=== PATIENT | female | born 1935 | race African-American/Black ===

== ENCOUNTER 2016-06-26 06:32 | Inpatient (IN) | payer OTHER, MEDICARE ==
[~2016-06-26] VITALS: Ht 165.1 cm; Wt 76.9 kg
[2016-06-26] VITALS (17 sets, daily range): BP systolic 116–247; BP diastolic 60–131; PULSE 78–128; RESP 16–26; TEMP 98.4–99.2; O2SAT 81–100
[~2016-06-26 06:32] MED LIST: CARD180C5 PO; DIGO0.12 PO; FURO20TA PO; GLIP10TA6 PO; LISI2.5T3 PO; METO100T PO; POTA-163 PO; PRIM50TA5 PO; ULTR50TA5 PO; WARF-58 PO
[2016-06-26] MEDS ORDERED: DEXTROSE 50% IN WATER 50 ML VIAL(D50) IV PUSH ONE ×2 (07:00→14:45)
[2016-06-26] MEDS ORDERED: SODIUM CHLORID 0.9% 500 ML INJ 500 ML IV ONE ×2 (07:00→10:15)
--- NOTE | 2016-06-26 07:03 | PD ---
HPI Chief Complaint: Diabetic Time Seen by Provider: 06:46 Travel History International Travel<30 days: No Contact w/Intl Traveler<30days: No Traveled to known affect area: No History of Present Illness HPI 80-year-old female was brought to the emergency room by EMS with history of altered mental status and questionable seizure found in the [place] [facility]. Upon EMS arrival blood glucose level was checked and it was 23. They were unable to get a peripheral IV and put an IO in her left leg and started infusing D10 while transporting. Upon arrival in the ER patient's blood glucose was 53. Patient has tremors but she was answering when called her name. As per paramedics patient is probably a full code. The paperwork that came with her from the [place] did not have the "CODE STATUS" checked for anything. PFSH Past Medical History Narrative Medical List of her past medical history as reviewed from the nursing note. Hx Anticoagulant Therapy: Yes (WARFARIN) Anemia: Yes Arthritis: Yes Atrial Fibrillation: Yes Autoimmune Disease: No Blood Disorders: No Anxiety: No Depression: No Heart Rhythm Problems: Yes Cancer: No Cardiovascular Problems: Yes High Cholesterol: Yes Chest Pain: Yes Congestive Heart Failure: Yes Diabetes: Yes Diminished Hearing: No Endocrine: Yes Genitourinary: No Hypertension: Yes Immune Disorder: No Musculoskeletal: Yes Neurologic: No Psychiatric: No Reproductive: No Respiratory: No Immunizations Current: Yes Myocardial Infarction: Yes Thyroid Disease: No PNEUMOCCOCAL Vaccine (Year): 3 Menopausal: Yes : 5 Para: 3 Past Surgical History Abdominal Surgery: Yes ("SOME KIND OF INTENSINTAL REPAIR FOR A TWISTING") AICD: No Cardiac Surgery: No Ear Surgery: No Endocrine Surgery: No Eye Surgery: No Genitourinary Surgery: No Gynecologic Surgery: No Hysterectomy: Yes Pacemaker: No Thoracic Surgery: No Other Surgery: Yes Social History Alcohol Use: No Tobacco Use: No Substance Use: No Allergies-Medications (Allergen,Severity, Reaction): Coded Allergies: No Known Allergies (Verified , 06/26/16) Comments No known drug allergies. Reported Meds & Prescriptions Reported Meds & Active Scripts Active Cardizem CD 24 HR (Diltiazem CD 24 HR) 180 Mg Caper 180 Mg PO DAILY Reported Metoprolol Tartrate 100 Mg Tab 100 Mg PO DAILY Digoxin 0.125 Mg Tab 125 Mcg PO DAILY Warfarin 3 Mg Tab 3 Mg PO DAILY Primidone 50 Mg Tab 50 Mg PO TID Narrative Medication List of her home medications reviewed from the [facility] note. Review of Systems Except as stated in HPI: all other systems reviewed are Neg Physical Exam Narrative GENERAL: Awake but slow in response, elderly, obese, moderate distress SKIN: Warm and dry. HEAD: Atraumatic. Normocephalic. EYES: Pupils equal and round. No scleral icterus. No injection or drainage. ENT: No nasal bleeding or discharge. Dry mouth and mucous membranes NECK: Trachea midline. No JVD. CARDIOVASCULAR: Regular rate and rhythm. No murmur appreciated. RESPIRATORY: No accessory muscle use. Clear to auscultation. Breath sounds equal bilaterally. GASTROINTESTINAL: Abdomen soft, non-tender, nondistended. Hepatic and splenic margins not palpable. MUSCULOSKELETAL: No obvious deformities. No clubbing. No cyanosis. No edema. NEUROLOGICAL: Difficult to assess a full neurologic exam. Patient is slow to respond. Eyes open and answers when her name is called. Fine tremors PSYCHIATRIC: Appropriate mood and affect; insight and judgment normal. Data Data Last Documented VS Vital Signs Date Time Temp Pulse Resp B/P Pulse Ox O2 Delivery O2 Flow Rate FiO2 06/26/16 07:48 113 24 176/110 96 Nasal Cannula 2 06/26/16 06:49 21 06/26/16 06:45 98.4 Orders Complete Blood Count With Diff (06/26/16 06:46) Comprehensive Metabolic Panel (06/26/16 06:46) Prothrombin Time / Inr (Pt) (06/26/16 06:46) Act Partial Throm Time (Ptt) (06/26/16 06:46) Lactic Acid Sepsis Protocol (06/26/16 06:46) Magnesium (Mg) (06/26/16 06:46) Troponin I (06/26/16 06:46) Urinalysis - C+S If Indicated (06/26/16 06:46) Blood Culture (06/26/16 06:46) Chest, Single Ap (06/26/16 06:46) Blood Glucose (06/26/16 06:46) Ecg Monitoring (06/26/16 06:46) Iv Access Insert/Monitor (06/26/16 06:46) Oximetry (06/26/16 06:46) Oxygen Administration (06/26/16 06:46) Ct Brain W/O Iv Contrast(Rout) (06/26/16 06:46) Dextrose 50% In Rosa (Vial) Inj (D50w (Vi (06/26/16 07:00) Sodium Chlorid 0.9% 500 Ml Inj (Ns 500 M (06/26/16 07:00) Urinary Catheter Insert/Apply (06/26/16 06:46) Electrocardiogram (06/26/16 ) Digoxin (06/26/16 06:49) Vascular Poc Ultrasound (06/26/16 ) Sodium Chlorid 0.9% 500 Ml Inj (Ns 500 M (06/26/16 10:15) Piperacil-Tazo 4.5 Gm Premix (Zosyn 4.5 (06/26/16 10:05) Admit Order (Ed Use Only) (06/26/16 10:22) Labs Laboratory Tests Test 06/26/16 06/26/16 09:10 09:41 White Blood Count 10.5 TH/MM3 Red Blood Count 4.49 MIL/MM3 Hemoglobin 13.2 GM/DL Hematocrit 39.5 % Mean Corpuscular Volume 87.8 FL Mean Corpuscular Hemoglobin 29.3 PG Mean Corpuscular Hemoglobin 33.3 % Concent Red Cell Distribution Width 14.8 % Platelet Count 389 TH/MM3 Mean Platelet Volume 7.3 FL Neutrophils (%) (Auto) 90.4 % Lymphocytes (%) (Auto) 2.2 % Monocytes (%) (Auto) 7.0 % Eosinophils (%) (Auto) 0.2 % Basophils (%) (Auto) 0.2 % Neutrophils # (Auto) 9.5 TH/MM3 Lymphocytes # (Auto) 0.2 TH/MM3 Monocytes # (Auto) 0.7 TH/MM3 Eosinophils # (Auto) 0.0 TH/MM3 Basophils # (Auto) 0.0 TH/MM3 CBC Comment AUTO DIFF Differential Total Cells 100 Counted Neutrophils % (Manual) 86 % Band Neutrophils % 2 % Lymphocytes % 2 % Monocytes % 6 % Neutrophils # (Manual) 9.7 TH/MM3 Metamyelocytes 1 % Myelocytes 3 % Differential Comment FINAL DIFF MANUAL Platelet Estimate NORMAL Platelet Morphology Comment NORMAL Red Cell Morphology Comment NORMAL Prothrombin Time 23.1 SEC Prothromb Time International 2.0 RATIO Ratio Activated Partial 32.2 SEC Thromboplast Time Sodium Level 132 MEQ/L Potassium Level 5.9 MEQ/L Chloride Level 97 MEQ/L Carbon Dioxide Level 24.4 MEQ/L Anion Gap 11 MEQ/L Blood Urea Nitrogen 49 MG/DL Creatinine 5.65 MG/DL Estimat Glomerular Filtration 9 ML/MIN Rate Random Glucose 143 MG/DL Lactic Acid Level 2.0 mmol/L Calcium Level 8.4 MG/DL Magnesium Level 1.9 MG/DL Total Bilirubin 0.6 MG/DL Aspartate Amino Transf 28 U/L (AST/SGOT) Alanine Aminotransferase 24 U/L (ALT/SGPT) Alkaline Phosphatase 97 U/L Troponin I LESS THAN 0.02 NG/ML Total Protein 7.3 GM/DL Albumin 2.2 GM/DL Digoxin Level 1.7 NG/ML MDM Medical Decision Making Medical Screen Exam Complete: Yes Emergency Medical Condition: Yes Medical Record Reviewed: Yes Interpretation(s) Twelve-lead EKG was reviewed by me. Atrial fibrillation, RVR, normal axis. Heart rate of 127 bpm. Differential Diagnosis Hypoglycemia secondary to sepsis, hypoglycemia related to medications Narrative Course 6:59 AM blood test results are pending. After up with the left-sided EJ patient was given 1 amp of D50. I've ordered 500 cc of IV fluid bolus. Patient will be signed over to the oncoming ER physician. Procedures EKG Prior to Arrival: Romelia Flaherty MD Jun 26, 2016 07:02
--- NOTE | 2016-06-26 07:12 | RADRPT ---
EXAM DATE/TIME: 06/26/2016 06:59 [facility] COMPARISON: CHEST SINGLE AP, June 11, 2016, 9:51. INDICATIONS : Cough. MEDICAL HISTORY : None. SURGICAL HISTORY : None. ENCOUNTER: Initial ACUITY: 1 day PAIN SCORE: Non-responsive. LOCATION: Bilateral chest FINDINGS: A single view of the chest demonstrates much better aeration of the left lung base. A previously ther e was significant lucency over left hemidiaphragm , Could be a large hiatal hernia. Right lung remain s clear. The heart is slightly widened. Osseous structures are intact. CONCLUSION: Much better aeration left lower lobe today than the previous study. Still some indistinctness of the left hemidiaphragm difficult to rule out a small left lower lobe infiltrate. Jamarcus Kelly MD on June 26, 2016 at 7:09 Board Certified Radiologist. This report was verified electronically.
--- NOTE | 2016-06-26 09:17 | RADRPT ---
EXAM DATE/TIME: 06/26/2016 08:48 [facility] COMPARISON: CT BRAIN W/O CONTRAST, June 11, 2016, 13:53. INDICATIONS : Altered mental status with possible seizure. RADIATION DOSE: 42.94 CTDIvol (mGy) MEDICAL HISTORY : Cardiovascular disease. Hypertension. Diabetes mellitus type 2. SURGICAL HISTORY : None. ENCOUNTER: Initial ACUITY: 1 day PAIN SCALE: 0/10 LOCATION: cranial TECHNIQUE: Multiple contiguous axial images were obtained of the head. Using automated exposure control and adj ustment of the mA and/or kV according to patient size, radiation dose was kept as low as reasonably a chievable to obtain optimal diagnostic quality images. FINDINGS: CEREBRUM: The ventricles are normal for age. No evidence of midline shift, mass lesion, hemorrhage or acute in farction. No extra-axial fluid collections are seen. POSTERIOR FOSSA: The cerebellum and brainstem are intact. The 4th ventricle is midline. The cerebellopontine angle i s unremarkable. EXTRACRANIAL: The visualized portion of the orbits is intact. SKULL: The calvaria is intact. No evidence of skull fracture. CONCLUSION: 1. No acute abnormality identified. Stable compared to prior exam dated 06/11/16. Abram Rivera MD on June 26, 2016 at 9:14 Board Certified Radiologist. This report was verified electronically.
[2016-06-26 09:34] LABS: AUTOMATED NEUTROPHIL # 9.5 TH/MM3 (1.8-7.7); BASOPHIL % 0.2 % (0.0-2.0); EOSINOPHIL % 0.2 % (0.0-4.0); HEMATOCRIT 39.5 % (35.0-46.0); LYMPH % 2.2 % (9.0-44.0); LYMPHOCYTE # 0.2 TH/MM3 (1.0-4.8); MEAN CELL VOLUME 87.8 FL (80.0-100.0); MEAN CORPUSCULAR HEMOGLOBIN 29.3 PG (27.0-34.0); MEAN CORPUSCULAR HGB CONC 33.3 % (32.0-36.0); NEUT % 90.4 % (16.0-70.0); PLATELET COUNT 389 TH/MM3 (150-450); RED BLOOD COUNT 4.49 MIL/MM3 (4.00-5.30); RED CELL DISTRIBUTION WIDTH 14.8 % (11.6-17.2); WHITE BLOOD COUNT 10.5 TH/MM3 (4.0-11.0)
[2016-06-26 09:35] LABS: HEMO FLAGS AUTO DIFF
[2016-06-26 09:41] LABS: APTT (PATIENT) 32.2 SEC (24.3-30.1); PROTHROMBIN TIME - PATIENT 23.1 SEC (9.8-11.6)
--- NOTE | 2016-06-26 09:45 | EKG ---
Date Performed: 06/26/2016 Time Performed: 06:56:19 PTAGE: 80 years EKG: ATRIAL FIBRILLATION WITH RAPID VENTRICULAR RESPONSE LOW QRS VOLTAGE IN EXTREMITY LEADS ABNO RMAL RHYTHM ECG NO SIGNIFICANT CHANGE FROM PRIOR ELECTROCARDIOGRAM. PREVIOUS TRACING : 06/11/2016 09.43 DOCTOR: Jose Manuel Perales Interpretating Date/Time 06/26/2016 09:44:00
[2016-06-26 09:53] LABS: ANION GAP 11 MEQ/L (5-15); AST (GOT) 28 U/L (15-37); BICARBONATE 24.4 MEQ/L (21.0-32.0); BLOOD UREA NITROGEN 49 MG/DL (7-18); CHLORIDE 97 MEQ/L (98-107); GLOMERULAR FILTRATION RATE 9 ML/MIN (>89); MAGNESIUM 1.9 MG/DL (1.5-2.5); POTASSIUM 5.9 MEQ/L (3.5-5.1); SODIUM (NA) 132 MEQ/L (136-145)
[2016-06-26 09:59] LABS: ALKALINE PHOSPHATASE 97 U/L (45-117); ALT (GPT) 24 U/L (10-53); TOTAL BILIRUBIN ADULT 0.6 MG/DL (0.2-1.0)
[2016-06-26] MEDS ORDERED: PIPERACIL-TAZO 4.5 GM PREMIX 100 ML IV STA (10:05)
[2016-06-26 10:33] LABS: BANDS 2 % (0-6); METAMYELOCYTES 1 % (0-1); MYELOCYTES 3 % (0-0); NEUTROPHIL # MANUAL DIFF 9.7 TH/MM3 (1.8-7.7); POLYS (SEG NEUTROPHILS) 86 % (16-70); WBC DIFF SAMPLE 100
[2016-06-26 10:34] LABS: PLATELET ESTIMATE SMEAR NORMAL (NORMAL); PLATELET MORPHOLOGY NORMAL (NORMAL); SCAN/DIFF FINAL DIFF MANUAL
[2016-06-26] MEDS ORDERED: ONDANSETRON HCL 4 MG/2 ML VIAL IV PRN (11:15)
[2016-06-26] MEDS ORDERED: CHLORHEXIDINE GLUCONATE 2 % 1 PACK (2 CLOTHS) TOP PRN (11:15)
[2016-06-26] MEDS ORDERED: MISCELLANEOUS NURSING INFORMATION XX SCH (11:15)
[2016-06-26] MEDS: DEXT 5%-NACL 0.9% 1000 ML INJ 1,000 ML IV SCH ×3 (11:57→19:13)
--- NOTE | 2016-06-26 12:03 | RADRPT ---
EXAM DATE/TIME: 06/26/2016 10:59 [facility] COMPARISON: No previous studies available for comparison. INDICATIONS : Increased BUN/Creatinine. MEDICAL HISTORY : Myocardial infarction. Congestive heart failure. Atrial fibrillation. Anticoagulant therapy. Arth ritis. Diabetes. Anemia. SURGICAL HISTORY : Hysterectomy. Abdominal surgery, intestinal repair. ENCOUNTER: Initial ACUITY: 1 day PAIN SCORE: 0/10 LOCATION: Bilateral flank MEASUREMENTS: RIGHT KIDNEY: 12.4 x 5.2 x 4.2 cm LEFT KIDNEY: 9.8 x 5.0 x 6.0 cm FINDINGS: RIGHT KIDNEY: Renal cortex is normal in thickness and increased echotexture. No hydronephrosis, stone, or mass. LEFT KIDNEY: Renal cortex is normal in thickness and increased echotexture. No hydronephrosis, stone, or mass. BLADDER: Decompressed by Scanlon catheter. CONCLUSION: Kidneys are slightly echogenic which can be seen with medical renal disease. Yfn Santillan MD on June 26, 2016 at 11:59 Board Certified Radiologist. This report was verified electronically.
--- NOTE | 2016-06-26 12:07 | PD ---
Physical Exam Date Seen by Provider: Jun 26, 2016 Time Seen by Provider: 07:00 Narrative Patient signed out to me by Dr. Huynh at 7 AM, please see previous notes for further information. Apparently arrives from shelter, altered mental status, hypoglycemic, hypertensive, tachycardic. She was given D50 in the ER and IV fluids. Laboratory Tests Test 06/26/16 09:10 Neutrophils (%) (Auto) 90.4 % (16.0-70.0) Lymphocytes (%) (Auto) 2.2 % (9.0-44.0) Neutrophils # (Auto) 9.5 TH/MM3 (1.8-7.7) Lymphocytes # (Auto) 0.2 TH/MM3 (1.0-4.8) Neutrophils % (Manual) 86 % (16-70) Lymphocytes % 2 % (9-44) Neutrophils # (Manual) 9.7 TH/MM3 (1.8-7.7) Myelocytes 3 % (0-0) Prothrombin Time 23.1 SEC (9.8-11.6) Activated Partial 32.2 SEC Thromboplast Time (24.3-30.1) Sodium Level 132 MEQ/L (136-145) Potassium Level 5.9 MEQ/L (3.5-5.1) Chloride Level 97 MEQ/L (98-107) Blood Urea Nitrogen 49 MG/DL (7-18) Creatinine 5.65 MG/DL (0.50-1.00) Estimat Glomerular Filtration 9 ML/MIN (>89) Rate Random Glucose 143 MG/DL (74-106) Calcium Level 8.4 MG/DL (8.5-10.1) Troponin I LESS THAN 0.02 NG/ML (0.02-0.05) Albumin 2.2 GM/DL (3.4-5.0) Last [address] 06/26/1646 Signed Impressions: Service Date/Time: June 08:48 - CONCLUSION: 1. No acute abnormality identified. Stable compared to prior exam dated 06/11/16. Abram Rivera MD Chest X-Ray 06/26/1646 Signed Impressions: Service Date/Time: June 06:59 - CONCLUSION: Much better aeration left lower lobe today than the previous study. Still some indistinctness of the left hemidiaphragm difficult to rule out a small left lower lobe infiltrate. Jamarcus Kelly MD Lab work indicates significant acute renal failure, IV fluids was given in the ER for possible underlying dehydration. She had a fairly elevated lactate level although she had a normal white blood cell count at this point, sepsis antibiotics were also initiated as precaution. CT of the brain did not reveal any signs of acute intracranial processes. Case was discussed extensively with Dr. Schneider for admission and it is agreed that the patient should go to ICU secondary to the elevated blood pressures and heart rate. Aggregate critical care time was 30 minutes. Time to perform other separately billable procedures was not included in the critical care time. My time did not include minutes spent treating any other patients simultaneously or on activities that did not directly contribute to the patient's treatment. The services I provided to this patient were to treat and/or prevent clinically significant deterioration that could result in: Worsening renal function, sepsis , cardiopulmonary compromise, I provided critical care services requiring my management, as noted below: Chart data review, documentation time, medication orders and management, vital sign assessments/reviewing monitor data, ordering and reviewing lab tests, ordering and interpreting/reviewing x-rays and diagnostic studies, care of the patient and discussion of the patient with the admitting physicians. Data Data Last Documented VS Vital Signs Date Time Temp Pulse Resp B/P Pulse Ox O2 Delivery O2 Flow Rate FiO2 06/26/16 07:48 113 24 176/110 96 Nasal Cannula 2 06/26/16 06:45 98.4 Orders Complete Blood Count With Diff (06/26/16 06:46) Comprehensive Metabolic Panel (06/26/16 06:46) Prothrombin Time / Inr (Pt) (06/26/16 06:46) Act Partial Throm Time (Ptt) (06/26/16 06:46) Lactic Acid Sepsis Protocol (06/26/16 06:46) Magnesium (Mg) (06/26/16 06:46) Troponin I (06/26/16 06:46) Urinalysis - C+S If Indicated (06/26/16 06:46) Blood Culture (06/26/16 06:46) Chest, Single Ap (06/26/16 06:46) Blood Glucose (06/26/16 06:46) Ecg Monitoring (06/26/16 06:46) Iv Access Insert/Monitor (06/26/16 06:46) Oximetry (06/26/16 06:46) Oxygen Administration (06/26/16 06:46) Ct Brain W/O Iv Contrast(Rout) (06/26/16 06:46) Dextrose 50% In Rosa (Vial) Inj (D50w (Vi (06/26/16 07:00) Sodium Chlorid 0.9% 500 Ml Inj (Ns 500 M (06/26/16 07:00) Urinary Catheter Insert/Apply (06/26/16 06:46) Electrocardiogram (06/26/16 ) Digoxin (06/26/16 06:49) Consult Vascular Access Team (06/26/16 ) Vascular Poc Ultrasound (06/26/16 ) Sodium Chlorid 0.9% 500 Ml Inj (Ns 500 M (06/26/16 10:15) Lactic Acid Sepsis Protocol (06/26/16 10:05) Blood Culture (06/26/16 10:05) Piperacil-Tazo 4.5 Gm Premix (Zosyn 4.5 (06/26/16 10:05) Admit Order (Ed Use Only) (06/26/16 10:22) Labs Laboratory Tests Test 06/26/16 06/26/16 09:10 09:41 White Blood Count 10.5 TH/MM3 Red Blood Count 4.49 MIL/MM3 Hemoglobin 13.2 GM/DL Hematocrit 39.5 % Mean Corpuscular Volume 87.8 FL Mean Corpuscular Hemoglobin 29.3 PG Mean Corpuscular Hemoglobin 33.3 % Concent Red Cell Distribution Width 14.8 % Platelet Count 389 TH/MM3 Mean Platelet Volume 7.3 FL Neutrophils (%) (Auto) 90.4 % Lymphocytes (%) (Auto) 2.2 % Monocytes (%) (Auto) 7.0 % Eosinophils (%) (Auto) 0.2 % Basophils (%) (Auto) 0.2 % Neutrophils # (Auto) 9.5 TH/MM3 Lymphocytes # (Auto) 0.2 TH/MM3 Monocytes # (Auto) 0.7 TH/MM3 Eosinophils # (Auto) 0.0 TH/MM3 Basophils # (Auto) 0.0 TH/MM3 CBC Comment AUTO DIFF Differential Total Cells 100 Counted Neutrophils % (Manual) 86 % Band Neutrophils % 2 % Lymphocytes % 2 % Monocytes % 6 % Neutrophils # (Manual) 9.7 TH/MM3 Metamyelocytes 1 % Myelocytes 3 % Differential Comment FINAL DIFF MANUAL Platelet Estimate NORMAL Platelet Morphology Comment NORMAL Red Cell Morphology Comment NORMAL Prothrombin Time 23.1 SEC Prothromb Time International 2.0 RATIO Ratio Activated Partial 32.2 SEC Thromboplast Time Sodium Level 132 MEQ/L Potassium Level 5.9 MEQ/L Chloride Level 97 MEQ/L Carbon Dioxide Level 24.4 MEQ/L Anion Gap 11 MEQ/L Blood Urea Nitrogen 49 MG/DL Creatinine 5.65 MG/DL Estimat Glomerular Filtration 9 ML/MIN Rate Random Glucose 143 MG/DL Lactic Acid Level 2.0 mmol/L Calcium Level 8.4 MG/DL Magnesium Level 1.9 MG/DL Total Bilirubin 0.6 MG/DL Aspartate Amino Transf 28 U/L (AST/SGOT) Alanine Aminotransferase 24 U/L (ALT/SGPT) Alkaline Phosphatase 97 U/L Troponin I LESS THAN 0.02 NG/ML Total Protein 7.3 GM/DL Albumin 2.2 GM/DL Digoxin Level 1.7 NG/ML [facility] Medical Record Reviewed: Yes Supervised Visit with SUSHIL: Yes Sepsis Criteria SIRS Criteria (2 or more): Heart rate over 90, RR > 20 or PaCO2 < 32 Severe Sepsis (+one): Lactate >2, Acute Oliguria/Renal Failure Criteria Outcome: Meets severe sepsis criteria Diagnosis Primary Impression: Severe sepsis Admitting Information Admitting Physician Requests: it Roslyn Luna MD Jun 26, 2016 12:07
[2016-06-26] MEDS: DILTIAZEM-CD 180 MG CAP ER PO SCH (12:32)
[2016-06-26] MEDS: METOPROLOL TARTRATE 100 MG TAB PO SCH (12:33)
[2016-06-26 12:46] LABS: BICARBONATE 27.2 MEQ/L (21.0-32.0); POTASSIUM 6.2 MEQ/L (3.5-5.1)
[2016-06-26] MEDS ORDERED: VANCOMYCIN INJ 1,250 MG in SODIUM CHLOR 0.9% 250 ML INJ 250 ML IV ONE (14:45)
[2016-06-26] MEDS ORDERED: GLUCAGON 1 MG/ML VIAL IM ONE (14:45)
[2016-06-26] MEDS ORDERED: Vancomycin Consult Pharmacy 1 EA OTHER SCH (14:45)
[2016-06-26] MEDS ORDERED: INSULIN HUMAN REGULAR 1,000 UNITS/10 ML VIAL IVP ONE (15:00)
[2016-06-26] MEDS ORDERED: DEXTROSE 50% IN WATER 50 ML SYRINGE IV ONE (15:00)
[2016-06-26] MEDS ORDERED: SODIUM CHLOR 0.9% 1000 ML INJ 1,000 ML IV ONE (15:00)
--- NOTE | 2016-06-26 15:13 | HHI.HP ---
[facility] Service Critical Care Medicine Primary Care Physician June Sahu MD Admission Diagnosis ARF/sepsis/altered mental status Diagnosis: Chief Complaint: hypoglycemia Travel History International Travel<30 Days: No Contact w/Intl Traveler <30 Da: No Traveled to Known Affected Are: No History of Present Illness This is an 80-year-old female who was recently admitted to [facility] with new onset atrial fibrillation with rapid ventricular response. She reports sensitivity emergency department with altered mental status and severe life-threatening hypoglycemia with a serum glucose of 23. An I/O needle was placed and the patient was given D50. Her glucose slowly improved and she began to have improved mental status. When I evaluated the patient, she was somnolent but arousable. she denies chest pain, shortness of breath, nausea, vomiting, diarrhea. She states he hadn't urinated today, so she is unsure if she has dysuria. critical care medicine has been consulted to evaluate and manage her acute kidney injury and severe hypoglycemia. Review of Systems ROS Limitations: Clinical Condition, Altered Mental Status Past Family Social History Allergies: Coded Allergies: No Known Allergies (Verified , 06/26/16) Past Medical History The patient cannot provide information. Per chart review: Anemia Arthritis Atrial fibrillation Congestive heart failure Hyperlipidemia Diabetes Hypertension [place] Past Surgical History Patient cannot provide information. Per chart review: Hysterectomy Prior intra-abdominal surgery, possible intestinal repair Reported Medications Lisinopril 2.5 Mg Tab 2.5 Mg PO DAILY Potassium Chloride ER (Potassium Chloride) 20 Meq Tab 20 Meq PO DAILY Glipizide 10 Mg Tab 10 Mg PO DAILY Take 30 minutes before a meal Furosemide 20 Mg Tab 20 Mg PO DAILY Metoprolol Tartrate 100 Mg Tab 100 Mg PO DAILY Digoxin 0.125 Mg Tab 125 Mcg PO DAILY Warfarin 3 Mg Tab 3 Mg PO DAILY Primidone 50 Mg Tab 50 Mg PO TID Active Ordered Medications See MAR Family History Reviewed in the chart and found to be noncontributory to her acute illness. Social History Alcohol Use: No Tobacco Use: No Substance Use: No Physical Exam Vital Signs Vital Signs Date Time Temp Pulse Resp B/P Pulse Ox O2 Delivery O2 Flow Rate FiO2 06/26/16 13:58 119 19 201/94 100 Nasal Cannula 2 06/26/16 13:02 128 19 164/131 98 Nasal Cannula 2 06/26/16 11:57 128 16 178/84 99 Nasal Cannula 2 06/26/16 10:32 106 16 187/109 97 Room Air 06/26/16 07:48 113 24 176/110 96 Nasal Cannula 2 06/26/16 06:57 121 16 91 Nasal Cannula 2 06/26/16 06:49 81 Room Air 06/26/16 06:49 16 81 Room Air 06/26/16 06:45 98.4 114 16 247/128 Physical Exam GENERAL: Elderly female, lying in bed, somnolent but arousable. HEENT: Normocephalic. Atraumatic. Mucous membranes are dry NECK: Trachea is midline. JVD unable to assess secondary to body habitus and an external jugular catheter. CHEST: Equal chest rise. Clear to auscultation. CARDIOVASCULAR: Normal rate, irregularly irregular rhythm. No appreciable murmurs. ABDOMEN: Soft, nontender, nondistended. No guarding. MUSCULOSKELETAL: 2+ peripheral edema. Distal pulses 2+. NEUROLOGICAL: RASS -2. FOLLOWS commands all 4 extremities. No focal motor sensory deficits. Laboratory Laboratory Tests Test 06/26/16 06/26/16 06/26/16 09:10 09:41 12:02 White Blood Count 10.5 Red Blood Count 4.49 Hemoglobin 13.2 Hematocrit 39.5 Mean Corpuscular Volume 87.8 Mean Corpuscular Hemoglobin 29.3 Mean Corpuscular Hemoglobin 33.3 Concent Red Cell Distribution Width 14.8 Platelet Count 389 Mean Platelet Volume 7.3 Neutrophils (%) (Auto) 90.4 Lymphocytes (%) (Auto) 2.2 Monocytes (%) (Auto) 7.0 Eosinophils (%) (Auto) 0.2 Basophils (%) (Auto) 0.2 Neutrophils # (Auto) 9.5 Lymphocytes # (Auto) 0.2 Monocytes # (Auto) 0.7 Eosinophils # (Auto) 0.0 Basophils # (Auto) 0.0 CBC Comment AUTO DIFF Differential Total Cells 100 Counted Neutrophils % (Manual) 86 Band Neutrophils % 2 Lymphocytes % 2 Monocytes % 6 Neutrophils # (Manual) 9.7 Metamyelocytes 1 Myelocytes 3 Differential Comment FINAL DIFF MANUAL Platelet Estimate NORMAL Platelet Morphology Comment NORMAL Red Cell Morphology Comment NORMAL Prothrombin Time 23.1 Prothromb Time International 2.0 Ratio Activated Partial 32.2 Thromboplast Time Sodium Level 132 133 Potassium Level 5.9 6.2 Chloride Level 97 99 Carbon Dioxide Level 24.4 27.2 Anion Gap 11 7 Blood Urea Nitrogen 49 48 Creatinine 5.65 5.84 Estimat Glomerular Filtration 9 8 Rate Random Glucose 143 80 Lactic Acid Level 2.0 Calcium Level 8.4 8.7 Magnesium Level 1.9 Total Bilirubin 0.6 Aspartate Amino Transf 28 (AST/SGOT) Alanine Aminotransferase 24 (ALT/SGPT) Alkaline Phosphatase 97 Troponin I LESS THAN 0.02 Total Protein 7.3 Albumin 2.2 Digoxin Level 1.7 Date/Time Procedure Status Source Growth 06/26/16 09:41 Aerobic Blood Culture Received Blood Peripheral Pending 06/26/16 09:41 Anaerobic Blood Culture Received Blood Peripheral Pending Result Diagram: 06/26/16 0910 06/26/16 1202 Assessment and Plan Assessment and Plan Assessment: This is an 80-year-old female with recent diagnosis of atrial fibrillation with rapid ventricular response and diabetes who was recently admitted for A. fib RVR, discharged home with lisinopril and warfarin, now presents with severe acute kidney injury, altered mental status, severe hypoglycemia. She was given a number of D50 boluses. She was started on D5NS at 150 cc an hour. Her potassium is 6.1 on recheck. She was given an amp of D50, 10 units of regular insulin. Certainly her renal failure in the setting of a cardiomyopathy, as well as her life-threatening hypoglycemia maker critically ill this time. We will admit her to the ICU. Plan by systems: Neurologic: Toxic/metabolic encephalopathy Every hour neuro checks Hold long-acting sedating meds Respiratory: atelectasis Possible healthcare associated pneumonia Incentive spirometer to bedside Patient does not have cough or increased oxygen requirement. Is unlikely the patient has healthcare ASSOCIATED pneumonia. We will cover with empiric antibiotics and await culture data Wean oxygen for goal SPO2 greater than 92% Cardiovascular: Atrial fibrillation Systolic congestive heart failure, EF 30-35% Continue home diltiazem and metoprolol We'll hold on digoxin. Her systemic level was nontoxic, but significantly increased from last check Repeat echo today since we do not have one documented since 2013 holding Coumadin given renal failure. She is still therapeutic. Renal: Severe acute kidney injury Place Scanlon with urometer. Send urine electrolytes. calculate FENa. Send urine eosinophils. -- Strict I/Os Renal ultrasound 06/26: Negative for acute hydronephrosis Gentle hydration with D5NS @ 150cc/hr. FEN/GI: Acute intravascular hypovolemia Acute protein calorie malnutritionmoderate Life-threatening hyperkalemia Insulin and D50, Kayexalate as described above Recheck potassium If it does not come down, may need nephrology consult. --Nursing bedside swallow evaluation. If she passes we'll place patient on clear liquid diet. If she fails we will order a formal speech and swallow evaluation. Maintenance fluids as above Daily BMP Heme/ID: Possible sepsis Therapeutic anticoagulation We'll order vancomycin with pharmacy dosing Continue Zosyn, we will adjust renal dose to 2.25 g IV every 8 hours. I spoke with the pharmacist and we have decided to schedule her second dose at 10 PM tonight. Daily CBC Daily coags We'll continue to hold warfarin in the setting of renal dysfunction. Endocrine: Severe life-threatening hypoglycemia --q1h glucose checks. --D5NS @ 150cc/hr --D50 as needed --may need to increase to D10W. --check LFTs to r/o hepatic dysfunction Prophylaxis: GI Prophylaxis Does not meet evidence-based indication for GI prophylaxis at this time DVT Prophylaxis -- SCDs She is still therapeutic anticoagulation at this time. We will check serial coags, and if her INR falls below 1.7, we will institute anticoagulation Lines: Peripheral IVs. Left tibial I/O needle. This can be removed She may require central access. Dispo: Admit to the ICU. She remains critically ill This patient remains critically ill with one or more organ systems which are or may become a threat to life. I have spent in excess of 62 minutes discontinuously in the care and management of this patient. This time is exclusive of procedures, and includes, but is not limited to, evaluation of the patient, review of the medical record, discussions with family, consultants, nursing staff, or respiratory therapy, and documentation in the medical record. Code Status Full Code Anthony Torres MD Jun 26, 2016 15:13
[2016-06-26] MEDS: LABETALOL HCL 100 MG/20 ML VIAL IV PUSH PRN ×3 (15:30→19:31)
[2016-06-26] MEDS ORDERED: SODIUM POLYSTYRENE SULFONATE SUSP 15 GM/60 ML CUP PO ONE (16:00)
[2016-06-26] MEDS ORDERED: VANCOMYCIN INJ 1,500 MG in SODIUM CHLORID 0.9% 500 ML INJ 500 ML IV ONE (16:00)
[2016-06-26 17:01] LABS: BLOOD, URINE SMALL (NEG); GLUCOSE,URINE NEG (NEG); KETONE, URINE NEG (NEG); MUCUS URINE FEW /lpf (OCC); NITRITE,URINE NEG (NEG); PH, URINE 7.5 (5.0-8.5); SQUAMOUS EPITHELIAL CELL URINE 1 /hpf (0-5); URINE COLOR LIGHT-YELLOW (YELLW/STRAW)
[2016-06-26 17:02] LABS: COMMENT (UR) CATH-CULT NOT IND; CULTURE IF INDICATED CATH CULTURE NOT IND
--- NOTE | 2016-06-26 18:13 | PD.CONS ---
HPI Service Nephrology Consult Requested By Melissa Reason for Consult MARTHA Primary Care Physician June Sahu MD History of Present Illness The patient is an 80 yo AA female who was brought in today for AMS from her nursing facility, [facility]. It was found that she was profoundly hypoglycemia and was given D50 thru her I/O access. She was recently admitted here at the end of May with A fib and was started on Coumadin and low dose Lisinopril 2.5mg QD at that time. Home medication list was reviewed that showed no NSAIDs or outwardly nephrotoxic medications. She has been on Cipro for what is assumed to be a urinary tract infection. The patient herself is very lethargic and no meaningful information can be obtained from her. Admitting SCr at 5.65 that worsened to 5.84 Admitting K+ was 5.9 that worsened to 6.2---this was treated with dextrose, insulin, and Kayexalate. Repeat level pending. (Lucy Dickerson) Review of Systems ROS Limitations: Altered Mental Status (Lucy Dickerson) Past Family Social History Allergies: Coded Allergies: No Known Allergies (Verified , 06/26/16) Past Medical History Obtained thru previous records: A fib CHF with EF of 30-35% DM HTN Anemia Past Surgical History Hysterectomy ?intestinal surgery Reported Medications Reported Meds & Active Scripts Active Cardizem CD 24 HR (Diltiazem CD 24 HR) 180 Mg Caper 180 Mg PO DAILY Reported Metoprolol Tartrate 100 Mg Tab 100 Mg PO DAILY Digoxin 0.125 Mg Tab 125 Mcg PO DAILY Warfarin 3 Mg Tab 3 Mg PO DAILY Primidone 50 Mg Tab 50 Mg PO TID Lasix 20mg QD KCl 20 meq QD Cipro 500mg BID Lisinopril 2.5mg QD Active Ordered Medications Current Medications Medications (Trade) Dose Ordered Sig/Abigail Route Start Time Stop Time Status Last Admin (D5W-NS 1000 ml Inj) 1,000 ml @ 150 mls/hr Q6H40M IV 06/26/16 11:00 06/26/16 11:57 (Cardizem Cd) 180 mg DAILY PO 06/26/16 11:00 06/26/16 12:32 (Lopressor) 100 mg DAILY PO 06/26/16 11:00 06/26/16 12:33 (NS Flush) 2 ml UNSCH PRN IV FLUSH 06/26/16 11:15 (NS Flush) 2 ml BID IV FLUSH 06/26/16 21:00 (Zofran Inj) 4 mg Q6H PRN IV 06/26/16 11:15 Miscellaneous Information 1 Q361D XX 06/26/16 11:15 (Chlorhexidine 2% Cloth) 3 pack Taper DAILY@04 TOP 06/27/16 04:00 06/23/17 03:59 (Chlorhexidine 2% Cloth) 3 pack UNSCH PRN TOP 06/26/16 11:15 (Peridex 0.12% Liq) 15 ml BID@08,20 MT 06/26/16 20:00 Polyethylene Glycol 17 gm 17 gm BID PO 06/26/16 21:00 Pharmacy Profile Note 0 ml @ 0 mls/hr UNSCH OTHER 06/26/16 14:45 (Zosyn 2.25 Gm Premix) 50 ml @ 100 mls/hr Q8H IV 06/26/16 22:00 Labetalol HCl 10 mg 10 mg Q1H PRN IV PUSH 06/26/16 14:45 06/26/16 17:15 (Vancomycin Inj/ NS 500 ml Inj) 515 ml @ 250 mls/hr ONCE ONCE IV 06/26/16 16:00 06/26/16 18:03 Family History Noncontributory Social History As per chart: non-smoker, no EtOH Currently residing at [facility] ([place]cy [place]) Physical Exam Vital Signs Vital Signs Date Time Temp Pulse Resp B/P Pulse Ox O2 Delivery O2 Flow Rate FiO2 06/26/16 17:13 91 17 201/103 90 Room Air 06/26/16 16:32 78 16 176/71 96 Room Air 06/26/16 16:03 93 17 181/100 100 Nasal Cannula 2 06/26/16 15:02 93 17 172/89 100 Nasal Cannula 2 06/26/16 13:58 119 19 201/94 100 Nasal Cannula 2 06/26/16 13:02 128 19 164/131 98 Nasal Cannula 2 06/26/16 11:57 128 16 178/84 99 Nasal Cannula 2 06/26/16 10:32 106 16 187/109 97 Room Air 06/26/16 07:48 113 24 176/110 96 Nasal Cannula 2 06/26/16 06:57 121 16 91 Nasal Cannula 2 06/26/16 06:49 81 Room Air 06/26/16 06:49 16 81 Room Air 06/26/16 06:45 98.4 114 16 247/128 Physical Exam GENERAL: Obtunded. Appears to be in distress. SKIN: Warm and dry. HEAD: Atraumatic. Normocephalic. EYES: Pupils equal and round. No scleral icterus. No injection or drainage. ENT: No nasal bleeding or discharge. Mucous membranes pink and moist. NECK: Trachea midline. No JVD. CARDIOVASCULAR: Irregularly irregular rhythm RESPIRATORY: No accessory muscle use. Rhonchi present bilat lung bases GASTROINTESTINAL: Abdomen soft, non-tender, nondistended. Hepatic and splenic margins not palpable. MUSCULOSKELETAL: Extremities without clubbing, cyanosis, or edema. No obvious deformities. NEUROLOGICAL: Lethargic. PSYCHIATRIC: Lethargic. Laboratory Laboratory Tests Test 06/26/16 06/26/16 06/26/16 06/26/16 09:10 09:41 12:02 15:20 White Blood Count 10.5 Red Blood Count 4.49 Hemoglobin 13.2 Hematocrit 39.5 Mean Corpuscular Volume 87.8 Mean Corpuscular Hemoglobin 29.3 Mean Corpuscular Hemoglobin 33.3 Concent Red Cell Distribution Width 14.8 Platelet Count 389 Mean Platelet Volume 7.3 Neutrophils (%) (Auto) 90.4 Lymphocytes (%) (Auto) 2.2 Monocytes (%) (Auto) 7.0 Eosinophils (%) (Auto) 0.2 Basophils (%) (Auto) 0.2 Neutrophils # (Auto) 9.5 Lymphocytes # (Auto) 0.2 Monocytes # (Auto) 0.7 Eosinophils # (Auto) 0.0 Basophils # (Auto) 0.0 CBC Comment AUTO DIFF Differential Total Cells 100 Counted Neutrophils % (Manual) 86 Band Neutrophils % 2 Lymphocytes % 2 Monocytes % 6 Neutrophils # (Manual) 9.7 Metamyelocytes 1 Myelocytes 3 Differential Comment FINAL DIFF MANUAL Platelet Estimate NORMAL Platelet Morphology Comment NORMAL Red Cell Morphology Comment NORMAL Prothrombin Time 23.1 Prothromb Time International 2.0 Ratio Activated Partial 32.2 Thromboplast Time Sodium Level 132 133 Potassium Level 5.9 6.2 Chloride Level 97 99 Carbon Dioxide Level 24.4 27.2 Anion Gap 11 7 Blood Urea Nitrogen 49 48 Creatinine 5.65 5.84 Estimat Glomerular Filtration 9 8 Rate Random Glucose 143 80 Lactic Acid Level 2.0 Calcium Level 8.4 8.7 Magnesium Level 1.9 Total Bilirubin 0.6 Aspartate Amino Transf 28 (AST/SGOT) Alanine Aminotransferase 24 (ALT/SGPT) Alkaline Phosphatase 97 Troponin I LESS THAN 0.02 Total Protein 7.3 Albumin 2.2 Digoxin Level 1.7 Urine Color LIGHT-YELLOW Urine Turbidity CLEAR Urine pH 7.5 Urine Specific [place] 1.007 Urine Protein 100 Urine Glucose (UA) NEG Urine Ketones NEG Urine Occult Blood SMALL Urine Nitrite NEG Urine Bilirubin NEG Urine Urobilinogen LESS THAN 2.0 Urine Leukocyte Esterase NEG Urine RBC 71 Urine WBC 3 Urine Squamous Epithelial 1 Cells Urine Mucus FEW Microscopic Urinalysis Comment CATH-CULT NOT IND Date/Time Procedure Status Source Growth 06/26/16 09:41 Aerobic Blood Culture Received Blood Peripheral Pending 06/26/16 09:41 Anaerobic Blood Culture Received Blood Peripheral Pending (Lucy Dickerson) Result Diagram: 06/26/16 0910 06/26/16 1202 Imaging Last Impressions Head CT 06/26/16 0646 Signed Impressions: Service Date/Time: June 08:48 - CONCLUSION: 1. No acute abnormality identified. Stable compared to prior exam dated 06/11/16. Abram Rivera MD Chest X-Ray 06/26/16 0646 Signed Impressions: Service Date/Time: June 06:59 - CONCLUSION: Much better aeration left lower lobe today than the previous study. Still some indistinctness of the left hemidiaphragm difficult to rule out a small left lower lobe infiltrate. Jamarcus Kelly MD Renal Ultrasound 06/26/16 0000 Signed Impressions: Service Date/Time: June 10:59 - CONCLUSION: Kidneys are slightly echogenic which can be seen with medical renal disease. Yfn Santillan MD (Lucy Dickerson) Assessment and Plan Problem List: (1) Acute renal failure Plan: Patient has had a profound deterioration in her renal function after her recent admission. Etiology of the acute renal failure uncertain at the present time. Differential diagnosis presently would include a possible development of acute kidney injury secondary to sepsis. Patient apparently was on Cipro as an outpatient to interstitial nephritis is also a consideration. Would also screen the patient for possible rhabdomyolysis. Patient does not appear to be profoundly dehydrated presently but it may be a component of intravascular volume depletion also. Laboratory studies as ordered. Patient's condition discussed with critical care. 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 Medications should be adjusted for the patient's estimated GFR if clinically indicated. Avoid agents with significant potential for nephrotoxicity possible including NSAIDs for analgesia, iodine contrast agents. Gadolinium is contraindicated if the GFR is below 30. (2) Hyperkalemia Plan: Secondary to acute renal insufficiency coupled with patient receiving potassium chloride as an outpatient. Treatment has been initiated by critical care. Repeat potassium level pending. We may have to consider initiation of dialysis if no improvement occurs. (3) Hypertension Plan: Defer management to critical care presently. (4) Diabetes mellitus Plan: Defer management to critical care. (Mary Garrison MD) Lucy Dickerson Jun 26, 2016 18:13 Mary Garrison MD Jun 26, 2016 18:32
[2016-06-26 19:13] LABS: BICARBONATE 23.3 MEQ/L (21.0-32.0); POTASSIUM 6.2 MEQ/L (3.5-5.1)
[2016-06-26] MEDS: CHLORHEXIDINE 0.12% (ORAL KIT) 15 ML CUP MT SCH (19:32)
[2016-06-26] MEDS ORDERED: RESP: ALBUTEROL 1.25 MG/3 ML NEB (SCH) NEB STA (19:57)
[2016-06-26] MEDS: POLYETHYLENE GLYCOL 17 GM PKG PO SCH (21:00)
[2016-06-26] MEDS: SODIUM POLYSTYRENE SULFONATE SUSP 15 GM/60 ML CUP PO SCH (21:00)
[2016-06-26] MEDS: PIPERACIL-TAZO 2.25 GM PREMIX 50 ML IV SCH (23:32)
[2016-06-26] MEDS: SODIUM CHLORIDE 0.9% FLUSH 5 ML FLUSH IV FLUSH SCH (23:32)
[2016-06-27] VITALS (14 sets, daily range): BP systolic 113–152; BP diastolic 60–90; PULSE 91–135; RESP 18–30; TEMP 97.2–99; O2SAT 90–100
[2016-06-27] MEDS: SODIUM POLYSTYRENE SULFONATE SUSP 15 GM/60 ML CUP PO SCH ×6 (00:21→15:09)
[2016-06-27] MEDS ORDERED: CHLORHEXIDINE GLUCONATE 2 % 1 PACK (2 CLOTHS)(extra cloths) TOP PRN (01:45)
[2016-06-27 01:46] LABS: BICARBONATE 21.9 MEQ/L (21.0-32.0); POTASSIUM 5.9 MEQ/L (3.5-5.1)
[2016-06-27] MEDS: CHLORHEXIDINE GLUCONATE 2 % 1 PACK (2 CLOTHS)(taper/protocol) TOP SCH (02:50)
[2016-06-27] MEDS ORDERED: CHLORHEXIDINE GLUCONATE 2 % 1 PACK (2 CLOTHS) TOP SCH (04:00)
[2016-06-27] MEDS: PIPERACIL-TAZO 2.25 GM PREMIX 50 ML IV SCH ×3 (05:33→21:09)
[2016-06-27] MEDS: DEXT 5%-NACL 0.9% 1000 ML INJ 1,000 ML IV SCH ×2 (05:35→09:31)
[2016-06-27] MEDS: POLYETHYLENE GLYCOL 17 GM PKG PO SCH ×2 (07:45→20:10)
[2016-06-27] MEDS: METOPROLOL TARTRATE 100 MG TAB PO SCH (09:30)
[2016-06-27] MEDS: SODIUM CHLORIDE 0.9% FLUSH 5 ML FLUSH IV FLUSH SCH ×2 (09:31→21:07)
[2016-06-27] MEDS: DILTIAZEM-CD 180 MG CAP ER PO SCH (09:31)
[2016-06-27] MEDS: CHLORHEXIDINE 0.12% (ORAL KIT) 15 ML CUP MT SCH ×2 (09:31→20:00)
[2016-06-27 09:48] LABS: HEMATOCRIT 33.8 % (35.0-46.0); MEAN CELL VOLUME 87.2 FL (80.0-100.0); MEAN CORPUSCULAR HEMOGLOBIN 27.9 PG (27.0-34.0); MEAN CORPUSCULAR HGB CONC 31.9 % (32.0-36.0); PLATELET COUNT 299 TH/MM3 (150-450); RED BLOOD COUNT 3.88 MIL/MM3 (4.00-5.30); RED CELL DISTRIBUTION WIDTH 14.6 % (11.6-17.2); REVIEW FLAG FINAL; WHITE BLOOD COUNT 11.7 TH/MM3 (4.0-11.0)
[2016-06-27 10:17] LABS: BICARBONATE 21.3 MEQ/L (21.0-32.0)
[2016-06-27 10:32] LABS: CALCIUM-PROTEIN CORRECTED 7.7 MG/DL (8.5-10.1)
--- NOTE | 2016-06-27 15:15 | PD.CONS ---
Consult Service Palliative Care Consult Requested By Dr. Torres. . Primary Care Physician June Sahu MD. . Reason for Consultation a. To assist with evaluation and management of symptoms including: Debility. b. To assist medical decision maker(s) with: better understanding of current medical conditions; weighing benefits/burdens of medical treatment options; making medical treatment decisions. . (Chioma Herrera) HPI History of Present Illness Mrs. Gabriel is an 80 y/o female with a medical history significant of a. fib, CHF , Diabetes type 2, HTN, CA and anemia who presented to the ED via EMS on with history of AMS and questionable seizure. Patient Has been recently hospitalized on 06/11/16 secondary to a. fib with RVR and subsequently discharge to [facility] for strengthening. As per ED records, patient's blood glucose upon EMS arrival was 23, she was given D10 while en route and upon ED arrival, blood glucose was 53. Patient remained hypertensive and tachycardic. ED lab work significant for acute renal failure. She was given IV fluids for possible underlying dehydration and was admitted to ICU for further evaluation and management. * WBC 10.5. Hgb 13.2. Plt 389. BUN/creat 48/5.84 and K 6.2. * CT of the brain negative for an acute process. * CXR unable to rule out small left lower lobe infiltrate. * Renal US revealing kidneys slightly echogenic * UA negative for ketones, nitrates or leukocyte. Small occult blood. * Blood culture pending. No growth in 1 day thus far. Patient was initiated on sepsis antibiotics. Nephrology -Dr. Garrison consulted. Etiology of worsening renal function is uncertain at the present time. Considering initiation of renal replacement therapy. Palliative care has been consulted to assist with goals of care in the setting of patient's worsening clinical status. Met with patient and daughter Tia at bedside. Medical update provided. Patient alert and oriented to self, place and situation, feeling weak. Does not recall events leading to this hospitalization. Patient tells me that before her recent hospitalization from 06/11 to 06/14/16, she was residing with her nephew Xavier. She reports being mostly independent with ADL's with the intermittent assistance for bathing and dressing. Ambulating with a walker most of the time. Patient reports having a good quality of life prior to this, her quality of life indicators are spending time with her 3 children and multiple grandchildren. She has 3 children: Tia, Esvin and Mallory. Patient is a , approximately 3 years ago secondary to CVA. Prior to that , she was residing with her independently. 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 Patient does not recall any prior issues with her kidneys. Reviewed patient's progressive debility and prior hospitalization. Discussed renal replacement therapy to include benefits, risks and limitations. Reviewed that in the vent that HD is needed, it is unknown at this time if this would be temporary or permanent. Reviewed requirements for HD on an outpatient basis. Patient tells me that she is familiar with HD as she has some friend with ESRD. Patient tells me that she would consider HD in the event her kidney condition continues to worsen. Discussed benefits, risks and limitations of CPR in the setting of chronic disease and poor functional status at baseline. Patient wishing to be a FULL code. No AD completed. Patient wishing to designate her daughter Tia Persaud as her HCS. Assisted patient to complete HCS designation paperwork. Provided living will information to patient and daughter and encouraged them to discuss and complete. . Function/Cognitive Trajectory Prior to hospitalization in 06/11 to 06/14/16, patient reports being mostly independent with ADL's with the intermittent assistance for bathing and dressing. Ambulating with a walker most of the time. Patient was discharged on 06/14/16 to [facility] for strengthening/rehab. . (Chioma Herrera) Review of Systems Constitutional: COMPLAINS OF: Change in appetite, Generalized weakness, DENIES : Fever, Dizziness, Pain Endocrine: DENIES: Heat/cold intolerance Eyes: DENIES: Eye inflammation, Vision loss Ears, nose, mouth, throat: DENIES: Hearing loss, Vertigo Respiratory: DENIES: Cough, Wheezing Cardiovascular: COMPLAINS OF: Dyspnea on Exertion, Lower Extremity Edema, DENIES: Chest pain Gastrointestinal: COMPLAINS OF: Diarrhea, DENIES: Abdominal pain, Constipation , Nausea, Vomiting Genitourinary: DENIES: Urinary frequency Musculoskeletal: DENIES: Muscle aches, Back pain Integumentary: DENIES: Abnormal pigmentation Hematologic/Lymphatics: DENIES: Bruising Immunologic/Allergic: DENIES: Urticaria Neurologic: COMPLAINS OF: Tremor Psychiatric: COMPLAINS OF: Confusion, DENIES: Anxiety, Depression, Agitation ( Chioma Herrera) Past Family Social History Coded Allergies: No Known Allergies (Verified , 06/26/16) Past Medical History A fib CHF with EF of 30-35% PVD DM type 2 HTN Anemia . Past Surgical History Hysterectomy . Reported Medications Metoprolol Tartrate 100 Mg Tab 100 Mg PO DAILY Digoxin 0.125 Mg Tab 125 Mcg PO DAILY Warfarin 3 Mg Tab 3 Mg PO DAILY Primidone 50 Mg Tab 50 Mg PO TID Lasix 20mg QD KCl 20 meq QD Cipro 500mg BID Lisinopril 2.5mg QD . Current Medications Medications (Trade) Dose Ordered Sig/Abigail Route Start Time Stop Time Status Last Admin (D5W-NS 1000 ml Inj) 1,000 ml @ 150 mls/hr Q6H40M IV 06/26/16 11:00 06/27/16 09:31 (Cardizem Cd) 180 mg DAILY PO 06/26/16 11:00 06/27/16 09:31 (Lopressor) 100 mg DAILY PO 06/26/16 11:00 06/27/16 09:30 (NS Flush) 2 ml UNSCH PRN IV FLUSH 06/26/16 11:15 (NS Flush) 2 ml BID IV FLUSH 06/26/16 21:00 06/27/16 09:31 (Zofran Inj) 4 mg Q6H PRN IV 06/26/16 11:15 Miscellaneous Information 1 Q361D XX 06/26/16 11:15 (Chlorhexidine 2% Cloth) 3 pack Taper DAILY@04 TOP 06/27/16 04:00 06/23/17 03:59 06/27/16 05:34 (Chlorhexidine 2% Cloth) 3 pack UNSCH PRN TOP 06/26/16 11:15 (Peridex 0.12% Liq) 15 ml BID@08,20 MT 06/26/16 20:00 06/27/16 09:31 Polyethylene Glycol 17 gm 17 gm BID PO 06/26/16 21:00 Pharmacy Profile Note 0 ml @ 0 mls/hr UNSCH OTHER 06/26/16 14:45 (Zosyn 2.25 Gm Premix) 50 ml @ 100 mls/hr Q8H IV 06/26/16 22:00 1/6/17 05:33 (Trandate Inj) 10 mg Q1H PRN IV PUSH 06/26/16 14:45 06/26/16 19:31 (Kayexalate Liq) 15 gm Q3HR PO 06/26/16 21:00 06/27/16 20:59 06/27/16 11:23 Miscellaneous Information Patient in critical care unit? Ass... Q361D XX 06/27/16 01:45 06/27/16 01:45 (Chlorhexidine 2% Cloth) 3 pack DAILY@04 TOP 06/27/16 04:00 07/01/16 04:01 (Chlorhexidine 2% Cloth) 3 pack UNSCH PRN TOP 06/27/16 01:45 07/02/16 01:34 Family History 3 children. All alive and well. . Substance Use Tobacco: none Alcohol: none Prescription med abuse: none Illicits: none. . Psychosocial History . for 62 years, 2 y/o secondary to CVA complications. 3 children and several grandchildren. 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 Residing with [facility] prior to hospitalization in 06/11/16. . Spiritual/Cultural Factors Taoist. Active member of her jewish. . (Chioma Herrera) Living Will: Never completed Health Care Surrogate: Copy in medical record Durable Power of Rating Specialist: Never completed Date completed: 06/27/15. . Health Care Surrogate(s): Dejon Persaud. . Documented care wishes: No living will completed. . Today's verbally stated goals: Patient wishing to be a FULL CODE. Continue aggressive care, to include renal replacement therapy if required. . Family/friends goals: FULL CODE. Continue aggressive care to include PRODUCT TRANSFER PUMPER if required. Ethical and Legal Issues No living will completed. . (Chioma Herrera) Physical Exam Vital Signs Date Time Temp Pulse Resp B/P Pulse Ox O2 Delivery O2 Flow Rate FiO2 06/27/16 12:00 115 06/27/16 12:00 97.2 115 26 139/86 100 152/90 06/27/16 10:15 96 Nasal Cannula 3.00 06/27/16 10:00 118 06/27/16 08:00 97.8 122 18 125/65 100 06/27/16 08:00 117 06/27/16 06:00 91 06/27/16 04:00 112 06/27/16 04:00 98.1 112 25 121/90 100 06/27/16 02:00 101 06/27/16 00:00 98.9 96 25 127/60 99 06/27/16 00:00 96 06/26/16 22:30 102 06/26/16 22:30 99.2 102 26 132/80 95 06/26/16 22:29 99.2 95 19 132/80 94 06/26/16 20:03 86 18 116/78 98 Nasal Cannula 2 06/26/16 20:03 98 Nasal Cannula 2.00 06/26/16 19:37 81 18 128/69 98 Nasal Cannula 2 06/26/16 19:07 85 18 175/60 96 Nasal Cannula 2 06/26/16 18:17 86 17 174/110 95 Nasal Cannula 3 06/26/16 17:13 91 17 201/103 90 Room Air 06/26/16 16:32 78 16 176/71 96 Room Air 06/26/16 16:03 100 Nasal Cannula 2.00 06/26/16 16:03 93 17 181/100 100 Nasal Cannula 2 06/26/16 15:02 93 17 172/89 100 Nasal Cannula 2 06/26/16 06/27/16 19:00 07:00 Intake Total 2357 ml Output Total 375 ml 375 ml Balance -375 ml 1982 ml Intake Oral 240 ml IV Total 2117 ml Output Urine Total 375 ml 375 ml Exam CONSTITUTIONAL/GENERAL: This is an adequately nourished patient, in no apparent distress. TUBES/LINES/DRAINS: Scanlon cath, PIV's, SCD's. SKIN: No jaundice, rashes, or lesions. Ecchymoses on upper extremities. No wounds seen anteriorly. Skin temperature appropriate. Not diaphoretic. HEAD: Atraumatic. Normocephalic. EYES: Pupils equal and round and reactive. Extraocular motions intact. No scleral icterus. No injection or drainage. Fundi not examined. ENT: Hearing grossly normal. Nose without bleeding or purulent drainage. Throat without visible erythema, exudates, masses, or lesions. NECK: Trachea midline. Supple, nontender. No palpable thyroid enlargement or nodularity. CARDIOVASCULAR: Tachycardiac, Irregular rate and rhythm without murmurs, gallops , or rubs. Peripheral pulses symmetric. RESPIRATORY/CHEST: Symmetric, unlabored respirations. Clear to auscultation. Breath sounds equal bilaterally. No wheezes, rales, or rhonchi. GASTROINTESTINAL: Abdomen soft, round, mildly distended. non-tender. No guarding. Bowel sounds present. GENITOURINARY: Without palpable bladder distension. Scanlon catheter in place. MUSCULOSKELETAL: Extremities without clubbing, cyanosis. No mottling or clubbing. +2 edema to BUE, +1 edema to BLE. NEUROLOGICAL: Awake and alert. Follows commands. Moves all extremities. Fine tremors to BUE, mandible. Sleepy. PSYCHIATRIC: No obvious anxiety/depression. . (Chioma Herrera) Diagnostic Tests Laboratory Laboratory Tests Test 06/26/16 06/26/16 06/26/16 06/26/16 09:10 09:41 12:02 15:20 White Blood Count 10.5 TH/MM3 (4.0-11.0) Red Blood Count 4.49 MIL/MM3 (4.00-5.30) Hemoglobin 13.2 GM/DL (11.6-15.3) Hematocrit 39.5 % (35.0-46.0) Mean Corpuscular Volume 87.8 FL (80.0-100.0) Mean Corpuscular Hemoglobin 29.3 PG (27.0-34.0) Mean Corpuscular Hemoglobin 33.3 % Concent (32.0-36.0) Red Cell Distribution Width 14.8 % (11.6-17.2) Platelet Count 389 TH/MM3 (150-450) Mean Platelet Volume 7.3 FL (7.0-11.0) Neutrophils (%) (Auto) 90.4 % (16.0-70.0) Lymphocytes (%) (Auto) 2.2 % (9.0-44.0) Monocytes (%) (Auto) 7.0 % (0.0-8.0) Eosinophils (%) (Auto) 0.2 % (0.0-4.0) Basophils (%) (Auto) 0.2 % (0.0-2.0) Neutrophils # (Auto) 9.5 TH/MM3 (1.8-7.7) Lymphocytes # (Auto) 0.2 TH/MM3 (1.0-4.8) Monocytes # (Auto) 0.7 TH/MM3 (0-0.9) Eosinophils # (Auto) 0.0 TH/MM3 (0-0.4) Basophils # (Auto) 0.0 TH/MM3 (0-0.2) CBC Comment AUTO DIFF Differential Total Cells 100 Counted Neutrophils % (Manual) 86 % (16-70) Band Neutrophils % 2 % (0-6) Lymphocytes % 2 % (9-44) Monocytes % 6 % (0-8) Neutrophils # (Manual) 9.7 TH/MM3 (1.8-7.7) Metamyelocytes 1 % (0-1) Myelocytes 3 % (0-0) Differential Comment FINAL DIFF MANUAL Platelet Estimate NORMAL (NORMAL) Platelet Morphology Comment NORMAL (NORMAL) Red Cell Morphology Comment NORMAL (NORMAL) Prothrombin Time 23.1 SEC (9.8-11.6) Prothromb Time International 2.0 RATIO Ratio Activated Partial 32.2 SEC Thromboplast Time (24.3-30.1) Sodium Level 132 MEQ/L 133 MEQ/L (136-145) (136-145) Potassium Level 5.9 MEQ/L 6.2 MEQ/L (3.5-5.1) (3.5-5.1) Chloride Level 97 MEQ/L 99 MEQ/L (98-107) (98-107) Carbon Dioxide Level 24.4 MEQ/L 27.2 MEQ/L (21.0-32.0) (21.0-32.0) Anion Gap 11 MEQ/L (5-15) 7 MEQ/L (5-15) Blood Urea Nitrogen 49 MG/DL (7-18) 48 MG/DL (7-18) Creatinine 5.65 MG/DL 5.84 MG/DL (0.50-1.00) (0.50-1.00) Estimat Glomerular Filtration 9 ML/MIN (>89) 8 ML/MIN (>89) Rate Random Glucose 143 MG/DL 80 MG/DL (74-106) (74-106) Lactic Acid Level 2.0 mmol/L (0.4-2.0) Calcium Level 8.4 MG/DL 8.7 MG/DL (8.5-10.1) (8.5-10.1) Magnesium Level 1.9 MG/DL (1.5-2.5) Total Bilirubin 0.6 MG/DL (0.2-1.0) Aspartate Amino Transf 28 U/L (15-37) (AST/SGOT) Alanine Aminotransferase 24 U/L (10-53) (ALT/SGPT) Alkaline Phosphatase 97 U/L (45-117) Troponin I LESS THAN 0.02 NG/ML (0.02-0.05) Total Protein 7.3 GM/DL (6.4-8.2) Albumin 2.2 GM/DL (3.4-5.0) Digoxin Level 1.7 NG/ML (0.8-2.0) Urine Color LIGHT-YELLOW (YELLW/STRAW) Urine Turbidity CLEAR (CLEAR) Urine pH 7.5 (5.0-8.5) Urine Specific [place] 1.007 (1.002-1.035) Urine Protein 100 mg/dL (NEG-TRACE) Urine Glucose (UA) NEG mg/dL (NEG) Urine Ketones NEG mg/dL (NEG) Urine Occult Blood SMALL (NEG) Urine Nitrite NEG (NEG) Urine Bilirubin NEG (NEG) Urine Urobilinogen LESS THAN 2.0 MG/DL (LESS THAN 2.0) Urine Leukocyte Esterase NEG (NEG) Urine RBC 71 /hpf (0-3) Urine WBC 3 /hpf (0-5) Urine Squamous Epithelial 1 /hpf (0-5) Cells Urine Mucus FEW /lpf (OCC) Microscopic Urinalysis Comment CATH-CULT NOT IND Urine Eosinophils NONE SEEN /HPF (NONE SEEN) Urine Random Creatinine 20.9 MG/DL Urine Random Sodium 77 MEQ/L Test 06/26/16 06/26/16 06/27/16 06/27/16 18:39 22:25 01:03 09:03 Sodium Level 133 MEQ/L 135 MEQ/L 139 MEQ/L (136-145) (136-145) (136-145) Potassium Level 6.2 MEQ/L 5.9 MEQ/L 5.0 MEQ/L (3.5-5.1) (3.5-5.1) (3.5-5.1) Chloride Level 100 MEQ/L 104 MEQ/L 107 MEQ/L (98-107) (98-107) (98-107) Carbon Dioxide Level 23.3 MEQ/L 21.9 MEQ/L 21.3 MEQ/L (21.0-32.0) (21.0-32.0) (21.0-32.0) Anion Gap 10 MEQ/L (5-15) 9 MEQ/L (5-15) 11 MEQ/L (5-15) Blood Urea Nitrogen 46 MG/DL (7-18) 49 MG/DL (7-18) 49 MG/DL (7-18) Creatinine 5.81 MG/DL 6.09 MG/DL 6.31 MG/DL (0.50-1.00) (0.50-1.00) (0.50-1.00) Estimat Glomerular Filtration 8 ML/MIN (>89) 8 ML/MIN (>89) 8 ML/MIN (>89) Rate Random Glucose 157 MG/DL 137 MG/DL 94 MG/DL (74-106) (74-106) (74-106) Calcium Level 7.7 MG/DL 7.7 MG/DL 7.2 MG/DL (8.5-10.1) (8.5-10.1) (8.5-10.1) Total Creatine Kinase 66 U/L (26-192) Nasal Screen MRSA (PCR) NEGATIVE (NEGATIVE) White Blood Count 11.7 TH/MM3 (4.0-11.0) Red Blood Count 3.88 MIL/MM3 (4.00-5.30) Hemoglobin 10.8 GM/DL (11.6-15.3) Hematocrit 33.8 % (35.0-46.0) Mean Corpuscular Volume 87.2 FL (80.0-100.0) Mean Corpuscular Hemoglobin 27.9 PG (27.0-34.0) Mean Corpuscular Hemoglobin 31.9 % Concent (32.0-36.0) Red Cell Distribution Width 14.6 % (11.6-17.2) Platelet Count 299 TH/MM3 (150-450) Mean Platelet Volume 7.4 FL (7.0-11.0) Protein Corrected Calcium 7.7 MG/DL (8.5-10.1) Total Protein 6.2 GM/DL (6.4-8.2) Complement C3 107 MG/DL (90-180) Complement C4 24 MG/DL (10-40) (Chioma Herrera) Result Diagram: 06/27/16 0903 06/27/16 0903 Microbiology Microbiology Date/Time Procedure Status Source Growth 06/26/16 09:10 Aerobic Blood Culture - Preliminary Resulted Blood Peripheral NO GROWTH IN 1 DAY 06/26/16 09:10 Anaerobic Blood Culture - Final Resulted Blood Peripheral QNS - SEE AEROBE REPORT 06/26/16 09:41 Aerobic Blood Culture - Preliminary Resulted Blood Peripheral NO GROWTH IN 1 DAY 06/26/16 09:41 Anaerobic Blood Culture - Preliminary Resulted Blood Peripheral NO GROWTH IN 1 DAY Imaging Last Impressions Head CT 06/26/1646 Signed Impressions: Service Date/Time: June 08:48 - CONCLUSION: 1. No acute abnormality identified. Stable compared to prior exam dated 06/11/16. Abram Rivera MD Chest X-Ray 06/26/1646 Signed Impressions: Service Date/Time: June 06:59 - CONCLUSION: Much better aeration left lower lobe today than the previous study. Still some indistinctness of the left hemidiaphragm difficult to rule out a small left lower lobe infiltrate. Jamarcus Kelly MD Renal Ultrasound 06/26/16 0000 Signed Impressions: Service Date/Time: June 10:59 - CONCLUSION: Kidneys are slightly echogenic which can be seen with medical renal disease. Yfn Santillan MD Procedures N/A. . (Chioma Herrera) Patient/Family Conference Present at Family Conference: Daughter Tia Persaud. . Family Conference Time (mins): 45 Family Conference Location: Bedside Issues Discussed: * Palliative care role, purpose, approach * Additional medical, psychosocial, and spiritual history * Patients general health, functional status, and cognitive changes in the months leading up to the current hospitalization * Patient/family understanding of the current medical problems * Patient/family understanding of prognosis * Patients goals of care as best understood from advance directives and/or conversations and/or values * Current medical treatment options and benefits/burdens of those options * Likely scenarios comparing ongoing aggressive care with a transition to comfort measures only * Questions answered to the best of my ability * Palliative care contact information provided (Chioma Herrera) Assessment and Plan Disease Oriented Problem List: (1) Hyperkalemia (2) Hypertension (3) Acute renal failure Symptom Scale: (1) Debility Pertinent Non-Medical Issues Psychosocial: . Has 3 children. Residing with nephew Xavier prior to previous hospitalization on 06/14/16. Discharged to SNF for rehab/ strengthening. Spiritual: Taoist. Active member of her jew[employer]. Good spiritual support. Legal: No living will completed. HCS designation completed during this palliative care visit. Ethical issues impacting care: No living will completed. . Important Contacts Daughter/RICA Persaud and . . Prognosis Mrs. Gabriel is an 80 y/o female with a medical history significant of a. fib, CHF , Diabetes type 2, HTN, CA and anemia who presented to the ED via EMS on with history of AMS and questionable seizure. Patient with a recent hospitalization secondary to a. fib with RVR and subsequent SNF discharge. Her baseline functional status has progressively declined and requires a walker for ambulation, with a PPS of 50%. Patient now presents with MARTHA likely requiring renal replacement therapy. She is at high risk for developing significant symptom burden and is at high risk for further complications, continue decline and . . Code Status: Full Code Plan * FULL CODE. Risks and limitations of CPR were discussed with patient and daughter in the setting of multiple comorbidities and poor functional status at baseline. * Patient is alert and oriented. Completed designation of HCS form during this visit. Patient designating her daughter Tia Persaud as HCS. Declined to designate an alternate surrogate. * No living will completed. LW information and form reviewed with patient and daughter Tia. Encouraged patient to complete and to call [facility] care with any questions. * 06/27/16: Patient wishing to continue with aggressive care to include FULL CODE and renal replacement therapy if needed. Met with patient and daughter Tia at bedside. Reviewed patient's progressive debility and prior hospitalization. Discussed renal replacement therapy to include benefits, risks and limitations. Reviewed that in the event that HD is needed, it will be unknown at that time if this would be temporary or permanent. Reviewed requirements for HD on an outpatient basis. Patient tells me that she is familiar with HD as she has some friend with ESRD. Patient tells me that she would consider HD in the event her kidney condition continues to worsen. * Discussed with patient and daughter aggressive care vs. comfort-directed care should pt's symptom burden increases or she has additional functional decline. * Symptom: Debility, progressive for the past year. Multifactorial, likely secondary to multiple chronic comorbidities. Presented to ED from rehab facility. * Case discussed with Dr. Torres and bedside RN. * Palliative care contact information provided. * All questions were answered in great detail. * Palliative care to f/u with this patient and family for further clarification of goals. . (Chioma Herrera) Time Spent Time Periods: Family meeting from 13:05 to 13:50. Total time to include review and summarization of available medical recirds/prior hospitalizations and case discussion with Dr. Torres and bedside RN. Total Floor Time (mins): 80 Face to Face Time (mins): 65 >50% Counseling/Coord of Care: Yes (Chioma Herrera) Thank you for the opportunity to participate in the care of Ms. Gabriel. (Chioma Herrera) Attestation To help prompt me to consider important information that might be impacting today's encounter and assessment, information from prior notes written by myself or my colleagues may have been "brought forward" into today's note. My signature on this note, however, is an attestation that I personally performed the exam, history, and/or decision-making noted today, and, unless otherwise indicated, the interactions with patient, family, and staff as well as the review of records all occurred today. I also attest that the listed assessment and stated plan reflect my best clinical judgment today based on the combination of historical information, prior notes, and today's exam/ interactions. When time spent is documented, it refers only to time spent today by the signer, or if indicated, combined time spent today by collaborating physician/nurse practitioner. (Chioma Herrera) Collaborating MD Comments Chart reviewed. Case discussed with palliative care BEAM RACKER. Above FATOUMATA note reviewed and I concur. . (Cristian Aceves MD) Chioma Herrera Jun 27, 2016 15:15 Cristian Aceves MD Aug 09, 2016 14:45
--- NOTE | 2016-06-27 17:31 | HHI.NPPN ---
Subjective History of Present Illness The patient is an 80 yo AA female who was brought in today for AMS from her nursing facility, [facility]. It was found that she was profoundly hypoglycemia and was given D50 thru her I/O access. She was recently admitted here at the end of May with A fib and was started on Coumadin and low dose Lisinopril 2.5mg QD at that time. Home medication list was reviewed that showed no NSAIDs or outwardly nephrotoxic medications. She has been on Cipro for what is assumed to be a urinary tract infection. The patient herself is very lethargic and no meaningful information can be obtained from her. Admitting SCr at 5.65 that worsened to 5.84 Admitting K+ was 5.9 that worsened to 6.2---this was treated with dextrose, insulin, and Kayexalate. Interval History The patient is A&O today. Discussed condition of her kidneys and she cannot recall anything that may have precipitated renal failure. No complaints presently (Lucy Dickerson) Objective Data Data 06/26/16 06/27/16 19:00 07:00 Intake Total 2357 ml Output Total 375 ml 375 ml Balance -375 ml 1982 ml Intake Oral 240 ml IV Total 2117 ml Output Urine Total 375 ml 375 ml Vital Signs Date Time Temp Pulse Resp B/P Pulse Ox O2 Delivery O2 Flow Rate FiO2 06/27/16 16:00 115 06/27/16 16:00 99.0 114 26 140/90 100 133/72 06/27/16 14:00 93 06/27/16 12:00 115 06/27/16 12:00 97.2 115 26 139/86 100 152/90 06/27/16 10:15 96 Nasal Cannula 3.00 06/27/16 10:00 118 06/27/16 08:00 97.8 122 18 125/65 100 06/27/16 08:00 117 06/27/16 06:00 91 06/27/16 04:00 112 06/27/16 04:00 98.1 112 25 121/90 100 06/27/16 02:00 101 06/27/16 00:00 98.9 96 25 127/60 99 06/27/16 00:00 96 06/26/16 22:30 102 06/26/16 22:30 99.2 102 26 132/80 95 06/26/16 22:29 99.2 95 19 132/80 94 06/26/16 20:03 86 18 116/78 98 Nasal Cannula 2 06/26/16 20:03 98 Nasal Cannula 2.00 06/26/16 19:37 81 18 128/69 98 Nasal Cannula 2 06/26/16 19:07 85 18 175/60 96 Nasal Cannula 2 06/26/16 18:17 86 17 174/110 95 Nasal Cannula 3 (Lucy Dickerson) -: 06/27/16 0903 06/27/16 0903 Imaging Last Impressions Head CT 06/26/16 0646 Signed Impressions: Service Date/Time: June 08:48 - CONCLUSION: 1. No acute abnormality identified. Stable compared to prior exam dated 06/11/16. Abram Rivera MD Chest X-Ray 06/26/16 0646 Signed Impressions: Service Date/Time: June 06:59 - CONCLUSION: Much better aeration left lower lobe today than the previous study. Still some indistinctness of the left hemidiaphragm difficult to rule out a small left lower lobe infiltrate. Jamarcus Kelly MD Renal Ultrasound 06/26/16 0000 Signed Impressions: Service Date/Time: June 10:59 - CONCLUSION: Kidneys are slightly echogenic which can be seen with medical renal disease. Yfn Santillan MD Medication Review Current Medications Medications (Trade) Dose Ordered Sig/Abigail Route Start Time Stop Time Status Last Admin (D5W-NS 1000 ml Inj) 1,000 ml @ 150 mls/hr Q6H40M IV 06/26/16 11:00 06/27/16 09:31 (Cardizem Cd) 180 mg DAILY PO 06/26/16 11:00 06/27/16 09:31 (Lopressor) 100 mg DAILY PO 06/26/16 11:00 06/27/16 09:30 (NS Flush) 2 ml UNSCH PRN IV FLUSH 06/26/16 11:15 (NS Flush) 2 ml BID IV FLUSH 06/26/16 21:00 06/27/16 09:31 (Zofran Inj) 4 mg Q6H PRN IV 06/26/16 11:15 Miscellaneous Information 1 Q361D XX 06/26/16 11:15 (Chlorhexidine 2% Cloth) 3 pack Taper DAILY@04 TOP 06/27/16 04:00 06/23/17 03:59 06/27/16 05:34 (Chlorhexidine 2% Cloth) 3 pack UNSCH PRN TOP 06/26/16 11:15 (Peridex 0.12% Liq) 15 ml BID@08,20 MT 06/26/16 20:00 06/27/16 09:31 Polyethylene Glycol 17 gm 17 gm BID PO 06/26/16 21:00 Pharmacy Profile Note 0 ml @ 0 mls/hr UNSCH OTHER 06/26/16 14:45 (Zosyn 2.25 Gm Premix) 50 ml @ 100 mls/hr Q8H IV 06/26/16 22:00 06/27/16 15:09 (Trandate Inj) 10 mg Q1H PRN IV PUSH 06/26/16 14:45 06/26/16 19:31 Miscellaneous Information Patient in critical care unit? Ass... Q361D XX 06/27/16 01:45 06/27/16 01:45 (Chlorhexidine 2% Cloth) 3 pack DAILY@04 TOP 06/27/16 04:00 07/01/16 04:01 (Chlorhexidine 2% Cloth) 3 pack UNSCH PRN TOP 06/27/16 01:45 07/02/16 01:34 (Lucy Dickerson) Physical Exam General Appearance: Comfortable (Lucy Dickerson) Eyes Eye Exam: Pupils Equal, Pupils Reactive (Lucy Dickerson) Neck Neck Exam: Neck Supple, Trachea Midline (Lucy Dickerson) Pulmonary Resp Exam: Clear Bilaterally, Breath Sounds Equal (Lucy Dickerson) Cardiology CV Exam: Irregular, Arrhythmia (Lucy Dickerson) Gastrointestinal/Abdomen GI Exam: Soft, Non-Tender (Lucy Dickerson) Genitourinary Exam: Clear Urine (Lucy Dickerson) Integumentary Skin Exam: Clear, Warm, Dry (Lucy Dickerson) Extremeties Extremities Exam: Trace Edema Extremeties Remarks BLE and BUE. (Lucy Dickerson) Neurologic Neuro Exam: Alert, Awake, Oriented (Lucy Dickerson) Psychiatric Psych Exam: Appropriate Responses (Lucy Dickerson) Assessment/Plan Problem List: (1) Acute renal failure Plan: Patient has had a profound deterioration in her renal function after her recent admission. Etiology of the acute renal failure uncertain at the present time. Differential diagnosis presently would include a possible development of acute kidney injury secondary to sepsis. Patient apparently was on Cipro as an outpatient to interstitial nephritis is also a consideration. Screening tests are still pending. Renal functions have worsened despite gentle hydration. There is no emergent need for dialysis today, but if her azotemia should worsen , dialytic intervention may need to occur as early as tomorrow. The patient, her daughter, and her son-in-law were informed of the severity of her renal decline. The patient does wish to proceed if needed tomorrow. Daughter confirms. Continue to monitor I&Os. Acid/base status is acceptable. Pt becoming slightly edematous today. Medications should be adjusted for the patient's estimated GFR if clinically indicated. Avoid agents with significant potential for nephrotoxicity possible including NSAIDs for analgesia, iodine contrast agents. Gadolinium is contraindicated if the GFR is below 30. (2) Hyperkalemia Plan: Resolved with treatment. Monitor closely given her ARF (3) Hypertension Plan: Defer management to critical care presently. (4) Diabetes mellitus Plan: Defer management to critical care. (Lucy Dickerson) Plan The exam, history, and the medical decision-making described in the above note were completed with the assistance of the PA-C. I reviewed and agree with the findings presented. I attest that I had a [id number] encounter with the patient on the same day, and personally performed and documented my assessment and findings in the medical record. (Mary Garrison MD) Lucy Dickerson Jun 27, 2016 17:31 Mary Garrison MD Jun 28, 2016 17:06
--- NOTE | 2016-06-27 17:49 | EC ---
Study Study Date:06/27/2016 STUDY CONCLUSIONS SUMMARY - Left ventricle: The cavity size was normal. Systolic function was moderately reduced. The estimated ejection fraction was in the range of 40% to 45%. - Aortic valve: Trace regurgitation. - Mitral valve: Mild to moderate regurgitation. - Left atrium: The atrium was moderately to severely dilated. - Right ventricle: Systolic function was mildly reduced. - Right atrium: The atrium was moderately dilated. - Atrial septum: Minimal color flow across intra-atrial septum, possible small ASD vs PFO. - Tricuspid valve: Mild-moderate regurgitation. - Pulmonary arteries: PA peak pressure: 61mm Hg (S). If LV function is below 40, please consider prescribing an ACEI or ARB or document rationale for non-use. PROCEDURE DATA STUDY STATUS: Elective. Procedure: Transthoracic echocardiography. Image quality was good. Scanning was performed from the parasternal, apical, and subcostal acoustic windows. Study completion: The patient tolerated the procedure well. Transthoracic echocardiography. M-mode, complete 2D, complete spectral Doppler, and color Doppler. Height: Height: 66in. Weight: Weight: 197.6lb. Body mass index: BMI: 32kg/m^2. Body surface area: BSA: 1.99m^2. Patient status: Inpatient. CARDIAC ANATOMY LEFT VENTRICLE: The cavity size was normal. Systolic function was moderately reduced. The estimated ejection fraction was in the range of 40% to 45%. AORTIC VALVE: Probably trileaflet. Doppler: There was no stenosis. Trace regurgitation. Valve area: 2.25cm^2(VTI). Indexed valve area: 1.13cm^2/m^2 (VTI). Valve area: 2.17cm^2 (Vmax). Indexed valve area: 1.09cm^2/m^2 (Vmax). Mean gradient: 2mm Hg (S). MITRAL VALVE: The valve appears to be grossly normal. Doppler: There was no evidence for stenosis. Mild to moderate regurgitation. Peak gradient: 4mm Hg (D). LEFT ATRIUM: The atrium was moderately to severely dilated. ATRIAL SEPTUM: Minimal color flow across intra-atrial septum, possible small ASD vs PFO. RIGHT VENTRICLE: Systolic function was mildly reduced. PULMONIC VALVE: Not well visualized. Doppler: There was no evidence for stenosis. Trace regurgitation. TRICUSPID VALVE: The valve appears to be grossly normal. Doppler: There was no evidence for stenosis. Mild-moderate regurgitation. Peak gradient: 46mm Hg (D). RIGHT ATRIUM: The atrium was moderately dilated. PERICARDIUM: There was no pericardial effusion. Patient weight: 197.6lb _Ejection fraction:_ 65-75% _Fractional shortening:_ 32% up to 5Kg 5-11.5Kg 11.6-22.9Kg 23-45Kg 45-57Kg Aortic Root 7-13 <17 13-22 17-27 17-27 LA diam 6-13 <23 24-38 33-47 37-40 RVID 10-17 7-15 7-15 7-18 8-17 LVIDd 12-22 <32 24-38 33-47 37-40 LVPW 2-4 3-6 5-7 6-8 7-8 IVS 2-4 3-6 5-7 6-8 7-8 BASIC MEASUREMENTS ADULT NORMAL Left ventricle LV internal dimension, ED, chordal 46.8 mm 43-52 level, PLAX LV internal dimension, ES, chordal *40.2 mm 23-38 level, PLAX Fractional shortening, chordal level, *14 % >29 PLAX LV posterior wall thickness, ED 10.1 mm IVS/LVPW ratio, ED 1 <1.3 Ventricular septum Septal thickness, ED 10.1 mm Aortic valve Leaflet separation 19 mm 15-26 Aorta Root diameter, ED 33 mm Left atrium Anterior-posterior dimension 48 mm Anterior-posterior dimension index *2.41 cm/m^2 <2.2 BASIC MEASUREMENTS ADULT NORMAL Aortic valve Leaflet separation 19 mm 15-26 DOPPLER MEASUREMENTS ADULT NORMAL Main pulmonary artery Pressure, S *61 mm Hg =30 Aortic valve Peak velocity, S 79.3 cm/s Mean velocity, S 55.5 cm/s VTI, S 11.3 cm Mean gradient, S 2 mm Hg Valve area, VTI 2.25 cm^2 Valve area index, VTI 1.13 cm^2/m^2 Valve area, Vmax 2.17 cm^2 Valve area index, Vmax 1.09 cm^2/m^2 Mitral valve Peak E-wave velocity 95.5 cm/s Peak gradient, D 4 mm Hg Tricuspid valve Peak gradient, D 46 mm Hg Maximal inflow velocity 338 cm/s Regurgitant peak velocity 361 cm/s Peak RV-RA gradient, S 52 mm Hg Maximal regurgitant velocity 361 cm/s Systemic veins Estimated CVP 10 mm Hg Right ventricle RV pressure, S *62 mm Hg <30 Pulmonic valve Peak velocity, S 47.2 cm/s LEGEND: Mean values are shown as u=mean value. Asterisk (*) hallman values outside specified normal range. Prepared and signed by Jeferson Sultana [id number]
[2016-06-27 18:28] LABS: APTT (PATIENT) 40.1 SEC (24.3-30.1); INTERNATIONAL NORMALIZED RATIO 3.5 RATIO; PROTHROMBIN TIME - PATIENT 40.3 SEC (9.8-11.6)
--- NOTE | 2016-06-27 18:51 | PD.PROCEDR ---
Procedure Note Procedure Procedure: Arterial Line Placement Right radial arterial line Diagnosis: Acute kidney injury Indications: Need for serial blood gas monitoring Consent: Consent is deemed emergent or medically necessary Description of the Procedure: The right wrist was prepped and draped sterilely. 1% lidocaine was used for local anesthesia. The pulse was located and a needle was advanced into the artery. A 20 gauge, 12 cm catheter was advanced into the artery using a modified Seldinger technique. The catheter was sutured to the skin and a sterile dressing was applied. The catheter was connected to a pressure transducer and an arterial waveform was noted. There were no immediate complications noted. There was minimal EBL. I personally performed the procedure. Anthony Torres MD Jun 27, 2016 18:51
--- NOTE | 2016-06-27 19:13 | HHI.CCPN ---
Subjective Remarks/Hospital Course Hospital Course: This is an 80-year-old female who was recently admitted to [facility] with new onset atrial fibrillation with rapid ventricular response. She reports sensitivity emergency department with altered mental status and severe life-threatening hypoglycemia with a serum glucose of 23. An I/O needle was placed and the patient was given D50. Her glucose slowly improved and she began to have improved mental status. When I evaluated the patient, she was somnolent but arousable. she denies chest pain, shortness of breath, nausea, vomiting, diarrhea. She states he hadn't urinated today, so she is unsure if she has dysuria. critical care medicine has been consulted to evaluate and manage her acute kidney injury and severe hypoglycemia. Subjective: 06/27: minimal uop yesterday and overnight. much more awake and alert today. K downtrending from 6.2 to 5.0 this AM. palliative care on board for goals of care in the setting of possible need for dialysis. per the patient, she was fairly functional, even after this most recent admission, and she would want to pursue dialysis as an option. Objective Vital Signs Date Time Temp Pulse Resp B/P Pulse Ox O2 Delivery O2 Flow Rate FiO2 06/27/16 18:00 107 06/27/16 16:00 99.0 26 140/90 100 133/72 06/27/16 10:15 Nasal Cannula 3.00 06/26/16 06:49 21 Intake and Output 06/26/16 06/26/16 06/27/16 08:00 16:00 00:00 Intake Total 1494 ml Output Total 275 ml 275 ml Balance -275 ml 1219 ml Result Diagram: 06/27/16 0903 06/27/16 0903 Objective Remarks GENERAL: Elderly female, lying in bed, awake and alert today. HEENT: Normocephalic. Atraumatic. Mucous membranes are dry NECK: Trachea is midline. JVD unable to assess secondary to body habitus and an external jugular catheter. CHEST: Equal chest rise. Clear to auscultation. CARDIOVASCULAR: Normal rate, irregularly irregular rhythm. No appreciable murmurs. ABDOMEN: Soft, nontender, nondistended. No guarding. MUSCULOSKELETAL: 2+ peripheral edema. Distal pulses 2+. NEUROLOGICAL: RASS 0. follows commands all 4 extremities. No focal motor sensory deficits. A/P Assessment and Plan Assessment: This is an 80-year-old female with recent diagnosis of atrial fibrillation with rapid ventricular response and diabetes who was recently admitted for A. fib RVR, discharged home with lisinopril and warfarin, now presents with severe acute kidney injury, altered mental status, severe hypoglycemia. She was given a number of D50 boluses. She was started on D5NS at 150 cc an hour. Her potassium has come down with Kayexalate. She does not have an indication for emergent dialysis at this time, but may likely require renal replacement therapy in the near future. Her echo done today again demonstrates moderate LV dysfunction, mild RV dysfunction, and moderate pulmonary hypertension. certainly, she may begin to get volume overloaded as we must treat her hypoglycemia with higher dextrose volumes. we will attempt to swap to higher concentration of dextrose. We will continue to monitor her in the ICU. Plan by systems: Neurologic: Toxic/metabolic encephalopathy liberalize to q2h neuro checks Hold long-acting sedating meds Respiratory: atelectasis Possible healthcare associated pneumonia Incentive spirometer to bedside Patient does not have cough or increased oxygen requirement. Is unlikely the patient has healthcare associated pneumonia. We will cover with empiric antibiotics and await culture data Wean oxygen for goal SPO2 greater than 92% Cardiovascular: Atrial fibrillation Systolic congestive heart failure, EF 30-35% Continue home diltiazem and metoprolol We'll hold on digoxin. Her systemic level was nontoxic, but significantly increased from last check Repeat echo 06/27: LVEF 40-45%, mild RV dysfunction, pulm htn rvsp 60s, dilated IVC holding Coumadin given renal failure. She is still therapeutic. Renal: Severe acute kidney injury continue mcdonald catheter. FeNa 31%. --Urine eos- negative. -- Strict I/Os Renal ultrasound 06/26: Negative for acute hydronephrosis --Nephrology on board: Dr. Garrison FEN/GI: Acute protein calorie malnutritionmoderate Life-threatening hyperkalemia Kayexalate q3h. --diet per speech. Daily BMP --will minimize IVF in the setting of early hypervolemia. Heme/ID: Possible sepsis Therapeutic anticoagulation continue vancomycin with pharmacy dosing Continue Zosyn, 2.25 g IV every 8 hours. Daily CBC Daily coags We'll continue to hold warfarin in the setting of renal dysfunction. Endocrine: Severe life-threatening hypoglycemia --liberalize to q2h glucose checks --d/c D5NS. start D10W at 42mL/hr. --D50 as needed Prophylaxis: GI Prophylaxis Does not meet evidence-based indication for GI prophylaxis at this time DVT Prophylaxis -- SCDs She is still therapeutic anticoagulation at this time. We will check serial coags, and if her INR falls below 1.7, we will institute anticoagulation Lines: Peripheral IVs. --place right radial arterial line for frequent blood draws and blood gas analysis for acidosis. She may require central access. Dispo: Remain in the ICU. Anthony Torres MD Jun 27, 2016 19:13
[2016-06-27] MEDS ORDERED: DEXTROSE 10% INJ 1,000 ML IV SCH (20:00)
[2016-06-27] MEDS: SODIUM CHLORIDE 0.9% FLUSH 5 ML FLUSH IV FLUSH PRN (21:07)
[2016-06-27] MEDS: LABETALOL HCL 100 MG/20 ML VIAL IV PUSH PRN (21:14)
[2016-06-27] MEDS ORDERED: PHYTONADIONE 10 MG/ML VIAL SQ ONE (22:15)
[2016-06-28] VITALS (14 sets, daily range): BP systolic 96–145; BP diastolic 55–90; PULSE 84–120; RESP 18–26; TEMP 97.9–99.3; O2SAT 100
[2016-06-28] MEDS ORDERED: DEXTROSE 50% IN WATER 50 ML SYRINGE ONE (01:31)
[2016-06-28] MEDS ORDERED: DEXTROSE 50% IN WATER 50 ML VIAL(D50) IV SCH (01:45)
[2016-06-28] MEDS: CHLORHEXIDINE GLUCONATE 2 % 1 PACK (2 CLOTHS)(taper/protocol) TOP SCH (04:00)
[2016-06-28 04:24] LABS: HEMATOCRIT 30.6 % (35.0-46.0); MEAN CELL VOLUME 87.2 FL (80.0-100.0); MEAN CORPUSCULAR HEMOGLOBIN 28.4 PG (27.0-34.0); MEAN CORPUSCULAR HGB CONC 32.6 % (32.0-36.0); PLATELET COUNT 222 TH/MM3 (150-450); RED BLOOD COUNT 3.51 MIL/MM3 (4.00-5.30); RED CELL DISTRIBUTION WIDTH 14.9 % (11.6-17.2); REVIEW FLAG FINAL; WHITE BLOOD COUNT 10.7 TH/MM3 (4.0-11.0)
[2016-06-28 04:51] LABS: APTT (PATIENT) 43.7 SEC (24.3-30.1); INTERNATIONAL NORMALIZED RATIO 3.1 RATIO; PROTHROMBIN TIME - PATIENT 35.9 SEC (9.8-11.6)
[2016-06-28 05:07] LABS: BICARBONATE 21.9 MEQ/L (21.0-32.0); POTASSIUM 4.6 MEQ/L (3.5-5.1)
[2016-06-28 05:52] LABS: CALCIUM-PROTEIN CORRECTED 8.3 MG/DL (8.5-10.1)
[2016-06-28] MEDS: PIPERACIL-TAZO 2.25 GM PREMIX 50 ML IV SCH ×3 (06:44→21:01)
[2016-06-28 07:23] LABS: BETA-HYDROXYBUTYRATE 0.06 MMOL/L (0.00-0.39)
[2016-06-28 07:24] LABS: INDIRECT BILIRUBIN 0.3 MG/DL (0.0-0.8); TOTAL BILIRUBIN ADULT 0.5 MG/DL (0.2-1.0)
[2016-06-28] MEDS: CHLORHEXIDINE 0.12% (ORAL KIT) 15 ML CUP MT SCH ×2 (08:00→20:00)
[2016-06-28] MEDS: POLYETHYLENE GLYCOL 17 GM PKG PO SCH ×2 (08:51→21:00)
[2016-06-28] MEDS: DILTIAZEM-CD 180 MG CAP ER PO SCH (08:51)
[2016-06-28] MEDS: SODIUM CHLORIDE 0.9% FLUSH 5 ML FLUSH IV FLUSH SCH ×2 (08:51→21:06)
[2016-06-28] MEDS: METOPROLOL TARTRATE 100 MG TAB PO SCH (08:51)
--- NOTE | 2016-06-28 09:14 | HHI.CCPN ---
Subjective Remarks/Hospital Course Hospital Course: This is an 80-year-old female who was recently admitted to [facility] with new onset atrial fibrillation with rapid ventricular response. She reports sensitivity emergency department with altered mental status and severe life-threatening hypoglycemia with a serum glucose of 23. An I/O needle was placed and the patient was given D50. Her glucose slowly improved and she began to have improved mental status. When I evaluated the patient, she was somnolent but arousable. she denies chest pain, shortness of breath, nausea, vomiting, diarrhea. She states he hadn't urinated today, so she is unsure if she has dysuria. critical care medicine has been consulted to evaluate and manage her acute kidney injury and severe hypoglycemia. Subjective: 06/27: minimal uop yesterday and overnight. much more awake and alert today. K downtrending from 6.2 to 5.0 this AM. palliative care on board for goals of care in the setting of possible need for dialysis. per the patient, she was fairly functional, even after this most recent admission, and she would want to pursue dialysis as an option. 06/28: hypoglycemia persists. now on D10 @ 75cc/hr. starting to clinically become intravascularly volume overloaded. but uop starting to increase today also: 775/ 24h yesterday, but 300cc out in the last 4 hours this AM. otherwise no changes. Objective Vital Signs Date Time Temp Pulse Resp B/P Pulse Ox O2 Delivery O2 Flow Rate FiO2 06/28/16 08:06 100 Nasal Cannula 2.00 06/28/16 06:00 103 06/28/16 04:00 99.1 26 123/76 107/58 06/26/16 06:49 21 Intake and Output 06/27/16 06/27/16 06/28/16 08:00 16:00 00:00 Intake Total 863 ml 1718 ml 1067 ml Output Total 200 ml 250 ml 250 ml Balance 663 ml 1468 ml 817 ml Result Diagram: 06/28/16 0300 06/28/16 0300 Objective Remarks GENERAL: Elderly female, lying in bed, awake and alert today. HEENT: Normocephalic. Atraumatic. Mucous membranes moist NECK: Trachea is midline. JVD unable to assess secondary to body habitus and an external jugular catheter. CHEST: Equal chest rise. Clear to auscultation. CARDIOVASCULAR: Normal rate, irregularly irregular rhythm. No appreciable murmurs. ABDOMEN: Soft, nontender, nondistended. No guarding. MUSCULOSKELETAL: 2+ peripheral edema. Distal pulses 2+. NEUROLOGICAL: RASS 0. follows commands all 4 extremities. No focal motor sensory deficits. A/P Assessment and Plan Assessment: This is an 80-year-old female with recent diagnosis of atrial fibrillation with rapid ventricular response and diabetes who was recently admitted for A. fib RVR, discharged home with lisinopril and warfarin, now presents with severe acute kidney injury, altered mental status, severe hypoglycemia. She was given a number of D50 boluses. She was started on D5NS at 150 cc an hour. Her potassium has come down with Kayexalate. She does not have an indication for emergent dialysis at this time, but may likely require renal replacement therapy in the near future. I am concerned today that her fluid requirement with dextrose will fluid overload her. we will start her on steroids. In addition, her filtration is starting to improve clinically, and I think we should attempt forced diuresis to optimize volume status and attempt again to hold off on renal replacement. We will continue to monitor her in the ICU. Plan by systems: Neurologic: Toxic/metabolic encephalopathy liberalize to q2h neuro checks Hold long-acting sedating meds Respiratory: atelectasis Possible healthcare associated pneumonia Incentive spirometer to bedside Patient does not have cough or increased oxygen requirement. Is unlikely the patient has healthcare associated pneumonia. We will cover with empiric antibiotics and await culture data Wean oxygen for goal SPO2 greater than 92% Cardiovascular: Atrial fibrillation Systolic congestive heart failure, EF 30-35% Continue home diltiazem and metoprolol We'll hold on digoxin. Her systemic level was nontoxic, but significantly increased from last check Repeat echo 06/27: LVEF 40-45%, mild RV dysfunction, pulm htn rvsp 60s, dilated IVC holding Coumadin given renal failure. She is still therapeutic. Renal: Severe acute kidney injury Intravascular volume overload continue mcdonald catheter. FeNa 31%. --Urine eos- negative. -- Strict I/Os Renal ultrasound 06/26: Negative for acute hydronephrosis --Nephrology on board: Dr. Garrison --Lasix 200mg iv x 1 to optimize volume status. FEN/GI: Acute protein calorie malnutritionmoderate Life-threatening hyperkalemia Kayexalate q3h. --diet per speech: mechanical soft. Daily BMP --will minimize IVF in the setting of early hypervolemia. Heme/ID: Possible sepsis Supratherapeutic anticoagulation continue vancomycin with pharmacy dosing Continue Zosyn, 2.25 g IV every 8 hours. Daily CBC Daily coags We'll continue to hold warfarin in the setting of renal dysfunction. --vit K 10mg sq x 1 again today. Endocrine: Severe life-threatening hypoglycemia --q1h accuchecks --D10w @ 75cc/hr --D50 as needed Prophylaxis: GI Prophylaxis Does not meet evidence-based indication for GI prophylaxis at this time DVT Prophylaxis -- SCDs She is still therapeutic anticoagulation at this time. We will check serial coags, and if her INR falls below 1.7, we will institute anticoagulation Lines: Peripheral IVs. --1/6 right radial arterial line She may require central access. Dispo: Remain in the ICU. Anthony Torres MD Jun 28, 2016 09:14
[2016-06-28] MEDS: DEXAMETHASONE SOD PHOS 4 MG/ML VIAL IV PUSH SCH ×3 (09:42→17:22)
[2016-06-28] MEDS ORDERED: FUROSEMIDE 100 MG/10 ML VIAL IV PUSH ONE (10:00)
[2016-06-28] MEDS ORDERED: DEXTROSE 10% INJ 1,000 ML IV SCH (11:00)
[2016-06-28 12:38] LABS: UR UREA/CREAT RATIO 10.63 mg/mg (())
[2016-06-28] MEDS ORDERED: VANCOMYCIN 1,500 MG/NS 500 ML IV SCH ×2 (14:00)
--- NOTE | 2016-06-28 16:47 | HHI.NPPN ---
Subjective History of Present Illness The patient is an 80 yo AA female who was brought in today for AMS from her nursing facility, [facility]. It was found that she was profoundly hypoglycemia and was given D50 thru her I/O access. She was recently admitted here at the end of May with A fib and was started on Coumadin and low dose Lisinopril 2.5mg QD at that time. Home medication list was reviewed that showed no NSAIDs or outwardly nephrotoxic medications. She has been on Cipro for what is assumed to be a urinary tract infection. The patient herself is very lethargic and no meaningful information can be obtained from her. Admitting SCr at 5.65 that worsened to 5.84 Admitting K+ was 5.9 that worsened to 6.2---this was treated with dextrose, insulin, and Kayexalate. Interval History The patient is alert and in no distress. Says that she is feeling OK. (Lucy Dickerson) Objective Data Data 06/27/16 06/28/16 19:00 07:00 Intake Total 1718 ml 1877 ml Output Total 250 ml 525 ml Balance 1468 ml 1352 ml Intake Oral 360 ml 480 ml IV Total 1358 ml 1397 ml Output Urine Total 250 ml 525 ml # Bowel Movements 4 0 Vital Signs Date Time Temp Pulse Resp B/P Pulse Ox O2 Delivery O2 Flow Rate FiO2 06/28/16 14:00 94 06/28/16 12:00 99.3 94 24 145/90 100 139/71 06/28/16 12:00 94 06/28/16 10:00 104 06/28/16 08:06 100 Nasal Cannula 2.00 06/28/16 08:00 116 06/28/16 08:00 98.2 116 22 131/83 100 138/77 06/28/16 06:00 103 06/28/16 04:00 99.1 108 26 123/76 100 107/58 06/28/16 04:00 108 06/28/16 02:00 97 06/28/16 00:00 120 06/28/16 00:00 97.9 110 25 109/77 100 101/58 06/27/16 22:00 130 06/27/16 20:00 98.2 135 30 113/86 90 137/88 06/27/16 20:00 135 06/27/16 19:36 96 Nasal Cannula 3.00 06/27/16 18:00 107 (Lucy Dickerson) -: 06/28/16 0300 06/28/16 0300 Imaging Last Impressions Head CT 06/26/16 0646 Signed Impressions: Service Date/Time: June 08:48 - CONCLUSION: 1. No acute abnormality identified. Stable compared to prior exam dated 06/11/16. Abram Rivera MD Chest X-Ray 06/26/16 0646 Signed Impressions: Service Date/Time: June 06:59 - CONCLUSION: Much better aeration left lower lobe today than the previous study. Still some indistinctness of the left hemidiaphragm difficult to rule out a small left lower lobe infiltrate. Jamarcus Kelly MD Renal Ultrasound 06/26/16 0000 Signed Impressions: Service Date/Time: June 10:59 - CONCLUSION: Kidneys are slightly echogenic which can be seen with medical renal disease. Yfn Santillan MD Medication Review Current Medications Medications (Trade) Dose Ordered Sig/Abigail Route Start Time Stop Time Status Last Admin (Cardizem Cd) 180 mg DAILY PO 06/26/16 11:00 06/28/16 08:51 (Lopressor) 100 mg DAILY PO 06/26/16 11:00 06/28/16 08:51 (NS Flush) 2 ml UNSCH PRN IV FLUSH 06/26/16 11:15 06/27/16 21:07 (NS Flush) 2 ml BID IV FLUSH 06/26/16 21:00 06/28/16 08:51 (Zofran Inj) 4 mg Q6H PRN IV 06/26/16 11:15 Miscellaneous Information 1 Q361D XX 06/26/16 11:15 (Peridex 0.12% Liq) 15 ml BID@08,20 MT 06/26/16 20:00 06/27/16 09:31 Polyethylene Glycol 17 gm 17 gm BID PO 06/26/16 21:00 Pharmacy Profile Note 0 ml @ 0 mls/hr UNSCH OTHER 06/26/16 14:45 (Zosyn 2.25 Gm Premix) 50 ml @ 100 mls/hr Q8H IV 06/26/16 22:00 06/28/16 13:31 (Trandate Inj) 10 mg Q1H PRN IV PUSH 06/26/16 14:45 06/27/16 21:14 Miscellaneous Information Patient in critical care unit? Ass... Q361D XX 06/27/16 01:45 06/27/16 01:45 (Chlorhexidine 2% Cloth) 3 pack DAILY@04 TOP 06/27/16 04:00 07/01/16 04:01 06/28/16 04:00 Chlorhexidine Gluconate 3 pack 3 pack UNSCH PRN TOP 06/27/16 01:45 07/02/16 01:34 (Dextrose 10% In Water Inj) 1,000 ml @ 75 mls/hr [id number] IV 06/28/16 11:00 06/28/16 08:52 Dexamethasone Sodium Phosphate 4 mg 4 mg Q6HR IV PUSH 06/28/16 09:30 06/28/16 11:45 (Vancomycin Inj/ NS 500 ml Inj) 515 ml @ 257.5 mls/ hr ONCE IV 06/28/16 14:00 06/28/16 23:59 06/28/16 14:44 (Lucy Dickerson) Physical Exam General Appearance: Comfortable (Lucy Dickerson) Eyes Eye Exam: Pupils Equal, Pupils Reactive (Lucy Dickerson) Neck Neck Exam: Neck Supple, Trachea Midline (Lucy Dickerson) Pulmonary Resp Exam: Clear Bilaterally, Breath Sounds Equal (Lucy Dickerson) Cardiology CV Exam: Irregular, Arrhythmia (Lucy Dickerson) Gastrointestinal/Abdomen GI Exam: Soft, Non-Tender (Lucy Dickerson) Genitourinary Exam: Clear Urine (Lucy Dickerson) Integumentary Skin Exam: Clear, Warm, Dry (Lucy Dickerson) Extremeties Extremities Exam: Pitting Edema, Dependent Edema Extremeties Remarks BLE and BUE. (Lucy Dickerson) Neurologic Neuro Exam: Alert, Awake, Oriented (Lucy Dickerson) Psychiatric Psych Exam: Appropriate Responses (Lucy Dickerson) Assessment/Plan Problem List: (1) Acute renal failure Plan: Patient has had a profound deterioration in her renal function after her recent admission. Etiology of the acute renal failure uncertain at the present time. Differential diagnosis presently would include a possible development of acute kidney injury secondary to sepsis. Patient apparently was on Cipro as an outpatient to interstitial nephritis is also a consideration. Screening tests are still pending. Renal functions have worsened again. She has become edematous and CC has started her on diuretics. Monitor I&Os. UOP marginal thus far. There is no emergent need for dialysis today, but if her azotemia should worsen , dialytic intervention may need to occur as early as tomorrow. The patient, her daughter, and her son-in-law were informed of the severity of her renal decline. The patient does wish to proceed if needed tomorrow. Daughter confirms. Continue to monitor I&Os. Acid/base status is acceptable. Medications should be adjusted for the patient's estimated GFR if clinically indicated. Avoid agents with significant potential for nephrotoxicity possible including NSAIDs for analgesia, iodine contrast agents. Gadolinium is contraindicated if the GFR is below 30. (2) Hyperkalemia Plan: Resolved with treatment. Monitor closely given her ARF (3) Hypertension Plan: Defer management to critical care presently. (4) Diabetes mellitus Plan: Defer management to critical care. (Lucy Dickerson) Plan The exam, history, and the medical decision-making described in the above note were completed with the assistance of the PA-C. I reviewed and agree with the findings presented. I attest that I had a [id number] encounter with the patient on the same day, and personally performed and documented my assessment and findings in the medical record. (Mary Garrison MD) Lucy Dickerson Jun 28, 2016 16:47 Mary Garrison MD Jun 28, 2016 17:07
[2016-06-29] VITALS (14 sets, daily range): BP systolic 105–165; BP diastolic 58–94; PULSE 76–106; RESP 18–22; TEMP 97.5–98.9; O2SAT 95–100
[2016-06-29] MEDS: DEXAMETHASONE SOD PHOS 4 MG/ML VIAL IV PUSH SCH ×5 (00:13→23:27)
[2016-06-29] MEDS: CHLORHEXIDINE GLUCONATE 2 % 1 PACK (2 CLOTHS)(taper/protocol) TOP SCH (04:00)
[2016-06-29 05:05] LABS: HEMATOCRIT 32.1 % (35.0-46.0); MEAN CELL VOLUME 86.8 FL (80.0-100.0); MEAN CORPUSCULAR HEMOGLOBIN 28.5 PG (27.0-34.0); MEAN CORPUSCULAR HGB CONC 32.9 % (32.0-36.0); PLATELET COUNT 215 TH/MM3 (150-450); RED CELL DISTRIBUTION WIDTH 14.8 % (11.6-17.2); REVIEW FLAG FINAL; WHITE BLOOD COUNT 9.5 TH/MM3 (4.0-11.0)
[2016-06-29 05:34] LABS: APTT (PATIENT) 35.1 SEC (24.3-30.1); BICARBONATE 19.3 MEQ/L (21.0-32.0); INTERNATIONAL NORMALIZED RATIO 1.5 RATIO; PROTHROMBIN TIME - PATIENT 17.4 SEC (9.8-11.6)
[2016-06-29 06:07] LABS: CALCIUM-PROTEIN CORRECTED 7.8 MG/DL (8.5-10.1)
[2016-06-29] MEDS: PIPERACIL-TAZO 2.25 GM PREMIX 50 ML IV SCH ×3 (06:14→21:07)
[2016-06-29] MEDS ORDERED: FUROSEMIDE 100 MG/10 ML VIAL IV PUSH ONE (07:45)
[2016-06-29] MEDS: CHLORHEXIDINE 0.12% (ORAL KIT) 15 ML CUP MT SCH ×2 (08:00→20:00)
[2016-06-29] MEDS ORDERED: FUROSEMIDE 100 MG/10 ML VIAL ONE (08:31)
[2016-06-29] MEDS: POLYETHYLENE GLYCOL 17 GM PKG PO SCH ×2 (08:34→21:07)
[2016-06-29] MEDS: SODIUM CHLORIDE 0.9% FLUSH 5 ML FLUSH IV FLUSH SCH ×2 (08:34→21:00)
[2016-06-29] MEDS: DILTIAZEM-CD 180 MG CAP ER PO SCH (08:34)
[2016-06-29] MEDS: METOPROLOL TARTRATE 100 MG TAB PO SCH (08:34)
[2016-06-29] MEDS ORDERED: MIDAZOLAM HCL 2 MG/2 ML VIAL IV ONE (10:30)
--- NOTE | 2016-06-29 11:02 | HHI.NPPN ---
Subjective History of Present Illness The patient is an 80 yo AA female who was brought in today for AMS from her nursing facility, [facility]. It was found that she was profoundly hypoglycemia and was given D50 thru her I/O access. She was recently admitted here at the end of May with A fib and was started on Coumadin and low dose Lisinopril 2.5mg QD at that time. Home medication list was reviewed that showed no NSAIDs or outwardly nephrotoxic medications. She has been on Cipro for what is assumed to be a urinary tract infection. The patient herself is very lethargic and no meaningful information can be obtained from her. Admitting SCr at 5.65 that worsened to 5.84 Admitting K+ was 5.9 that worsened to 6.2---this was treated with dextrose, insulin, and Kayexalate. Interval History The patient is more lethargic today. UOP improved, however, not in conjunction with the amount of diuretics she is receiving (Lucy Dickerson) Review of Systems General Constitutional: Fatigue (Lucy Dickerson) Objective Data Data 06/28/16 06/29/16 19:00 07:00 Intake Total 809 ml 2268 ml Output Total 550 ml 625 ml Balance 259 ml 1643 ml Intake Oral 80 ml 0 ml Oral Supplement 250 ml IV Total 729 ml 2018 ml Output Urine Total 550 ml 625 ml Stool Total 0 ml # Bowel Movements 2 0 Vital Signs Date Time Temp Pulse Resp B/P Pulse Ox O2 Delivery O2 Flow Rate FiO2 06/29/16 10:00 86 06/29/16 08:01 100 Nasal Cannula 2.00 06/29/16 08:00 98.7 89 20 140/65 100 132/70 06/29/16 08:00 89 06/29/16 06:00 89 06/29/16 04:00 88 06/29/16 04:00 98.7 88 18 130/72 100 120/87 06/29/16 02:00 90 06/29/16 00:00 104 06/29/16 00:00 98.9 104 20 165/73 100 105/88 06/28/16 22:00 91 06/28/16 20:00 99 06/28/16 20:00 98.6 99 18 96/55 100 104/58 06/28/16 19:57 100 Nasal Cannula 2.00 06/28/16 18:00 100 06/28/16 16:00 99.2 84 21 136/64 100 06/28/16 16:00 84 06/28/16 14:00 94 06/28/16 12:00 99.3 94 24 145/90 100 139/71 06/28/16 12:00 94 (Lucy Dickerson) -: 06/29/16 0440 06/29/16 0440 Medication Review Current Medications Medications (Trade) Dose Ordered Sig/Abigail Route Start Time Stop Time Status Last Admin (Cardizem Cd) 180 mg DAILY PO 06/26/16 11:00 06/29/16 08:34 (Lopressor) 100 mg DAILY PO 06/26/16 11:00 06/29/16 08:34 (NS Flush) 2 ml UNSCH PRN IV FLUSH 06/26/16 11:15 06/27/16 21:07 (NS Flush) 2 ml BID IV FLUSH 06/26/16 21:00 06/29/16 08:34 (Zofran Inj) 4 mg Q6H PRN IV 06/26/16 11:15 Miscellaneous Information 1 Q361D XX 06/26/16 11:15 (Peridex 0.12% Liq) 15 ml BID@08,20 MT 06/26/16 20:00 06/27/16 09:31 Polyethylene Glycol 17 gm 17 gm BID PO 06/26/16 21:00 Pharmacy Profile Note 0 ml @ 0 mls/hr UNSCH OTHER 06/26/16 14:45 (Zosyn 2.25 Gm Premix) 50 ml @ 100 mls/hr Q8H IV 06/26/16 22:00 06/29/16 06:14 (Trandate Inj) 10 mg Q1H PRN IV PUSH 06/26/16 14:45 06/27/16 21:14 Miscellaneous Information Patient in critical care unit? Ass... Q361D XX 06/27/16 01:45 06/27/16 01:45 (Chlorhexidine 2% Cloth) 3 pack DAILY@04 TOP 06/27/16 04:00 07/01/16 04:01 06/29/16 04:00 (Chlorhexidine 2% Cloth) 3 pack UNSCH PRN TOP 06/27/16 01:45 07/02/16 01:34 (Decadron Inj) 4 mg Q6HR IV PUSH 06/28/16 09:30 06/29/16 06:14 (Lucy Dickerson) Physical Exam General Appearance: Comfortable (Lucy Dickerson) Eyes Eye Exam: Pupils Equal, Pupils Reactive (Lucy Dickerson) Neck Neck Exam: Neck Supple, Trachea Midline (Lucy Dickerson) Pulmonary Resp Exam: Clear Bilaterally, Breath Sounds Equal (Lucy Dickerson) Cardiology CV Exam: Irregular, Arrhythmia (Lucy Dickerson) Gastrointestinal/Abdomen GI Exam: Soft, Non-Tender (Lucy Dickerson) Genitourinary Exam: Clear Urine (Lucy Dickerson) Integumentary Skin Exam: Clear, Warm, Dry (Lucy Dickerson) Extremeties Extremities Exam: Pitting Edema, Dependent Edema Extremeties Remarks BLE and BUE. (Lucy Dickerson) Neurologic Neuro Exam: Alert, Awake, Oriented (Lucy Dickerson) Psychiatric Psych Exam: Appropriate Responses (Lucy Dickerson) Assessment/Plan Problem List: (1) Acute renal failure Plan: Patient has had a profound deterioration in her renal function after her recent admission. Etiology of the acute renal failure uncertain at the present time. Differential diagnosis presently would include a possible development of acute kidney injury secondary to sepsis. Patient apparently was on Cipro as an outpatient to interstitial nephritis is also a consideration. Screening tests are still pending. SCr worsening. She is now acidotic. UOP marginal given the amount of diuretics she is receiving. Discussed in detail with the patient about dialysis. She is willing to proceed. As mentioned to her, this may be a temporary intervention however, she may require dialysis for the rest of her life. She was advised of the potential complications and risks of dialysis including infection, hypotension, cardiac arrhythmia, and . The patient's daughter has been contacted over the phone who says she plans on coming to the hospital this afternoon. All are in agreement to proceed. Dialysis nurse has been contacted & orders have been placed. We will follow. Medications should be adjusted for the patient's estimated GFR if clinically indicated. Avoid agents with significant potential for nephrotoxicity possible including NSAIDs for analgesia, iodine contrast agents. Gadolinium is contraindicated if the GFR is below 30. (2) Hypertension Plan: Defer management to critical care presently. (3) Diabetes mellitus Plan: Defer management to critical care. (Lucy Dickerson) Plan The exam, history, and the medical decision-making described in the above note were completed with the assistance of the PA-C. I reviewed and agree with the findings presented. (Mary Garrison MD) Lucy Dickerson Jun 29, 2016 11:02 Mary Garrison MD Jun 29, 2016 18:10
[2016-06-29] MEDS ORDERED: SODIUM CHLOR 0.9% 1000 ML INJ 1,000 ML IV PRN ×3 (11:03)
[2016-06-29] MEDS ORDERED: cloNIDine HCL 0.1 MG TAB PO PRN (11:15)
[2016-06-29] MEDS ORDERED: ONDANSETRON HCL 4 MG/2 ML VIAL IV PRN (11:15)
[2016-06-29] MEDS ORDERED: ACETAMINOPHEN 325 MG TAB PO PRN (11:15)
[2016-06-29] MEDS ORDERED: diphenhydrAMINE HCL 25 MG CAP PO PRN (11:15)
[2016-06-29] MEDS ORDERED: GELATIN 12 MM/7 MM FOAM TOP PRN (11:15)
[2016-06-29] MEDS ORDERED: HEPARIN SODIUM - IV 10,000 UNITS/10 ML VIAL IVF PRN (11:15)
[2016-06-29] MEDS ORDERED: MANNITOL 12.5 GM/50 ML VIAL IV PRN (11:15)
[2016-06-29] MEDS ORDERED: ALBUMIN HUMAN 25% 25 GM/100 ML BAGP IV PRN (11:15)
[2016-06-29] MEDS ORDERED: SODIUM CHLORIDE 0.9% FLUSH 5 ML FLUSH IVF PRN (11:15)
[2016-06-29] MEDS ORDERED: NITROGLYCERIN 0.4 MG SL 25 TABS/BTL SL PRN (11:15)
--- NOTE | 2016-06-29 15:34 | RADRPT ---
EXAM DATE/TIME: 06/29/2016 14:51 [facility] COMPARISON: CHEST SINGLE AP, June 26, 2016, 6:59. INDICATIONS : Vas cath placement MEDICAL HISTORY : None. SURGICAL HISTORY : None. ENCOUNTER: Subsequent ACUITY: 3 days PAIN SCORE: 0/10 LOCATION: Bilateral chest FINDINGS: The heart is enlarged. Mild central pulmonary vascular congestion is noted. A right internal jugula r Vas cath has its tip in the right atrium. There is no pneumothorax. Degenerative changes are note d involving the shoulders bilaterally. Degenerative changes and scoliosis of the thoracolumbar spine are noted. CONCLUSION: 1. Mild central pulmonary vascular congestion. 2. Marked cardiomegaly. 3. Right internal jugular Vas cath has its tip in the right atrium. There is no pneumothorax. 4. Degenerative changes and scoliosis of the thoracolumbar spine. 5. Degenerative changes involving the shoulders bilaterally. Konstantin Dunbar MD on June 29, 2016 at 15:28 Board Certified Radiologist. This report was verified electronically.
[2016-06-29] MEDS: GENTAMICIN SULFATE (DIALYSIS USE ONLY) 20 MG/2 ML VIAL IV PRN (15:44)
[2016-06-29] MEDS: HEPARIN SODIUM - IV 10,000 UNITS/10 ML VIAL PRN (15:45)
[2016-06-29 18:00] LABS: HEMATOCRIT 35.2 % (35.0-46.0); MEAN CELL VOLUME 86.7 FL (80.0-100.0); MEAN CORPUSCULAR HEMOGLOBIN 28.5 PG (27.0-34.0); MEAN CORPUSCULAR HGB CONC 32.9 % (32.0-36.0); PLATELET COUNT 243 TH/MM3 (150-450); RED BLOOD COUNT 4.06 MIL/MM3 (4.00-5.30); RED CELL DISTRIBUTION WIDTH 14.1 % (11.6-17.2); REVIEW FLAG FINAL; WHITE BLOOD COUNT 13.9 TH/MM3 (4.0-11.0)
[2016-06-29] MEDS ORDERED: HEPARIN SODIUM - IV 10,000 UNITS/10 ML VIAL IV PRN ×2 (18:15)
[2016-06-29 18:17] LABS: APTT (PATIENT) 29.6 SEC (24.3-30.1); INTERNATIONAL NORMALIZED RATIO 1.3 RATIO
[2016-06-29] MEDS: HEPARIN 25,000 UNITS-D5W 250 ML - PREMIX IV SCH (19:10)
--- NOTE | 2016-06-29 22:31 | HHI.CCPN ---
Subjective Remarks/Hospital Course Hospital Course: This is an 80-year-old female who was recently admitted to [facility] with new onset atrial fibrillation with rapid ventricular response. She reports sensitivity emergency department with altered mental status and severe life-threatening hypoglycemia with a serum glucose of 23. An I/O needle was placed and the patient was given D50. Her glucose slowly improved and she began to have improved mental status. When I evaluated the patient, she was somnolent but arousable. she denies chest pain, shortness of breath, nausea, vomiting, diarrhea. She states he hadn't urinated today, so she is unsure if she has dysuria. critical care medicine has been consulted to evaluate and manage her acute kidney injury and severe hypoglycemia. Subjective: 06/27: minimal uop yesterday and overnight. much more awake and alert today. K downtrending from 6.2 to 5.0 this AM. palliative care on board for goals of care in the setting of possible need for dialysis. per the patient, she was fairly functional, even after this most recent admission, and she would want to pursue dialysis as an option. 06/28: hypoglycemia persists. now on D10 @ 75cc/hr. starting to clinically become intravascularly volume overloaded. but uop starting to increase today also: 775/ 24h yesterday, but 300cc out in the last 4 hours this AM. otherwise no changes. 06/29: hypoglycemia essentially resolved. off D10. on steroids. still volume overloaded. lasix 200mg iv unsuccessful at optimizing volume status. discussed with nephrology. plan for IHD today. will place vas cath. Objective Vital Signs Date Time Temp Pulse Resp B/P Pulse Ox O2 Delivery O2 Flow Rate FiO2 06/29/16 22:00 106 06/29/16 20:01 97 21 06/29/16 20:00 97.9 18 145/94 06/29/16 08:01 Nasal Cannula 2.00 Intake and Output 06/28/16 06/28/16 06/29/16 08:00 16:00 00:00 Intake Total 810 ml 809 ml 1214 ml Output Total 275 ml 550 ml 375 ml Balance 535 ml 259 ml 839 ml Result Diagram: 06/29/16 1730 06/29/16 0440 Objective Remarks GENERAL: Elderly female, lying in bed, awake and alert today. HEENT: Normocephalic. Atraumatic. Mucous membranes moist NECK: Trachea is midline. JVD unable to assess secondary to body habitus and an external jugular catheter. CHEST: Equal chest rise. Clear to auscultation. CARDIOVASCULAR: Normal rate, irregularly irregular rhythm. No appreciable murmurs. ABDOMEN: Soft, nontender, nondistended. No guarding. MUSCULOSKELETAL: 2+ peripheral edema. Distal pulses 2+. NEUROLOGICAL: RASS 0. follows commands all 4 extremities. No focal motor sensory deficits. A/P Assessment and Plan Assessment: This is an 80-year-old female with recent diagnosis of atrial fibrillation with rapid ventricular response and diabetes who was recently admitted for A. fib RVR, discharged home with lisinopril and warfarin, now presents with severe acute kidney injury, altered mental status, severe hypoglycemia. She was given a number of D50 boluses. She was started on D5NS at 150 cc an hour. Her potassium has come down with Kayexalate. Will plan for IHD today. will place VasCath. If she tolerated IHD, she could be stable for transfer to the floor. Her INR has come down with Vit K. we will start heparin infusion for anticoagulation for A Fib in the setting of acute renal dysfunction. Plan by systems: Neurologic: Toxic/metabolic encephalopathy liberalize to q2h neuro checks Hold long-acting sedating meds Respiratory: atelectasis Possible healthcare associated pneumonia Incentive spirometer to bedside Patient does not have cough or increased oxygen requirement. Is unlikely the patient has healthcare associated pneumonia. We will cover with empiric antibiotics and await culture data Wean oxygen for goal SPO2 greater than 92% Cardiovascular: Atrial fibrillation Systolic congestive heart failure, EF 30-35% Continue home diltiazem and metoprolol We'll hold on digoxin. Her systemic level was nontoxic, but significantly increased from last check Repeat echo 06/27: LVEF 40-45%, mild RV dysfunction, pulm htn rvsp 60s, dilated IVC holding Coumadin given renal failure. will start heparin drip. Renal: Severe acute kidney injury Intravascular volume overload continue mcdonald catheter. FeNa 31%. --Urine eos- negative. -- Strict I/Os Renal ultrasound 06/26: Negative for acute hydronephrosis --Nephrology on board: Dr. Garrison --place VasCath today. start IHD. FEN/GI: Acute protein calorie malnutritionmoderate Life-threatening hyperkalemia Kayexalate q3h. --diet per speech: mechanical soft. Daily BMP --will minimize IVF in the setting of early hypervolemia. Heme/ID: Possible sepsis Supratherapeutic anticoagulation continue vancomycin with pharmacy dosing Continue Zosyn, 2.25 g IV every 8 hours. --could consider d/c antibiotics since her cultures are negative x 48h. will re- assess. Daily CBC Daily coags We'll continue to hold warfarin in the setting of renal dysfunction. --start heparin drip, no bolus, for anticoagulation for A Fib in the setting of renal dysfunction. Endocrine: Severe life-threatening hypoglycemia- resolving. --liberalize to q4h accuchecks. --d/c D10. --D50 as needed --hydrocortisone 50mg iv q6h Prophylaxis: GI Prophylaxis Does not meet evidence-based indication for GI prophylaxis at this time DVT Prophylaxis -- SCDs heparin drip. Lines: Peripheral IVs. --1/6 right radial arterial line for frequent lab draws (very difficult iv access) will place vas cath today. Dispo: Remain in the ICU. If she tolerates IHD, we can consider transition to floor. Anthony Torres MD Jun 29, 2016 22:31
--- NOTE | 2016-06-29 22:34 | PD.PROCEDR ---
Procedure Note Procedure Central Line Procedure Note Right IJ 14 Maltese, 15 cm dialysis catheter Diagnosis: Acute kidney injury Indications: Kidney injury requiring renal placement therapy Consent: Written consent was obtained Anesthesia: Versed 2 mg IV, lidocaine 1% locally Description of the Procedure: The patient was placed in the supine, mild- Trendelenburg position. The area was prepped and draped sterilely. A 19g needle was inserted under negative pressure aspiration and dark venous blood was obtained. A guidewire was inserted easily without resistance. A small incision was made using a #11 blade. Using a modified Seldinger technique, the serial dilators and 14 Maltese, 15 cm catheter were advanced over the guidewire without resistance. All ports were aspirated and flushed, and had brisk blood return. The line was secured at the skin using 2-0 silk interrupted sutures. A Biopatch and Transparent sterile dressing were applied. There were no immediate complications noted. There was minimal EBL. The patient tolerated the procedure well. Ultrasound Guidance: Ultrasound guidance was used to identify the right internal jugular vein. The vascular anatomy of the right anterior neck was normal. The vessel was cannulated under direct, real-time ultrasound visualization. After placement of the guidewire, confirmation of the guidewire in the lumen of the vessel was made using ultrasound visualization, before dilation of the tract. A Chest x-ray has been ordered. I personally performed the procedure. Anthony Torres MD Jun 29, 2016 22:34
[2016-06-30] VITALS (14 sets, daily range): BP systolic 94–158; BP diastolic 60–85; PULSE 82–127; RESP 20–25; TEMP 97.6–98.7; O2SAT 89–99
[2016-06-30] MEDS ORDERED: DEXTROSE 50% IN WATER 50 ML VIAL(D50) IV PUSH PRN (00:15)
[2016-06-30] MEDS ORDERED: GLUCAGON 1 MG/ML VIAL OTHER PRN (00:15)
[2016-06-30 03:54] LABS: APTT (PATIENT) 66.4 SEC (24.3-30.1); INTERNATIONAL NORMALIZED RATIO 1.2 RATIO; PROTHROMBIN TIME - PATIENT 13.4 SEC (9.8-11.6)
[2016-06-30] MEDS: CHLORHEXIDINE GLUCONATE 2 % 1 PACK (2 CLOTHS)(taper/protocol) TOP SCH (04:00)
[2016-06-30 04:45] LABS: MEAN CELL VOLUME 85.5 FL (80.0-100.0); MEAN CORPUSCULAR HEMOGLOBIN 28.1 PG (27.0-34.0); MEAN CORPUSCULAR HGB CONC 32.9 % (32.0-36.0); PLATELET COUNT 242 TH/MM3 (150-450); RED BLOOD COUNT 3.98 MIL/MM3 (4.00-5.30); RED CELL DISTRIBUTION WIDTH 14.6 % (11.6-17.2); REVIEW FLAG FINAL; WHITE BLOOD COUNT 11.3 TH/MM3 (4.0-11.0)
[2016-06-30 04:58] LABS: APTT (PATIENT) 69.7 SEC (24.3-30.1)
[2016-06-30] MEDS: PIPERACIL-TAZO 2.25 GM PREMIX 50 ML IV SCH ×3 (05:20→21:17)
[2016-06-30 05:31] LABS: BICARBONATE 23.5 MEQ/L (21.0-32.0); POTASSIUM 4.6 MEQ/L (3.5-5.1)
[2016-06-30 06:01] LABS: CALCIUM-PROTEIN CORRECTED 7.9 MG/DL (8.5-10.1)
[2016-06-30] MEDS: INSULIN ASPART SUPPLEMENTAL SCALE SQ SCH ×4 (06:33→21:24)
[2016-06-30] MEDS: CHLORHEXIDINE 0.12% (ORAL KIT) 15 ML CUP MT SCH ×2 (08:00→20:00)
[2016-06-30] MEDS: HEPARIN SODIUM - IV 10,000 UNITS/10 ML VIAL PRN (08:45)
[2016-06-30] MEDS: GENTAMICIN SULFATE (DIALYSIS USE ONLY) 20 MG/2 ML VIAL IV PRN (08:45)
[2016-06-30 10:26] LABS: APTT (PATIENT) 75.2 SEC (24.3-30.1)
--- NOTE | 2016-06-30 10:30 | HHI.NPPN ---
Subjective History of Present Illness The patient is an 80 yo AA female who was brought in today for AMS from her nursing facility, [facility]. It was found that she was profoundly hypoglycemia and was given D50 thru her I/O access. She was recently admitted here at the end of May with A fib and was started on Coumadin and low dose Lisinopril 2.5mg QD at that time. Home medication list was reviewed that showed no NSAIDs or outwardly nephrotoxic medications. She has been on Cipro for what is assumed to be a urinary tract infection. The patient herself is very lethargic and no meaningful information can be obtained from her. Admitting SCr at 5.65 that worsened to 5.84 Admitting K+ was 5.9 that worsened to 6.2---this was treated with dextrose, insulin, and Kayexalate. Interval History Patient seen during her second dialysis treatment today. She seems more alert and indicated that she was feeling better. Review of Systems General Constitutional: Fatigue Objective Data Data 06/29/16 06/30/16 19:00 07:00 Intake Total 376 ml 663 ml Output Total 1550 ml 560 ml Balance -1174 ml 103 ml Intake Oral 220 ml 350 ml IV Total 156 ml 313 ml Output Urine Total 550 ml 560 ml Stool Total 0 ml Hemodialysis 1000 ml # Bowel Movements 0 Vital Signs Date Time Temp Pulse Resp B/P Pulse Ox O2 Delivery O2 Flow Rate FiO2 06/30/16 09:03 95 06/30/16 06:00 90 06/30/16 04:00 93 06/30/16 04:00 98.7 93 20 158/69 99 06/30/16 02:00 87 06/30/16 00:00 84 06/30/16 00:00 98.7 84 23 130/60 95 06/29/16 22:00 106 06/29/16 20:01 97 21 06/29/16 20:00 101 06/29/16 20:00 97.9 101 18 145/94 95 06/29/16 18:00 88 06/29/16 16:00 98.0 82 22 127/58 98 112/80 06/29/16 16:00 82 06/29/16 14:00 81 06/29/16 12:00 97.5 76 18 155/62 100 06/29/16 12:00 76 -: 06/30/16 0415 06/30/16 0415 Tubes & Lines: Vas-Cath Physical Exam General Appearance: Comfortable Eyes Eye Exam: Pupils Equal, Pupils Reactive Neck Neck Exam: Neck Supple, Trachea Midline Pulmonary Resp Exam: Clear Bilaterally, Breath Sounds Equal Cardiology CV Exam: Irregular, Arrhythmia Gastrointestinal/Abdomen GI Exam: Soft, Non-Tender Genitourinary Exam: Clear Urine Integumentary Skin Exam: Clear, Warm, Dry Extremeties Extremities Exam: Trace Edema Neurologic Neuro Exam: Alert, Awake, Oriented Psychiatric Psych Exam: Appropriate Responses Assessment/Plan Problem List: (1) Acute renal failure Plan: Patient has had a profound deterioration in her renal function after her recent admission. Etiology of the acute renal failure uncertain at the present time. Differential diagnosis presently would include a possible development of acute kidney injury secondary to sepsis. Patient apparently was on Cipro as an outpatient to interstitial nephritis is also a consideration. Screening tests are still pending. Patient's azotemia has improved with dialysis. We'll likely hold dialysis tomorrow and recheck labs with possible dialysis Thursday again. Serological studies pending. Depending upon the results or progress of patient' s acute renal insufficiency we may have to consider a kidney biopsy for definitive diagnosis as to the etiology of the patient's abrupt decline in renal function. This was discussed with the patient. Medications should be adjusted for the patient's estimated GFR if clinically indicated. Avoid agents with significant potential for nephrotoxicity possible including NSAIDs for analgesia, iodine contrast agents. Gadolinium is contraindicated if the GFR is below 30. (2) Hypertension Plan: Defer management to critical care presently. (3) Diabetes mellitus Plan: Defer management to critical care. Mary Garrison MD Jun 30, 2016 10:30
[2016-06-30] MEDS: METOPROLOL TARTRATE 100 MG TAB PO SCH (12:21)
[2016-06-30] MEDS: SODIUM CHLORIDE 0.9% FLUSH 5 ML FLUSH IV FLUSH SCH ×2 (12:21→21:18)
[2016-06-30] MEDS: DILTIAZEM-CD 180 MG CAP ER PO SCH (12:21)
[2016-06-30] MEDS: HYDROCORTISONE SOD SUCCINATE 100 MG VIAL IV PUSH SCH ×2 (12:21→21:18)
[2016-06-30] MEDS: POLYETHYLENE GLYCOL 17 GM PKG PO SCH ×2 (12:21→21:00)
--- NOTE | 2016-06-30 15:15 | HHI.HCPN ---
Reason for visit a. To assist with evaluation and management of symptoms including: Debility. b. To assist medical decision maker(s) with: better understanding of current medical conditions; weighing benefits/burdens of medical treatment options; making medical treatment decisions. . Subjective/Interval History Patient seen in ICU. No family at bedside. Patient tells me that she feels much better today. Reports tolerating HD yesterday and today without acute events. Denies pain, shortness of breath, n/v or abdominal discomfort. Verbalized wishing to go home. Reviewed the need to continue monitoring her kidney function with next HD tentative for Thursday. Patient reports that kidney biopsy may be needed in the future, patient is unsure if she will proceed this this. Patient afebrile. Hgb stable at 11.2. WBC 11.3. BUN/Creat 48/5.92 prior to today 's HD. Blood cultures 07/06/16 with no growth thus far. CXR of yesterday with mild pulmonary congestion and marked cardiomegaly. Patient verbalized wishing to be discharge home and not to return to any rehab facility. Patient also verbalized being unsure about long-term dialyses as outpatient if her renal function remains or continues to worsen. Discussed aggressive care vs. comfort-directed care in the setting of profound deterioration in kidney function/ESRD and absence of renal replacement therapy, including prognosis. Introduced hospice philosophy and benefits, she is familiar with hospice. Encouraged patient to discuss discharge options with her family. . Family/friend interactions Conversation with [facility]-daughter Tia over the phone. Medical update provided. Daughter reports that they are unable to discharge patient home as they do not have the assistance that she requires. Daughter wishing for rehab discharge but not to [facility]. Daughter wishing to speak with transplant case manager regarding other discharge options. Encouraged daughter to discuss discharge options with patient. . Advance Directives Living Will: Never completed Health Care Surrogate: Copy in medical record Durable Power of Pasteurizing Supervisor: Never completed Advance Directive Specifics Date completed: 06/27/15. . Health Care Surrogate(s): Wilman Persaud. . Documented care wishes: No living will completed. . Significant change in goals: FULL CODE. 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 . Objective Vital Signs Date Time Temp Pulse Resp B/P Pulse Ox O2 Delivery O2 Flow Rate FiO2 06/30/16 09:03 95 06/30/16 06:00 90 06/30/16 04:00 93 06/30/16 04:00 98.7 93 20 158/69 99 06/30/16 02:00 87 06/30/16 00:00 84 06/30/16 00:00 98.7 84 23 130/60 95 06/29/16 22:00 106 06/29/16 20:01 97 21 06/29/16 20:00 101 06/29/16 20:00 97.9 101 18 145/94 95 06/29/16 18:00 88 06/29/16 16:00 98.0 82 22 127/58 98 112/80 06/29/16 16:00 82 Intake & Output 06/30/16 06/30/16 07:00 19:00 Intake Total 663 ml Output Total 560 ml 1800 ml Balance 103 ml -1800 ml Intake Oral 350 ml IV Total 313 ml Output Urine Total 560 ml Stool Total 0 ml Hemodialysis 1800 ml # Bowel Movements 0 Physical Exam CONSTITUTIONAL/GENERAL: This is an adequately nourished patient, in no apparent distress. Alert, verbal and able to communicate needs. TUBES/LINES/DRAINS: Scanlon cath, PIV's, Rt IJ VasCath, SCD's. SKIN: No jaundice, rashes, or lesions. Ecchymoses on upper extremities. No wounds seen anteriorly. Skin temperature appropriate. Not diaphoretic. HEAD: Atraumatic. Normocephalic. EYES: Pupils equal and round and reactive. Extraocular motions intact. No scleral icterus. ENT: Hearing grossly normal. Nose without bleeding or purulent drainage. Throat without visible erythema, exudates, masses, or lesions. NECK: Trachea midline. Supple, nontender. N CARDIOVASCULAR: Tachycardiac, Irregular rate and rhythm without murmurs, gallops , or rubs. Peripheral pulses symmetric. RESPIRATORY/CHEST: Symmetric, unlabored respirations. Clear to auscultation. Breath sounds equal bilaterally. No wheezes, rales, or rhonchi. GASTROINTESTINAL: Abdomen soft, round, mildly distended. non-tender. No guarding. Bowel sounds present. GENITOURINARY: Without palpable bladder distension. Scanlon catheter in place. MUSCULOSKELETAL: Extremities without clubbing, cyanosis. No mottling or clubbing. +1 edema to BLE. NEUROLOGICAL: Awake and alert. Follows commands. Moves all extremities. Fine tremors to BUE. PSYCHIATRIC: No obvious anxiety/depression. . Diagnostic Tests Laboratory Laboratory Tests Test 06/27/16 06/28/16 06/28/16 06/29/16 18:00 03:00 06:30 04:40 Prothrombin Time 40.3 SEC 35.9 SEC 17.4 SEC (9.8-11.6) (9.8-11.6) (9.8-11.6) Prothromb Time International 3.5 RATIO 3.1 RATIO 1.5 RATIO Ratio Activated Partial 40.1 SEC 43.7 SEC 35.1 SEC Thromboplast Time (24.3-30.1) (24.3-30.1) (24.3-30.1) White Blood Count 10.7 TH/MM3 9.5 TH/MM3 (4.0-11.0) (4.0-11.0) Red Blood Count 3.51 MIL/MM3 3.70 MIL/MM3 (4.00-5.30) (4.00-5.30) Hemoglobin 10.0 GM/DL 10.6 GM/DL (11.6-15.3) (11.6-15.3) Hematocrit 30.6 % 32.1 % (35.0-46.0) (35.0-46.0) Mean Corpuscular Volume 87.2 FL 86.8 FL (80.0-100.0) (80.0-100.0) Mean Corpuscular Hemoglobin 28.4 PG 28.5 PG (27.0-34.0) (27.0-34.0) Mean Corpuscular Hemoglobin 32.6 % 32.9 % Concent (32.0-36.0) (32.0-36.0) Red Cell Distribution Width 14.9 % 14.8 % (11.6-17.2) (11.6-17.2) Platelet Count 222 TH/MM3 215 TH/MM3 (150-450) (150-450) Mean Platelet Volume 7.7 FL 7.6 FL (7.0-11.0) (7.0-11.0) Sodium Level 138 MEQ/L 136 MEQ/L (136-145) (136-145) Potassium Level 4.6 MEQ/L 5.0 MEQ/L (3.5-5.1) (3.5-5.1) Chloride Level 105 MEQ/L 102 MEQ/L (98-107) (98-107) Carbon Dioxide Level 21.9 MEQ/L 19.3 MEQ/L (21.0-32.0) (21.0-32.0) Anion Gap 11 MEQ/L (5-15) 15 MEQ/L (5-15) Blood Urea Nitrogen 52 MG/DL (7-18) 55 MG/DL (7-18) Creatinine 6.99 MG/DL 7.54 MG/DL (0.50-1.00) (0.50-1.00) Estimat Glomerular Filtration 7 ML/MIN (>89) 6 ML/MIN (>89) Rate Random Glucose 126 MG/DL 226 MG/DL (74-106) (74-106) Calcium Level 7.4 MG/DL 7.1 MG/DL (8.5-10.1) (8.5-10.1) Protein Corrected Calcium 8.3 MG/DL 7.8 MG/DL (8.5-10.1) (8.5-10.1) Total Protein 5.5 GM/DL 5.7 GM/DL 5.7 GM/DL (6.4-8.2) (6.4-8.2) (6.4-8.2) Random Vancomycin Level 15.6 COMMENT Total Bilirubin 0.5 MG/DL (0.2-1.0) Direct Bilirubin 0.2 MG/DL (0.0-0.2) Indirect Bilirubin 0.3 MG/DL (0.0-0.8) Aspartate Amino Transf 21 U/L (15-37) (AST/SGOT) Alanine Aminotransferase 15 U/L (10-53) (ALT/SGPT) Alkaline Phosphatase 58 U/L (45-117) Albumin 1.7 GM/DL (3.4-5.0) Random Cortisol 22.0 MCG/DL B-Hydroxybutyrate 0.06 MMOL/L (0.00-0.39) Test 06/29/16 06/30/16 06/30/16 06/30/16 17:30 00:50 03:25 04:15 White Blood Count 13.9 TH/MM3 11.3 TH/MM3 (4.0-11.0) (4.0-11.0) Red Blood Count 4.06 MIL/MM3 3.98 MIL/MM3 (4.00-5.30) (4.00-5.30) Hemoglobin 11.6 GM/DL 11.2 GM/DL (11.6-15.3) (11.6-15.3) Hematocrit 35.2 % 34.0 % (35.0-46.0) (35.0-46.0) Mean Corpuscular Volume 86.7 FL 85.5 FL (80.0-100.0) (80.0-100.0) Mean Corpuscular Hemoglobin 28.5 PG 28.1 PG (27.0-34.0) (27.0-34.0) Mean Corpuscular Hemoglobin 32.9 % 32.9 % Concent (32.0-36.0) (32.0-36.0) Red Cell Distribution Width 14.1 % 14.6 % (11.6-17.2) (11.6-17.2) Platelet Count 243 TH/MM3 242 TH/MM3 (150-450) (150-450) Mean Platelet Volume 7.7 FL 7.9 FL (7.0-11.0) (7.0-11.0) Prothrombin Time 14.0 SEC 13.4 SEC (9.8-11.6) (9.8-11.6) Prothromb Time International 1.3 RATIO 1.2 RATIO Ratio Activated Partial 29.6 SEC 107.0 SEC 66.4 SEC 69.7 SEC Thromboplast Time (24.3-30.1) (24.3-30.1) (24.3-30.1) (24.3-30.1) Sodium Level 136 MEQ/L (136-145) Potassium Level 4.6 MEQ/L (3.5-5.1) Chloride Level 100 MEQ/L (98-107) Carbon Dioxide Level 23.5 MEQ/L (21.0-32.0) Anion Gap 13 MEQ/L (5-15) Blood Urea Nitrogen 48 MG/DL (7-18) Creatinine 5.92 MG/DL (0.50-1.00) Estimat Glomerular Filtration 8 ML/MIN (>89) Rate Random Glucose 197 MG/DL (74-106) Calcium Level 7.2 MG/DL (8.5-10.1) Protein Corrected Calcium 7.9 MG/DL (8.5-10.1) Total Protein 5.8 GM/DL (6.4-8.2) Random Vancomycin Level 22.1 COMMENT Test 06/30/16 10:00 Activated Partial 75.2 SEC Thromboplast Time (24.3-30.1) Result Diagram: 06/30/16 0415 06/30/16 0415 Microbiology Microbiology Date/Time Procedure Status Source Growth 06/26/16 09:41 Aerobic Blood Culture - Preliminary Resulted Blood Peripheral NO GROWTH IN 4 DAYS 06/26/16 09:41 Anaerobic Blood Culture - Preliminary Resulted Blood Peripheral NO GROWTH IN 4 DAYS Imaging Last Impressions Chest X-Ray 06/29/16 0000 Signed Impressions: Service Date/Time: Wednesday, June 29, 2016 14:51 - CONCLUSION: 1. Mild central pulmonary vascular congestion. 2. Marked cardiomegaly. 3. Right internal jugular Vas cath has its tip in the right atrium. There is no pneumothorax. 4. Degenerative changes and scoliosis of the thoracolumbar spine. 5. Degenerative changes involving the shoulders bilaterally. Konstantin Dunbar MD Head CT 06/26/16 0646 Signed Impressions: Service Date/Time: June 08:48 - CONCLUSION: 1. No acute abnormality identified. Stable compared to prior exam dated 06/11/16. Abram Rivera MD Renal Ultrasound 06/26/16 0000 Signed Impressions: Service Date/Time: June 10:59 - CONCLUSION: Kidneys are slightly echogenic which can be seen with medical renal disease. Yfn Santillan MD Procedures * 06/29/16 - Rt IJ VasCath placement. . Assessment and Plan Disease Oriented Problem List: (1) Hyperkalemia (2) Hypertension (3) Acute renal failure Comment: Nephrology following. 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 Symptom Scale: (1) Debility Comment: Progressive Pertinent Non-Medical Issues Psychosocial: . Has 3 children. Residing with nephew Xavier prior to previous hospitalization on 06/14/16. Discharged to SNF for rehab/ strengthening. Spiritual: Lutheran. Active member of her sabianism. Good spiritual support. Legal: No living will completed. HCS designation completed during this palliative care visit. Ethical issues impacting care: No living will completed. . Important Contacts Daughter/HCS Tia Persaud and . . Prognosis Mrs. Gabriel is an 80 y/o female with a medical history significant of a. fib, CHF , Diabetes type 2, HTN, IN and anemia who presented to the ED via EMS on with history of AMS and questionable seizure. Patient with a recent hospitalization secondary to a. fib with RVR and subsequent SNF discharge. Her baseline functional status has progressively declined and requires a walker for ambulation, with a PPS of 50%. Patient now presents with MARTHA likely requiring renal replacement therapy. She is at high risk for developing significant symptom burden and is at high risk for further complications, continue decline and . . Code Status: Full Code Plan * FULL CODE. Risks and limitations of CPR were discussed with patient and daughter in the setting of multiple comorbidities and poor functional status at baseline. * Patient is alert and oriented. Completed designation of HCS form during this visit. Patient designating her daughter Tia Persaud as HCS. Declined to designate an alternate surrogate. * No living will completed. LW information and form reviewed on 06/27/16 with patient and daughter Tia. Encouraged patient to complete and to call pall care with any questions. * 06/30/16: Patient wishing to continue with aggressive care to include FULL CODE and renal replacement therapy if medically needed. Patient verbalized wishing to be discharge home and not to return to any rehab facility. Patient also verbalized being unsure about long-term dialyses as outpatient, in the event her renal function remains impaired or continues to worsen. Discussed aggressive care vs. comfort-directed care in the setting of profound deterioration in kidney function/ESRD and absence of renal replacement therapy, including prognosis. Introduced hospice philosophy and benefits, she is familiar with hospice. Encouraged patient to discuss discharge options with her family. * Symptom: Debility, progressive for the past year. Multifactorial, likely secondary to multiple chronic comorbidities. Presented to ED from rehab facility. * Palliative care to f/u with this patient and family for further clarification of goals. . Time Spent Time Periods: Total time to include records review, bedside conversation with patient and telephone conversation with wilman Weber. Total Floor Time (mins): 42 Face to Face Time (mins): 28 >50% Counseling/Coord of Care: Yes Attestation To help prompt me to consider important information that might be impacting today's encounter and assessment, information from prior notes written by myself or my colleagues may have been "brought forward" into today's note. My signature on this note, however, is an attestation that I personally performed the exam, history, and/or decision-making noted today, and, unless otherwise indicated, the interactions with patient, family, and staff as well as the review of records all occurred today. I also attest that the listed assessment and stated plan reflect my best clinical judgment today based on the combination of historical information, prior notes, and today's exam/ interactions. When time spent is documented, it refers only to time spent today by the signer, or if indicated, combined time spent today by collaborating physician/nurse practitioner. Chioma Herrera Jun 30, 2016 15:15
[2016-06-30 17:56] LABS: APTT (PATIENT) 74.1 SEC (24.3-30.1)
--- NOTE | 2016-06-30 18:45 | HHI.CCPN ---
Subjective Remarks/Hospital Course Hospital Course: This is an 80-year-old female who was recently admitted to [facility] with new onset atrial fibrillation with rapid ventricular response. She reports sensitivity emergency department with altered mental status and severe life-threatening hypoglycemia with a serum glucose of 23. An I/O needle was placed and the patient was given D50. Her glucose slowly improved and she began to have improved mental status. When I evaluated the patient, she was somnolent but arousable. she denies chest pain, shortness of breath, nausea, vomiting, diarrhea. She states he hadn't urinated today, so she is unsure if she has dysuria. critical care medicine has been consulted to evaluate and manage her acute kidney injury and severe hypoglycemia. Subjective: 06/27: minimal uop yesterday and overnight. much more awake and alert today. K downtrending from 6.2 to 5.0 this AM. palliative care on board for goals of care in the setting of possible need for dialysis. per the patient, she was fairly functional, even after this most recent admission, and she would want to pursue dialysis as an option. 06/28: hypoglycemia persists. now on D10 @ 75cc/hr. starting to clinically become intravascularly volume overloaded. but uop starting to increase today also: 775/ 24h yesterday, but 300cc out in the last 4 hours this AM. otherwise no changes. 06/29: hypoglycemia essentially resolved. off D10. on steroids. still volume overloaded. lasix 200mg iv unsuccessful at optimizing volume status. discussed with nephrology. plan for IHD today. will place vas cath. 06/30: Tmax 98.7. The patient continues on steroids, glucose within normal limits. Scheduled for IHD today. Objective Vital Signs Date Time Temp Pulse Resp B/P Pulse Ox O2 Delivery O2 Flow Rate FiO2 06/30/16 09:03 95 06/30/16 06:00 90 06/30/16 04:00 98.7 20 158/69 06/29/16 20:01 21 06/29/16 08:01 Nasal Cannula 2.00 Intake and Output 06/29/16 06/29/16 06/30/16 08:00 16:00 00:00 Intake Total 1054 ml 376 ml 533 ml Output Total 250 ml 550 ml 1260 ml Balance 804 ml -174 ml -727 ml Result Diagram: 1/9/17 0415 06/30/16 0415 Objective Remarks GENERAL: Elderly female, lying in bed, awake and alert today. HEENT: Normocephalic. Atraumatic. Mucous membranes moist NECK: Trachea is midline. JVD unable to assess secondary to body habitus and an external jugular catheter. CHEST: Equal chest rise. Clear to auscultation. CARDIOVASCULAR: Normal rate, irregularly irregular rhythm. No appreciable murmurs. ABDOMEN: Soft, nontender, nondistended. No guarding. MUSCULOSKELETAL: 2+ peripheral edema. Distal pulses 2+. NEUROLOGICAL: RASS 0. follows commands all 4 extremities. No focal motor sensory deficits. A/P Assessment and Plan Assessment: This is an 80-year-old female with recent diagnosis of atrial fibrillation with rapid ventricular response and diabetes who was recently admitted for A. fib RVR, discharged home with lisinopril and warfarin, now presents with severe acute kidney injury, altered mental status, severe hypoglycemia. Patient currently is alert and oriented, tolerated IHD today. Plan by systems: Neurologic: Toxic/metabolic encephalopathy neuro checks per ICU protocol Hold long-acting sedatives Respiratory: atelectasis Possible healthcare associated pneumonia Incentive spirometer to bedside Patient does not have cough or increased oxygen requirement. Is unlikely the patient has healthcare associated pneumonia. We will cover with empiric antibiotics . Wean oxygen for goal SPO2 greater than 92% Cardiovascular: Atrial fibrillation Systolic congestive heart failure, EF 30-35% Continue home diltiazem and metoprolol We'll hold on digoxin. Her systemic level was nontoxic, but significantly increased from last check Repeat echo 06/27: LVEF 40-45%, mild RV dysfunction, pulm htn rvsp 60s, dilated IVC holding Coumadin given renal failure. Patient continues on heparin drip. Renal: Severe acute kidney injury Intravascular volume overload continue mcdonald catheter. FeNa 31%. --Urine eos- negative. -- Strict I/Os Renal ultrasound 06/26: Negative for acute hydronephrosis --Nephrology on board: Dr. Garrison -- IHD today FEN/GI: Acute protein calorie malnutritionmoderate Life-threatening hyperkalemia Kayexalate discontinued --diet per speech: mechanical soft. Daily BMP -minimize IVF . Heme/ID: Possible sepsis Supratherapeutic anticoagulation continue vancomycin with pharmacy dosing Continue Zosyn, 2.25 g IV every 8 hours. --could consider d/c antibiotics since her cultures are negative x 48h. will re- assess. Daily CBC Daily coags We'll continue to hold warfarin in the setting of renal dysfunction. --start heparin drip, no bolus, for anticoagulation for A Fib in the setting of renal dysfunction. Endocrine: Severe life-threatening hypoglycemia- resolving. --liberalize to q4h accuchecks. --d/c D10. --D50 as needed --hydrocortisone 50mg iv q6h Prophylaxis: GI Prophylaxis Does not meet evidence-based indication for GI prophylaxis at this time DVT Prophylaxis -- SCDs heparin drip. Lines: Peripheral IVs. --06/27 right radial arterial line for frequent lab draws (very difficult iv access) will place vas cath today. Dispo: Level 2 Planned transfer to hospitalist Physician Ifrah Ortega MD Jun 30, 2016 18:45
[2016-06-30 23:56] LABS: MYELOPEROXIDASE LESS THAN 1.0 AI (<1.0); PROTEINASE-3 LESS THAN 1.0 AI (<1.0)
[2016-07-01] VITALS (14 sets, daily range): BP systolic 104–157; BP diastolic 59–84; PULSE 74–112; RESP 12–21; TEMP 97.8–98.4; O2SAT 93–99
[2016-07-01 00:34] LABS: AUTOMATED NEUTROPHIL # 13.2 TH/MM3 (1.8-7.7); BASOPHIL # 0.2 TH/MM3 (0-0.2); BASOPHIL % 1.1 % (0.0-2.0); HEMATOCRIT 35.3 % (35.0-46.0); HEMO FLAGS DIFF FINAL; LYMPH % 2.1 % (9.0-44.0); LYMPHOCYTE # 0.3 TH/MM3 (1.0-4.8); MEAN CELL VOLUME 85.9 FL (80.0-100.0); MEAN CORPUSCULAR HGB CONC 32.6 % (32.0-36.0); NEUT % 90.8 % (16.0-70.0); PLATELET COUNT 184 TH/MM3 (150-450); RED BLOOD COUNT 4.11 MIL/MM3 (4.00-5.30); RED CELL DISTRIBUTION WIDTH 14.3 % (11.6-17.2); WHITE BLOOD COUNT 14.6 TH/MM3 (4.0-11.0)
[2016-07-01] MEDS: CHLORHEXIDINE GLUCONATE 2 % 1 PACK (2 CLOTHS)(taper/protocol) TOP SCH (04:00)
[2016-07-01 05:29] LABS: HEMATOCRIT 34.7 % (35.0-46.0); MEAN CELL VOLUME 85.6 FL (80.0-100.0); MEAN CORPUSCULAR HEMOGLOBIN 27.8 PG (27.0-34.0); MEAN CORPUSCULAR HGB CONC 32.5 % (32.0-36.0); PLATELET COUNT 233 TH/MM3 (150-450); RED BLOOD COUNT 4.06 MIL/MM3 (4.00-5.30); RED CELL DISTRIBUTION WIDTH 14.8 % (11.6-17.2); REVIEW FLAG FINAL; WHITE BLOOD COUNT 14.2 TH/MM3 (4.0-11.0)
[2016-07-01 05:36] LABS: APTT (PATIENT) 78.8 SEC (24.3-30.1); INTERNATIONAL NORMALIZED RATIO 1.1 RATIO; PROTHROMBIN TIME - PATIENT 12.1 SEC (9.8-11.6)
[2016-07-01] MEDS: INSULIN ASPART SUPPLEMENTAL SCALE SQ SCH ×4 (05:46→19:34)
[2016-07-01] MEDS: PIPERACIL-TAZO 2.25 GM PREMIX 50 ML IV SCH ×3 (05:46→19:35)
[2016-07-01 06:01] LABS: BICARBONATE 28.1 MEQ/L (21.0-32.0); MAGNESIUM 1.7 MG/DL (1.5-2.5); POTASSIUM 4.2 MEQ/L (3.5-5.1)
[2016-07-01] MEDS: CHLORHEXIDINE 0.12% (ORAL KIT) 15 ML CUP MT SCH ×2 (08:00→19:24)
[2016-07-01] MEDS: SODIUM CHLORIDE 0.9% FLUSH 5 ML FLUSH IV FLUSH SCH ×2 (09:02→19:36)
[2016-07-01] MEDS: DILTIAZEM-CD 180 MG CAP ER PO SCH (09:02)
[2016-07-01] MEDS: POLYETHYLENE GLYCOL 17 GM PKG PO SCH ×2 (09:02→19:26)
[2016-07-01] MEDS: METOPROLOL TARTRATE 100 MG TAB PO SCH (09:02)
[2016-07-01] MEDS: HYDROCORTISONE SOD SUCCINATE 100 MG VIAL IV PUSH SCH ×2 (09:02→19:35)
--- NOTE | 2016-07-01 11:04 | HHI.NPPN ---
Subjective History of Present Illness The patient is an 80 yo AA female who was brought in today for AMS from her nursing facility, [facility]. It was found that she was profoundly hypoglycemia and was given D50 thru her I/O access. She was recently admitted here at the end of May with A fib and was started on Coumadin and low dose Lisinopril 2.5mg QD at that time. Home medication list was reviewed that showed no NSAIDs or outwardly nephrotoxic medications. She has been on Cipro for what is assumed to be a urinary tract infection. The patient herself is very lethargic and no meaningful information can be obtained from her. Admitting SCr at 5.65 that worsened to 5.84 Admitting K+ was 5.9 that worsened to 6.2---this was treated with dextrose, insulin, and Kayexalate. Interval History Pt states she is feeling better. More energy. s/p 2 HD sessions that she tolerated well. (Lucy Dickerson) Objective Data Data 06/30/16 07/01/16 19:00 07:00 Intake Total 757 ml 358 ml Output Total 2150 ml 525 ml Balance -1393 ml -167 ml Intake Oral 480 ml IV Total 277 ml 358 ml Output Urine Total 350 ml 525 ml Hemodialysis 1800 ml # Bowel Movements 1 Vital Signs Date Time Temp Pulse Resp B/P Pulse Ox O2 Delivery O2 Flow Rate FiO2 07/01/16 10:29 96 21 07/01/16 06:00 83 07/01/16 04:00 98.1 112 21 126/60 96 111/84 07/01/16 04:00 112 07/01/16 02:00 93 07/01/16 00:00 96 07/01/16 00:00 98.0 96 19 157/69 96 115/67 06/30/16 23:44 96 21 06/30/16 22:00 99 06/30/16 20:00 87 06/30/16 20:00 97.9 87 22 94/62 95 06/30/16 18:00 82 06/30/16 16:00 102 06/30/16 16:00 97.7 102 25 107/85 98 06/30/16 14:00 127 06/30/16 12:00 97.6 109 23 143/79 89 95/75 06/30/16 12:00 109 (Lucy Dickerson) -: 07/01/16 0500 07/01/16 0500 Tubes & Lines: Vas-Cath Medication Review Current Medications Medications (Trade) Dose Ordered Sig/Abigail Route Start Time Stop Time Status Last Admin (Cardizem Cd) 180 mg DAILY PO 06/26/16 11:00 07/01/16 09:02 (Lopressor) 100 mg DAILY PO 06/26/16 11:00 07/01/16 09:02 (NS Flush) 2 ml UNSCH PRN IV FLUSH 06/26/16 11:15 06/27/16 21:07 (NS Flush) 2 ml BID IV FLUSH 06/26/16 21:00 07/01/16 09:02 (Zofran Inj) 4 mg Q6H PRN IV 06/26/16 11:15 Miscellaneous Information 1 Q361D XX 06/26/16 11:15 (Peridex 0.12% Liq) 15 ml BID@08,20 MT 06/26/16 20:00 06/27/16 09:31 Polyethylene Glycol 17 gm 17 gm BID PO 06/26/16 21:00 07/01/16 09:02 (Zosyn 2.25 Gm Premix) 50 ml @ 100 mls/hr Q8H IV 06/26/16 22:00 07/01/16 05:46 (Trandate Inj) 10 mg Q1H PRN IV PUSH 06/26/16 14:45 06/27/16 21:14 Miscellaneous Information Patient in critical care unit? Ass... Q361D XX 06/27/16 01:45 06/27/16 01:45 Chlorhexidine Gluconate 3 pack 3 pack UNSCH PRN TOP 06/27/16 01:45 07/02/16 01:34 (NS 1000 ml Inj) 1,000 ml @ 0 mls/hr Q0M PRN IV 06/29/16 11:03 06/30/16 08:45 Heparin Sodium (Porcine) 8000 units 8,000 units UNSCH PRN IVF 06/29/16 11:15 Sodium Chloride 1,000 ml @ 200 mls/hr Q5H PRN IV 06/29/16 11:03 (NS 1000 ml Inj) 1,000 ml @ 0 mls/hr Q0M PRN IV 06/29/16 11:03 (Mannitol Inj) 12.5 gm UNSCH PRN IV 06/29/16 11:15 (Albumin 25% Inj) 25 gm UNSCH PRN IV 06/29/16 11:15 (NS Flush) 5 ml UNSCH PRN IVF 06/29/16 11:15 (Heparin Inj) UNSCH PRN .XX 06/29/16 11:15 06/30/16 08:45 (Gentamicin (Dialysis) Inj) 20 mg UNSCH PRN IV 06/29/16 11:15 06/30/16 08:45 (Zofran Inj) 4 mg UNSCH PRN IV 06/29/16 11:15 (Tylenol) 650 mg UNSCH PRN PO 06/29/16 11:15 (Benadryl) 25 mg UNSCH PRN PO 06/29/16 11:15 (Nitrostat Sl) 0.4 mg UNSCH PRN SL 06/29/16 11:15 (Catapres) 0.1 mg UNSCH PRN PO 06/29/16 11:15 Gelatin 1 foam 1 foam UNSCH PRN TOP 06/29/16 11:15 (Heparin-D5W Inj) 250 ml @ 0 mls/hr TITRATE IV 06/29/16 18:15 06/29/16 19:10 (Heparin Inj) 5,000 units UNSCH PRN IV 06/29/16 18:15 (Heparin Inj) 2,500 units UNSCH PRN IV 06/29/16 18:15 (SoluCORTEF INJ) 50 mg Q12HR IV PUSH 06/30/16 09:00 07/01/16 09:02 (D50w (Vial) Inj) 25 ml UNSCH PRN IV PUSH 06/30/16 00:15 (Glucagon Inj) 1 mg UNSCH PRN OTHER 06/30/16 00:15 (Lucy Dickerson) Physical Exam General Appearance: Comfortable (Lucy Dickerson) Eyes Eye Exam: Pupils Equal, Pupils Reactive (Lucy Dickerson) Neck Neck Exam: Neck Supple, Trachea Midline (Lucy Dickerson) Pulmonary Resp Exam: Clear Bilaterally, Breath Sounds Equal (Lucy Dickerson) Cardiology CV Exam: Irregular, Arrhythmia (Lucy Dickerson) Gastrointestinal/Abdomen GI Exam: Soft, Non-Tender (Lucy Dickerson) Genitourinary Exam: Clear Urine (Lucy Dickerson) Integumentary Skin Exam: Clear, Warm, Dry (Lucy Dickerson) Extremeties Extremities Exam: Trace Edema Extremeties Remarks BLE and BUE. (Lucy Dickerson) Neurologic Neuro Exam: Alert, Awake, Oriented (Lucy Dickerson) Psychiatric Psych Exam: Appropriate Responses (Lucy Dickerson) Assessment/Plan Problem List: (1) Acute renal failure Plan: Patient has had a profound deterioration in her renal function after her recent admission. Etiology of the acute renal failure uncertain at the present time. Differential diagnosis presently would include a possible development of acute kidney injury secondary to sepsis. Patient apparently was on Cipro as an outpatient to interstitial nephritis is also a consideration. Patient's azotemia has improved with dialysis. Will check labs 07/02/16. May need HD on Thursday. Depending upon the results or progress of patient's acute renal insufficiency we may have to consider a kidney biopsy for definitive diagnosis as to the etiology of the patient's abrupt decline in renal function. This was discussed with the patient. Medications should be adjusted for the patient's estimated GFR if clinically indicated. Avoid agents with significant potential for nephrotoxicity possible including NSAIDs for analgesia, iodine contrast agents. Gadolinium is contraindicated if the GFR is below 30. (2) Hypertension Plan: Defer management to critical care presently. (3) Diabetes mellitus Plan: Defer management to critical care. (Lucy Dickerson) Plan The exam, history, and the medical decision-making described in the above note were completed with the assistance of the PAStorm. I reviewed and agree with the findings presented. (Mary Garrison MD) Problem Qualifiers (1) Hypertension: Qualified Code: I10 - Essential hypertension Lucy Dickerson Jul 01, 2016 11:04 Mary Garrison MD Jul 03, 2016 17:37
[2016-07-01 12:54] LABS: APTT (PATIENT) 52.1 SEC (24.3-30.1)
[2016-07-01] MEDS ORDERED: SODIUM CHLOR 0.9% 1000 ML INJ 1,000 ML IV PRN ×2 (17:06)
[2016-07-01] MEDS ORDERED: NITROGLYCERIN 0.4 MG SL 25 TABS/BTL SL PRN (17:15)
[2016-07-01] MEDS ORDERED: diphenhydrAMINE HCL 25 MG CAP PO PRN (17:15)
[2016-07-01] MEDS ORDERED: GELATIN 12 MM/7 MM FOAM TOP PRN (17:15)
[2016-07-01] MEDS ORDERED: MANNITOL 12.5 GM/50 ML VIAL IV PRN (17:15)
[2016-07-01] MEDS ORDERED: HEPARIN SODIUM - IV 10,000 UNITS/10 ML VIAL IVF PRN (17:15)
[2016-07-01] MEDS ORDERED: ONDANSETRON HCL 4 MG/2 ML VIAL IV PRN (17:15)
[2016-07-01] MEDS ORDERED: cloNIDine HCL 0.1 MG TAB PO PRN (17:15)
[2016-07-01 19:17] LABS: APTT (PATIENT) 59.3 SEC (24.3-30.1)
[2016-07-01 19:53] LABS: TOTAL PROTEIN SPE 5.4 GM/DL (6.0-7.6)
--- NOTE | 2016-07-01 23:02 | HHI.PR ---
Subjective Remarks Ms. Gabriel is an 80 year-old female with a past medical history of atrial fibrillation, CHF, Type 2 diabetes mellitus, hypertension, NH, and anemia who presented to the ER via EMS on 06/26/16 for evaluation of altered mental status and questionable seizure activity. Patient was recently hospitalized on for atrial fibrillation with RVR and subsequently discharged to [facility] for rehabilitation. The patients blood glucose was 23 upon EMS arrival at SNF and 53 upon her arrival in ER plus she was hypertensive and tachycardic. Her glucose levels were treated and normalized and her mental status subsequently improved also. Blood work was significant for acute renal failure and CXR showed possible small left lower lobe pneumonia and antibiotics were started. 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 Nephrology was consulted for ARF Dr. Garrison. The patient opted to have hemodialysis and vas cath was placed. She had her first HD on 06/29/16 for 1000 ccs removed and 06/30/16 for 1800 ccs removed. Serum creatinine has improved to 5.07 (from 7.54 on 06/29) eGFR up to 10 (from 6 on 06/29) BUN improved to 47 (from 55 06/29). Vital signs appear stable over past 24 hours though some intermittent tachycardia as high as 112 bpm noted. As the patients condition has stabilized, [facility] has consulted the hospitalist team to take over medical management of Ms. Gabriel. Palliative Care was also consulted and patient desires FULL CODE status. Daughter Tia Persaud is her Health Care Surrogate if she becomes unable to make her own healthcare decisions. The patient is seen in her hospital room. She complains of severe sacral pain from lying on her back due to sacral decubitus. She requests to be turned and we assist RN with this with relief in symptoms. She denies any other pain. She denies any fever, chills, shortness of breath, chest pain, nausea, vomiting , diarrhea, leg cramping. She reports good appetite. She states that while she was at [facility], she was mostly in the wheelchair and had not ambulated yet. She denies any history of coronary artery disease, cardiac stents, COPD, oxygen dependence, liver problems, prior kidney problems, DVT, CVA , PE, thyroid dysfunction, or cancer. . (Michelle Joiner) Objective Vital Signs Date Time Temp Pulse Resp B/P Pulse Ox O2 Delivery O2 Flow Rate FiO2 1/10/17 20:00 98.4 93 12 135/64 93 104/81 07/01/16 20:00 79 07/01/16 18:00 86 07/01/16 16:00 98.1 85 12 115/59 95 115/68 07/01/16 16:00 85 07/01/16 14:00 98 07/01/16 12:00 91 07/01/16 12:00 98.2 91 21 121/69 96 07/01/16 10:29 96 21 07/01/16 10:00 74 07/01/16 08:00 97.8 90 20 139/71 96 114/72 07/01/16 08:00 80 07/01/16 06:00 83 07/01/16 04:00 98.1 112 21 126/60 96 111/84 07/01/16 04:00 112 07/01/16 02:00 93 07/01/16 00:00 96 07/01/16 00:00 98.0 96 19 157/69 96 115/67 06/30/16 23:44 96 21 I/O 06/30/16 06/30/16 06/30/16 07/01/16 07/01/16 07/01/16 07:00 15:00 23:00 07:00 15:00 23:00 Intake Total 130 ml 757 ml 175 ml 183 ml 805 ml Output Total 300 ml 2150 ml 225 ml 300 ml 325 ml Balance -170 ml -1393 ml -50 ml -117 ml 480 ml Intake Oral 480 ml 600 ml IV Total 130 ml 277 ml 175 ml 183 ml 205 ml Output Urine Total 300 ml 350 ml 225 ml 300 ml 325 ml Stool Total 0 ml Hemodialysis 1800 ml # Bowel Movements 0 1 1 (Michelle Joiner) Result Diagram: 07/01/16 0500 07/01/16 0500 Imaging Last Impressions Chest X-Ray 06/29/16 0000 Signed Impressions: Service Date/Time: Wednesday, June 29, 2016 14:51 - CONCLUSION: 1. Mild central pulmonary vascular congestion. 2. Marked cardiomegaly. 3. Right internal jugular Vas cath has its tip in the right atrium. There is no pneumothorax. 4. Degenerative changes and scoliosis of the thoracolumbar spine. 5. Degenerative changes involving the shoulders bilaterally. Konstantin Dunbar MD Head CT 06/26/16 0646 Signed Impressions: Service Date/Time: June 08:48 - CONCLUSION: 1. No acute abnormality identified. Stable compared to prior exam dated 06/11/16. Abram Rivera MD Renal Ultrasound 06/26/16 0000 Signed Impressions: Service Date/Time: June 10:59 - CONCLUSION: Kidneys are slightly echogenic which can be seen with medical renal disease. Yfn Santillan MD Procedures -- 06/27 right radial arterial line for frequent lab draws (very difficult iv access) -- 06/29 vas cath placed Other Results Laboratory Tests Test 06/26/16 06/26/16 06/27/16 06/27/16 15:20 22:25 09:03 18:00 Urine Random Urea 255 mg/dL Urine Random Urea/Creatinine 10.63 mg/mg Ratio Urine Creatinine 24 mg/dL Nasal Screen MRSA (PCR) NEGATIVE Complement C3 107 MG/DL Complement C4 24 MG/DL Anti-Nuclear Antibody Screen NEG Anti-Proteinase 3 (c-ANCA) LESS THAN 1.0 AI Anti-Myeloperoxidase Ab LESS THAN 1.0 (p-ANCA) AI Hepatitis B Surface Antigen NEGATIVE Hepatitis C Antibody NEGATIVE Test 06/28/16 06/30/16 07/01/16 07/01/16 06:30 04:15 00:05 05:00 Total Bilirubin 0.5 MG/DL Direct Bilirubin 0.2 MG/DL Indirect Bilirubin 0.3 MG/DL Aspartate Amino Transf 21 U/L (AST/SGOT) Alanine Aminotransferase 15 U/L (ALT/SGPT) Alkaline Phosphatase 58 U/L Albumin 1.7 GM/DL Random Cortisol 22.0 MCG/DL B-Hydroxybutyrate 0.06 MMOL/L Insulin Level 29.8 uIU/mL Protein Corrected Calcium 7.9 MG/DL Random Vancomycin Level 22.1 COMMENT Neutrophils (%) (Auto) 90.8 % Lymphocytes (%) (Auto) 2.1 % Monocytes (%) (Auto) 6.0 % Eosinophils (%) (Auto) 0.0 % Basophils (%) (Auto) 1.1 % Neutrophils # (Auto) 13.2 TH/MM3 Lymphocytes # (Auto) 0.3 TH/MM3 Monocytes # (Auto) 0.9 TH/MM3 Eosinophils # (Auto) 0.0 TH/MM3 Basophils # (Auto) 0.2 TH/MM3 CBC Comment DIFF FINAL Differential Comment White Blood Count 14.2 TH/MM3 Red Blood Count 4.06 MIL/MM3 Hemoglobin 11.3 GM/DL Hematocrit 34.7 % Mean Corpuscular Volume 85.6 FL Mean Corpuscular Hemoglobin 27.8 PG Mean Corpuscular Hemoglobin 32.5 % Concent Red Cell Distribution Width 14.8 % Platelet Count 233 TH/MM3 Mean Platelet Volume 7.7 FL Prothrombin Time 12.1 SEC Prothromb Time International 1.1 RATIO Ratio Sodium Level 138 MEQ/L Potassium Level 4.2 MEQ/L Chloride Level 99 MEQ/L Carbon Dioxide Level 28.1 MEQ/L Anion Gap 11 MEQ/L Blood Urea Nitrogen 47 MG/DL Creatinine 5.07 MG/DL Estimat Glomerular Filtration 10 ML/MIN Rate Random Glucose 93 MG/DL Calcium Level 7.5 MG/DL Phosphorus Level 5.4 MG/DL Magnesium Level 1.7 MG/DL Test 07/01/16 18:15 Activated Partial 59.3 SEC Thromboplast Time Total Protein 5.4 GM/DL . Objective Remarks GENERAL: This is an obese, elderly, well-developed patient, in no apparent distress. SKIN: No rashes, ecchymoses. Cool and dry. Coccyx with appx. quarter-sized decubitus ulcer extending into dermis with yellow central slough. HEAD: Atraumatic. Normocephalic. EYES: No scleral icterus. No injection or drainage. ENT: Nose without bleeding, purulent drainage. NECK: Trachea midline. No JVD or lymphadenopathy. CARDIOVASCULAR: Regular rate and rhythm without murmurs, gallops, or rubs. Bilateral lower extremity skin changes below knees c/w PVD - darkened, slightly leathery skin. RESPIRATORY: Left base crepitation. Breath sounds equal bilaterally. No wheezes , or rhonchi. GASTROINTESTINAL: Abdomen soft, non-tender, nondistended. No guarding. MUSCULOSKELETAL: Extremities without clubbing, cyanosis, or edema. No calf tenderness. NEUROLOGICAL: Awake and alert. Sensory grossly within normal limits. Mild generalized weakness. Normal speech. . Medications and IVs Heparin drip in D5W NS at KVO (Michelle Joiner) A/P Problem List: (1) Atelectasis ICD Code: J98.11 (2) Healthcare-associated pneumonia ICD Code: J18.9 (3) Atrial fibrillation ICD Code: I48.91 (4) Systolic congestive heart failure ICD Code: I50.20 (5) Acute renal failure ICD Code: N17.9 (6) Sepsis ICD Code: A41.9 (7) Supratherapeutic INR ICD Code: R79.1 (8) Hypoglycemia ICD Code: E16.2 Assessment and Plan Ms. Gabriel is an 80 year-old female with a past medical history of atrial fibrillation, CHF, Type 2 diabetes mellitus, hypertension, NH, and anemia who presented to the ER via EMS on 06/26/16 for evaluation of altered mental status and questionable seizure activity. Patient was recently hospitalized on for atrial fibrillation with RVR and subsequently discharged to [facility] for rehabilitation. The patients blood glucose was 23 upon EMS arrival at SNF and 53 upon her arrival in ER plus she was hypertensive and tachycardic. Her glucose levels were treated and normalized and her mental status subsequently improved also. Blood work was significant for acute renal failure and CXR showed possible small left lower lobe pneumonia and antibiotics were started. Toxic/metabolic encephalopathy - appears resolved neuro checks per ICU protocol Hold long-acting sedatives Atelectasis Possible healthcare associated pneumonia - continue IV Zosyn and Vancomycin (per pharmacy dosing) Incentive spirometer at bedside Wean supplemental oxygen for goal SPO2 greater than 92% Atrial fibrillation Systolic congestive heart failure, EF 30-35% Continue home diltiazem and metoprolol Digoxin held because while her systemic level was nontoxic, it was significantly increased from last hospitalization on admission (06/26) Repeat echo 06/27: LVEF 40-45%, mild RV dysfunction, pulm htn rvsp 60s, dilated IVC holding Coumadin given renal failure. Patient on heparin drip. Acute Renal Failure - etiology uncertain Intravascular volume overload continue mcdonald catheter. -- Strict I/Os Renal ultrasound 06/26: Negative for acute hydronephrosis -- Nephrology consulted - Dr. Garrison -- HD 06/29 and 06/30 renal indices improving -- Nephrology notes indicate renal biopsy may be needed to determine etiology Acute protein calorie malnutritionmoderate Life-threatening hyperkalemia --diet per speech: mechanical soft/thin liquids Daily BMP -minimize IVF . Possible sepsis Supra-therapeutic anticoagulation continue vancomycin with pharmacy dosing Continue Zosyn, 2.25 g IV every 8 hours. --could consider d/c antibiotics since her cultures are negative x 5 days. will re-assess. Daily CBC Daily coags Continue to hold warfarin in the setting of renal dysfunction. --continue heparin drip, no bolus, for anticoagulation for Atrial Fibrillation in the setting of renal dysfunction. Severe life-threatening hypoglycemia- resolving. --AC and HS accuchecks. --D50 as needed --hydrocortisone 50mg iv q12h Sacral decubitus - patient states she got this at [facility] - wound care nurse consult - specialty mattress DVT Prophylaxis -- SCDs heparin drip. Consider d/c arterial line if okay with nephrology Written by Michelle Joiner, acting as scribe for Dr. Adams on 07/01/16 at 22:10. Discharge Planning when condition further stabilizes (Michelle Joiner) Assessment and Plan The documentation accurately reflects the work performed [id number] by me on [id number] (Beulah Adams MD) Michelle Joiner Jul 01, 2016 23:02 Beulah Adams MD Jul 03, 2016 08:26
[2016-07-02] VITALS (14 sets, daily range): BP systolic 104–165; BP diastolic 57–77; PULSE 77–100; RESP 18–22; TEMP 97.5–98.5; O2SAT 85–97
[2016-07-02 05:08] LABS: HEMATOCRIT 31.9 % (35.0-46.0); MEAN CELL VOLUME 85.6 FL (80.0-100.0); MEAN CORPUSCULAR HEMOGLOBIN 27.4 PG (27.0-34.0); PLATELET COUNT 230 TH/MM3 (150-450); RED BLOOD COUNT 3.73 MIL/MM3 (4.00-5.30); RED CELL DISTRIBUTION WIDTH 14.6 % (11.6-17.2); REVIEW FLAG FINAL; WHITE BLOOD COUNT 12.7 TH/MM3 (4.0-11.0)
[2016-07-02 05:16] LABS: APTT (PATIENT) 75.1 SEC (24.3-30.1); INTERNATIONAL NORMALIZED RATIO 1.1 RATIO
[2016-07-02] MEDS: PIPERACIL-TAZO 2.25 GM PREMIX 50 ML IV SCH ×3 (05:34→20:47)
[2016-07-02 05:36] LABS: BICARBONATE 26.5 MEQ/L (21.0-32.0); POTASSIUM 4.5 MEQ/L (3.5-5.1)
[2016-07-02] MEDS: CHLORHEXIDINE 0.12% (ORAL KIT) 15 ML CUP MT SCH ×2 (08:00→19:16)
[2016-07-02 08:07] LABS: KAPPA LAMBDA RATIO 1.68 (1.57-3.93)
[2016-07-02] MEDS: POLYETHYLENE GLYCOL 17 GM PKG PO SCH ×2 (08:57→19:17)
[2016-07-02] MEDS: DILTIAZEM-CD 180 MG CAP ER PO SCH (08:57)
[2016-07-02] MEDS: SODIUM CHLORIDE 0.9% FLUSH 5 ML FLUSH IV FLUSH SCH ×2 (08:57→20:47)
[2016-07-02] MEDS: HYDROCORTISONE SOD SUCCINATE 100 MG VIAL IV PUSH SCH ×2 (08:57→20:47)
[2016-07-02] MEDS: METOPROLOL TARTRATE 100 MG TAB PO SCH (08:57)
[2016-07-02] MEDS: HEPARIN 25,000 UNITS-D5W 250 ML - PREMIX IV SCH (10:54)
[2016-07-02] MEDS: SODIUM CHLOR 0.9% 1000 ML INJ 1,000 ML IV PRN (12:55)
[2016-07-02] MEDS: HEPARIN SODIUM - IV 10,000 UNITS/10 ML VIAL PRN (12:56)
[2016-07-02] MEDS: GENTAMICIN SULFATE (DIALYSIS USE ONLY) 20 MG/2 ML VIAL IV PRN (12:56)
[2016-07-02] MEDS: SODIUM CHLORIDE 0.9% FLUSH 5 ML FLUSH IVF PRN (12:57)
[2016-07-02] MEDS: ALBUMIN HUMAN 25% 25 GM/100 ML BAGP IV PRN ×2 (13:05→13:06)
[2016-07-02 13:24] LABS: ALBUMIN SPE 2.24 GM/DL (3.50-5.00); ALPHA 1 GLOBULIN 0.35 GM/DL (0.11-0.29); ALPHA 2 GLOBULIN 0.89 GM/DL (0.22-1.00); BETA GLOBULINS (SPE) 0.72 GM/DL (0.53-1.03)
--- NOTE | 2016-07-02 15:18 | HHI.NPPN ---
Subjective History of Present Illness The patient is an 80 yo AA female who was brought in today for AMS from her nursing facility, [facility]. It was found that she was profoundly hypoglycemia and was given D50 thru her I/O access. She was recently admitted here at the end of May with A fib and was started on Coumadin and low dose Lisinopril 2.5mg QD at that time. Home medication list was reviewed that showed no NSAIDs or outwardly nephrotoxic medications. She has been on Cipro for what is assumed to be a urinary tract infection. The patient herself is very lethargic and no meaningful information can be obtained from her. Admitting SCr at 5.65 that worsened to 5.84 Admitting K+ was 5.9 that worsened to 6.2---this was treated with dextrose, insulin, and Kayexalate. Interval History No changes overnight. Pending HD today. (Lucy Dickerson) Objective Data Data 07/01/16 07/02/16 19:00 07:00 Intake Total 805 ml 50 ml Output Total 325 ml 700 ml Balance 480 ml -650 ml Intake Oral 600 ml IV Total 205 ml 50 ml Output Urine Total 325 ml 700 ml # Bowel Movements 1 Vital Signs Date Time Temp Pulse Resp B/P Pulse Ox O2 Delivery O2 Flow Rate FiO2 07/02/16 14:00 95 07/02/16 12:00 83 07/02/16 12:00 98.1 83 18 114/57 96 07/02/16 10:00 86 07/02/16 08:30 97 07/02/16 08:00 90 07/02/16 08:00 97.6 90 20 132/65 97 07/02/16 06:00 77 07/02/16 04:00 98.2 88 21 104/67 85 114/73 07/02/16 04:00 88 07/02/16 02:00 90 07/02/16 00:00 98.5 90 20 165/76 94 122/77 07/02/16 00:00 90 07/01/16 22:00 96 07/01/16 20:00 98.4 93 12 135/64 93 104/81 07/01/16 20:00 79 07/01/16 19:01 99 21 07/01/16 18:00 86 07/01/16 16:00 98.1 85 12 115/59 95 115/68 07/01/16 16:00 85 (Lucy Dickerson) -: 07/02/16 0405 07/02/16 0405 Tubes & Lines: Vas-Cath Medication Review Current Medications Medications (Trade) Dose Ordered Sig/Abigail Route Start Time Stop Time Status Last Admin (Cardizem Cd) 180 mg DAILY PO 06/26/16 11:00 07/02/16 08:57 (Lopressor) 100 mg DAILY PO 06/26/16 11:00 07/02/16 08:57 (NS Flush) 2 ml UNSCH PRN IV FLUSH 06/26/16 11:15 06/27/16 21:07 (NS Flush) 2 ml BID IV FLUSH 06/26/16 21:00 07/02/16 08:57 (Zofran Inj) 4 mg Q6H PRN IV 06/26/16 11:15 Miscellaneous Information 1 Q361D XX 06/26/16 11:15 (Peridex 0.12% Liq) 15 ml BID@08,20 MT 06/26/16 20:00 06/27/16 09:31 Polyethylene Glycol 17 gm 17 gm BID PO 06/26/16 21:00 07/01/16 09:02 (Zosyn 2.25 Gm Premix) 50 ml @ 100 mls/hr Q8H IV 06/26/16 22:00 07/02/16 05:34 (Trandate Inj) 10 mg Q1H PRN IV PUSH 06/26/16 14:45 06/27/16 21:14 Miscellaneous Information Patient in critical care unit? Ass... Q361D XX 06/27/16 01:45 06/27/16 01:45 (Heparin-D5W Inj) 250 ml @ 0 mls/hr TITRATE IV 06/29/16 18:15 07/02/16 10:54 (Heparin Inj) 5,000 units UNSCH PRN IV 06/29/16 18:15 (Heparin Inj) 2,500 units UNSCH PRN IV 06/29/16 18:15 (SoluCORTEF INJ) 50 mg Q12HR IV PUSH 06/30/16 09:00 07/02/16 08:57 (D50w (Vial) Inj) 25 ml UNSCH PRN IV PUSH 06/30/16 00:15 Glucagon 1 mg 1 mg UNSCH PRN OTHER 06/30/16 00:15 (NS 1000 ml Inj) 1,000 ml @ 0 mls/hr Q0M PRN IV 07/01/16 17:06 07/02/16 12:55 Heparin Sodium (Porcine) 8000 units 8,000 units UNSCH PRN IVF 07/01/16 17:15 Sodium Chloride 1,000 ml @ 200 mls/hr Q5H PRN IV 07/01/16 17:06 (NS 1000 ml Inj) 1,000 ml @ 0 mls/hr Q0M PRN IV 07/01/16 17:06 (Mannitol Inj) 12.5 gm UNSCH PRN IV 07/01/16 17:15 (Albumin 25% Inj) 25 gm UNSCH PRN IV 07/01/16 17:15 07/02/16 13:06 (NS Flush) 5 ml UNSCH PRN IVF 07/01/16 17:15 07/02/16 12:57 (Heparin Inj) UNSCH PRN .XX 07/01/16 17:15 07/02/16 12:56 (Gentamicin (Dialysis) Inj) 20 mg UNSCH PRN IV 07/01/16 17:15 07/02/16 12:56 (Zofran Inj) 4 mg UNSCH PRN IV 07/01/16 17:15 (Tylenol) 650 mg UNSCH PRN PO 07/01/16 17:15 (Benadryl) 25 mg UNSCH PRN PO 07/01/16 17:15 (Nitrostat Sl) 0.4 mg UNSCH PRN SL 07/01/16 17:15 (Catapres) 0.1 mg UNSCH PRN PO 07/01/16 17:15 (Gelfoam 12 Mm/7 Mm Top) 1 foam UNSCH PRN TOP 07/01/16 17:15 (Lucy Dickerson) Physical Exam General Appearance: Comfortable (Lucy Dickerson) Eyes Eye Exam: Pupils Equal, Pupils Reactive (Lucy Dickerson) Neck Neck Exam: Neck Supple, Trachea Midline (Lucy Dickerson) Pulmonary Resp Exam: Clear Bilaterally, Breath Sounds Equal (Lucy Dickerson) Cardiology CV Exam: Irregular, Arrhythmia (Lucy Dickerson) Gastrointestinal/Abdomen GI Exam: Soft, Non-Tender (Lucy Dickerson) Genitourinary Exam: Clear Urine (Lucy Dickerson) Integumentary Skin Exam: Clear, Warm, Dry (Lucy Dickerson) Extremeties Extremities Exam: Trace Edema Extremeties Remarks BLE and BUE. (Lucy Dickerson) Neurologic Neuro Exam: Alert, Awake, Oriented (Lucy Dickerson) Psychiatric Psych Exam: Appropriate Responses (Lucy Dickerson) Assessment/Plan Problem List: (1) Acute renal failure Plan: Patient has had a profound deterioration in her renal function after her recent admission. Etiology of the acute renal failure uncertain at the present time. Differential diagnosis presently would include a possible development of acute kidney injury secondary to sepsis. Patient apparently was on Cipro as an outpatient to interstitial nephritis is also a consideration. Patient's azotemia has improved with dialysis. Pending HD today. Will continue to monitor her UOP and renal functions for any signs of recovery. Depending upon the results or progress of patient's acute renal insufficiency we may have to consider a kidney biopsy for definitive diagnosis as to the etiology of the patient's abrupt decline in renal function. This was discussed with the patient. Medications should be adjusted for the patient's estimated GFR if clinically indicated. Avoid agents with significant potential for nephrotoxicity possible including NSAIDs for analgesia, iodine contrast agents. Gadolinium is contraindicated if the GFR is below 30. (2) Hypertension Plan: Defer management to critical care presently. (3) Diabetes mellitus Plan: Defer management to critical care. (Lucy Dickerson) Plan Etiology of the patient's acute renal insufficiency uncertain but differential diagnosis includes possible development of an ATN or interstitial nephritis secondary to Cipro. Urine output appears to be somewhat improved. We'll try to defer dialysis until Thursday to determine whether not significant improvement in renal function is occurring. If not the Vas-Cath will have to be replaced as blood flow was marginal with treatment today. We'll also consider kidney biopsy next week to try and determine definitively the etiology of the renal failure if there is no improvement. Serological studies were reviewed and the ANCA and JEANNINE were negative. Await screening for myeloma. All the above discussed with patient. The exam, history, and the medical decision-making described in the above note were completed with the assistance of the PA-Telma. I reviewed and agree with the findings presented. I attest that I had a [id number] encounter with the patient on the same day, and personally performed and documented my assessment and findings in the medical record. (Mary Garrison MD) Lucy Dickerson Jul 02, 2016 15:18 Mary Garrison MD Jul 02, 2016 17:47
--- NOTE | 2016-07-02 17:17 | HHI.PR ---
Subjective Remarks Patient with good oxygen saturation denies cp/sob denies fevers/chills no diarrhea Objective Vitals Vital Signs Date Time Temp Pulse Resp B/P Pulse Ox O2 Delivery O2 Flow Rate FiO2 07/02/16 14:00 95 07/02/16 12:00 83 07/02/16 12:00 98.1 83 18 114/57 96 07/02/16 10:00 86 07/02/16 08:30 97 07/02/16 08:00 90 07/02/16 08:00 97.6 90 20 132/65 97 07/02/16 06:00 77 07/02/16 04:00 98.2 88 21 104/67 85 114/73 07/02/16 04:00 88 07/02/16 02:00 90 07/02/16 00:00 98.5 90 20 165/76 94 122/77 07/02/16 00:00 90 07/01/16 22:00 96 07/01/16 20:00 98.4 93 12 135/64 93 104/81 07/01/16 20:00 79 07/01/16 19:01 99 21 07/01/16 18:00 86 I/O 07/01/16 07/01/16 07/01/16 07/02/16 07/02/16 07/02/16 07:00 15:00 23:00 07:00 15:00 23:00 Intake Total 183 ml 805 ml 50 ml 842 ml Output Total 300 ml 325 ml 700 ml 3250 ml Balance -117 ml 480 ml -650 ml -2408 ml Intake Oral 600 ml 360 ml IV Total 183 ml 205 ml 50 ml 482 ml Output Urine Total 300 ml 325 ml 700 ml 750 ml Hemodialysis 2500 ml # Bowel Movements 1 1 Result Diagram: 07/02/16 0405 07/02/16 0405 Imaging Last Impressions Chest X-Ray 06/29/16 0000 Signed Impressions: Service Date/Time: Wednesday, June 29, 2016 14:51 - CONCLUSION: 1. Mild central pulmonary vascular congestion. 2. Marked cardiomegaly. 3. Right internal jugular Vas cath has its tip in the right atrium. There is no pneumothorax. 4. Degenerative changes and scoliosis of the thoracolumbar spine. 5. Degenerative changes involving the shoulders bilaterally. Konstantin Dunbar MD Head CT 06/26/16 0646 Signed Impressions: Service Date/Time: June 08:48 - CONCLUSION: 1. No acute abnormality identified. Stable compared to prior exam dated 06/11/16. Abram Rivera MD Renal Ultrasound 06/26/16 0000 Signed Impressions: Service Date/Time: June 10:59 - CONCLUSION: Kidneys are slightly echogenic which can be seen with medical renal disease. Yfn Santillan MD Objective Remarks GENERAL: This is an obese, elderly, well-developed patient, in no apparent distress. SKIN: No rashes, ecchymoses. Cool and dry. Coccyx with appx. quarter-sized decubitus ulcer extending into dermis with yellow central slough. HEAD: Atraumatic. Normocephalic. EYES: No scleral icterus. No injection or drainage. ENT: Nose without bleeding, purulent drainage. NECK: Trachea midline. No JVD or lymphadenopathy. CARDIOVASCULAR: Regular rate and rhythm without murmurs, gallops, or rubs. Bilateral lower extremity skin changes below knees c/w PVD - darkened, slightly leathery skin. RESPIRATORY: Left base crepitation. Breath sounds equal bilaterally. No wheezes , or rhonchi. GASTROINTESTINAL: Abdomen soft, non-tender, nondistended. No guarding. MUSCULOSKELETAL: Extremities without clubbing, cyanosis, or edema. No calf tenderness. NEUROLOGICAL: Awake and alert. Sensory grossly within normal limits. Mild generalized weakness. Normal speech. Medications and IVs Current Medications Medications (Trade) Dose Ordered Sig/Abigail Route Start Time Stop Time Status Last Admin (Cardizem Cd) 180 mg DAILY PO 06/26/16 11:00 07/02/16 08:57 (Lopressor) 100 mg DAILY PO 06/26/16 11:00 07/02/16 08:57 (NS Flush) 2 ml UNSCH PRN IV FLUSH 06/26/16 11:15 06/27/16 21:07 (NS Flush) 2 ml BID IV FLUSH 06/26/16 21:00 07/02/16 20:47 (Zofran Inj) 4 mg Q6H PRN IV 06/26/16 11:15 Miscellaneous Information 1 Q361D XX 06/26/16 11:15 (Peridex 0.12% Liq) 15 ml BID@08,20 MT 06/26/16 20:00 06/27/16 09:31 Polyethylene Glycol 17 gm 17 gm BID PO 06/26/16 21:00 07/01/16 09:02 (Zosyn 2.25 Gm Premix) 50 ml @ 100 mls/hr Q8H IV 06/26/16 22:00 07/02/16 20:47 (Trandate Inj) 10 mg Q1H PRN IV PUSH 06/26/16 14:45 06/27/16 21:14 Miscellaneous Information Patient in critical care unit? Ass... Q361D XX 06/27/16 01:45 06/27/16 01:45 (Heparin-D5W Inj) 250 ml @ 0 mls/hr TITRATE IV 06/29/16 18:15 07/02/16 10:54 (Heparin Inj) 5,000 units UNSCH PRN IV 06/29/16 18:15 (Heparin Inj) 2,500 units UNSCH PRN IV 06/29/16 18:15 (SoluCORTEF INJ) 50 mg Q12HR IV PUSH 06/30/16 09:00 07/02/16 20:47 (D50w (Vial) Inj) 25 ml UNSCH PRN IV PUSH 06/30/16 00:15 Glucagon 1 mg 1 mg UNSCH PRN OTHER 06/30/16 00:15 (NS 1000 ml Inj) 1,000 ml @ 0 mls/hr Q0M PRN IV 07/01/16 17:06 07/02/16 12:55 Heparin Sodium (Porcine) 8000 units 8,000 units UNSCH PRN IVF 07/01/16 17:15 Sodium Chloride 1,000 ml @ 200 mls/hr Q5H PRN IV 07/01/16 17:06 (NS 1000 ml Inj) 1,000 ml @ 0 mls/hr Q0M PRN IV 07/01/16 17:06 (Mannitol Inj) 12.5 gm UNSCH PRN IV 07/01/16 17:15 (Albumin 25% Inj) 25 gm UNSCH PRN IV 07/01/16 17:15 07/02/16 13:06 (NS Flush) 5 ml UNSCH PRN IVF 07/01/16 17:15 07/02/16 12:57 (Heparin Inj) UNSCH PRN .XX 07/01/16 17:15 07/02/16 12:56 (Gentamicin (Dialysis) Inj) 20 mg UNSCH PRN IV 07/01/16 17:15 07/02/16 12:56 (Zofran Inj) 4 mg UNSCH PRN IV 07/01/16 17:15 (Tylenol) 650 mg UNSCH PRN PO 07/01/16 17:15 (Benadryl) 25 mg UNSCH PRN PO 07/01/16 17:15 (Nitrostat Sl) 0.4 mg UNSCH PRN SL 07/01/16 17:15 (Catapres) 0.1 mg UNSCH PRN PO 07/01/16 17:15 (Gelfoam 12 Mm/7 Mm Top) 1 foam UNSCH PRN TOP 07/01/16 17:15 (Santyl Oint) 1 applic DAILY TOP 07/03/16 09:00 A/P Assessment and Plan Ms. Gabriel is an 80 year-old female with a past medical history of atrial fibrillation, CHF, Type 2 diabetes mellitus, hypertension, [place], and anemia who presented to the ER via EMS on 06/26/16 for evaluation of altered mental status and questionable seizure activity. Patient was recently hospitalized on for atrial fibrillation with RVR and subsequently discharged to [facility] for rehabilitation. The patients blood glucose was 23 upon EMS arrival at SNF and 53 upon her arrival in ER plus she was hypertensive and tachycardic. Her glucose levels were treated and normalized and her mental status subsequently improved also. Blood work was significant for acute renal failure and CXR showed possible small left lower lobe pneumonia and antibiotics were started. Toxic/metabolic encephalopathy - appears resolved neuro checks per ICU protocol Hold long-acting sedatives Atelectasis Possible healthcare associated pneumonia - continue IV Zosyn and Vancomycin (per pharmacy dosing) Incentive spirometer at bedside Wean supplemental oxygen for goal SPO2 greater than 92% Atrial fibrillation Systolic congestive heart failure, EF 30-35% Continue home diltiazem and metoprolol Digoxin held because while her systemic level was nontoxic, it was significantly increased from last hospitalization on admission (06/26) Repeat echo 06/27: LVEF 40-45%, mild RV dysfunction, pulm htn rvsp 60s, dilated IVC holding Coumadin given renal failure. Patient on heparin drip. Acute Renal Failure - etiology uncertain Intravascular volume overload continue mcdonald catheter. -- Strict I/Os Renal ultrasound 06/26: Negative for acute hydronephrosis -- Nephrology consulted - Dr. Garrison -- HD 06/29 and 06/30 renal indices improving -- Nephrology notes indicate renal biopsy may be needed to determine etiology Acute protein calorie malnutritionmoderate Life-threatening hyperkalemia --diet per speech: mechanical soft/thin liquids Daily BMP -minimize IVF . Possible sepsis Supra-therapeutic anticoagulation continue vancomycin with pharmacy dosing Continue Zosyn, 2.25 g IV every 8 hours. --could consider d/c antibiotics since her cultures are negative x 5 days. will re-assess. Daily CBC Daily coags Continue to hold warfarin in the setting of renal dysfunction. --continue heparin drip, no bolus, for anticoagulation for Atrial Fibrillation in the setting of renal dysfunction. Severe life-threatening hypoglycemia- resolving. --AC and HS accuchecks. --D50 as needed --hydrocortisone 50mg iv q12h Sacral decubitus - patient states she got this at [facility] - wound care nurse consult ----> clean with ns, santyl daily. - specialty mattress DVT Prophylaxis -- SCDs heparin drip Discontinue arterial line.. Discharge Planning ok to transfer to medical floor. Kirk White MD Jul 02, 2016 17:17
[2016-07-03] VITALS (15 sets, daily range): BP systolic 138–191; BP diastolic 62–109; PULSE 80–124; RESP 19–22; TEMP 97.7–98.5; O2SAT 93–100
[2016-07-03] MEDS: LABETALOL HCL 100 MG/20 ML VIAL IV PUSH PRN (03:23)
[2016-07-03] MEDS: PIPERACIL-TAZO 2.25 GM PREMIX 50 ML IV SCH ×3 (05:24→21:05)
[2016-07-03 05:50] LABS: HEMATOCRIT 33.1 % (35.0-46.0); MEAN CELL VOLUME 86.5 FL (80.0-100.0); MEAN CORPUSCULAR HEMOGLOBIN 27.4 PG (27.0-34.0); MEAN CORPUSCULAR HGB CONC 31.7 % (32.0-36.0); PLATELET COUNT 205 TH/MM3 (150-450); RED BLOOD COUNT 3.83 MIL/MM3 (4.00-5.30); RED CELL DISTRIBUTION WIDTH 14.4 % (11.6-17.2); REVIEW FLAG FINAL; WHITE BLOOD COUNT 12.2 TH/MM3 (4.0-11.0)
[2016-07-03 06:06] LABS: APTT (PATIENT) 69.9 SEC (24.3-30.1); INTERNATIONAL NORMALIZED RATIO 1.1 RATIO
[2016-07-03 06:16] LABS: BICARBONATE 29.8 MEQ/L (21.0-32.0); MAGNESIUM 1.7 MG/DL (1.5-2.5); POTASSIUM 4.3 MEQ/L (3.5-5.1)
[2016-07-03] MEDS: CHLORHEXIDINE 0.12% (ORAL KIT) 15 ML CUP MT SCH ×2 (08:00→20:00)
[2016-07-03] MEDS: HYDROCORTISONE SOD SUCCINATE 100 MG VIAL IV PUSH SCH (09:00)
[2016-07-03] MEDS: POLYETHYLENE GLYCOL 17 GM PKG PO SCH ×2 (09:00→21:05)
[2016-07-03] MEDS: COLLAGENASE OINT 30 GM TUBE TOP SCH (09:00)
[2016-07-03] MEDS: METOPROLOL TARTRATE 100 MG TAB PO SCH (09:00)
[2016-07-03] MEDS: SODIUM CHLORIDE 0.9% FLUSH 5 ML FLUSH IV FLUSH SCH ×2 (09:00→21:00)
--- NOTE | 2016-07-03 09:34 | PD.CONS ---
HPI Service Cardiology Consult Requested By Reason for Consult Afib Primary Care Physician June Sahu MD History of Present Illness 80 year-old female with a past medical history of atrial fibrillation, CHF, Type 2 diabetes mellitus, hypertension, [place], and anemia who presented to the ER via EMS on 06/26/16 for evaluation of altered mental status and seizure. She has been admitted with toxic/metabolic encephalopathy, hypoglycemia and PNA. Cardiology has been consulted for Afib management. Echo performed in 06/27/16 showed LVEF 40-45%, mild RV dysfunction, pulm htn, dilated IVC. Todays telemetry shows afib in the low 100's at rest. She has no complaints. Review of Systems Consitutional: DENIES: Fatigue, Fever, Chills, Weight gain, Weight loss Eyes: DENIES: Amaurosis Fugax, Change in vision HEENT: DENIES: Lightheadedness, Change in hearing Respiratory: DENIES: See HPI, Cough, Snoring, Shortness of breath, Wheezing, Sputum production Cardiovascular: DENIES: See HPI, Chest pain, Palpitations, Syncope, Tachycardia Gastrointestinal: DENIES: Nausea, Vomiting, Change in bowel habits, Reflux, Bloody stools, Melena Genitourinary: DENIES: Urinary incontinence, Difficulty voiding Integumentary: DENIES: Rash Neurologic: DENIES: Tingling or numbness, Memory problems, Poor Balance, Stroke symptoms Musculoskeletal: DENIES: Joint pain, Muscle pain, Limited range of motion, Back pain Psychiatric: DENIES: Anxiety, Depression, Sleep disturbances Hematologic: DENIES: Bruising tendencies, Bleeding tendencies Endocrine: DENIES: Weight gain, Weight loss, Thyroid disease Past Family Social History Allergies: Coded Allergies: No Known Allergies (Verified , 06/26/16) Reported Medications Reported Meds & Active Scripts Active Cardizem CD 24 HR (Diltiazem CD 24 HR) 180 Mg Caper 180 Mg PO DAILY Reported Metoprolol Tartrate 100 Mg Tab 100 Mg PO DAILY Digoxin 0.125 Mg Tab 125 Mcg PO DAILY Warfarin 3 Mg Tab 3 Mg PO DAILY Primidone 50 Mg Tab 50 Mg PO TID Active Ordered Medications Current Medications Medications (Trade) Dose Ordered Sig/Abigail Route Start Time Stop Time Status Last Admin (Cardizem Cd) 180 mg DAILY PO 06/26/16 11:00 07/02/16 08:57 (Lopressor) 100 mg DAILY PO 06/26/16 11:00 07/02/16 08:57 (NS Flush) 2 ml UNSCH PRN IV FLUSH 06/26/16 11:15 06/27/16 21:07 (NS Flush) 2 ml BID IV FLUSH 06/26/16 21:00 07/02/16 20:47 (Zofran Inj) 4 mg Q6H PRN IV 06/26/16 11:15 Miscellaneous Information 1 Q361D XX 06/26/16 11:15 (Peridex 0.12% Liq) 15 ml BID@08,20 MT 06/26/16 20:00 06/27/16 09:31 Polyethylene Glycol 17 gm 17 gm BID PO 06/26/16 21:00 07/01/16 09:02 (Zosyn 2.25 Gm Premix) 50 ml @ 100 mls/hr Q8H IV 06/26/16 22:00 07/03/16 05:24 (Trandate Inj) 10 mg Q1H PRN IV PUSH 06/26/16 14:45 07/03/16 03:23 Miscellaneous Information Patient in critical care unit? Ass... Q361D XX 06/27/16 01:45 06/27/16 01:45 (Heparin-D5W Inj) 250 ml @ 0 mls/hr TITRATE IV 06/29/16 18:15 07/02/16 10:54 (Heparin Inj) 5,000 units UNSCH PRN IV 06/29/16 18:15 (Heparin Inj) 2,500 units UNSCH PRN IV 06/29/16 18:15 (SoluCORTEF INJ) 50 mg Q12HR IV PUSH 06/30/16 09:00 07/02/16 20:47 (D50w (Vial) Inj) 25 ml UNSCH PRN IV PUSH 06/30/16 00:15 Glucagon 1 mg 1 mg UNSCH PRN OTHER 06/30/16 00:15 (NS 1000 ml Inj) 1,000 ml @ 0 mls/hr Q0M PRN IV 07/01/16 17:06 07/02/16 12:55 Heparin Sodium (Porcine) 8000 units 8,000 units UNSCH PRN IVF 07/01/16 17:15 Sodium Chloride 1,000 ml @ 200 mls/hr Q5H PRN IV 07/01/16 17:06 (NS 1000 ml Inj) 1,000 ml @ 0 mls/hr Q0M PRN IV 07/01/16 17:06 (Mannitol Inj) 12.5 gm UNSCH PRN IV 07/01/16 17:15 (Albumin 25% Inj) 25 gm UNSCH PRN IV 07/01/16 17:15 07/02/16 13:06 (NS Flush) 5 ml UNSCH PRN IVF 07/01/16 17:15 07/02/16 12:57 (Heparin Inj) UNSCH PRN .XX 07/01/16 17:15 07/02/16 12:56 (Gentamicin (Dialysis) Inj) 20 mg UNSCH PRN IV 07/01/16 17:15 07/02/16 12:56 (Zofran Inj) 4 mg UNSCH PRN IV 07/01/16 17:15 (Tylenol) 650 mg UNSCH PRN PO 07/01/16 17:15 (Benadryl) 25 mg UNSCH PRN PO 07/01/16 17:15 (Nitrostat Sl) 0.4 mg UNSCH PRN SL 07/01/16 17:15 (Catapres) 0.1 mg UNSCH PRN PO 07/01/16 17:15 (Gelfoam 12 Mm/7 Mm Top) 1 foam UNSCH PRN TOP 07/01/16 17:15 (Santyl Oint) 1 applic DAILY TOP 07/03/16 09:00 Physical Exam Vital Signs Vital Signs Date Time Temp Pulse Resp B/P Pulse Ox O2 Delivery O2 Flow Rate FiO2 07/03/16 08:00 97.8 80 19 165/74 97 07/03/16 08:00 100 07/03/16 06:00 124 07/03/16 04:00 93 07/03/16 04:00 98.2 93 19 184/95 97 Arterial Line 07/03/16 02:00 95 07/03/16 00:00 106 07/03/16 00:00 97.7 106 22 159/109 93 168/104 07/02/16 22:00 98 07/02/16 20:00 97.5 100 22 140/71 96 132/76 07/02/16 20:00 100 07/02/16 19:05 95 21 1/11/17 18:00 94 07/02/16 16:00 98 07/02/16 16:00 97.9 98 18 138/74 91 07/02/16 14:00 95 07/02/16 12:00 83 07/02/16 12:00 98.1 83 18 114/57 96 07/02/16 10:00 86 Physical Exam GENERAL: Well-nourished, well-developed patient. SKIN: Warm and dry. HEAD: Normocephalic. EYES: No scleral icterus. No injection or drainage. NECK: Supple, trachea midline. No JVD or lymphadenopathy. CARDIOVASCULAR: IRR IRR no murmurs, gallops, or rubs. RESPIRATORY: No accessory muscle use. Poor inspiratory effort no wheezing GASTROINTESTINAL: Abdomen soft, non-tender, nondistended. EXTREMITIES: No cyanosis, or edema. Laboratory Laboratory Tests Test 07/03/16 05:00 White Blood Count 12.2 Red Blood Count 3.83 Hemoglobin 10.5 Hematocrit 33.1 Mean Corpuscular Volume 86.5 Mean Corpuscular Hemoglobin 27.4 Mean Corpuscular Hemoglobin 31.7 Concent Red Cell Distribution Width 14.4 Platelet Count 205 Mean Platelet Volume 7.9 Prothrombin Time 12.0 Prothromb Time International 1.1 Ratio Activated Partial 69.9 Thromboplast Time Sodium Level 139 Potassium Level 4.3 Chloride Level 98 Carbon Dioxide Level 29.8 Anion Gap 11 Blood Urea Nitrogen 45 Creatinine 4.20 Estimat Glomerular Filtration 12 Rate Random Glucose 159 Calcium Level 7.7 Phosphorus Level 5.2 Magnesium Level 1.7 Result Diagram: 07/03/16 0500 07/03/16 0500 Imaging Last Impressions Chest X-Ray 06/29/16 0000 Signed Impressions: Service Date/Time: Wednesday, June 29, 2016 14:51 - CONCLUSION: 1. Mild central pulmonary vascular congestion. 2. Marked cardiomegaly. 3. Right internal jugular Vas cath has its tip in the right atrium. There is no pneumothorax. 4. Degenerative changes and scoliosis of the thoracolumbar spine. 5. Degenerative changes involving the shoulders bilaterally. Konstantin Dunbar MD Head CT 06/26/16 0646 Signed Impressions: Service Date/Time: June 08:48 - CONCLUSION: 1. No acute abnormality identified. Stable compared to prior exam dated 06/11/16. Abram Rivera MD Renal Ultrasound 06/26/16 0000 Signed Impressions: Service Date/Time: June 10:59 - CONCLUSION: Kidneys are slightly echogenic which can be seen with medical renal disease. Yfn Santillan MD Assessment and Plan Problem List: (1) Atrial fibrillation Assessment and Plan: Atrial fibrillation with RVR. Patient on heparin drip. On PO Diltiazem 180mg and metoprolol 100. CHADS2> 2. 1. Restart Coumadin, INR goal 2-3 2. Change diltiazem to 240mg PO daily 3. Cont Telemetry monitoring Case discussed with Dr. Ray (2) Systolic congestive heart failure (3) Hypertension Problem Qualifiers (1) Atrial fibrillation: Qualified Code: I48.2 - Chronic atrial fibrillation (2) Systolic congestive heart failure: Qualified Code: I50.22 - Chronic systolic congestive heart failure (3) Hypertension: Qualified Code: I10 - Essential hypertension Kaipl Garcia MD Jul 03, 2016 09:34
[2016-07-03] MEDS: HEPARIN 25,000 UNITS-D5W 250 ML - PREMIX IV SCH (10:19)
--- NOTE | 2016-07-03 17:37 | HHI.NPPN ---
Subjective History of Present Illness The patient is an 80 yo AA female who was brought in today for AMS from her nursing facility, [facility]. It was found that she was profoundly hypoglycemia and was given D50 thru her I/O access. She was recently admitted here at the end of May with A fib and was started on Coumadin and low dose Lisinopril 2.5mg QD at that time. Home medication list was reviewed that showed no NSAIDs or outwardly nephrotoxic medications. She has been on Cipro for what is assumed to be a urinary tract infection. The patient herself is very lethargic and no meaningful information can be obtained from her. Admitting SCr at 5.65 that worsened to 5.84 Admitting K+ was 5.9 that worsened to 6.2---this was treated with dextrose, insulin, and Kayexalate. Interval History Patient presently with no verbal complaints. Objective Data Data 07/02/16 07/03/16 19:00 07:00 Intake Total 842 ml 153 ml Output Total 3250 ml 1700 ml Balance -2408 ml -1547 ml Intake Oral 360 ml IV Total 482 ml 153 ml Output Urine Total 750 ml 1700 ml Hemodialysis 2500 ml # Bowel Movements 1 Vital Signs Date Time Temp Pulse Resp B/P Pulse Ox O2 Delivery O2 Flow Rate FiO2 07/03/16 14:00 100 07/03/16 12:00 98.0 80 19 156/70 97 07/03/16 12:00 100 07/03/16 10:00 100 07/03/16 08:35 100 21 07/03/16 08:00 97.8 80 19 165/74 97 07/03/16 08:00 100 07/03/16 06:00 124 07/03/16 04:00 93 07/03/16 04:00 98.2 93 19 184/95 97 Arterial Line 07/03/16 02:00 95 07/03/16 00:00 106 07/03/16 00:00 97.7 106 22 159/109 93 168/104 07/02/16 22:00 98 07/02/16 20:00 97.5 100 22 140/71 96 132/76 07/02/16 20:00 100 07/02/16 19:05 95 21 07/02/16 18:00 94 -: 07/03/16 0500 07/03/16 0500 Tubes & Lines: Vas-Cath Physical Exam General Appearance: Comfortable Eyes Eye Exam: Pupils Equal, Pupils Reactive Neck Neck Exam: Neck Supple, Trachea Midline Pulmonary Resp Exam: Clear Bilaterally, Breath Sounds Equal Cardiology CV Exam: Irregular, Arrhythmia Gastrointestinal/Abdomen GI Exam: Soft, Non-Tender Genitourinary Exam: Clear Urine Integumentary Skin Exam: Clear, Warm, Dry Extremeties Extremities Exam: Trace Edema Neurologic Neuro Exam: Alert, Awake, Oriented Psychiatric Psych Exam: Appropriate Responses Assessment/Plan Discussed Condition With: Patient Problem List: (1) Acute renal failure Plan: Patient's urine output appears to be improving. This may represent early recovery of renal function but this remains be determined. I will review renal indices tomorrow prior to proceeding with dialysis. If there is any significant evidence of renal recovery will defer dialysis and continue to monitor. Size etiology of the patient's acute renal insufficiency uncertain. May be interstitial nephritis secondary to Cipro or an ATN from unspecified insult. I believe it would be prudent to the Cipro as an allergen in this patient's medical record. Discussed with primary care physician. Medications should be adjusted for the patient's estimated GFR if clinically indicated. Avoid agents with significant potential for nephrotoxicity possible including NSAIDs for analgesia, iodine contrast agents. Gadolinium is contraindicated if the GFR is below 30. (2) Hypertension Plan: Defer management to critical care presently. (3) Diabetes mellitus Plan: Defer management to critical care. Problem Qualifiers (1) Hypertension: Qualified Code: I10 - Essential hypertension Mary Garrison MD Jul 03, 2016 17:37
--- NOTE | 2016-07-03 18:38 | HHI.PR ---
Subjective Remarks Patient's bp elevated patient feels cold denies cp/sob/cough denies diarrhea Slightly tachycardic Objective Vitals Vital Signs Date Time Temp Pulse Resp B/P Pulse Ox O2 Delivery O2 Flow Rate FiO2 07/03/16 18:00 100 07/03/16 16:00 100 07/03/16 16:00 98.0 80 19 148/62 97 07/03/16 15:30 191/92 07/03/16 14:00 100 07/03/16 12:00 98.0 80 19 156/70 97 07/03/16 12:00 100 07/03/16 10:00 100 07/03/16 08:35 100 21 07/03/16 08:00 97.8 80 19 165/74 97 07/03/16 08:00 100 07/03/16 06:00 124 07/03/16 04:00 93 07/03/16 04:00 98.2 93 19 184/95 97 Arterial Line 07/03/16 02:00 95 07/03/16 00:00 106 07/03/16 00:00 97.7 106 22 159/109 93 168/104 07/02/16 22:00 98 07/02/16 20:00 97.5 100 22 140/71 96 132/76 07/02/16 20:00 100 07/02/16 19:05 95 21 I/O 07/02/16 07/02/16 07/02/16 07/03/16 07/03/16 07/03/16 07:00 15:00 23:00 07:00 15:00 23:00 Intake Total 50 ml 961 ml 34 ml 468 ml Output Total 700 ml 4000 ml 950 ml 350 ml Balance -650 ml -3039 ml -916 ml 118 ml Intake Oral 360 ml 380 ml IV Total 50 ml 601 ml 34 ml 88 ml Output Urine Total 700 ml 1500 ml 950 ml 350 ml Hemodialysis 2500 ml # Bowel Movements 1 Result Diagram: 07/03/16 0500 07/03/16 0500 Imaging Last Impressions Chest X-Ray 06/29/16 0000 Signed Impressions: Service Date/Time: Wednesday, June 29, 2016 14:51 - CONCLUSION: 1. Mild central pulmonary vascular congestion. 2. Marked cardiomegaly. 3. Right internal jugular Vas cath has its tip in the right atrium. There is no pneumothorax. 4. Degenerative changes and scoliosis of the thoracolumbar spine. 5. Degenerative changes involving the shoulders bilaterally. Konstantin Dunbar MD Head CT 06/26/16 0646 Signed Impressions: Service Date/Time: June 08:48 - CONCLUSION: 1. No acute abnormality identified. Stable compared to prior exam dated 06/11/16. Abram Rivera MD Renal Ultrasound 06/26/16 0000 Signed Impressions: Service Date/Time: June 10:59 - CONCLUSION: Kidneys are slightly echogenic which can be seen with medical renal disease. Yfn Santillan MD Objective Remarks GENERAL: This is an obese, elderly, well-developed patient, in no apparent distress. SKIN: No rashes, ecchymoses. Cool and dry. Coccyx with appx. quarter-sized decubitus ulcer extending into dermis with yellow central slough. HEAD: Atraumatic. Normocephalic. EYES: No scleral icterus. No injection or drainage. ENT: Nose without bleeding, purulent drainage. NECK: Trachea midline. No JVD or lymphadenopathy. CARDIOVASCULAR: Regular rate and rhythm without murmurs, gallops, or rubs. Bilateral lower extremity skin changes below knees c/w PVD - darkened, slightly leathery skin. RESPIRATORY: Left base crepitation. Breath sounds equal bilaterally. No wheezes , or rhonchi. GASTROINTESTINAL: Abdomen soft, non-tender, nondistended. No guarding. MUSCULOSKELETAL: Extremities without clubbing, cyanosis, or edema. No calf tenderness. NEUROLOGICAL: Awake and alert. Sensory grossly within normal limits. Mild generalized weakness. Normal speech. Medications and IVs Current Medications Medications (Trade) Dose Ordered Sig/Abigail Route Start Time Stop Time Status Last Admin (Lopressor) 100 mg DAILY PO 06/26/16 11:00 07/03/16 09:00 (NS Flush) 2 ml UNSCH PRN IV FLUSH 06/26/16 11:15 06/27/16 21:07 (NS Flush) 2 ml BID IV FLUSH 06/26/16 21:00 07/03/16 09:00 (Zofran Inj) 4 mg Q6H PRN IV 06/26/16 11:15 Miscellaneous Information 1 Q361D XX 06/26/16 11:15 (Peridex 0.12% Liq) 15 ml BID@08,20 MT 06/26/16 20:00 07/03/16 08:00 Polyethylene Glycol 17 gm 17 gm BID PO 06/26/16 21:00 07/03/16 09:00 (Zosyn 2.25 Gm Premix) 50 ml @ 100 mls/hr Q8H IV 06/26/16 22:00 07/03/16 15:59 (Trandate Inj) 10 mg Q1H PRN IV PUSH 06/26/16 14:45 07/03/16 03:23 Miscellaneous Information Patient in critical care unit? Ass... Q361D XX 06/27/16 01:45 06/27/16 01:45 (Heparin-D5W Inj) 250 ml @ 0 mls/hr TITRATE IV 06/29/16 18:15 07/03/16 10:19 (Heparin Inj) 5,000 units UNSCH PRN IV 06/29/16 18:15 (Heparin Inj) 2,500 units UNSCH PRN IV 06/29/16 18:15 (SoluCORTEF INJ) 50 mg Q12HR IV PUSH 06/30/16 09:00 07/03/16 09:00 (D50w (Vial) Inj) 25 ml UNSCH PRN IV PUSH 06/30/16 00:15 Glucagon 1 mg 1 mg UNSCH PRN OTHER 06/30/16 00:15 (NS 1000 ml Inj) 1,000 ml @ 0 mls/hr Q0M PRN IV 07/01/16 17:06 07/02/16 12:55 Heparin Sodium (Porcine) 8000 units 8,000 units UNSCH PRN IVF 07/01/16 17:15 Sodium Chloride 1,000 ml @ 200 mls/hr Q5H PRN IV 07/01/16 17:06 (NS 1000 ml Inj) 1,000 ml @ 0 mls/hr Q0M PRN IV 07/01/16 17:06 (Mannitol Inj) 12.5 gm UNSCH PRN IV 07/01/16 17:15 (Albumin 25% Inj) 25 gm UNSCH PRN IV 07/01/16 17:15 07/02/16 13:06 (NS Flush) 5 ml UNSCH PRN IVF 07/01/16 17:15 07/02/16 12:57 (Heparin Inj) UNSCH PRN .XX 07/01/16 17:15 07/02/16 12:56 (Gentamicin (Dialysis) Inj) 20 mg UNSCH PRN IV 07/01/16 17:15 07/02/16 12:56 (Zofran Inj) 4 mg UNSCH PRN IV 07/01/16 17:15 (Tylenol) 650 mg UNSCH PRN PO 07/01/16 17:15 (Benadryl) 25 mg UNSCH PRN PO 07/01/16 17:15 (Nitrostat Sl) 0.4 mg UNSCH PRN SL 07/01/16 17:15 (Catapres) 0.1 mg UNSCH PRN PO 07/01/16 17:15 07/03/16 10:21 (Gelfoam 12 Mm/7 Mm Top) 1 foam UNSCH PRN TOP 07/01/16 17:15 (Santyl Oint) 1 applic DAILY TOP 07/03/16 09:00 (Cardizem Cd) 240 mg DAILY PO 07/04/16 09:00 (Apresoline) 50 mg Q8HR PO 07/03/16 22:00 A/P Assessment and Plan Ms. Gabriel is an 80 year-old female with a past medical history of atrial fibrillation, CHF, Type 2 diabetes mellitus, hypertension, NM, and anemia who presented to the ER via EMS on 06/26/16 for evaluation of altered mental status and questionable seizure activity. Patient was recently hospitalized on for atrial fibrillation with RVR and subsequently discharged to [facility] for rehabilitation. The patients blood glucose was 23 upon EMS arrival at SNF and 53 upon her arrival in ER plus she was hypertensive and tachycardic. Her glucose levels were treated and normalized and her mental status subsequently improved also. Blood work was significant for acute renal failure and CXR showed possible small left lower lobe pneumonia and antibiotics were started. Toxic/metabolic encephalopathy - appears resolved neuro checks per ICU protocol Hold long-acting sedatives HCAP - Disconrtinue Vancomycin, continue zosyn,. Incentive spirometer at bedside Wean supplemental oxygen for goal SPO2 greater than 92% Atrial fibrillation with rvrv Systolic congestive heart failure, EF 30-35% Continue home diltiazem and metoprolol Digoxin held because while her systemic level was nontoxic, it was significantly increased from last hospitalization on admission (06/26) Repeat echo 06/27: LVEF 40-45%, mild RV dysfunction, pulm htn rvsp 60s, dilated IVC holding Coumadin given renal failure. Patient on heparin drip. - Cardiology consulted - appreciate recommendations ---> Cardizem dose increased to 240 mg po daily - heparin bridge to coumadin once kidney function improves. MARTHA - etiology uncertain Intravascular volume overload, ? due to cipro continue mcdonald catheter. -- Strict I/Os Renal ultrasound 06/26: Negative for acute hydronephrosis -- Nephrology consulted - Dr. Garrison -- HD 06/29 and 06/30 renal indices improving -- Nephrology notes indicate renal biopsy may be needed to determine etiology - however patient with good urine output and function slightly improved. -- Patient with good urine output. Follow-up nephrology recommendations. Acute protein calorie malnutritionmoderate Life-threatening hyperkalemia --diet per speech: mechanical soft/thin liquids Daily BMP -minimize IVF . Possible sepsis Supra-therapeutic anticoagulation Continue Zosyn, 2.25 g IV every 8 hours. - DC Vancomycin Daily CBC Daily coags Continue to hold warfarin in the setting of renal dysfunction. --continue heparin drip, no bolus, for anticoagulation for Atrial Fibrillation in the setting of renal dysfunction. - Will likely transition to oral antibiotics. Severe life-threatening hypoglycemia- resolving. --AC and HS accuchecks. --D50 as needed --hydrocortisone 50mg iv q12h ----> taper momin to daily and then transition to prednisone to off Sacral decubitus - patient states she got this at [facility] - wound care ----> clean with ns, santyl daily. - specialty mattress Uncontrolled HTN Continue Cardizem, Toprol. I will start the patient on hydralazine orally and 60 mg by mouth every 8 hours. Continue labetalol and clonidine when necessary DVT Prophylaxis -- SCDs heparin drip Discharge Planning ok to transfer to medical floor. Kirk White MD Jul 03, 2016 18:38
[2016-07-03 19:55] LABS: INSULIN AUTO ANTIBODIES LESS THAN 0.4 U/mL (<0.4)
[2016-07-03] MEDS ORDERED: DOXAZOSIN MESYLATE 2 MG TAB PO SCH (21:00)
[2016-07-03] MEDS: hydrALAZINE HCL 50 MG TAB PO SCH (21:05)
[2016-07-04] VITALS (16 sets, daily range): BP systolic 128–169; BP diastolic 71–84; PULSE 88–117; RESP 19–21; TEMP 97.9–98.8; O2SAT 93–98
[2016-07-04] MEDS: LABETALOL HCL 100 MG/20 ML VIAL IV PUSH PRN ×3 (02:08→07:06)
[2016-07-04] MEDS: hydrALAZINE HCL 50 MG TAB PO SCH (05:20)
[2016-07-04] MEDS: PIPERACIL-TAZO 2.25 GM PREMIX 50 ML IV SCH ×3 (05:21→19:39)
[2016-07-04 06:11] LABS: AUTOMATED NEUTROPHIL # 10.2 TH/MM3 (1.8-7.7); BASOPHIL % 0.3 % (0.0-2.0); EOSINOPHIL # 0.1 TH/MM3 (0-0.4); EOSINOPHIL % 0.5 % (0.0-4.0); HEMATOCRIT 31.5 % (35.0-46.0); HEMO FLAGS DIFF FINAL; LYMPH % 4.9 % (9.0-44.0); LYMPHOCYTE # 0.6 TH/MM3 (1.0-4.8); MEAN CELL VOLUME 86.4 FL (80.0-100.0); MEAN CORPUSCULAR HEMOGLOBIN 27.7 PG (27.0-34.0); MONO % 8.1 % (0.0-8.0); NEUT % 86.2 % (16.0-70.0); PLATELET COUNT 240 TH/MM3 (150-450); RED BLOOD COUNT 3.65 MIL/MM3 (4.00-5.30); RED CELL DISTRIBUTION WIDTH 14.3 % (11.6-17.2); WHITE BLOOD COUNT 11.9 TH/MM3 (4.0-11.0)
[2016-07-04 06:17] LABS: APTT (PATIENT) 56.9 SEC (24.3-30.1); INTERNATIONAL NORMALIZED RATIO 1.1 RATIO
[2016-07-04 06:31] LABS: ALKALINE PHOSPHATASE 46 U/L (45-117); ALT (GPT) 23 U/L (10-53); TOTAL BILIRUBIN ADULT 0.7 MG/DL (0.2-1.0)
[2016-07-04 06:34] LABS: ANION GAP 10 MEQ/L (5-15); AST (GOT) 22 U/L (15-37); BLOOD UREA NITROGEN 53 MG/DL (7-18); CHLORIDE 101 MEQ/L (98-107); GLOMERULAR FILTRATION RATE 11 ML/MIN (>89); SODIUM (NA) 138 MEQ/L (136-145)
[2016-07-04 06:35] LABS: POTASSIUM 4.8 MEQ/L (3.5-5.1)
[2016-07-04] MEDS: CHLORHEXIDINE 0.12% (ORAL KIT) 15 ML CUP MT SCH ×2 (08:00→19:38)
[2016-07-04] MEDS: HYDROCORTISONE SOD SUCCINATE 100 MG VIAL IV PUSH SCH (08:40)
[2016-07-04] MEDS: POLYETHYLENE GLYCOL 17 GM PKG PO SCH ×2 (08:40→19:38)
[2016-07-04] MEDS: METOPROLOL TARTRATE 100 MG TAB PO SCH (08:40)
[2016-07-04] MEDS: SODIUM CHLORIDE 0.9% FLUSH 5 ML FLUSH IV FLUSH SCH ×2 (08:43→19:38)
[2016-07-04] MEDS: ISOSORBIDE DINITRATE 5 MG TAB PO SCH ×3 (08:43→17:00)
[2016-07-04] MEDS: HEPARIN 25,000 UNITS-D5W 250 ML - PREMIX IV SCH (08:45)
[2016-07-04] MEDS: COLLAGENASE OINT 30 GM TUBE TOP SCH (09:00)
[2016-07-04] MEDS ORDERED: DILTIAZEM-CD 240 MG CAP ER PO SCH (09:00)
[2016-07-04] MEDS: hydrALAZINE HCL 100 MG TAB PO SCH ×2 (13:20→19:38)
--- NOTE | 2016-07-04 14:31 | HHI.PR ---
Subjective Remarks Follow up: HCAP, Atrial fibrillation with rvr, MARTHA, hypoglycemia, Uncontrolled HTN. Patient's bp elevated denies cp/sob/cough denies diarrhea tachycardic Objective Vitals Vital Signs Date Time Temp Pulse Resp B/P Pulse Ox O2 Delivery O2 Flow Rate FiO2 07/04/16 10:00 117 07/04/16 08:14 94 Nasal Cannula 2.00 07/04/16 08:01 98.8 88 19 169/79 98 07/04/16 08:00 117 07/04/16 06:00 100 07/04/16 04:00 98.8 88 19 169/79 98 07/04/16 04:00 88 07/04/16 02:00 96 07/04/16 00:00 92 07/04/16 00:00 98.4 92 20 148/71 97 07/03/16 22:00 104 07/03/16 21:24 100 Nasal Cannula 2.00 07/03/16 20:00 98.5 100 20 138/67 95 07/03/16 20:00 117 07/03/16 18:00 100 07/03/16 16:00 100 07/03/16 16:00 98.0 80 19 148/62 97 07/03/16 15:30 191/92 I/O 07/03/16 07/03/16 07/03/16 07/04/16 07/04/16 07/04/16 07:00 15:00 23:00 07:00 15:00 23:00 Intake Total 34 ml 468 ml 446 ml 100 ml Output Total 950 ml 350 ml 700 ml 1150 ml Balance -916 ml 118 ml -254 ml -1050 ml Intake Oral 380 ml 240 ml IV Total 34 ml 88 ml 206 ml 100 ml Output Urine Total 950 ml 350 ml 700 ml 1150 ml # Bowel Movements 1 Result Diagram: 07/04/16 0508 07/04/16 0508 Objective Remarks GENERAL: This is an obese, elderly, well-developed patient, in no apparent distress. SKIN: No rashes, ecchymoses. Cool and dry. Coccyx with appx. quarter-sized decubitus ulcer extending into dermis with yellow central slough. HEAD: Atraumatic. Normocephalic. EYES: No scleral icterus. No injection or drainage. ENT: Nose without bleeding, purulent drainage. NECK: Trachea midline. No JVD or lymphadenopathy. CARDIOVASCULAR: Regular rate and rhythm without murmurs, gallops, or rubs. Bilateral lower extremity skin changes below knees c/w PVD - darkened, slightly leathery skin. RESPIRATORY: Left base crepitation. Breath sounds equal bilaterally. No wheezes , or rhonchi. GASTROINTESTINAL: Abdomen soft, non-tender, nondistended. No guarding. MUSCULOSKELETAL: Extremities without clubbing, cyanosis, or edema. No calf tenderness. NEUROLOGICAL: Awake and alert. Sensory grossly within normal limits. Mild generalized weakness. Normal speech. A/P Assessment and Plan Ms. Gabriel is an 80 year-old female with a past medical history of atrial fibrillation, CHF, Type 2 diabetes mellitus, hypertension, NE, and anemia who presented to the ER via EMS on 06/26/16 for evaluation of altered mental status and questionable seizure activity. Patient was recently hospitalized on for atrial fibrillation with RVR and subsequently discharged to [facility] for rehabilitation. The patients blood glucose was 23 upon EMS arrival at SNF and 53 upon her arrival in ER plus she was hypertensive and tachycardic. Her glucose levels were treated and normalized and her mental status subsequently improved also. Blood work was significant for acute renal failure and CXR showed possible small left lower lobe pneumonia and antibiotics were started. Toxic/metabolic encephalopathy - appears resolved neuro checks per ICU protocol Hold long-acting sedatives HCAP - Disconrtinue Vancomycin, continue zosyn,. Incentive spirometer at bedside Wean supplemental oxygen for goal SPO2 greater than 92% Atrial fibrillation with rvr Systolic congestive heart failure, EF 30-35% Continue home diltiazem and metoprolol Digoxin held because while her systemic level was nontoxic, it was significantly increased from last hospitalization on admission (06/26) Repeat echo 06/27: LVEF 40-45%, mild RV dysfunction, pulm htn rvsp 60s, dilated IVC holding Coumadin given renal failure. Patient on heparin drip. - Cardiology consulted - appreciate recommendations ---> Cardizem dose increased - heparin bridge to Coumadin once kidney function improves. MARTHA - etiology uncertain Intravascular volume overload, ? due to cipro continue mcdonald catheter. -- Strict I/Os Renal ultrasound 06/26: Negative for acute hydronephrosis -- Nephrology consulted - Dr. Garrison -- HD 06/29 and 06/30 renal indices improving -- Nephrology notes indicate renal biopsy may be needed to determine etiology - however patient with good urine output and function slightly improved. -- Patient with good urine output. Follow-up nephrology recommendations. Acute protein calorie malnutritionmoderate Life-threatening hyperkalemia --diet per speech: mechanical soft/thin liquids Daily BMP -minimize IVF . Possible sepsis Supra-therapeutic anticoagulation Continue Zosyn, 2.25 g IV every 8 hours. - DC Vancomycin Daily CBC Daily coags Continue to hold warfarin in the setting of renal dysfunction. --continue heparin drip, no bolus, for anticoagulation for Atrial Fibrillation in the setting of renal dysfunction. - Will likely transition to oral antibiotics. Severe life-threatening hypoglycemia- resolving. --AC and HS accuchecks. --D50 as needed --hydrocortisone 50mg iv q12h ----> taper momin to daily and then transition to prednisone to off Sacral decubitus - patient states she got this at [facility] - wound care ----> clean with ns, santyl daily. - specialty mattress Uncontrolled HTN continue Cardizem, Toprol. increase hydralazine to 100 mg by mouth every 8 hours. Continue labetalol and clonidine when necessary DVT Prophylaxis -- SCDs Discussed with patient and her and Written by Anne Lockhart, acting as scribe for Dr. Ray on 07/04/16 at 14:30. Attending Statement The documentation accurately reflects the work performed [id number] by me on at 14:30. Anne Lockhart Jul 04, 2016 14:31 Kirk White MD Jul 23, 2016 21:44
[2016-07-04] MEDS: SODIUM CHLOR 0.9% 1000 ML INJ 1,000 ML IV PRN (14:50)
[2016-07-04] MEDS: GENTAMICIN SULFATE (DIALYSIS USE ONLY) 20 MG/2 ML VIAL IV PRN (14:51)
[2016-07-04] MEDS: HEPARIN SODIUM - IV 10,000 UNITS/10 ML VIAL PRN (14:51)
[2016-07-04] MEDS: SODIUM CHLORIDE 0.9% FLUSH 5 ML FLUSH IVF PRN (14:51)
--- NOTE | 2016-07-04 16:05 | PD.CARD.PN ---
Subjective Subjective Remarks No complaints Afib better control Objective Medications Current Medications Medications (Trade) Dose Ordered Sig/Abigail Route Start Time Stop Time Status Last Admin (Lopressor) 100 mg DAILY PO 06/26/16 11:00 07/04/16 08:40 (NS Flush) 2 ml UNSCH PRN IV FLUSH 06/26/16 11:15 06/27/16 21:07 (NS Flush) 2 ml BID IV FLUSH 06/26/16 21:00 07/04/16 08:43 (Zofran Inj) 4 mg Q6H PRN IV 06/26/16 11:15 Miscellaneous Information 1 Q361D XX 06/26/16 11:15 (Peridex 0.12% Liq) 15 ml BID@08,20 MT 06/26/16 20:00 07/04/16 08:00 Polyethylene Glycol 17 gm 17 gm BID PO 06/26/16 21:00 07/04/16 08:40 (Zosyn 2.25 Gm Premix) 50 ml @ 100 mls/hr Q8H IV 06/26/16 22:00 07/04/16 13:20 (Trandate Inj) 10 mg Q1H PRN IV PUSH 06/26/16 14:45 07/04/16 07:06 Miscellaneous Information Patient in critical care unit? Ass... Q361D XX 06/27/16 01:45 06/27/16 01:45 (Heparin-D5W Inj) 250 ml @ 0 mls/hr TITRATE IV 06/29/16 18:15 07/04/16 08:45 (Heparin Inj) 5,000 units UNSCH PRN IV 06/29/16 18:15 (Heparin Inj) 2,500 units UNSCH PRN IV 06/29/16 18:15 (D50w (Vial) Inj) 25 ml UNSCH PRN IV PUSH 06/30/16 00:15 Glucagon 1 mg 1 mg UNSCH PRN OTHER 06/30/16 00:15 (NS 1000 ml Inj) 1,000 ml @ 0 mls/hr Q0M PRN IV 07/01/16 17:06 07/04/16 14:50 Heparin Sodium (Porcine) 8000 units 8,000 units UNSCH PRN IVF 07/01/16 17:15 Sodium Chloride 1,000 ml @ 200 mls/hr Q5H PRN IV 07/01/16 17:06 (NS 1000 ml Inj) 1,000 ml @ 0 mls/hr Q0M PRN IV 07/01/16 17:06 07/04/16 14:50 (Mannitol Inj) 12.5 gm UNSCH PRN IV 07/01/16 17:15 (Albumin 25% Inj) 25 gm UNSCH PRN IV 07/01/16 17:15 07/02/16 13:06 (NS Flush) 5 ml UNSCH PRN IVF 07/01/16 17:15 07/04/16 14:51 (Heparin Inj) UNSCH PRN .XX 07/01/16 17:15 07/04/16 14:51 (Gentamicin (Dialysis) Inj) 20 mg UNSCH PRN IV 07/01/16 17:15 07/04/16 14:51 (Zofran Inj) 4 mg UNSCH PRN IV 07/01/16 17:15 (Tylenol) 650 mg UNSCH PRN PO 07/01/16 17:15 (Benadryl) 25 mg UNSCH PRN PO 07/01/16 17:15 (Nitrostat Sl) 0.4 mg UNSCH PRN SL 07/01/16 17:15 (Catapres) 0.1 mg UNSCH PRN PO 07/01/16 17:15 07/03/16 10:21 (Gelfoam 12 Mm/7 Mm Top) 1 foam UNSCH PRN TOP 07/01/16 17:15 (Santyl Oint) 1 applic DAILY TOP 07/03/16 09:00 07/04/16 09:00 (Cardizem Cd) 240 mg DAILY PO 07/04/16 09:00 07/04/16 08:40 (SoluCORTEF INJ) 50 mg DAILY IV PUSH 07/04/16 09:00 07/04/16 08:40 (Isordil) 5 mg TIDAC PO 07/04/16 08:00 07/04/16 13:20 (Apresoline) 100 mg Q8HR PO 07/04/16 14:00 07/04/16 13:20 Vital Signs / I&O Vital Signs Date Time Temp Pulse Resp B/P Pulse Ox O2 Delivery O2 Flow Rate FiO2 07/04/16 14:00 117 07/04/16 12:00 98.2 92 19 158/79 98 07/04/16 12:00 117 07/04/16 10:00 117 07/04/16 08:14 94 Nasal Cannula 2.00 07/04/16 08:01 98.8 88 19 169/79 98 07/04/16 08:00 117 07/04/16 06:00 100 07/04/16 04:00 98.8 88 19 169/79 98 07/04/16 04:00 88 07/04/16 02:00 96 07/04/16 00:00 92 07/04/16 00:00 98.4 92 20 148/71 97 07/03/16 22:00 104 07/03/16 21:24 100 Nasal Cannula 2.00 07/03/16 20:00 98.5 100 20 138/67 95 07/03/16 20:00 117 07/03/16 18:00 100 I/O 07/03/16 07/03/16 07/03/16 07/04/16 07/04/16 07/04/16 07:00 15:00 23:00 07:00 15:00 23:00 Intake Total 34 ml 468 ml 446 ml 100 ml Output Total 950 ml 350 ml 700 ml 1150 ml 1850 ml Balance -916 ml 118 ml -254 ml -1050 ml -1850 ml Intake Oral 380 ml 240 ml IV Total 34 ml 88 ml 206 ml 100 ml Output Urine Total 950 ml 350 ml 700 ml 1150 ml 1850 ml # Bowel Movements 1 1 Physical Exam GENERAL: Well-nourished, well-developed patient. SKIN: Warm and dry. HEAD: Normocephalic. EYES: No scleral icterus. No injection or drainage. NECK: Supple, trachea midline. No JVD or lymphadenopathy. CARDIOVASCULAR: Irr Irr without murmurs, gallops, or rubs. RESPIRATORY: Breath sounds equal bilaterally. No accessory muscle use. GASTROINTESTINAL: Abdomen soft, non-tender, nondistended. EXTREMITIES: No cyanosis, or edema. Laboratory Laboratory Tests Test 07/04/16 05:08 White Blood Count 11.9 TH/MM3 Red Blood Count 3.65 MIL/MM3 Hemoglobin 10.1 GM/DL Hematocrit 31.5 % Mean Corpuscular Volume 86.4 FL Mean Corpuscular Hemoglobin 27.7 PG Mean Corpuscular Hemoglobin 32.0 % Concent Red Cell Distribution Width 14.3 % Platelet Count 240 TH/MM3 Mean Platelet Volume 7.9 FL Neutrophils (%) (Auto) 86.2 % Lymphocytes (%) (Auto) 4.9 % Monocytes (%) (Auto) 8.1 % Eosinophils (%) (Auto) 0.5 % Basophils (%) (Auto) 0.3 % Neutrophils # (Auto) 10.2 TH/MM3 Lymphocytes # (Auto) 0.6 TH/MM3 Monocytes # (Auto) 1.0 TH/MM3 Eosinophils # (Auto) 0.1 TH/MM3 Basophils # (Auto) 0.0 TH/MM3 CBC Comment DIFF FINAL Differential Comment Prothrombin Time 12.0 SEC Prothromb Time International 1.1 RATIO Ratio Activated Partial 56.9 SEC Thromboplast Time Sodium Level 138 MEQ/L Potassium Level 4.8 MEQ/L Chloride Level 101 MEQ/L Carbon Dioxide Level 27.0 MEQ/L Anion Gap 10 MEQ/L Blood Urea Nitrogen 53 MG/DL Creatinine 4.78 MG/DL Estimat Glomerular Filtration 11 ML/MIN Rate Random Glucose 118 MG/DL Calcium Level 8.0 MG/DL Total Bilirubin 0.7 MG/DL Aspartate Amino Transf 22 U/L (AST/SGOT) Alanine Aminotransferase 23 U/L (ALT/SGPT) Alkaline Phosphatase 46 U/L Total Protein 6.1 GM/DL Albumin 2.5 GM/DL Imaging Last Impressions Chest X-Ray 06/29/16 0000 Signed Impressions: Service Date/Time: Wednesday, June 29, 2016 14:51 - CONCLUSION: 1. Mild central pulmonary vascular congestion. 2. Marked cardiomegaly. 3. Right internal jugular Vas cath has its tip in the right atrium. There is no pneumothorax. 4. Degenerative changes and scoliosis of the thoracolumbar spine. 5. Degenerative changes involving the shoulders bilaterally. Konstantin Dunbar MD Head CT 06/26/16 0646 Signed Impressions: Service Date/Time: June 08:48 - CONCLUSION: 1. No acute abnormality identified. Stable compared to prior exam dated 06/11/16. Abram Rivera MD Renal Ultrasound 06/26/16 0000 Signed Impressions: Service Date/Time: June 10:59 - CONCLUSION: Kidneys are slightly echogenic which can be seen with medical renal disease. Yfn Santillan MD Assessment and Plan Problem List: (1) Atrial fibrillation Assessment and Plan: Increase Cardizem CD to 300mg Start OAC with Coumadin (2) Systolic congestive heart failure (3) Hypertension Problem Qualifiers (1) Atrial fibrillation: Qualified Code: I48.2 - Chronic atrial fibrillation (2) Systolic congestive heart failure: Qualified Code: I50.22 - Chronic systolic congestive heart failure (3) Hypertension: Qualified Code: I10 - Essential hypertension Kapil Garcia MD Jul 04, 2016 16:05
--- NOTE | 2016-07-04 16:29 | HHI.NPPN ---
Subjective History of Present Illness The patient is an 80 yo AA female who was brought in today for AMS from her nursing facility, [facility]. It was found that she was profoundly hypoglycemia and was given D50 thru her I/O access. She was recently admitted here at the end of May with A fib and was started on Coumadin and low dose Lisinopril 2.5mg QD at that time. Home medication list was reviewed that showed no NSAIDs or outwardly nephrotoxic medications. She has been on Cipro for what is assumed to be a urinary tract infection. The patient herself is very lethargic and no meaningful information can be obtained from her. Admitting SCr at 5.65 that worsened to 5.84 Admitting K+ was 5.9 that worsened to 6.2---this was treated with dextrose, insulin, and Kayexalate. Interval History Pt seen during HD today. Tolerating session well. VasCath working well (Lucy Dickerson) Objective Data Data 07/03/16 07/04/16 19:00 07:00 Intake Total 468 ml 546 ml Output Total 350 ml 1850 ml Balance 118 ml -1304 ml Intake Oral 380 ml 240 ml IV Total 88 ml 306 ml Output Urine Total 350 ml 1850 ml # Bowel Movements 1 Vital Signs Date Time Temp Pulse Resp B/P Pulse Ox O2 Delivery O2 Flow Rate FiO2 07/04/16 14:00 117 07/04/16 12:00 98.2 92 19 158/79 98 07/04/16 12:00 117 07/04/16 10:00 117 07/04/16 08:14 94 Nasal Cannula 2.00 07/04/16 08:01 98.8 88 19 169/79 98 07/04/16 08:00 117 07/04/16 06:00 100 07/04/16 04:00 98.8 88 19 169/79 98 07/04/16 04:00 88 07/04/16 02:00 96 07/04/16 00:00 92 07/04/16 00:00 98.4 92 20 148/71 97 07/03/16 22:00 104 07/03/16 21:24 100 Nasal Cannula 2.00 07/03/16 20:00 98.5 100 20 138/67 95 07/03/16 20:00 117 07/03/16 18:00 100 (Lucy Dickerson) -: 07/04/16 0508 07/04/16 0508 Tubes & Lines: Vas-Cath Medication Review Current Medications Medications (Trade) Dose Ordered Sig/Abigail Route Start Time Stop Time Status Last Admin (Lopressor) 100 mg DAILY PO 06/26/16 11:00 07/04/16 08:40 (NS Flush) 2 ml UNSCH PRN IV FLUSH 06/26/16 11:15 06/27/16 21:07 (NS Flush) 2 ml BID IV FLUSH 06/26/16 21:00 07/04/16 08:43 (Zofran Inj) 4 mg Q6H PRN IV 06/26/16 11:15 Miscellaneous Information 1 Q361D XX 06/26/16 11:15 (Peridex 0.12% Liq) 15 ml BID@08,20 MT 06/26/16 20:00 07/04/16 08:00 Polyethylene Glycol 17 gm 17 gm BID PO 06/26/16 21:00 07/04/16 08:40 (Zosyn 2.25 Gm Premix) 50 ml @ 100 mls/hr Q8H IV 06/26/16 22:00 07/04/16 13:20 (Trandate Inj) 10 mg Q1H PRN IV PUSH 06/26/16 14:45 07/04/16 07:06 Miscellaneous Information Patient in critical care unit? Ass... Q361D XX 06/27/16 01:45 06/27/16 01:45 (Heparin-D5W Inj) 250 ml @ 0 mls/hr TITRATE IV 06/29/16 18:15 07/04/16 08:45 (Heparin Inj) 5,000 units UNSCH PRN IV 06/29/16 18:15 (Heparin Inj) 2,500 units UNSCH PRN IV 06/29/16 18:15 (D50w (Vial) Inj) 25 ml UNSCH PRN IV PUSH 06/30/16 00:15 Glucagon 1 mg 1 mg UNSCH PRN OTHER 06/30/16 00:15 (NS 1000 ml Inj) 1,000 ml @ 0 mls/hr Q0M PRN IV 07/01/16 17:06 07/04/16 14:50 Heparin Sodium (Porcine) 8000 units 8,000 units UNSCH PRN IVF 07/01/16 17:15 Sodium Chloride 1,000 ml @ 200 mls/hr Q5H PRN IV 07/01/16 17:06 (NS 1000 ml Inj) 1,000 ml @ 0 mls/hr Q0M PRN IV 07/01/16 17:06 07/04/16 14:50 (Mannitol Inj) 12.5 gm UNSCH PRN IV 07/01/16 17:15 (Albumin 25% Inj) 25 gm UNSCH PRN IV 07/01/16 17:15 07/02/16 13:06 (NS Flush) 5 ml UNSCH PRN IVF 07/01/16 17:15 07/04/16 14:51 (Heparin Inj) UNSCH PRN .XX 07/01/16 17:15 07/04/16 14:51 (Gentamicin (Dialysis) Inj) 20 mg UNSCH PRN IV 07/01/16 17:15 07/04/16 14:51 (Zofran Inj) 4 mg UNSCH PRN IV 07/01/16 17:15 (Tylenol) 650 mg UNSCH PRN PO 07/01/16 17:15 (Benadryl) 25 mg UNSCH PRN PO 07/01/16 17:15 (Nitrostat Sl) 0.4 mg UNSCH PRN SL 07/01/16 17:15 (Catapres) 0.1 mg UNSCH PRN PO 07/01/16 17:15 07/03/16 10:21 (Gelfoam 12 Mm/7 Mm Top) 1 foam UNSCH PRN TOP 07/01/16 17:15 (Santyl Oint) 1 applic DAILY TOP 07/03/16 09:00 07/04/16 09:00 (SoluCORTEF INJ) 50 mg DAILY IV PUSH 07/04/16 09:00 07/04/16 08:40 (Isordil) 5 mg TIDAC PO 07/04/16 08:00 07/04/16 13:20 (Apresoline) 100 mg Q8HR PO 07/04/16 14:00 07/04/16 13:20 (Cardizem Cd) 300 mg DAILY PO 07/05/16 09:00 (Lucy Dickerson) Physical Exam General Appearance: Comfortable (Lucy Dickerson) Eyes Eye Exam: Pupils Equal, Pupils Reactive (Lucy Dickerson) Neck Neck Exam: Neck Supple, Trachea Midline (Lucy Dickerson) Pulmonary Resp Exam: Clear Bilaterally, Breath Sounds Equal (Lucy Dickerson) Cardiology CV Exam: Irregular, Arrhythmia (Lucy Dickerson) Gastrointestinal/Abdomen GI Exam: Soft, Non-Tender (Lucy Dickerson) Genitourinary Exam: Clear Urine (Lucy Dickerson) Integumentary Skin Exam: Clear, Warm, Dry (Lucy Dickerson) Extremeties Extremities Exam: Trace Edema Extremeties Remarks BLE and BUE. (Lucy Dickerson) Neurologic Neuro Exam: Alert, Awake, Oriented (Lucy Dickerson) Psychiatric Psych Exam: Appropriate Responses (Lucy Dickerson) Assessment/Plan Discussed Condition With: Patient Problem List: (1) Acute renal failure Plan: Pt seen on HD today. UOP improving. Will watch over weekend to determine if in renal recovery phase. Etiology of the patient's acute renal insufficiency uncertain. May be interstitial nephritis secondary to Cipro or an ATN from unspecified insult. I believe it would be prudent to the Cipro as an allergen in this patient's medical record. Discussed with primary care physician. Medications should be adjusted for the patient's estimated GFR if clinically indicated. Avoid agents with significant potential for nephrotoxicity possible including NSAIDs for analgesia, iodine contrast agents. Gadolinium is contraindicated if the GFR is below 30. (2) Hypertension Plan: Defer management to critical care presently. (3) Diabetes mellitus Plan: Defer management to critical care. (Lucy Dickerson) Plan The exam, history, and the medical decision-making described in the above note were completed with the assistance of the PAStorm. I reviewed and agree with the findings presented. I attest that I had a [id number] encounter with the patient on the same day, and personally performed and documented my assessment and findings in the medical record. (Mary Garrison MD) Problem Qualifiers (1) Hypertension: Qualified Code: I10 - Essential hypertension Lucy Dickerson Jul 04, 2016 16:29 Mary Garrison MD Jul 05, 2016 15:39
[2016-07-05] VITALS (11 sets, daily range): BP systolic 92–158; BP diastolic 55–105; PULSE 57–103; RESP 18–21; TEMP 97–98.9; O2SAT 94–100
[2016-07-05 03:50] LABS: KAPPA/LAMBDA FREE 1.62 (0.26-1.65)
[2016-07-05] MEDS: PIPERACIL-TAZO 2.25 GM PREMIX 50 ML IV SCH ×3 (05:28→21:17)
[2016-07-05] MEDS: HEPARIN 25,000 UNITS-D5W 250 ML - PREMIX IV SCH (05:31)
[2016-07-05] MEDS: hydrALAZINE HCL 100 MG TAB PO SCH ×3 (05:31→21:06)
[2016-07-05 07:52] LABS: EOSINOPHIL # 0.1 TH/MM3 (0-0.4); EOSINOPHIL % 0.8 % (0.0-4.0); HEMATOCRIT 28.9 % (35.0-46.0); HEMO FLAGS DIFF FINAL; LYMPH % 5.6 % (9.0-44.0); LYMPHOCYTE # 0.5 TH/MM3 (1.0-4.8); MEAN CELL VOLUME 85.7 FL (80.0-100.0); MEAN CORPUSCULAR HEMOGLOBIN 28.1 PG (27.0-34.0); MEAN CORPUSCULAR HGB CONC 32.8 % (32.0-36.0); MONO % 6.4 % (0.0-8.0); NEUT % 87.2 % (16.0-70.0); PLATELET COUNT 243 TH/MM3 (150-450); RED BLOOD COUNT 3.37 MIL/MM3 (4.00-5.30); RED CELL DISTRIBUTION WIDTH 14.2 % (11.6-17.2); WHITE BLOOD COUNT 9.2 TH/MM3 (4.0-11.0)
[2016-07-05 07:57] LABS: APTT (PATIENT) 59.4 SEC (24.3-30.1)
[2016-07-05] MEDS: CHLORHEXIDINE 0.12% (ORAL KIT) 15 ML CUP MT SCH ×2 (08:00→20:00)
[2016-07-05] MEDS: ISOSORBIDE DINITRATE 5 MG TAB PO SCH ×3 (08:00→16:18)
[2016-07-05 08:18] LABS: ALKALINE PHOSPHATASE 49 U/L (45-117); ALT (GPT) 27 U/L (10-53); ANION GAP 10 MEQ/L (5-15); AST (GOT) 21 U/L (15-37); BICARBONATE 30.6 MEQ/L (21.0-32.0); BLOOD UREA NITROGEN 28 MG/DL (7-18); CHLORIDE 99 MEQ/L (98-107); GLOMERULAR FILTRATION RATE 18 ML/MIN (>89); MAGNESIUM 1.6 MG/DL (1.5-2.5); POTASSIUM 3.7 MEQ/L (3.5-5.1); SODIUM (NA) 140 MEQ/L (136-145); TOTAL BILIRUBIN ADULT 0.7 MG/DL (0.2-1.0)
[2016-07-05] MEDS: HYDROCORTISONE SOD SUCCINATE 100 MG VIAL IV PUSH SCH (09:00)
[2016-07-05] MEDS: COLLAGENASE OINT 30 GM TUBE TOP SCH (09:00)
[2016-07-05] MEDS: POLYETHYLENE GLYCOL 17 GM PKG PO SCH ×2 (09:00→21:05)
[2016-07-05] MEDS: SODIUM CHLORIDE 0.9% FLUSH 5 ML FLUSH IV FLUSH SCH ×2 (09:00→21:06)
[2016-07-05] MEDS: METOPROLOL TARTRATE 100 MG TAB PO SCH (09:00)
[2016-07-05] MEDS: DILTIAZEM-CD 300 MG CAP ER PO SCH (09:00)
--- NOTE | 2016-07-05 14:50 | HHI.PR ---
Subjective Remarks Follow for shortness of breath No shortness of breath, no complaints. No chest pain, doing well. No cough, no fever or chills. Discussed with RN Objective Vitals Vital Signs Date Time Temp Pulse Resp B/P Pulse Ox O2 Delivery O2 Flow Rate FiO2 07/05/16 12:00 98.9 60 19 92/55 100 07/05/16 08:00 98.9 81 20 158/105 94 07/05/16 07:50 97 Nasal Cannula 3.00 07/05/16 06:00 94 07/05/16 04:00 98.0 91 20 158/105 100 07/05/16 04:00 101 07/05/16 02:00 103 07/05/16 00:00 57 07/05/16 00:00 98.0 94 21 102/95 95 07/04/16 22:00 91 07/04/16 20:16 95 Nasal Cannula 2.00 07/04/16 20:00 103 07/04/16 20:00 97.9 103 21 128/84 93 07/04/16 17:00 117 07/04/16 16:00 117 07/04/16 16:00 98.8 92 19 156/77 98 07/04/16 15:00 117 I/O 07/04/16 07/04/16 07/04/16 07/05/16 07/05/16 07/05/16 07:00 15:00 23:00 07:00 15:00 23:00 Intake Total 100 ml 432 ml 356 ml 540 ml Output Total 1150 ml 1850 ml 1500 ml 650 ml 650 ml Balance -1050 ml -1850 ml -1068 ml -294 ml -110 ml Intake Oral 250 ml 0 ml 400 ml IV Total 100 ml 182 ml 356 ml 140 ml Output Urine Total 1150 ml 1850 ml 1500 ml 650 ml 650 ml Hemodialysis 0 ml # Bowel Movements 1 1 0 0 0 Result Diagram: 07/05/1616 07/05/16 0616 Objective Remarks GENERAL: This is an obese, elderly, well-developed patient, in no apparent distress. EYES: No scleral icterus. No injection or drainage. ENT: Nose without bleeding, purulent drainage. NECK: Trachea midline. CARDIOVASCULAR: Irregular rhythm, no murmurs. Regular rate. RESPIRATORY: Left base crepitation. Breath sounds equal bilaterally. No wheezes , or rhonchi. GASTROINTESTINAL: Abdomen soft, non-tender, nondistended. No guarding. MUSCULOSKELETAL: Extremities without clubbing, cyanosis, trace edema. No calf tenderness. NEUROLOGICAL: Awake and alert. Sensory grossly within normal limits. Mild generalized weakness. Normal speech. A/P Assessment and Plan Ms. Gabriel is an 80 year-old female with a past medical history of atrial fibrillation, CHF, Type 2 diabetes mellitus, hypertension, CA, and anemia who presented to the ER via EMS on 06/26/16 for evaluation of altered mental status and questionable seizure activity. Patient was recently hospitalized on for atrial fibrillation with RVR and subsequently discharged to [facility] for rehabilitation. The patients blood glucose was 23 upon EMS arrival at SNF and 53 upon her arrival in ER plus she was hypertensive and tachycardic. Her glucose levels were treated and normalized and her mental status subsequently improved also. Blood work was significant for acute renal failure and CXR showed possible small left lower lobe pneumonia and antibiotics were started. Toxic/metabolic encephalopathy - appears resolved neuro checks per ICU protocol Hold long-acting sedatives HCAP -Continue Zosyn, vancomycin stopped. Incentive spirometer at bedside Wean supplemental oxygen for goal SPO2 greater than 92% Atrial fibrillation with rvr Systolic congestive heart failure, EF 30-35% Continue home diltiazem and metoprolol , digoxin held, patient is renal failure. Repeat echo 06/27: LVEF 40-45%, mild RV dysfunction, pulm htn rvsp 60s, dilated IVC , continue heparin drip, switch to Coumadin once okay with nephrology. - Cardiology consulted - appreciate recommendations ---> Cardizem dose increased - heparin bridge to Coumadin once kidney function improves. We'll discuss with nephrology. MARTHA - etiology uncertain Intravascular volume overload, ? due to cipro continue mcdonald catheter. -- Strict I/Os Renal ultrasound 06/26: Negative for acute hydronephrosis -- Nephrology consulted - Dr. Garrison -- HD 06/29 and 06/30 renal indices improving -- Nephrology notes indicate renal biopsy may be needed to determine etiology - however patient with good urine output and function slightly improved. Status post dialysis yesterday, recheck BMP Acute protein calorie malnutritionmoderate Life-threatening hyperkalemia --diet per speech: mechanical soft/thin liquids Daily BMP -minimize IVF . Possible sepsis Supra-therapeutic anticoagulation Continue Zosyn, 2.25 g IV every 8 hours. - DC Vancomycin Daily CBC Daily coags Continue to hold warfarin in the setting of renal dysfunction. --continue heparin drip, no bolus, for anticoagulation for Atrial Fibrillation in the setting of renal dysfunction. - Will likely transition to oral antibiotics. Severe life-threatening hypoglycemia- resolving. --AC and HS accuchecks. --D50 as needed --hydrocortisone 50mg iv q12h ----> taper to daily Sacral decubitus - patient states she got this at [facility] - wound care ----> clean with ns, santyl daily. - specialty mattress Uncontrolled HTN continue Cardizem, Toprol. increase hydralazine to 100 mg by mouth every 8 hours. Continue labetalol and clonidine when necessary DVT Prophylaxis -- SCDs Transfer to [facility] Christal Stone MD Jul 05, 2016 14:50 Christal Stone MD Jul 05, 2016 14:50
--- NOTE | 2016-07-05 15:40 | HHI.NPPN ---
Subjective History of Present Illness The patient is an 80 yo AA female who was brought in today for AMS from her nursing facility, [facility]. It was found that she was profoundly hypoglycemia and was given D50 thru her I/O access. She was recently admitted here at the end of May with A fib and was started on Coumadin and low dose Lisinopril 2.5mg QD at that time. Home medication list was reviewed that showed no NSAIDs or outwardly nephrotoxic medications. She has been on Cipro for what is assumed to be a urinary tract infection. The patient herself is very lethargic and no meaningful information can be obtained from her. Admitting SCr at 5.65 that worsened to 5.84 Admitting K+ was 5.9 that worsened to 6.2---this was treated with dextrose, insulin, and Kayexalate. Interval History Patient had no verbal complaints today. Objective Data Data 07/04/16 07/05/16 19:00 07:00 Intake Total 788 ml Output Total 1850 ml 2150 ml Balance -1850 ml -1362 ml Intake Oral 250 ml IV Total 538 ml Output Urine Total 1850 ml 2150 ml Hemodialysis 0 ml # Bowel Movements 1 0 Vital Signs Date Time Temp Pulse Resp B/P Pulse Ox O2 Delivery O2 Flow Rate FiO2 07/05/16 12:00 98.9 60 19 92/55 100 07/05/16 08:00 98.9 81 20 158/105 94 07/05/16 07:50 97 Nasal Cannula 3.00 07/05/16 06:00 94 07/05/16 04:00 98.0 91 20 158/105 100 07/05/16 04:00 101 07/05/16 02:00 103 07/05/16 00:00 57 07/05/16 00:00 98.0 94 21 102/95 95 07/04/16 22:00 91 07/04/16 20:16 95 Nasal Cannula 2.00 07/04/16 20:00 103 07/04/16 20:00 97.9 103 21 128/84 93 07/04/16 17:00 117 07/04/16 16:00 117 07/04/16 16:00 98.8 92 19 156/77 98 -: 07/05/16 0616 07/05/16 0616 Tubes & Lines: Vas-Cath Physical Exam General Appearance: Comfortable Eyes Eye Exam: Pupils Equal, Pupils Reactive Neck Neck Exam: Neck Supple, Trachea Midline Pulmonary Resp Exam: Clear Bilaterally, Breath Sounds Equal Cardiology CV Exam: Irregular, Arrhythmia Gastrointestinal/Abdomen GI Exam: Soft, Non-Tender Genitourinary Exam: Clear Urine Integumentary Skin Exam: Clear, Warm, Dry Extremeties Extremities Exam: Trace Edema Neurologic Neuro Exam: Alert, Awake, Oriented Psychiatric Psych Exam: Appropriate Responses Assessment/Plan Discussed Condition With: Patient Problem List: (1) Acute renal failure Plan: Urine output continues to improve. Hopefully yesterday's dialysis will be the last. Continue to monitor renal indices over the weekend. Will watch over weekend to determine if in renal recovery phase. Etiology of the patient's acute renal insufficiency uncertain. May be interstitial nephritis secondary to Cipro or an ATN from unspecified insult. I believe it would be prudent to the Cipro as an allergen in this patient's medical record. Discussed with primary care physician. Medications should be adjusted for the patient's estimated GFR if clinically indicated. Avoid agents with significant potential for nephrotoxicity possible including NSAIDs for analgesia, iodine contrast agents. Gadolinium is contraindicated if the GFR is below 30. (2) Hypertension Plan: Defer management to critical care presently. (3) Diabetes mellitus Plan: Defer management to critical care. Problem Qualifiers (1) Hypertension: Qualified Code: I10 - Essential hypertension Mary Garrison MD Jul 05, 2016 15:40
[2016-07-06] VITALS (8 sets, daily range): BP systolic 101–138; BP diastolic 51–72; PULSE 61–100; RESP 18–20; TEMP 97–98.4; O2SAT 94–99
[2016-07-06] MEDS: hydrALAZINE HCL 100 MG TAB PO SCH ×3 (05:42→21:35)
[2016-07-06] MEDS: PIPERACIL-TAZO 2.25 GM PREMIX 50 ML IV SCH ×3 (05:43→21:36)
[2016-07-06 06:27] LABS: BICARBONATE 31.3 MEQ/L (21.0-32.0); POTASSIUM 3.4 MEQ/L (3.5-5.1)
[2016-07-06 07:33] LABS: APTT (PATIENT) 105.9 SEC (24.3-30.1)
[2016-07-06] MEDS: CHLORHEXIDINE 0.12% (ORAL KIT) 15 ML CUP MT SCH ×2 (08:00→20:00)
[2016-07-06] MEDS: COLLAGENASE OINT 30 GM TUBE TOP SCH (09:00)
[2016-07-06] MEDS: ISOSORBIDE DINITRATE 5 MG TAB PO SCH ×3 (09:37→18:06)
[2016-07-06] MEDS: METOPROLOL TARTRATE 100 MG TAB PO SCH (09:38)
[2016-07-06] MEDS: POLYETHYLENE GLYCOL 17 GM PKG PO SCH ×2 (09:38→21:41)
[2016-07-06] MEDS: DILTIAZEM-CD 300 MG CAP ER PO SCH (09:38)
--- NOTE | 2016-07-06 09:44 | HHI.PR ---
Subjective Remarks Follow-up encephalopathy/HCAP/possible sepsis/hypoglycemia/renal failure requiring dialysis 07/06/16-patient seen and examined, alert and oriented 3 vital stable. Renal function slightly up. Afebrile. APTT elevated and no reported bleed Objective Vitals Vital Signs Date Time Temp Pulse Resp B/P Pulse Ox O2 Delivery O2 Flow Rate FiO2 07/06/16 08:56 98.2 100 20 138/72 97 07/06/16 05:00 97.0 89 19 125/58 94 07/06/16 00:00 98.0 68 19 101/60 95 07/05/16 22:40 64 07/05/16 20:00 97.7 67 18 99/58 94 07/05/16 17:59 97.0 70 20 116/67 100 07/05/16 16:00 98.3 57 21 101/55 100 07/05/16 12:00 98.9 60 19 92/55 100 I/O 07/05/16 07/05/16 07/05/16 07/06/16 07/06/16 07/06/16 07:00 15:00 23:00 07:00 15:00 23:00 Intake Total 356 ml 540 ml 400 ml 932 ml Output Total 650 ml 650 ml 300 ml 1000 ml Balance -294 ml -110 ml 100 ml -68 ml Intake Oral 0 ml 400 ml 400 ml 700 ml IV Total 356 ml 140 ml 232 ml Output Urine Total 650 ml 650 ml 300 ml 1000 ml # Bowel Movements 0 0 0 0 Result Diagram: 07/05/16 0616 07/06/16 0546 Imaging Last Impressions Chest X-Ray 06/29/16 0000 Signed Impressions: Service Date/Time: Wednesday, June 29, 2016 14:51 - CONCLUSION: 1. Mild central pulmonary vascular congestion. 2. Marked cardiomegaly. 3. Right internal jugular Vas cath has its tip in the right atrium. There is no pneumothorax. 4. Degenerative changes and scoliosis of the thoracolumbar spine. 5. Degenerative changes involving the shoulders bilaterally. Konstantin Dunbar MD Head CT 06/26/16 0646 Signed Impressions: Service Date/Time: June 08:48 - CONCLUSION: 1. No acute abnormality identified. Stable compared to prior exam dated 06/11/16. Abram Rivera MD Renal Ultrasound 06/26/16 0000 Signed Impressions: Service Date/Time: June 10:59 - CONCLUSION: Kidneys are slightly echogenic which can be seen with medical renal disease. Yfn Santillan MD Objective Remarks GENERAL: NAD SKIN: Warm and dry. HEAD: Normocephalic. EYES: No scleral icterus. No injection or drainage. NECK: Supple, trachea midline. No JVD or lymphadenopathy. CARDIOVASCULAR: Regular rate and rhythm without murmurs, gallops, or rubs. RESPIRATORY: Breath sounds equal bilaterally. No accessory muscle use. GASTROINTESTINAL: Abdomen soft, non-tender, nondistended. MUSCULOSKELETAL: No cyanosis, or edema. BACK: Nontender without obvious deformity. No CVA tenderness. A/P Assessment and Plan 80-year-old female with Toxic/metabolic encephalopathy - resolved. Continue to Hold long-acting sedatives HCAP: Currently on Zosyn and keep oxygen saturation above 92%. Continue to monitor culture Atrial fibrillation with rvr Systolic congestive heart failure, EF 30-35% Currently on diltiazem and metoprolol , digoxin held, patient is renal failure. On heparin drip likely and to bridge to Coumadin when kidney function improved. Appreciate input from cardiology Repeat echo 06/27: LVEF 40-45%, mild RV dysfunction, pulm htn rvsp 60s, dilated IVC , continue heparin drip, switch to Coumadin once okay with nephrology. MARTHA - etiology uncertain: Appreciate input from nephrology patient on hemodialysis however this more likely would be discontinue with improvement of renal function. Monitor BUN and creatinine. Avoid all nephrotoxic drugs. Patient will likely need renal biopsy to determine etiology of MARTHA Renal ultrasound 06/26: Negative for acute hydronephrosis Acute protein calorie malnutritionmoderate Life-threatening hyperkalemia : Resolved status post treatment Possible sepsis : Resolved Supra-therapeutic anticoagulation Continue Zosyn, 2.25 g IV every 8 hours. - DC Vancomycin Daily CBC Daily coags Continue to hold warfarin in the setting of renal dysfunction. --continue heparin drip, no bolus, for anticoagulation for Atrial Fibrillation in the setting of renal dysfunction. - Will likely transition to oral antibiotics. Severe life-threatening hypoglycemia- resolved --AC and HS accu checks. --hydrocortisone 50mg iv q12h ----> taper to daily Sacral decubitus - continue with wound care per protocol. Daily Santyl Uncontrolled HTN: Currently normotensive on Cardizem, Toprol, [id number] mg by mouth every 8 hours, labetalol and clonidine when necessary DVT Prophylaxis -- SCDs Yfn Dodd MD Jul 06, 2016 09:44
[2016-07-06 10:00] LABS: APTT (PATIENT) 57.2 SEC (24.3-30.1)
[2016-07-06] MEDS: HEPARIN SODIUM - IV 10,000 UNITS/10 ML VIAL PRN (10:00)
[2016-07-06] MEDS: HYDROCORTISONE SOD SUCCINATE 100 MG VIAL IV PUSH SCH (11:00)
[2016-07-06 16:38] LABS: APTT (PATIENT) 56.9 SEC (24.3-30.1)
[2016-07-06] MEDS: SODIUM CHLORIDE 0.9% FLUSH 5 ML FLUSH IV FLUSH SCH (21:35)
[2016-07-07] VITALS (10 sets, daily range): BP systolic 114–135; BP diastolic 55–73; PULSE 72–84; RESP 18–20; TEMP 97.2–98.4; O2SAT 90–96
[2016-07-07] MEDS: hydrALAZINE HCL 100 MG TAB PO SCH ×2 (05:41→14:57)
[2016-07-07] MEDS: PIPERACIL-TAZO 2.25 GM PREMIX 50 ML IV SCH ×3 (05:41→22:02)
[2016-07-07] MEDS: CHLORHEXIDINE 0.12% (ORAL KIT) 15 ML CUP MT SCH ×2 (08:00→20:00)
[2016-07-07 08:16] LABS: APTT (PATIENT) 45.9 SEC (24.3-30.1)
[2016-07-07 08:31] LABS: BICARBONATE 29.8 MEQ/L (21.0-32.0); POTASSIUM 3.4 MEQ/L (3.5-5.1)
[2016-07-07] MEDS: COLLAGENASE OINT 30 GM TUBE TOP SCH (08:45)
[2016-07-07] MEDS: DILTIAZEM-CD 300 MG CAP ER PO SCH (08:45)
[2016-07-07] MEDS: METOPROLOL TARTRATE 100 MG TAB PO SCH (08:45)
[2016-07-07] MEDS: ISOSORBIDE DINITRATE 5 MG TAB PO SCH ×3 (08:45→17:56)
[2016-07-07] MEDS: SODIUM CHLORIDE 0.9% FLUSH 5 ML FLUSH IV FLUSH SCH ×2 (08:46→21:00)
[2016-07-07] MEDS: POLYETHYLENE GLYCOL 17 GM PKG PO SCH ×2 (08:46→21:49)
[2016-07-07] MEDS: HEPARIN 25,000 UNITS-D5W 250 ML - PREMIX IV SCH (08:55)
[2016-07-07] MEDS: HYDROCORTISONE SOD SUCCINATE 100 MG VIAL IV PUSH SCH (09:39)
--- NOTE | 2016-07-07 09:52 | HHI.PR ---
Subjective Remarks Follow-up encephalopathy/HCAP/possible sepsis/hypoglycemia/renal failure requiring dialysis 07/06/16-patient seen and examined, alert and oriented 3 vital stable. Renal function slightly up. Afebrile. APTT elevated and no reported bleed 07/07/16-patient seen and examined; no acute event overnight. Afebrile. Renal indices trending up Objective Vitals Vital Signs Date Time Temp Pulse Resp B/P Pulse Ox O2 Delivery O2 Flow Rate FiO2 07/07/16 09:40 93 Nasal Cannula 2.00 07/07/16 09:05 97.2 74 20 120/71 90 07/07/16 05:45 97.7 84 18 122/69 94 07/07/16 00:00 98.4 78 19 125/69 93 07/06/16 23:13 61 07/06/16 21:30 97.7 84 18 128/65 94 07/06/16 17:31 97.8 72 20 130/61 95 07/06/16 13:04 98.4 87 20 110/51 96 I/O 07/06/16 07/06/16 07/06/16 07/07/16 07/07/16 07/07/16 07:00 15:00 23:00 07:00 15:00 23:00 Intake Total 932 ml 240 ml 500 ml 300 ml 250 ml Output Total 1000 ml 1050 ml 600 ml 500 ml Balance -68 ml -810 ml -100 ml -200 ml 250 ml Intake Oral 700 ml 240 ml 500 ml 300 ml IV Total 232 ml 250 ml Output Urine Total 1000 ml 1050 ml 600 ml 500 ml # Bowel Movements 0 0 0 Result Diagram: 07/05/16 0616 07/07/16 0707 Objective Remarks GENERAL: NAD SKIN: Warm and dry. HEAD: Normocephalic. EYES: No scleral icterus. No injection or drainage. NECK: Supple, trachea midline. No JVD or lymphadenopathy. CARDIOVASCULAR: Regular rate and rhythm without murmurs, gallops, or rubs. RESPIRATORY: Breath sounds equal bilaterally. No accessory muscle use. GASTROINTESTINAL: Abdomen soft, non-tender, nondistended. MUSCULOSKELETAL: No cyanosis, or edema. BACK: Nontender without obvious deformity. No CVA tenderness. A/P Problem List: (1) Acute renal failure ICD Code: N17.9 Status: Chronic (2) Protein calorie malnutrition ICD Code: E46 Status: Acute (3) Healthcare-associated pneumonia ICD Code: J18.9 Status: Acute (4) Atrial fibrillation ICD Code: I48.91 Status: Chronic Assessment and Plan 80-year-old female with Toxic/metabolic encephalopathy - resolved. HCAP: Currently on Zosyn and keep oxygen saturation above 92%. Continue to monitor culture Atrial fibrillation with rvr Systolic congestive heart failure, EF 30-35% Currently on diltiazem and metoprolol , digoxin held, patient is renal failure. On heparin drip likely and to bridge to Coumadin when kidney function improved. Appreciate input from cardiology Repeat echo 06/27: LVEF 40-45%, mild RV dysfunction, pulm htn rvsp 60s, dilated IVC , continue heparin drip, switch to Coumadin once okay with nephrology. MARTHA - etiology uncertain: Appreciate input from nephrology patient on hemodialysis however this may be discontinued if renal function improved. Renal indices trending up. Monitor BUN and creatinine. Avoid all nephrotoxic drugs. Patient will likely need renal biopsy to determine etiology of MARTHA Renal ultrasound 06/26: Negative for acute hydronephrosis Acute protein calorie malnutritionmoderate Life-threatening hyperkalemia : Resolved status post treatment Possible sepsis : Resolved Supra-therapeutic anticoagulation Continue Zosyn, 2.25 g IV every 8 hours. - DC Vancomycin Daily CBC Daily coags Continue to hold warfarin in the setting of renal dysfunction. --continue heparin drip, no bolus, for anticoagulation for Atrial Fibrillation in the setting of renal dysfunction. Severe life-threatening hypoglycemia- resolved --AC and HS accu checks. --hydrocortisone 50mg iv q12h ----> taper to daily Sacral decubitus - continue with wound care per protocol. Daily Santyl HTN: Currently normotensive on Cardizem, Toprol, [id number] mg by mouth every 8 hours, labetalol and clonidine when necessary DVT Prophylaxis -- SCDs Problem Qualifiers (1) Atrial fibrillation: Qualified Code: I48.2 - Chronic atrial fibrillation Yfn Dodd MD Jul 07, 2016 09:52
--- NOTE | 2016-07-07 10:29 | HHI.NPPN ---
Subjective History of Present Illness The patient is an 80 yo AA female who was brought in today for AMS from her nursing facility, [facility]. It was found that she was profoundly hypoglycemia and was given D50 thru her I/O access. She was recently admitted here at the end of May with A fib and was started on Coumadin and low dose Lisinopril 2.5mg QD at that time. Home medication list was reviewed that showed no NSAIDs or outwardly nephrotoxic medications. She has been on Cipro for what is assumed to be a urinary tract infection. The patient herself is very lethargic and no meaningful information can be obtained from her. Admitting SCr at 5.65 that worsened to 5.84 Admitting K+ was 5.9 that worsened to 6.2---this was treated with dextrose, insulin, and Kayexalate. Interval History Pt resting in bed. Rousable and states she is feeling well besides being cold. (Lucy Dickerson) Objective Data Data 07/06/16 07/07/16 18:59 06:59 Intake Total 240 ml 800 ml Output Total 1050 ml 1100 ml Balance -810 ml -300 ml Intake Oral 240 ml 800 ml Output Urine Total 1050 ml 1100 ml # Bowel Movements 0 Vital Signs Date Time Temp Pulse Resp B/P Pulse Ox O2 Delivery O2 Flow Rate FiO2 07/07/16 09:40 93 Nasal Cannula 2.00 07/07/16 09:05 97.2 74 20 120/71 90 07/07/16 05:45 97.7 84 18 122/69 94 07/07/16 00:00 98.4 78 19 125/69 93 07/06/16 23:13 61 07/06/16 21:30 97.7 84 18 128/65 94 07/06/16 17:31 97.8 72 20 130/61 95 07/06/16 13:04 98.4 87 20 110/51 96 (Lucy Dickerson) -: 07/05/16 0616 07/07/16 0707 Tubes & Lines: Vas-Cath Medication Review Current Medications Medications (Trade) Dose Ordered Sig/Abigail Route Start Time Stop Time Status Last Admin (Lopressor) 100 mg DAILY PO 06/26/16 11:00 07/07/16 08:45 (NS Flush) 2 ml UNSCH PRN IV FLUSH 06/26/16 11:15 06/27/16 21:07 (NS Flush) 2 ml BID IV FLUSH 06/26/16 21:00 07/07/16 08:46 (Zofran Inj) 4 mg Q6H PRN IV 06/26/16 11:15 Miscellaneous Information 1 Q361D XX 06/26/16 11:15 (Peridex 0.12% Liq) 15 ml BID@08,20 MT 06/26/16 20:00 07/04/16 08:00 Polyethylene Glycol 17 gm 17 gm BID PO 06/26/16 21:00 07/07/16 08:46 (Zosyn 2.25 Gm Premix) 50 ml @ 100 mls/hr Q8H IV 06/26/16 22:00 07/07/16 05:41 (Trandate Inj) 10 mg Q1H PRN IV PUSH 06/26/16 14:45 07/04/16 07:06 Miscellaneous Information Patient in critical care unit? Ass... Q361D XX 06/27/16 01:45 06/27/16 01:45 (Heparin-D5W Inj) 250 ml @ 0 mls/hr TITRATE IV 06/29/16 18:15 07/07/16 08:55 (Heparin Inj) 5,000 units UNSCH PRN IV 06/29/16 18:15 (Heparin Inj) 2,500 units UNSCH PRN IV 06/29/16 18:15 (D50w (Vial) Inj) 25 ml UNSCH PRN IV PUSH 06/30/16 00:15 Glucagon 1 mg 1 mg UNSCH PRN OTHER 06/30/16 00:15 (NS 1000 ml Inj) 1,000 ml @ 0 mls/hr Q0M PRN IV 07/01/16 17:06 07/04/16 14:50 Heparin Sodium (Porcine) 8000 units 8,000 units UNSCH PRN IVF 07/01/16 17:15 Sodium Chloride 1,000 ml @ 200 mls/hr Q5H PRN IV 07/01/16 17:06 (NS 1000 ml Inj) 1,000 ml @ 0 mls/hr Q0M PRN IV 07/01/16 17:06 07/04/16 14:50 (Mannitol Inj) 12.5 gm UNSCH PRN IV 07/01/16 17:15 (Albumin 25% Inj) 25 gm UNSCH PRN IV 07/01/16 17:15 07/02/16 13:06 (NS Flush) 5 ml UNSCH PRN IVF 07/01/16 17:15 07/04/16 14:51 (Heparin Inj) UNSCH PRN .XX 07/01/16 17:15 07/06/16 10:00 (Gentamicin (Dialysis) Inj) 20 mg UNSCH PRN IV 07/01/16 17:15 07/04/16 14:51 (Zofran Inj) 4 mg UNSCH PRN IV 07/01/16 17:15 (Tylenol) 650 mg UNSCH PRN PO 07/01/16 17:15 (Benadryl) 25 mg UNSCH PRN PO 07/01/16 17:15 (Nitrostat Sl) 0.4 mg UNSCH PRN SL 07/01/16 17:15 (Catapres) 0.1 mg UNSCH PRN PO 07/01/16 17:15 07/03/16 10:21 (Gelfoam 12 Mm/7 Mm Top) 1 foam UNSCH PRN TOP 07/01/16 17:15 (Santyl Oint) 1 applic DAILY TOP 07/03/16 09:00 07/07/16 08:45 (SoluCORTEF INJ) 50 mg DAILY IV PUSH 07/04/16 09:00 07/07/16 09:39 (Isordil) 5 mg TIDAC PO 07/04/16 08:00 07/07/16 08:45 (Apresoline) 100 mg Q8HR PO 07/04/16 14:00 07/07/16 05:41 (Cardizem Cd) 300 mg DAILY PO 07/05/16 09:00 07/07/16 08:45 (Lucy Dickerson) Physical Exam General Appearance: Comfortable (Lucy Dickerson) Eyes Eye Exam: Pupils Equal, Pupils Reactive (Lucy Dickerson) Neck Neck Exam: Neck Supple, Trachea Midline (Lucy Dickerson) Pulmonary Resp Exam: Clear Bilaterally, Breath Sounds Equal (Lucy Dickerson) Cardiology CV Exam: Irregular, Arrhythmia (Lucy Dickerson) Gastrointestinal/Abdomen GI Exam: Soft, Non-Tender (Lucy Dickerson) Genitourinary Exam: Clear Urine (Lucy Dickerson) Integumentary Skin Exam: Clear, Warm, Dry (Lucy Dickerson) Extremeties Extremities Exam: No Edema (Lucy Dickerson) Neurologic Neuro Exam: Alert, Awake, Oriented (Lucy iDckerson) Psychiatric Psych Exam: Appropriate Responses (Lucy Dickerson) Assessment/Plan Discussed Condition With: Patient Problem List: (1) Acute renal failure Plan: Urine output very good. SCr risen over the weekend. Will repeat labs in the AM. May need HD on Thursday depending on her azotemia. Etiology of the patient's acute renal insufficiency uncertain. May be interstitial nephritis secondary to Cipro or an ATN from unspecified insult. I believe it would be prudent to the Cipro as an allergen in this patient's medical record. Discussed with primary care physician. Medications should be adjusted for the patient's estimated GFR if clinically indicated. Avoid agents with significant potential for nephrotoxicity possible including NSAIDs for analgesia, iodine contrast agents. Gadolinium is contraindicated if the GFR is below 30. (2) Hypertension Plan: Defer management to critical care presently. (3) Diabetes mellitus Plan: Defer management to critical care. (Lucy Dickerson) Plan The exam, history, and the medical decision-making described in the above note were completed with the assistance of the PAStorm. I reviewed and agree with the findings presented. (Mary Garrison MD) Problem Qualifiers (1) Hypertension: Qualified Code: I10 - Essential hypertension Lucy Dickerson Jul 07, 2016 10:29 Mary Garrison MD Jul 08, 2016 15:44
[2016-07-08] VITALS (8 sets, daily range): BP systolic 115–142; BP diastolic 58–73; PULSE 69–101; RESP 16–21; TEMP 98.1–99; O2SAT 94–96
[2016-07-08] MEDS: PIPERACIL-TAZO 2.25 GM PREMIX 50 ML IV SCH ×3 (05:26→21:51)
[2016-07-08] MEDS: hydrALAZINE HCL 100 MG TAB PO SCH ×3 (05:26→21:51)
[2016-07-08] MEDS: CHLORHEXIDINE 0.12% (ORAL KIT) 15 ML CUP MT SCH ×2 (07:35→20:00)
[2016-07-08 08:00] LABS: AUTOMATED NEUTROPHIL # 7.5 TH/MM3 (1.8-7.7); BASOPHIL % 0.4 % (0.0-2.0); EOSINOPHIL # 0.1 TH/MM3 (0-0.4); HEMATOCRIT 28.9 % (35.0-46.0); LYMPH % 7.6 % (9.0-44.0); LYMPHOCYTE # 0.7 TH/MM3 (1.0-4.8); MEAN CORPUSCULAR HEMOGLOBIN 27.8 PG (27.0-34.0); MONO % 10.7 % (0.0-8.0); NEUT % 80.3 % (16.0-70.0); PLATELET COUNT 254 TH/MM3 (150-450); RED BLOOD COUNT 3.33 MIL/MM3 (4.00-5.30); RED CELL DISTRIBUTION WIDTH 14.8 % (11.6-17.2); WHITE BLOOD COUNT 9.4 TH/MM3 (4.0-11.0)
[2016-07-08 08:03] LABS: HEMO FLAGS AUTO DIFF
[2016-07-08 08:09] LABS: APTT (PATIENT) 47.2 SEC (24.3-30.1)
[2016-07-08] MEDS: POLYETHYLENE GLYCOL 17 GM PKG PO SCH ×2 (08:23→21:51)
[2016-07-08] MEDS: ISOSORBIDE DINITRATE 5 MG TAB PO SCH ×3 (08:24→17:10)
[2016-07-08] MEDS: SODIUM CHLORIDE 0.9% FLUSH 5 ML FLUSH IV FLUSH SCH ×2 (08:25→21:51)
[2016-07-08] MEDS: METOPROLOL TARTRATE 100 MG TAB PO SCH (08:25)
[2016-07-08] MEDS: HYDROCORTISONE SOD SUCCINATE 100 MG VIAL IV PUSH SCH (08:25)
[2016-07-08] MEDS: DILTIAZEM-CD 300 MG CAP ER PO SCH (08:25)
[2016-07-08] MEDS: COLLAGENASE OINT 30 GM TUBE TOP SCH (08:26)
[2016-07-08 08:27] LABS: BICARBONATE 29.9 MEQ/L (21.0-32.0); POTASSIUM 3.3 MEQ/L (3.5-5.1)
[2016-07-08] MEDS: HEPARIN 25,000 UNITS-D5W 250 ML - PREMIX IV SCH (08:28)
[2016-07-08 09:17] LABS: MYELOCYTES 3 % (0-0); NEUTROPHIL # MANUAL DIFF 8.2 TH/MM3 (1.8-7.7); POLYS (SEG NEUTROPHILS) 84 % (16-70); WBC DIFF SAMPLE 100
[2016-07-08 09:18] LABS: OVALOCYTES 1+ (NORMAL); PLATELET ESTIMATE SMEAR NORMAL (NORMAL); PLATELET MORPHOLOGY NORMAL (NORMAL); SCAN/DIFF FINAL DIFF MANUAL
--- NOTE | 2016-07-08 10:03 | HHI.PR ---
Subjective Remarks Follow-up encephalopathy/HCAP/possible sepsis/hypoglycemia/renal failure requiring dialysis 07/06/16-patient seen and examined, alert and oriented 3 vital stable. Renal function slightly up. Afebrile. APTT elevated and no reported bleed 07/07/16-patient seen and examined; no acute event overnight. Afebrile. Renal indices trending up 07/08/16-patient seen and examined; renal indices worsening. No acute event overnight and denies any shortness of breath or chest pain. Objective Vitals Vital Signs Date Time Temp Pulse Resp B/P Pulse Ox O2 Delivery O2 Flow Rate FiO2 07/08/16 09:32 98.9 101 16 142/73 94 07/08/16 09:23 96 21 07/08/16 05:58 99.0 86 18 115/62 96 07/08/16 00:00 98.1 78 21 135/69 95 07/07/16 22:00 82 07/07/16 20:00 98.4 84 18 114/55 94 07/07/16 18:28 96 21 07/07/16 17:39 97.5 78 20 123/59 96 07/07/16 11:59 98.4 76 20 135/73 96 I/O 07/07/16 07/07/16 07/07/16 07/08/16 07/08/16 07/08/16 07:00 15:00 23:00 07:00 15:00 23:00 Intake Total 300 ml 250 ml Output Total 500 ml 550 ml 950 ml 300 ml Balance -200 ml -300 ml -950 ml -300 ml Intake Oral 300 ml IV Total 250 ml Output Urine Total 500 ml 550 ml 950 ml 300 ml # Bowel Movements 0 0 0 0 Result Diagram: 07/08/1672507/08/16725 Objective Remarks GENERAL: NAD SKIN: Warm and dry. HEAD: Normocephalic. EYES: No scleral icterus. No injection or drainage. NECK: Supple, trachea midline. No JVD or lymphadenopathy. CARDIOVASCULAR: Regular rate and rhythm without murmurs, gallops, or rubs. RESPIRATORY: Breath sounds equal bilaterally. No accessory muscle use. GASTROINTESTINAL: Abdomen soft, non-tender, nondistended. MUSCULOSKELETAL: No cyanosis, or edema. BACK: Nontender without obvious deformity. No CVA tenderness. A/P Problem List: (1) Acute renal failure ICD Code: N17.9 Status: Chronic (2) Protein calorie malnutrition ICD Code: E46 Status: Acute (3) Healthcare-associated pneumonia ICD Code: J18.9 Status: Acute (4) Atrial fibrillation ICD Code: I48.91 Status: Chronic Assessment and Plan 80-year-old female with Toxic/metabolic encephalopathy - resolved. HCAP: Currently on Zosyn and keep oxygen saturation above 92%. Continue to monitor culture Atrial fibrillation with rvr Systolic congestive heart failure, EF 30-35% Currently on diltiazem and metoprolol , digoxin held, patient is renal failure. On heparin drip likely and to bridge to Coumadin when kidney function improved. Appreciate input from cardiology Repeat echo 06/27: LVEF 40-45%, mild RV dysfunction, pulm htn rvsp 60s, dilated IVC , continue heparin drip, switch to Coumadin once okay with nephrology. MARTHA - etiology uncertain: Appreciate input from nephrology.As Renal indices trending up patient may need dialysis possible today 07/08/16. Monitor BUN and creatinine. Avoid all nephrotoxic drugs. Patient will likely need renal biopsy to determine etiology of MARTHA Renal ultrasound 06/26: Negative for acute hydronephrosis Acute protein calorie malnutritionmoderate Life-threatening hyperkalemia : Resolved status post treatment Possible sepsis : Resolved Supra-therapeutic anticoagulation Continue Zosyn, 2.25 g IV every 8 hours. - DC Vancomycin Daily CBC Daily coags Continue to hold warfarin in the setting of renal dysfunction. --continue heparin drip Severe life-threatening hypoglycemia- resolved --AC and HS accu checks. --hydrocortisone 50mg iv daily ----> will switch to by mouth hydrocortisone 10 mg twice a day in a.m. 07/09/16 Sacral decubitus - continue with wound care per protocol. Daily Santyl HTN: Currently normotensive on Cardizem, Toprol, [id number] mg by mouth every 8 hours, labetalol and clonidine when necessary DVT Prophylaxis -- SCDs Problem Qualifiers (1) Atrial fibrillation: Qualified Code: I48.2 - Chronic atrial fibrillation Yfn Dodd MD Jul 08, 2016 10:03
--- NOTE | 2016-07-08 10:30 | HHI.NPPN ---
Subjective History of Present Illness The patient is an 80 yo AA female who was brought in today for AMS from her nursing facility, [facility]. It was found that she was profoundly hypoglycemia and was given D50 thru her I/O access. She was recently admitted here at the end of May with A fib and was started on Coumadin and low dose Lisinopril 2.5mg QD at that time. Home medication list was reviewed that showed no NSAIDs or outwardly nephrotoxic medications. She has been on Cipro for what is assumed to be a urinary tract infection. The patient herself is very lethargic and no meaningful information can be obtained from her. Admitting SCr at 5.65 that worsened to 5.84 Admitting K+ was 5.9 that worsened to 6.2---this was treated with dextrose, insulin, and Kayexalate. Interval History No new complaints at the present (Lucy Dickerson) Objective Data Data 07/07/16 07/08/16 19:00 07:00 Intake Total 250 ml Output Total 1050 ml 750 ml Balance -800 ml -750 ml IV Total 250 ml Output Urine Total 1050 ml 750 ml # Bowel Movements 0 0 Vital Signs Date Time Temp Pulse Resp B/P Pulse Ox O2 Delivery O2 Flow Rate FiO2 07/08/16 10:20 99 07/08/16 09:32 98.9 101 16 142/73 94 07/08/16 09:23 96 21 07/08/16 05:58 99.0 86 18 115/62 96 07/08/16 00:00 98.1 78 21 135/69 95 07/07/16 22:00 82 07/07/16 20:00 98.4 84 18 114/55 94 07/07/16 18:28 96 21 07/07/16 17:39 97.5 78 20 123/59 96 07/07/16 11:59 98.4 76 20 135/73 96 (Lucy Dickerson) -: 07/08/16 0707/08/16725 Tubes & Lines: Vas-Cath Medication Review Current Medications Medications (Trade) Dose Ordered Sig/Abigail Route Start Time Stop Time Status Last Admin (Lopressor) 100 mg DAILY PO 06/26/16 11:00 07/08/16 08:25 (NS Flush) 2 ml UNSCH PRN IV FLUSH 06/26/16 11:15 06/27/16 21:07 (NS Flush) 2 ml BID IV FLUSH 06/26/16 21:00 07/08/16 08:25 (Zofran Inj) 4 mg Q6H PRN IV 06/26/16 11:15 Miscellaneous Information 1 Q361D XX 06/26/16 11:15 (Peridex 0.12% Liq) 15 ml BID@08,20 MT 06/26/16 20:00 07/04/16 08:00 Polyethylene Glycol 17 gm 17 gm BID PO 06/26/16 21:00 07/08/16 08:23 (Zosyn 2.25 Gm Premix) 50 ml @ 100 mls/hr Q8H IV 06/26/16 22:00 07/08/16 05:26 (Trandate Inj) 10 mg Q1H PRN IV PUSH 06/26/16 14:45 07/04/16 07:06 Miscellaneous Information Patient in critical care unit? Ass... Q361D XX 06/27/16 01:45 06/27/16 01:45 (Heparin-D5W Inj) 250 ml @ 0 mls/hr TITRATE IV 06/29/16 18:15 07/08/16 08:28 (Heparin Inj) 5,000 units UNSCH PRN IV 06/29/16 18:15 (Heparin Inj) 2,500 units UNSCH PRN IV 06/29/16 18:15 (D50w (Vial) Inj) 25 ml UNSCH PRN IV PUSH 06/30/16 00:15 Glucagon 1 mg 1 mg UNSCH PRN OTHER 06/30/16 00:15 (NS 1000 ml Inj) 1,000 ml @ 0 mls/hr Q0M PRN IV 07/01/16 17:06 07/04/16 14:50 Heparin Sodium (Porcine) 8000 units 8,000 units UNSCH PRN IVF 07/01/16 17:15 Sodium Chloride 1,000 ml @ 200 mls/hr Q5H PRN IV 07/01/16 17:06 (NS 1000 ml Inj) 1,000 ml @ 0 mls/hr Q0M PRN IV 07/01/16 17:06 07/04/16 14:50 (Mannitol Inj) 12.5 gm UNSCH PRN IV 07/01/16 17:15 (Albumin 25% Inj) 25 gm UNSCH PRN IV 07/01/16 17:15 07/02/16 13:06 (NS Flush) 5 ml UNSCH PRN IVF 07/01/16 17:15 07/04/16 14:51 (Heparin Inj) UNSCH PRN .XX 07/01/16 17:15 07/06/16 10:00 (Gentamicin (Dialysis) Inj) 20 mg UNSCH PRN IV 07/01/16 17:15 07/04/16 14:51 (Zofran Inj) 4 mg UNSCH PRN IV 07/01/16 17:15 (Tylenol) 650 mg UNSCH PRN PO 07/01/16 17:15 (Benadryl) 25 mg UNSCH PRN PO 07/01/16 17:15 (Nitrostat Sl) 0.4 mg UNSCH PRN SL 07/01/16 17:15 (Catapres) 0.1 mg UNSCH PRN PO 07/01/16 17:15 07/03/16 10:21 (Gelfoam 12 Mm/7 Mm Top) 1 foam UNSCH PRN TOP 07/01/16 17:15 (Santyl Oint) 1 applic DAILY TOP 07/03/16 09:00 07/08/16 08:26 (SoluCORTEF INJ) 50 mg DAILY IV PUSH 07/04/16 09:00 07/08/16 16:00 07/08/16 08:25 (Isordil) 5 mg TIDAC PO 07/04/16 08:00 07/08/16 08:24 (Apresoline) 100 mg Q8HR PO 07/04/16 14:00 07/08/16 05:26 (Cardizem Cd) 300 mg DAILY PO 07/05/16 09:00 07/08/16 08:25 (Cortef) 10 mg Q12H PO 07/09/16 09:00 (Lucy Dickerson) Physical Exam General Appearance: Comfortable (Lucy Dickerson) Eyes Eye Exam: Pupils Equal, Pupils Reactive (Lucy Dickerson) Neck Neck Exam: Neck Supple, Trachea Midline (Lucy Dickerson) Pulmonary Resp Exam: Clear Bilaterally, Breath Sounds Equal (Lucy Dickerson) Cardiology CV Exam: Regular (Lucy Dickerson) Gastrointestinal/Abdomen GI Exam: Soft, Non-Tender (Lucy Dickerson) Genitourinary Exam: Clear Urine (Lucy Dickerson) Integumentary Skin Exam: Clear, Warm, Dry (Lucy Dickerson) Extremeties Extremities Exam: No Edema (Lucy Dickerson) Neurologic Neuro Exam: Alert, Awake, Oriented (Lucy Dickerson) Psychiatric Psych Exam: Appropriate Responses (Lucy Dickerson) Assessment/Plan Discussed Condition With: Patient Problem List: (1) Acute renal failure Plan: UOP remains good. SCr overall stable. Will continue to hold HD. Monitor closely Etiology of the patient's acute renal insufficiency uncertain. May be interstitial nephritis secondary to Cipro or an ATN from unspecified insult. I believe it would be prudent to the Cipro as an allergen in this patient's medical record. Discussed with primary care physician. Medications should be adjusted for the patient's estimated GFR if clinically indicated. Avoid agents with significant potential for nephrotoxicity possible including NSAIDs for analgesia, iodine contrast agents. Gadolinium is contraindicated if the GFR is below 30. (2) Hypertension Plan: BP stable. Continue on current regimen (3) Diabetes mellitus Plan: Defer management to primary (Lucy Dickerson) Plan Patient maintaining good urine output how the creatinine continues to deteriorate albeit slowly. If creatinine level continues to rise will likely need dialysis again tomorrow. I'm hoping the creatinine level will stabilize and improve to avoid this resumption of dialysis if possible. The exam, history, and the medical decision-making described in the above note were completed with the assistance of the PAStorm. I reviewed and agree with the findings presented. I attest that I had a [id number] encounter with the patient on the same day, and personally performed and documented my assessment and findings in the medical record. (Mary Garrison MD) Problem Qualifiers (1) Hypertension: Qualified Code: I10 - Essential hypertension Lucy Dickerson Jul 08, 2016 10:29 Mary Garrison MD Jul 08, 2016 15:47
--- NOTE | 2016-07-08 15:46 | HHI.HCPN ---
Reason for visit a. To assist with evaluation and management of symptoms including: Debility. b. To assist medical decision maker(s) with: better understanding of current medical conditions; weighing benefits/burdens of medical treatment options; making medical treatment decisions. . (Chioma Herrera) Subjective/Interval History Patient seen in her room. No family at bedside. No acute events overnight. Patient alert and oriented x4, verbal and able to communicate needs. Patient tells me that she feels much better today. Endorsing discomfort/burning sensation to her buttocks secondary to decubitus ulcer. Denies shortness of breath, n/v or abdominal discomfort. Patient afebrile, stable BP. Hgb stable at 9.3. WBC 9.4. BUN/Creat 41/3.84. Albumin 2.4. Blood cultures 07/06/16 with no growth. Telephone conversation with patient's daughter Tia. Medical update provided. Reviewed that pt's renal function continues to trend up and that patient will likely need renal biopsy to determine etiology. Reviewed that nephrology is following and that HD will be performed as medically needed. Discussed that patient will likely require rehab at discharge, it is unclear at this time if HD is temporary or permanent in the setting of MARTHA. Patient verbalized being unsure about long-term dialyses as outpatient if her renal dysfunction remains or continues to worsen. Daughter verbalized having no further questions. . Family/friend interactions See interval note. . (Chioma Herrera) Advance Directives Living Will: Never completed Health Care Surrogate: Copy in medical record Durable Power of Knife Glazer: Never completed (Chioma Herrera) Advance Directive Specifics Date completed: 06/27/15. . Health Care Surrogate(s): Daughter Tia Persaud. . Documented care wishes: No living will completed. . Significant change in goals: FULL CODE. Patient wishing to continue with aggressive care to include renal replacement therapy if medically indicated. . (Chioma Herrera) Objective Vital Signs Date Time Temp Pulse Resp B/P Pulse Ox O2 Delivery O2 Flow Rate FiO2 07/08/16 12:24 98.3 92 16 141/73 94 07/08/16 10:20 99 07/08/16 09:32 98.9 101 16 142/73 94 07/08/16 09:23 96 21 07/08/16 05:58 99.0 86 18 115/62 96 07/08/16 00:00 98.1 78 21 135/69 95 07/07/16 22:00 82 07/07/16 20:00 98.4 84 18 114/55 94 07/07/16 18:28 96 21 07/07/16 17:39 97.5 78 20 123/59 96 Intake & Output 07/08/16 07/08/16 06:59 18:59 Output Total 750 ml 650 ml Balance -750 ml -650 ml Output Urine Total 750 ml 650 ml # Bowel Movements 0 1 Physical Exam CONSTITUTIONAL/GENERAL: This is an adequately nourished patient, in no apparent distress. Alert, verbal and able to communicate needs. TUBES/LINES/DRAINS: Scanlon cath, PIV's, Rt IJ VasCath, SCD's. SKIN: No jaundice, rashes, or lesions. Ecchymoses on upper extremities. No wounds seen anteriorly. Skin temperature appropriate. Not diaphoretic. HEAD: Atraumatic. Normocephalic. EYES: Pupils equal and round and reactive. Extraocular motions intact. No scleral icterus. ENT: Hearing grossly normal. Nose without bleeding or purulent drainage. Throat without visible erythema, exudates, masses, or lesions. NECK: Trachea midline. Supple, nontender. CARDIOVASCULAR: Tachycardiac, Irregular rate and rhythm without murmurs, gallops , or rubs. Peripheral pulses symmetric. RESPIRATORY/CHEST: Symmetric, unlabored respirations. Clear to auscultation. Breath sounds equal bilaterally. No wheezes, rales, or rhonchi. GASTROINTESTINAL: Abdomen soft, round, mildly distended. non-tender. No guarding. Bowel sounds present. GENITOURINARY: Without palpable bladder distension. Scanlon catheter in place. MUSCULOSKELETAL: Extremities without clubbing, cyanosis. No mottling or clubbing. +1 edema to BLE. NEUROLOGICAL: Awake and alert. Follows commands. Moves all extremities. Fine tremors to BUE. PSYCHIATRIC: No obvious anxiety/depression. . (Chioma Herrera) Diagnostic Tests Laboratory Laboratory Tests Test 07/06/16 07/06/16 07/06/16 07/06/16 05:46 06:55 09:40 15:54 Sodium Level 140 MEQ/L (136-145) Potassium Level 3.4 MEQ/L (3.5-5.1) Chloride Level 98 MEQ/L (98-107) Carbon Dioxide Level 31.3 MEQ/L (21.0-32.0) Anion Gap 11 MEQ/L (5-15) Blood Urea Nitrogen 35 MG/DL (7-18) Creatinine 3.59 MG/DL (0.50-1.00) Estimat Glomerular Filtration 15 ML/MIN (>89) Rate Random Glucose 126 MG/DL (74-106) Calcium Level 7.8 MG/DL (8.5-10.1) Activated Partial 105.9 SEC 57.2 SEC 56.9 SEC Thromboplast Time (24.3-30.1) (24.3-30.1) (24.3-30.1) Test 07/07/16 07/08/16 07:07 07:26 Activated Partial 45.9 SEC 47.2 SEC Thromboplast Time (24.3-30.1) (24.3-30.1) Sodium Level 140 MEQ/L 141 MEQ/L (136-145) (136-145) Potassium Level 3.4 MEQ/L 3.3 MEQ/L (3.5-5.1) (3.5-5.1) Chloride Level 99 MEQ/L 100 MEQ/L (98-107) (98-107) Carbon Dioxide Level 29.8 MEQ/L 29.9 MEQ/L (21.0-32.0) (21.0-32.0) Anion Gap 11 MEQ/L (5-15) 11 MEQ/L (5-15) Blood Urea Nitrogen 40 MG/DL (7-18) 41 MG/DL (7-18) Creatinine 3.74 MG/DL 3.84 MG/DL (0.50-1.00) (0.50-1.00) Estimat Glomerular Filtration 14 ML/MIN (>89) 14 ML/MIN (>89) Rate Random Glucose 102 MG/DL 112 MG/DL (74-106) (74-106) Calcium Level 8.0 MG/DL 8.2 MG/DL (8.5-10.1) (8.5-10.1) White Blood Count 9.4 TH/MM3 (4.0-11.0) Red Blood Count 3.33 MIL/MM3 (4.00-5.30) Hemoglobin 9.3 GM/DL (11.6-15.3) Hematocrit 28.9 % (35.0-46.0) Mean Corpuscular Volume 87.0 FL (80.0-100.0) Mean Corpuscular Hemoglobin 27.8 PG (27.0-34.0) Mean Corpuscular Hemoglobin 32.0 % Concent (32.0-36.0) Red Cell Distribution Width 14.8 % (11.6-17.2) Platelet Count 254 TH/MM3 (150-450) Mean Platelet Volume 8.0 FL (7.0-11.0) Neutrophils (%) (Auto) 80.3 % (16.0-70.0) Lymphocytes (%) (Auto) 7.6 % (9.0-44.0) Monocytes (%) (Auto) 10.7 % (0.0-8.0) Eosinophils (%) (Auto) 1.0 % (0.0-4.0) Basophils (%) (Auto) 0.4 % (0.0-2.0) Neutrophils # (Auto) 7.5 TH/MM3 (1.8-7.7) Lymphocytes # (Auto) 0.7 TH/MM3 (1.0-4.8) Monocytes # (Auto) 1.0 TH/MM3 (0-0.9) Eosinophils # (Auto) 0.1 TH/MM3 (0-0.4) Basophils # (Auto) 0.0 TH/MM3 (0-0.2) CBC Comment AUTO DIFF Differential Total Cells 100 Counted Neutrophils % (Manual) 84 % (16-70) Lymphocytes % 9 % (9-44) Monocytes % 4 % (0-8) Neutrophils # (Manual) 8.2 TH/MM3 (1.8-7.7) Myelocytes 3 % (0-0) Differential Comment FINAL DIFF MANUAL Platelet Estimate NORMAL (NORMAL) Platelet Morphology Comment NORMAL (NORMAL) Ovalocytes 1+ (NORMAL) (Chioma Herrera) Result Diagram: 07/08/16 0726 07/08/16 0726 Imaging Last Impressions Chest X-Ray 06/29/16 0000 Signed Impressions: Service Date/Time: Wednesday, June 29, 2016 14:51 - CONCLUSION: 1. Mild central pulmonary vascular congestion. 2. Marked cardiomegaly. 3. Right internal jugular Vas cath has its tip in the right atrium. There is no pneumothorax. 4. Degenerative changes and scoliosis of the thoracolumbar spine. 5. Degenerative changes involving the shoulders bilaterally. Konstantin Dunbar MD Head CT 06/26/16 0646 Signed Impressions: Service Date/Time: June 08:48 - CONCLUSION: 1. No acute abnormality identified. Stable compared to prior exam dated 06/11/16. Abram Rivera MD Renal Ultrasound 06/26/16 0000 Signed Impressions: Service Date/Time: June 10:59 - CONCLUSION: Kidneys are slightly echogenic which can be seen with medical renal disease. Yfn Santillan MD Procedures * 06/29/16 - Rt IJ VasCath placement. . (Chioma Herrera) Assessment and Plan Disease Oriented Problem List: (1) Acute renal failure Comment: Nephrology following. On EATING DISORDER PSYCHOLOGIST. (2) Hyperkalemia Comment: Resolved. (3) Hypertension Symptom Scale: (1) Debility 0-10 Scale: Unable to quantify Comment: Progressive (2) Decreased appetite 0-10 Scale: Unable to quantify Comment: Eating 25% of her meals. Pertinent Non-Medical Issues Psychosocial: . Has 3 children. Residing with nephew Xavier prior to previous hospitalization on 06/14/16. Discharged to SNF for rehab/ strengthening. Spiritual: Mosque. Active member of her jainism. Good spiritual support. Legal: No living will completed. [facility] designation completed during this palliative care visit. Ethical issues impacting care: No living will completed. . Important Contacts Daughter/[facility] Tia Persaud and . . Prognosis Mrs. Gabriel is an 80 y/o female with a medical history significant of a. fib, CHF , Diabetes type 2, HTN, [place] and anemia who presented to the ED via EMS on with history of AMS and questionable seizure. Patient with a recent hospitalization secondary to a. fib with RVR and subsequent SNF discharge. Her baseline functional status has progressively declined and requires a walker for ambulation, with a PPS of 50%. Patient now presents with MARTHA likely requiring renal replacement therapy. She is at high risk for developing significant symptom burden and is at high risk for further complications, continue decline and . . Code Status: Full Code Plan * FULL CODE. Risks and limitations of CPR were discussed with patient and daughter in the setting of multiple comorbidities and poor functional status at baseline. * Patient is alert and oriented. Completed designation of HCS form during this visit. Patient designating her daughter Tia Persaud as HCS. Declined to designate an alternate surrogate. * No living will completed. LW information and form reviewed on 06/27/16 with patient and daughter Tia. Encouraged patient to complete and to call pall care with any questions. * 07/08/16: Patient wishing to continue with aggressive care to include FULL CODE and renal replacement therapy if medically indicated. Telephone conversation with patient's daughter Tia. Medical update provided. Reviewed that pt's renal function continues to trend up and that patient will likely need renal biopsy to determine etiology. Reviewed that nephrology is following and that HD will be done as medically indicated. Discussed that patient will likely require rehab at discharge, it is unclear at this time if HD is temporary or permanent in the setting of MARTHA. Patient verbalized being unsure about long-term dialyses as outpatient if her kidney injury remains or continues to worsen. Daughter verbalized having no further questions. * Symptom: Debility, progressive for the past year. Multifactorial, likely secondary to multiple chronic comorbidities. Presented to ED from rehab facility. Will likely required rehab at discharge. Patient may benefit from PT referral. Decreased appetite, eating 25% of her meals. Albumin 2.4. Encouraged increase oral intake for wound healing. Decubitus ulcer, wound care nurse following. * Palliative care to f/u with this patient and family for further clarification of goals. . (Chioma Herrera) Time Spent Total Floor Time (mins): 40 (Total time to include review of medical records, telephone conversation with patient's daughter and physical exam. ) Face to Face Time (mins): 28 >50% Counseling/Coord of Care: Yes (Chioma Herrera) Attestation To help prompt me to consider important information that might be impacting today's encounter and assessment, information from prior notes written by myself or my colleagues may have been "brought forward" into today's note. My signature on this note, however, is an attestation that I personally performed the exam, history, and/or decision-making noted today, and, unless otherwise indicated, the interactions with patient, family, and staff as well as the review of records all occurred today. I also attest that the listed assessment and stated plan reflect my best clinical judgment today based on the combination of historical information, prior notes, and today's exam/ interactions. When time spent is documented, it refers only to time spent today by the signer, or if indicated, combined time spent today by collaborating physician/nurse practitioner. (Chioma Herrera) Collaborating MD Comments Chart reviewed. Case discussed with palliative care DOCK ATTENDANT. Above DOCK ATTENDANT note reviewed and I concur. . (Cristian Aceves MD) Chioma Herrera Jul 08, 2016 15:45 Cristian Aceves MD Aug 10, 2016 07:41
[2016-07-08] MEDS ORDERED: POTASSIUM CHLORIDE 10 MEQ CONTROLLED RELEASE TAB PO ONE (16:15)
[2016-07-09] VITALS (7 sets, daily range): BP systolic 106–155; BP diastolic 53–84; PULSE 62–105; RESP 17–18; TEMP 97.4–99.3; O2SAT 96–98
[2016-07-09] MEDS: hydrALAZINE HCL 100 MG TAB PO SCH ×3 (05:58→21:41)
[2016-07-09] MEDS: PIPERACIL-TAZO 2.25 GM PREMIX 50 ML IV SCH ×3 (05:58→21:41)
[2016-07-09 07:33] LABS: APTT (PATIENT) 45.2 SEC (24.3-30.1)
[2016-07-09 07:54] LABS: BICARBONATE 30.2 MEQ/L (21.0-32.0); POTASSIUM 3.3 MEQ/L (3.5-5.1)
[2016-07-09] MEDS: CHLORHEXIDINE 0.12% (ORAL KIT) 15 ML CUP MT SCH ×2 (08:00→20:00)
[2016-07-09] MEDS: COLLAGENASE OINT 30 GM TUBE TOP SCH (09:00)
[2016-07-09] MEDS: SODIUM CHLORIDE 0.9% FLUSH 5 ML FLUSH IV FLUSH SCH ×2 (09:00→21:42)
[2016-07-09] MEDS: POLYETHYLENE GLYCOL 17 GM PKG PO SCH ×2 (09:00→21:00)
[2016-07-09] MEDS ORDERED: POTASSIUM CHLORIDE 10 MEQ CONTROLLED RELEASE TAB PO ONE (09:00)
[2016-07-09] MEDS: HYDROCORTISONE 10 MG TAB PO SCH ×2 (10:09→21:41)
[2016-07-09] MEDS: DILTIAZEM-CD 300 MG CAP ER PO SCH (10:09)
[2016-07-09] MEDS: ISOSORBIDE DINITRATE 5 MG TAB PO SCH ×3 (10:09→18:32)
[2016-07-09] MEDS: METOPROLOL TARTRATE 100 MG TAB PO SCH (10:09)
--- NOTE | 2016-07-09 10:40 | HHI.PR ---
Subjective Remarks Follow-up encephalopathy/HCAP/possible sepsis/hypoglycemia/renal failure requiring dialysis 07/06/16-patient seen and examined, alert and oriented 3 vital stable. Renal function slightly up. Afebrile. APTT elevated and no reported bleed 07/07/16-patient seen and examined; no acute event overnight. Afebrile. Renal indices trending up 07/08/16-patient seen and examined; renal indices worsening. No acute event overnight and denies any shortness of breath or chest pain. 07/09/16-patient seen and examined, improving renal indices. No acute event overnight. Denies any shortness of breath. Objective Vitals Vital Signs Date Time Temp Pulse Resp B/P Pulse Ox O2 Delivery O2 Flow Rate FiO2 07/09/16 08:00 98.5 97 18 128/54 97 07/09/16 04:25 98.0 71 17 128/64 96 07/09/16 00:21 97.4 86 18 116/55 96 07/08/16 20:57 98.6 69 17 124/58 96 07/08/16 20:00 78 07/08/16 12:24 98.3 92 16 141/73 94 I/O 07/08/16 07/08/16 07/08/16 07/09/16 07/09/16 07/09/16 07:00 15:00 23:00 07:00 15:00 23:00 Intake Total 228 ml 87 ml Output Total 300 ml 650 ml 500 ml Balance -300 ml -650 ml 228 ml -413 ml IV Total 228 ml 87 ml Output Urine Total 300 ml 650 ml 500 ml # Bowel Movements 0 1 2 Result Diagram: 07/08/16 0726 07/09/16 0657 Imaging Last Impressions Chest X-Ray 06/29/16 0000 Signed Impressions: Service Date/Time: Wednesday, June 29, 2016 14:51 - CONCLUSION: 1. Mild central pulmonary vascular congestion. 2. Marked cardiomegaly. 3. Right internal jugular Vas cath has its tip in the right atrium. There is no pneumothorax. 4. Degenerative changes and scoliosis of the thoracolumbar spine. 5. Degenerative changes involving the shoulders bilaterally. Konstantin Dunbar MD Head CT 06/26/16 0646 Signed Impressions: Service Date/Time: June 08:48 - CONCLUSION: 1. No acute abnormality identified. Stable compared to prior exam dated 06/11/16. Abram Rivera MD Renal Ultrasound 06/26/16 0000 Signed Impressions: Service Date/Time: June 10:59 - CONCLUSION: Kidneys are slightly echogenic which can be seen with medical renal disease. Yfn Santillan MD Objective Remarks GENERAL: NAD SKIN: Warm and dry. HEAD: Normocephalic. EYES: No scleral icterus. No injection or drainage. NECK: Supple, trachea midline. No JVD or lymphadenopathy. CARDIOVASCULAR: Regular rate and rhythm without murmurs, gallops, or rubs. RESPIRATORY: Breath sounds equal bilaterally. No accessory muscle use. GASTROINTESTINAL: Abdomen soft, non-tender, nondistended. MUSCULOSKELETAL: No cyanosis, or edema. BACK: Nontender without obvious deformity. No CVA tenderness. A/P Problem List: (1) Acute renal failure ICD Code: N17.9 Status: Chronic (2) Protein calorie malnutrition ICD Code: E46 Status: Acute (3) Healthcare-associated pneumonia ICD Code: J18.9 Status: Acute (4) Atrial fibrillation ICD Code: I48.91 Status: Chronic Assessment and Plan 80-year-old female with Toxic/metabolic encephalopathy - resolved. HCAP: Currently on Zosyn and keep oxygen saturation above 92%. Continue to monitor culture Atrial fibrillation with rvr Systolic congestive heart failure, EF 30-35% Currently on diltiazem and metoprolol , digoxin held, patient is renal failure. On heparin drip likely and to bridge to Coumadin when kidney function improved. Appreciate input from cardiology Repeat echo 06/27: LVEF 40-45%, mild RV dysfunction, pulm htn rvsp 60s, dilated IVC , continue heparin drip, switch to Coumadin once okay with nephrology. MARTHA - etiology uncertain: Appreciate input from nephrology.As Renal indices trending down ; continue to hold off on hemodialysis. Monitor BUN and creatinine. Avoid all nephrotoxic drugs. Patient will likely need renal biopsy to determine etiology of MARTHA Renal ultrasound 06/26: Negative for acute hydronephrosis Acute protein calorie malnutritionmoderate Life-threatening hyperkalemia : Resolved status post treatment Possible sepsis : Resolved Supra-therapeutic anticoagulation Continue Zosyn, 2.25 g IV every 8 hours. - DC Vancomycin Daily CBC Daily coags Continue to hold warfarin in the setting of renal dysfunction. --continue heparin drip Severe life-threatening hypoglycemia- resolved --AC and HS accu checks. --s/p hydrocortisone 50mg iv daily ----> Now on mouth hydrocortisone 10 mg twice a day Sacral decubitus - continue with wound care per protocol. Daily Santyl HTN: Currently normotensive on Cardizem, Toprol, [id number] mg by mouth every 8 hours, labetalol and clonidine when necessary DVT Prophylaxis -- SCDs PT to treat and eval Problem Qualifiers (1) Atrial fibrillation: Qualified Code: I48.2 - Chronic atrial fibrillation Yfn Dodd MD Jul 09, 2016 10:40
--- NOTE | 2016-07-09 17:37 | HHI.NPPN ---
Subjective History of Present Illness The patient is an 80 yo AA female who was brought in today for AMS from her nursing facility, [facility]. It was found that she was profoundly hypoglycemia and was given D50 thru her I/O access. She was recently admitted here at the end of May with A fib and was started on Coumadin and low dose Lisinopril 2.5mg QD at that time. Home medication list was reviewed that showed no NSAIDs or outwardly nephrotoxic medications. She has been on Cipro for what is assumed to be a urinary tract infection. The patient herself is very lethargic and no meaningful information can be obtained from her. Admitting SCr at 5.65 that worsened to 5.84 Admitting K+ was 5.9 that worsened to 6.2---this was treated with dextrose, insulin, and Kayexalate. Objective Data Data 07/08/16 07/09/16 19:00 07:00 Intake Total 228 ml 87 ml Output Total 650 ml 500 ml Balance -422 ml -413 ml IV Total 228 ml 87 ml Output Urine Total 650 ml 500 ml # Bowel Movements 3 Vital Signs Date Time Temp Pulse Resp B/P Pulse Ox O2 Delivery O2 Flow Rate FiO2 07/09/16 16:00 99.3 62 18 106/53 98 07/09/16 12:17 98.0 105 18 141/62 98 07/09/16 08:00 98.5 97 18 128/54 97 07/09/16 04:25 98.0 71 17 128/64 96 07/09/16 00:21 97.4 86 18 116/55 96 07/08/16 20:57 98.6 69 17 124/58 96 07/08/16 20:00 78 -: 07/08/16 0726 07/09/16 0657 Tubes & Lines: Vas-Cath Physical Exam General Appearance: Comfortable Eyes Eye Exam: Pupils Equal, Pupils Reactive Neck Neck Exam: Neck Supple, Trachea Midline Pulmonary Resp Exam: Clear Bilaterally, Breath Sounds Equal Cardiology CV Exam: Regular Gastrointestinal/Abdomen GI Exam: Soft, Non-Tender Genitourinary Exam: Clear Urine Integumentary Skin Exam: Clear, Warm, Dry Extremeties Extremities Exam: No Edema Neurologic Neuro Exam: Alert, Awake, Oriented Psychiatric Psych Exam: Appropriate Responses Assessment/Plan Discussed Condition With: Patient Problem List: (1) Acute renal failure Plan: Patient's acute renal insufficiency appears to be improving. Patient's creatinine level now lower today than yesterday without dialytic intervention. Repeat renal function panel tomorrow. If the creatinine level continues to improve will discontinue the Vas-Cath. Interstitial nephritis related to Cipro is suspected and should be avoided in the future. Medications should be adjusted for the patient's estimated GFR if clinically indicated. Avoid agents with significant potential for nephrotoxicity possible including NSAIDs for analgesia, iodine contrast agents. Gadolinium is contraindicated if the GFR is below 30. (2) Hypertension Plan: BP stable. Continue on current regimen (3) Diabetes mellitus Plan: Defer management to primary Problem Qualifiers (1) Hypertension: Qualified Code: I10 - Essential hypertension Mary Garrison MD Jul 09, 2016 17:37
[2016-07-10] VITALS: BP 146/67; PULSE 94; RESP 20; TEMP 98.5; O2SAT 97
[2016-07-10 04:00] VITALS: BP 114/70; PULSE 107; RESP 18; TEMP 98; O2SAT 98
[2016-07-10] MEDS: SODIUM CHLORIDE 0.9% FLUSH 5 ML FLUSH IV FLUSH PRN (05:45)
[2016-07-10] MEDS: PIPERACIL-TAZO 2.25 GM PREMIX 50 ML IV SCH ×3 (05:45→23:39)
[2016-07-10] MEDS: hydrALAZINE HCL 100 MG TAB PO SCH ×3 (05:48→23:38)
[2016-07-10 07:14] LABS: APTT (PATIENT) 49.1 SEC (24.3-30.1)
[2016-07-10 08:00] VITALS: BP 146/70; PULSE 86; RESP 20; TEMP 97.6; O2SAT 94
[2016-07-10] MEDS: CHLORHEXIDINE 0.12% (ORAL KIT) 15 ML CUP MT SCH ×2 (08:00→20:00)
[2016-07-10] MEDS: COLLAGENASE OINT 30 GM TUBE TOP SCH (09:00)
[2016-07-10] MEDS: SODIUM CHLORIDE 0.9% FLUSH 5 ML FLUSH IV FLUSH SCH ×2 (09:00→21:00)
[2016-07-10] MEDS: POLYETHYLENE GLYCOL 17 GM PKG PO SCH ×2 (09:00→21:00)
--- NOTE | 2016-07-10 10:04 | HHI.PR ---
Subjective Remarks Follow-up encephalopathy/HCAP/possible sepsis/hypoglycemia/renal failure requiring dialysis 07/06/16-patient seen and examined, alert and oriented 3 vital stable. Renal function slightly up. Afebrile. APTT elevated and no reported bleed 07/07/16-patient seen and examined; no acute event overnight. Afebrile. Renal indices trending up 07/08/16-patient seen and examined; renal indices worsening. No acute event overnight and denies any shortness of breath or chest pain. 07/09/16-patient seen and examined, improving renal indices. No acute event overnight. Denies any shortness of breath. 07/10/16-patient seen and examined; no acute event overnight. Stable. Afebrile. Objective Vitals Vital Signs Date Time Temp Pulse Resp B/P Pulse Ox O2 Delivery O2 Flow Rate FiO2 07/10/16 04:00 98.0 107 18 114/70 98 07/10/16 00:00 98.5 94 20 146/67 97 07/09/16 20:00 98.0 98 18 155/84 97 07/09/16 20:00 77 07/09/16 16:00 99.3 62 18 106/53 98 07/09/16 12:17 98.0 105 18 141/62 98 07/09/16 11:30 77 I/O 07/09/16 07/09/16 07/09/16 07/10/16 07/10/16 07/10/16 07:00 15:00 23:00 07:00 15:00 23:00 Intake Total 87 ml 480 ml 281 ml 90 ml Output Total 500 ml 700 ml 1600 ml Balance -413 ml -220 ml 281 ml -1510 ml Intake Oral 480 ml 100 ml IV Total 87 ml 181 ml 90 ml Output Urine Total 500 ml 700 ml 1600 ml # Bowel Movements 1 Result Diagram: 07/08/16 0726 07/09/16 0657 Objective Remarks GENERAL: NAD SKIN: Warm and dry. HEAD: Normocephalic. EYES: No scleral icterus. No injection or drainage. NECK: Supple, trachea midline. No JVD or lymphadenopathy. CARDIOVASCULAR: Regular rate and rhythm without murmurs, gallops, or rubs. RESPIRATORY: Breath sounds equal bilaterally. No accessory muscle use. GASTROINTESTINAL: Abdomen soft, non-tender, nondistended. MUSCULOSKELETAL: No cyanosis, or edema. BACK: Nontender without obvious deformity. No CVA tenderness. A/P Problem List: (1) Acute renal failure ICD Code: N17.9 Status: Chronic (2) Protein calorie malnutrition ICD Code: E46 Status: Acute (3) Healthcare-associated pneumonia ICD Code: J18.9 Status: Acute (4) Atrial fibrillation ICD Code: I48.91 Status: Chronic Assessment and Plan 80-year-old female with Toxic/metabolic encephalopathy - resolved. HCAP: Currently on Zosyn and keep oxygen saturation above 92%. Continue to monitor culture Atrial fibrillation with rvr Systolic congestive heart failure, EF 30-35% Currently on diltiazem and metoprolol , digoxin held, patient is renal failure. On heparin drip likely and to bridge to Coumadin when kidney function improved. Appreciate input from cardiology Repeat echo 06/27: LVEF 40-45%, mild RV dysfunction, pulm htn rvsp 60s, dilated IVC , continue heparin drip, switch to Coumadin once okay with nephrology. MARTHA - etiology uncertain: Appreciate input from nephrology.As Renal indices trending down ; continue to hold off on hemodialysis. Per nephrology if renal indices improved, Vas-Cath will be removed as patient would no longer be needed dialysis. Monitor BUN and creatinine. Avoid all nephrotoxic drugs. Patient will likely need renal biopsy to determine etiology of MARTHA Renal ultrasound 06/26: Negative for acute hydronephrosis Acute protein calorie malnutritionmoderate Life-threatening hyperkalemia : Resolved status post treatment Possible sepsis : Resolved Supra-therapeutic anticoagulation Continue Zosyn, 2.25 g IV every 8 hours. - DC Vancomycin Daily CBC Daily coags Continue to hold warfarin in the setting of renal dysfunction. --continue heparin drip Severe life-threatening hypoglycemia- resolved --AC and HS accu checks. --s/p hydrocortisone 50mg iv daily ----> Now on mouth hydrocortisone 10 mg twice a day Sacral decubitus - continue with wound care per protocol. Daily Santyl HTN: Currently normotensive on Cardizem, Toprol, [id number] mg by mouth every 8 hours, labetalol and clonidine when necessary DVT Prophylaxis -- SCDs PT to treat and eval Problem Qualifiers (1) Atrial fibrillation: Qualified Code: I48.2 - Chronic atrial fibrillation Yfn Dodd MD Jul 10, 2016 10:04
[2016-07-10] MEDS: ISOSORBIDE DINITRATE 5 MG TAB PO SCH ×3 (10:26→17:00)
[2016-07-10] MEDS: HYDROCORTISONE 10 MG TAB PO SCH ×2 (10:26→23:38)
[2016-07-10] MEDS: METOPROLOL TARTRATE 100 MG TAB PO SCH (10:27)
[2016-07-10] MEDS: DILTIAZEM-CD 300 MG CAP ER PO SCH (10:27)
[2016-07-10 12:00] VITALS: BP 139/83; PULSE 86; RESP 20; TEMP 95.8; O2SAT 98
[2016-07-10 12:57] LABS: POTASSIUM 3.7 MEQ/L (3.5-5.1)
[2016-07-10 16:00] VITALS: BP 123/59; PULSE 70; RESP 20; TEMP 98.6; O2SAT 96
--- NOTE | 2016-07-10 17:35 | HHI.NPPN ---
Subjective History of Present Illness The patient is an 80 yo AA female who was brought in today for AMS from her nursing facility, [facility]. It was found that she was profoundly hypoglycemia and was given D50 thru her I/O access. She was recently admitted here at the end of May with A fib and was started on Coumadin and low dose Lisinopril 2.5mg QD at that time. Home medication list was reviewed that showed no NSAIDs or outwardly nephrotoxic medications. She has been on Cipro for what is assumed to be a urinary tract infection. The patient herself is very lethargic and no meaningful information can be obtained from her. Admitting SCr at 5.65 that worsened to 5.84 Admitting K+ was 5.9 that worsened to 6.2---this was treated with dextrose, insulin, and Kayexalate. Interval History Pt feeling well. Family present in room. (Lucy Dickerson) Objective Data Data 07/09/16 07/10/16 19:00 07:00 Intake Total 480 ml 371 ml Output Total 700 ml 1600 ml Balance -220 ml -1229 ml Intake Oral 480 ml 100 ml IV Total 271 ml Output Urine Total 700 ml 1600 ml # Bowel Movements 1 Vital Signs Date Time Temp Pulse Resp B/P Pulse Ox O2 Delivery O2 Flow Rate FiO2 07/10/16 12:00 95.8 86 20 139/83 98 07/10/16 08:00 97.6 86 20 146/70 94 07/10/16 04:00 98.0 107 18 114/70 98 07/10/16 00:00 98.5 94 20 146/67 97 07/09/16 20:00 98.0 98 18 155/84 97 07/09/16 20:00 77 (Lucy Dickerson) -: 07/08/16 0726 07/10/16 1207 Tubes & Lines: Vas-Cath Medication Review Current Medications Medications (Trade) Dose Ordered Sig/Abigail Route Start Time Stop Time Status Last Admin (Lopressor) 100 mg DAILY PO 06/26/16 11:00 07/10/16 10:27 (NS Flush) 2 ml UNSCH PRN IV FLUSH 06/26/16 11:15 07/10/16 05:45 (NS Flush) 2 ml BID IV FLUSH 1/5/17 21:00 07/10/16 09:00 (Zofran Inj) 4 mg Q6H PRN IV 06/26/16 11:15 Miscellaneous Information 1 Q361D XX 06/26/16 11:15 (Peridex 0.12% Liq) 15 ml BID@08,20 MT 06/26/16 20:00 07/04/16 08:00 Polyethylene Glycol 17 gm 17 gm BID PO 06/26/16 21:00 07/08/16 21:51 (Zosyn 2.25 Gm Premix) 50 ml @ 100 mls/hr Q8H IV 06/26/16 22:00 07/10/16 14:50 (Trandate Inj) 10 mg Q1H PRN IV PUSH 06/26/16 14:45 07/04/16 07:06 Miscellaneous Information Patient in critical care unit? Ass... Q361D XX 06/27/16 01:45 06/27/16 01:45 (Heparin-D5W Inj) 250 ml @ 0 mls/hr TITRATE IV 06/29/16 18:15 07/08/16 08:28 (Heparin Inj) 5,000 units UNSCH PRN IV 06/29/16 18:15 (Heparin Inj) 2,500 units UNSCH PRN IV 06/29/16 18:15 (D50w (Vial) Inj) 25 ml UNSCH PRN IV PUSH 06/30/16 00:15 Glucagon 1 mg 1 mg UNSCH PRN OTHER 06/30/16 00:15 (NS 1000 ml Inj) 1,000 ml @ 0 mls/hr Q0M PRN IV 07/01/16 17:06 07/04/16 14:50 Heparin Sodium (Porcine) 8000 units 8,000 units UNSCH PRN IVF 07/01/16 17:15 Sodium Chloride 1,000 ml @ 200 mls/hr Q5H PRN IV 07/01/16 17:06 (NS 1000 ml Inj) 1,000 ml @ 0 mls/hr Q0M PRN IV 07/01/16 17:06 07/04/16 14:50 (Mannitol Inj) 12.5 gm UNSCH PRN IV 07/01/16 17:15 (Albumin 25% Inj) 25 gm UNSCH PRN IV 07/01/16 17:15 07/02/16 13:06 (NS Flush) 5 ml UNSCH PRN IVF 07/01/16 17:15 07/04/16 14:51 (Heparin Inj) UNSCH PRN .XX 07/01/16 17:15 07/06/16 10:00 (Gentamicin (Dialysis) Inj) 20 mg UNSCH PRN IV 07/01/16 17:15 07/04/16 14:51 (Zofran Inj) 4 mg UNSCH PRN IV 07/01/16 17:15 (Tylenol) 650 mg UNSCH PRN PO 07/01/16 17:15 (Benadryl) 25 mg UNSCH PRN PO 07/01/16 17:15 (Nitrostat Sl) 0.4 mg UNSCH PRN SL 07/01/16 17:15 (Catapres) 0.1 mg UNSCH PRN PO 07/01/16 17:15 07/03/16 10:21 (Gelfoam 12 Mm/7 Mm Top) 1 foam UNSCH PRN TOP 07/01/16 17:15 (Santyl Oint) 1 applic DAILY TOP 07/03/16 09:00 07/10/16 09:00 (Isordil) 5 mg TIDAC PO 07/04/16 08:00 07/10/16 14:49 (Apresoline) 100 mg Q8HR PO 07/04/16 14:00 07/10/16 14:49 (Cardizem Cd) 300 mg DAILY PO 07/05/16 09:00 07/10/16 10:27 (Cortef) 10 mg Q12H PO 07/09/16 09:00 07/10/16 10:26 (Lucy Dickerson) Physical Exam General Appearance: Comfortable (Lucy Dickerson) Eyes Eye Exam: Pupils Equal, Pupils Reactive (Lucy Dickerson) Neck Neck Exam: Neck Supple, Trachea Midline (Lucy Dickerson) Pulmonary Resp Exam: Clear Bilaterally, Breath Sounds Equal (Lucy Dickerson) Cardiology CV Exam: Regular (Lucy Dickerson) Gastrointestinal/Abdomen GI Exam: Soft, Non-Tender (Lucy Dickerson) Genitourinary Exam: Clear Urine (Lucy Dickerson) Integumentary Skin Exam: Clear, Warm, Dry (Lucy Dickerson) Extremeties Extremities Exam: No Edema (Lucy Dickerson) Neurologic Neuro Exam: Alert, Awake, Oriented (Lucy Dickerson) Psychiatric Psych Exam: Appropriate Responses (Lucy Dickerson) Assessment/Plan Discussed Condition With: Patient Problem List: (1) Acute renal failure Plan: ARF suspected to be from interstitial nephritis related to Cipro . This should be avoided in the future. Discussed with the patient and her daughter. SCr continues to improve. Will discontinue HD. Discussed with RN to remove VasCath and place pressure dressing. OK to be discharged from a renal standpoint. To have BMP drawn in 1 week after discharge and to f/u with us in office in 2 weeks. As discussed with the patient, remains to be seen where her renal functions will stabilize and she may have sustained permanent injury to her kidneys. Medications should be adjusted for the patient's estimated GFR if clinically indicated. Avoid agents with significant potential for nephrotoxicity possible including NSAIDs for analgesia, iodine contrast agents. Gadolinium is contraindicated if the GFR is below 30. (2) Hypertension Plan: BP stable. Continue on current regimen (3) Diabetes mellitus Plan: Defer management to primary (Lucy Dickerson) Plan The exam, history, and the medical decision-making described in the above note were completed with the assistance of the KAREL. I reviewed and agree with the findings presented. (Mary Garrison MD) Problem Qualifiers (1) Hypertension: Qualified Code: I10 - Essential hypertension Lucy Dickerson Jul 10, 2016 17:35 Mary Garrison MD Jul 11, 2016 11:11
[2016-07-10] MEDS ORDERED: DEXTROSE 50% IN WATER 50 ML VIAL(D50) IV PUSH PRN (18:45)
[2016-07-10] MEDS ORDERED: GLUCAGON 1 MG/ML VIAL OTHER PRN (18:45)
[2016-07-10] MEDS: INSULIN ASPART SUPPLEMENTAL SCALE SQ SCH (21:00)
[2016-07-10 22:30] VITALS: BP 118/58; PULSE 72; RESP 18; TEMP 98.1; O2SAT 93
[2016-07-11] VITALS (8 sets, daily range): BP systolic 112–141; BP diastolic 61–76; PULSE 69–97; RESP 18–20; TEMP 97.1–98.5; O2SAT 94–100
[2016-07-11] MEDS: HEPARIN 25,000 UNITS-D5W 250 ML - PREMIX IV SCH (02:37)
[2016-07-11 06:03] LABS: HEMATOCRIT 28.9 % (35.0-46.0); MEAN CELL VOLUME 87.1 FL (80.0-100.0); MEAN CORPUSCULAR HEMOGLOBIN 28.4 PG (27.0-34.0); MEAN CORPUSCULAR HGB CONC 32.6 % (32.0-36.0); PLATELET COUNT 142 TH/MM3 (150-450); RED BLOOD COUNT 3.32 MIL/MM3 (4.00-5.30); RED CELL DISTRIBUTION WIDTH 15.1 % (11.6-17.2); REVIEW FLAG FINAL; WHITE BLOOD COUNT 9.1 TH/MM3 (4.0-11.0)
[2016-07-11 06:11] LABS: APTT (PATIENT) 48.3 SEC (24.3-30.1)
[2016-07-11 06:25] LABS: BICARBONATE 29.8 MEQ/L (21.0-32.0); POTASSIUM 3.7 MEQ/L (3.5-5.1)
[2016-07-11] MEDS: INSULIN ASPART SUPPLEMENTAL SCALE SQ SCH ×4 (06:43→21:00)
[2016-07-11] MEDS: hydrALAZINE HCL 100 MG TAB PO SCH ×3 (06:44→21:01)
[2016-07-11] MEDS: PIPERACIL-TAZO 2.25 GM PREMIX 50 ML IV SCH ×3 (06:45→21:41)
[2016-07-11] MEDS: CHLORHEXIDINE 0.12% (ORAL KIT) 15 ML CUP MT SCH ×2 (08:00→20:00)
[2016-07-11] MEDS: METOPROLOL TARTRATE 100 MG TAB PO SCH (08:59)
[2016-07-11] MEDS: DILTIAZEM-CD 300 MG CAP ER PO SCH (08:59)
[2016-07-11] MEDS: HYDROCORTISONE 10 MG TAB PO SCH ×2 (08:59→21:01)
[2016-07-11] MEDS: ISOSORBIDE DINITRATE 5 MG TAB PO SCH ×3 (08:59→16:51)
[2016-07-11] MEDS: SODIUM CHLORIDE 0.9% FLUSH 5 ML FLUSH IV FLUSH SCH ×2 (08:59→21:00)
[2016-07-11] MEDS: COLLAGENASE OINT 30 GM TUBE TOP SCH (09:00)
[2016-07-11] MEDS: POLYETHYLENE GLYCOL 17 GM PKG PO SCH ×2 (09:00→21:00)
--- NOTE | 2016-07-11 12:42 | HHI.PR ---
Subjective Remarks Follow-up encephalopathy/HCAP/possible sepsis/hypoglycemia/renal failure requiring dialysis 07/06/16-patient seen and examined, alert and oriented 3 vital stable. Renal function slightly up. Afebrile. APTT elevated and no reported bleed 07/07/16-patient seen and examined; no acute event overnight. Afebrile. Renal indices trending up 07/08/16-patient seen and examined; renal indices worsening. No acute event overnight and denies any shortness of breath or chest pain. 07/09/16-patient seen and examined, improving renal indices. No acute event overnight. Denies any shortness of breath. 07/10/16-patient seen and examined; no acute event overnight. Stable. Afebrile. 07/11/16-patient seen and examined; she has significant improvement of renal indices. No acute event overnight. Denies any chest pain or shortness of breath. Objective Vitals Vital Signs Date Time Temp Pulse Resp B/P Pulse Ox O2 Delivery O2 Flow Rate FiO2 07/11/16 12:27 97.1 76 20 112/68 100 07/11/16 08:55 97.4 93 20 133/76 99 07/11/16 08:00 79 07/11/16 04:00 98.5 97 18 141/64 94 07/11/16 00:00 98.5 81 18 114/67 95 07/10/16 22:30 98.1 72 18 118/58 93 07/10/16 16:00 98.6 70 20 123/59 96 I/O 07/10/16 07/10/16 07/10/16 07/11/16 07/11/16 07/11/16 07:00 15:00 23:00 07:00 15:00 23:00 Intake Total 90 ml 480 ml 841 ml 81 ml Output Total 1600 ml 1200 ml 850 ml Balance -1510 ml 480 ml -359 ml -769 ml Intake Oral 480 ml 500 ml IV Total 90 ml 341 ml 81 ml Output Urine Total 1600 ml 1200 ml 850 ml # Voids 2 # Bowel Movements 1 0 Result Diagram: 07/11/16 0525 07/11/16 0525 Imaging Last Impressions Chest X-Ray 06/29/16 0000 Signed Impressions: Service Date/Time: Wednesday, June 29, 2016 14:51 - CONCLUSION: 1. Mild central pulmonary vascular congestion. 2. Marked cardiomegaly. 3. Right internal jugular Vas cath has its tip in the right atrium. There is no pneumothorax. 4. Degenerative changes and scoliosis of the thoracolumbar spine. 5. Degenerative changes involving the shoulders bilaterally. Konstantin Dunbar MD Head CT 06/26/16 0646 Signed Impressions: Service Date/Time: June 08:48 - CONCLUSION: 1. No acute abnormality identified. Stable compared to prior exam dated 06/11/16. Abram Rivera MD Renal Ultrasound 06/26/16 0000 Signed Impressions: Service Date/Time: June 10:59 - CONCLUSION: Kidneys are slightly echogenic which can be seen with medical renal disease. Yfn Santillan MD Objective Remarks GENERAL: NAD SKIN: Warm and dry. HEAD: Normocephalic. EYES: No scleral icterus. No injection or drainage. NECK: Supple, trachea midline. No JVD or lymphadenopathy. CARDIOVASCULAR: Regular rate and rhythm without murmurs, gallops, or rubs. RESPIRATORY: Breath sounds equal bilaterally. No accessory muscle use. GASTROINTESTINAL: Abdomen soft, non-tender, nondistended. MUSCULOSKELETAL: No cyanosis, or edema. BACK: Nontender without obvious deformity. No CVA tenderness. Procedures Vas-Cath placement and removal A/P Problem List: (1) Acute renal failure ICD Code: N17.9 Status: Chronic (2) Protein calorie malnutrition ICD Code: E46 Status: Acute (3) Healthcare-associated pneumonia ICD Code: J18.9 Status: Acute (4) Atrial fibrillation ICD Code: I48.91 Status: Chronic Assessment and Plan 80-year-old female with Toxic/metabolic encephalopathy - resolved. HCAP: Currently on Zosyn and keep oxygen saturation above 92%. Continue to monitor culture Atrial fibrillation with rvr Systolic congestive heart failure, EF 30-35% Currently on diltiazem and metoprolol , digoxin held, patient is renal failure. On heparin drip likely and to bridge to Coumadin when kidney function improved. Appreciate input from cardiology Repeat echo 06/27: LVEF 40-45%, mild RV dysfunction, pulm htn rvsp 60s, dilated IVC , continue heparin drip and resume Coumadin today 07/11/16 MARTHA - etiology uncertain: Appreciate input from nephrology.As Renal indices trending down ; patient no longer requires hemodialysis therefore Vas cath has been removed. Appreciate input from nephrology will sign off. Monitor BUN and creatinine. Avoid all nephrotoxic drugs. Patient will likely need renal biopsy to determine etiology of MARTHA Renal ultrasound 06/26: Negative for acute hydronephrosis Acute protein calorie malnutritionmoderate Life-threatening hyperkalemia : Resolved status post treatment Possible sepsis : Resolved Supra-therapeutic anticoagulation Continue Zosyn, 2.25 g IV every 8 hours. - DC Vancomycin Daily CBC Daily coags Resume warfarin today 07/11/16 --continue heparin drip Severe life-threatening hypoglycemia- resolved --AC and HS accu checks. --s/p hydrocortisone 50mg iv daily ----> Now on mouth hydrocortisone 10 mg twice a day Sacral decubitus - continue with wound care per protocol. Daily Santyl HTN: Currently normotensive on Cardizem, Toprol, [id number] mg by mouth every 8 hours, labetalol and clonidine when necessary DVT Prophylaxis -- SCDs PT to treat and eval Problem Qualifiers (1) Atrial fibrillation: Qualified Code: I48.2 - Chronic atrial fibrillation Yfn Dodd MD Jul 11, 2016 12:42
[2016-07-11] MEDS ORDERED: DILT300C3 PO (12:46)
[2016-07-11] MEDS ORDERED: METO-338 PO (12:46)
[2016-07-11] MEDS ORDERED: ISOS1TAB PO (12:46)
[2016-07-11] MEDS ORDERED: hydrALAZINE PO (12:46)
[2016-07-11] MEDS ORDERED: WARFARIN SOD 3 MG TAB PO SCH (16:00)
[2016-07-11 21:38] LABS: PROTHROMBIN TIME - PATIENT 11.6 SEC (9.8-11.6)
[2016-07-11] MEDS: WARFARIN SOD 3 MG TAB PO SCH (22:34)
[2016-07-12] VITALS (8 sets, daily range): BP systolic 120–158; BP diastolic 67–76; PULSE 68–101; RESP 17–19; TEMP 96.9–98.8; O2SAT 94–100
[2016-07-12] MEDS: HEPARIN 25,000 UNITS-D5W 250 ML - PREMIX IV SCH (03:02)
[2016-07-12] MEDS: hydrALAZINE HCL 100 MG TAB PO SCH ×3 (04:58→23:05)
[2016-07-12] MEDS: PIPERACIL-TAZO 2.25 GM PREMIX 50 ML IV SCH ×3 (05:00→23:06)
[2016-07-12] MEDS: INSULIN ASPART SUPPLEMENTAL SCALE SQ SCH ×4 (05:00→23:05)
[2016-07-12] MEDS: CHLORHEXIDINE 0.12% (ORAL KIT) 15 ML CUP MT SCH ×2 (08:00→20:00)
[2016-07-12] MEDS: HYDROCORTISONE 10 MG TAB PO SCH ×2 (08:21→23:05)
[2016-07-12] MEDS: SODIUM CHLORIDE 0.9% FLUSH 5 ML FLUSH IV FLUSH SCH ×2 (08:21→23:06)
[2016-07-12] MEDS: METOPROLOL TARTRATE 100 MG TAB PO SCH (08:21)
[2016-07-12] MEDS: DILTIAZEM-CD 300 MG CAP ER PO SCH (08:21)
[2016-07-12] MEDS: COLLAGENASE OINT 30 GM TUBE TOP SCH (08:22)
[2016-07-12] MEDS: ISOSORBIDE DINITRATE 5 MG TAB PO SCH ×3 (08:24→16:15)
[2016-07-12] MEDS: POLYETHYLENE GLYCOL 17 GM PKG PO SCH ×2 (08:25→23:04)
--- NOTE | 2016-07-12 10:12 | HHI.PR ---
Subjective Remarks Follow-up encephalopathy/HCAP/possible sepsis/hypoglycemia/renal failure requiring dialysis 07/06/16-patient seen and examined, alert and oriented 3 vital stable. Renal function slightly up. Afebrile. APTT elevated and no reported bleed 07/07/16-patient seen and examined; no acute event overnight. Afebrile. Renal indices trending up 07/08/16-patient seen and examined; renal indices worsening. No acute event overnight and denies any shortness of breath or chest pain. 07/09/16-patient seen and examined, improving renal indices. No acute event overnight. Denies any shortness of breath. 07/10/16-patient seen and examined; no acute event overnight. Stable. Afebrile. 07/11/16-patient seen and examined; she has significant improvement of renal indices. No acute event overnight. Denies any chest pain or shortness of breath. 07/12/16-patient seen and examined, stable. No complaint. Afebrile. He is discussed this case aide. Objective Vitals Vital Signs Date Time Temp Pulse Resp B/P Pulse Ox O2 Delivery O2 Flow Rate FiO2 07/12/16 07:10 98.1 101 18 152/76 97 07/12/16 05:00 98.1 68 17 120/71 97 07/12/16 00:00 97.9 71 19 120/67 96 07/11/16 20:45 98.1 69 18 125/69 95 07/11/16 20:00 70 07/11/16 16:00 98.1 78 20 119/61 100 07/11/16 12:27 97.1 76 20 112/68 100 I/O 07/11/16 07/11/16 07/11/16 07/12/16 07/12/16 07/12/16 07:00 15:00 23:00 07:00 15:00 23:00 Intake Total 81 ml 120 ml 500 ml 500 ml Output Total 850 ml 350 ml 300 ml 900 ml Balance -769 ml -230 ml 200 ml -400 ml Intake Oral 120 ml 500 ml 500 ml IV Total 81 ml Output Urine Total 850 ml 350 ml 300 ml 900 ml # Bowel Movements 0 0 Result Diagram: 07/11/1652407/11/16524 Objective Remarks GENERAL: NAD SKIN: Warm and dry. HEAD: Normocephalic. EYES: No scleral icterus. No injection or drainage. NECK: Supple, trachea midline. No JVD or lymphadenopathy. CARDIOVASCULAR: Regular rate and rhythm without murmurs, gallops, or rubs. RESPIRATORY: Breath sounds equal bilaterally. No accessory muscle use. GASTROINTESTINAL: Abdomen soft, non-tender, nondistended. MUSCULOSKELETAL: No cyanosis, or edema. BACK: Nontender without obvious deformity. No CVA tenderness. Procedures Vas-Cath placement and removal A/P Problem List: (1) Acute renal failure ICD Code: N17.9 Status: Chronic (2) Protein calorie malnutrition ICD Code: E46 Status: Acute (3) Healthcare-associated pneumonia ICD Code: J18.9 Status: Acute (4) Atrial fibrillation ICD Code: I48.91 Status: Chronic Assessment and Plan 80-year-old female with Toxic/metabolic encephalopathy - resolved. HCAP: Currently on Zosyn and keep oxygen saturation above 92%. Continue to monitor culture Atrial fibrillation with rvr Systolic congestive heart failure, EF 30-35% Currently on diltiazem and metoprolol , digoxin held, patient is renal failure. On heparin drip and Coumadin . Appreciate input from cardiology Repeat echo 06/27: LVEF 40-45%, mild RV dysfunction, pulm htn rvsp 60s, dilated IVC , currently on heparin drip bridge with Coumadin. INR 1.0 today MARTHA - etiology uncertain: Appreciate input from nephrology.As Renal indices trending down ; patient no longer requires hemodialysis therefore Vas cath has been removed. Appreciate input from nephrology will sign off. Monitor BUN and creatinine. Avoid all nephrotoxic drugs. Patient will likely need renal biopsy to determine etiology of MARTHA Renal ultrasound 06/26: Negative for acute hydronephrosis Acute protein calorie malnutritionmoderate Life-threatening hyperkalemia : Resolved status post treatment Possible sepsis : Resolved Supra-therapeutic anticoagulation Continue Zosyn, 2.25 g IV every 8 hours. - s/p Vancomycin Daily CBC Daily coags Resume warfarin today 07/11/16 --continue heparin drip Severe life-threatening hypoglycemia- resolved --AC and HS accu checks. --s/p hydrocortisone 50mg iv daily ----> Now on mouth hydrocortisone 10 mg twice a day Sacral decubitus - continue with wound care per protocol. Daily Santyl HTN: Currently normotensive on Cardizem, Toprol, [id number] mg by mouth every 8 hours, labetalol and clonidine when necessary DVT Prophylaxis -- SCDs PT to treat and eval Problem Qualifiers (1) Atrial fibrillation: Qualified Code: I48.2 - Chronic atrial fibrillation Yfn Dodd MD Jul 12, 2016 10:12
[2016-07-12 10:34] LABS: PROTHROMBIN TIME - PATIENT 11.4 SEC (9.8-11.6)
[2016-07-12 10:43] LABS: APTT (PATIENT) 51.1 SEC (24.3-30.1)
[2016-07-12] MEDS: WARFARIN SOD 3 MG TAB PO SCH (16:16)
[2016-07-13] VITALS (9 sets, daily range): BP systolic 116–164; BP diastolic 65–93; PULSE 70–110; RESP 17–21; TEMP 96.1–100.6; O2SAT 95–98
[2016-07-13] MEDS: HEPARIN 25,000 UNITS-D5W 250 ML - PREMIX IV SCH (03:24)
[2016-07-13] MEDS: hydrALAZINE HCL 100 MG TAB PO SCH ×3 (06:55→21:14)
[2016-07-13] MEDS: INSULIN ASPART SUPPLEMENTAL SCALE SQ SCH ×4 (06:55→21:00)
[2016-07-13] MEDS: PIPERACIL-TAZO 2.25 GM PREMIX 50 ML IV SCH ×3 (06:58→21:14)
[2016-07-13 08:12] LABS: APTT (PATIENT) 55.3 SEC (24.3-30.1); INTERNATIONAL NORMALIZED RATIO 1.1 RATIO; PROTHROMBIN TIME - PATIENT 11.9 SEC (9.8-11.6)
[2016-07-13 08:16] LABS: BICARBONATE 30.7 MEQ/L (21.0-32.0); POTASSIUM 3.3 MEQ/L (3.5-5.1)
[2016-07-13] MEDS: METOPROLOL TARTRATE 100 MG TAB PO SCH (08:16)
[2016-07-13] MEDS: HYDROCORTISONE 10 MG TAB PO SCH ×2 (08:17→21:15)
[2016-07-13] MEDS: POLYETHYLENE GLYCOL 17 GM PKG PO SCH ×2 (08:17→21:14)
[2016-07-13] MEDS: DILTIAZEM-CD 300 MG CAP ER PO SCH (08:17)
[2016-07-13] MEDS: ISOSORBIDE DINITRATE 5 MG TAB PO SCH ×3 (08:19→16:02)
[2016-07-13] MEDS: SODIUM CHLORIDE 0.9% FLUSH 5 ML FLUSH IV FLUSH SCH ×2 (08:20→21:14)
--- NOTE | 2016-07-13 11:12 | HHI.PR ---
Subjective Remarks Follow-up encephalopathy/HCAP/possible sepsis/hypoglycemia/renal failure requiring dialysis 07/06/16-patient seen and examined, alert and oriented 3 vital stable. Renal function slightly up. Afebrile. APTT elevated and no reported bleed 07/07/16-patient seen and examined; no acute event overnight. Afebrile. Renal indices trending up 07/08/16-patient seen and examined; renal indices worsening. No acute event overnight and denies any shortness of breath or chest pain. 07/09/16-patient seen and examined, improving renal indices. No acute event overnight. Denies any shortness of breath. 07/10/16-patient seen and examined; no acute event overnight. Stable. Afebrile. 07/11/16-patient seen and examined; she has significant improvement of renal indices. No acute event overnight. Denies any chest pain or shortness of breath. 07/12/16-patient seen and examined, stable. No complaint. Afebrile. He is discussed this case repairer. 07/13/16-patient seen and examined. No complaint, INR still subtherapeutic. Currently afebrile Objective Vitals Vital Signs Date Time Temp Pulse Resp B/P Pulse Ox O2 Delivery O2 Flow Rate FiO2 07/13/16 08:20 96.1 105 18 145/68 97 07/13/16 04:00 98.8 97 18 147/80 98 07/13/16 00:00 98.8 94 18 147/80 98 07/12/16 21:29 90 18 158/75 97 07/12/16 20:00 98.8 96 18 158/75 100 07/12/16 16:58 96.9 89 18 151/70 94 07/12/16 12:11 98.2 82 18 155/75 97 07/12/16 11:57 84 I/O 07/12/16 07/12/16 07/12/16 07/13/16 07/13/16 07/13/16 07:00 15:00 23:00 07:00 15:00 23:00 Intake Total 500 ml 240 ml Output Total 900 ml 725 ml 770 ml 250 ml Balance -400 ml -725 ml -770 ml -250 ml 240 ml Intake Oral 500 ml 240 ml Output Urine Total 900 ml 725 ml 770 ml 250 ml # Bowel Movements 0 Result Diagram: 07/11/16 0525 07/13/16 0724 Objective Remarks GENERAL: NAD SKIN: Warm and dry. HEAD: Normocephalic. EYES: No scleral icterus. No injection or drainage. NECK: Supple, trachea midline. No JVD or lymphadenopathy. CARDIOVASCULAR: Regular rate and rhythm without murmurs, gallops, or rubs. RESPIRATORY: Breath sounds equal bilaterally. No accessory muscle use. GASTROINTESTINAL: Abdomen soft, non-tender, nondistended. MUSCULOSKELETAL: No cyanosis, or edema. BACK: Nontender without obvious deformity. No CVA tenderness. Procedures Vas-Cath placement and removal A/P Problem List: (1) Acute renal failure ICD Code: N17.9 Status: Chronic (2) Protein calorie malnutrition ICD Code: E46 Status: Acute (3) Healthcare-associated pneumonia ICD Code: J18.9 Status: Acute (4) Atrial fibrillation ICD Code: I48.91 Status: Chronic Assessment and Plan 80-year-old female with Toxic/metabolic encephalopathy - resolved. HCAP: Currently on Zosyn and keep oxygen saturation above 92%. Blood culture negative. Will discontinue antibiotics 07/14/16 Atrial fibrillation with rvr Systolic congestive heart failure, EF 30-35% Currently on diltiazem and metoprolol , digoxin held, patient is renal failure. On heparin drip and Coumadin . Appreciate input from cardiology Repeat echo 06/27: LVEF 40-45%, mild RV dysfunction, pulm htn rvsp 60s, dilated IVC , currently on heparin drip bridge with Coumadin. INR 1.0 today MARTHA - etiology uncertain: Appreciate input from nephrology.As Renal indices trending down ; patient no longer requires hemodialysis therefore Vas cath has been removed. Appreciate input from nephrology who signed off. Monitor BUN and creatinine. Avoid all nephrotoxic drugs. Patient will likely need renal biopsy to determine etiology of MARTHA Renal ultrasound 06/26: Negative for acute hydronephrosis Acute protein calorie malnutritionmoderate Life-threatening hyperkalemia : Resolved status post treatment Possible sepsis : Resolved Supra-therapeutic anticoagulation Continue Zosyn, 2.25 g IV every 8 hours. - s/p Vancomycin. Plan to discontinue antibiotic-Zosyn 07/14/16 Daily CBC Daily coags Currently on warfarin and monitor INR/PT --continue heparin drip Severe life-threatening hypoglycemia- resolved --AC and HS accu checks. --s/p hydrocortisone 50mg iv daily ----> Now on mouth hydrocortisone 10 mg twice a day Sacral decubitus - continue with wound care per protocol. Daily Santyl HTN: Currently normotensive on Cardizem, Toprol, [id number] mg by mouth every 8 hours, labetalol and clonidine when necessary DVT Prophylaxis -- SCDs PT to treat and eval Problem Qualifiers (1) Atrial fibrillation: Qualified Code: I48.2 - Chronic atrial fibrillation Yfn Dodd MD Jul 13, 2016 11:12
[2016-07-13] MEDS: WARFARIN SOD 3 MG TAB PO SCH (16:02)
[2016-07-13] MEDS: COLLAGENASE OINT 30 GM TUBE TOP SCH (16:04)
[2016-07-13] MEDS: CHLORHEXIDINE 0.12% (ORAL KIT) 15 ML CUP MT SCH (20:00)
[2016-07-13] MEDS: ACETAMINOPHEN 325 MG TAB PO PRN (22:34)
[2016-07-14] VITALS (7 sets, daily range): BP systolic 107–140; BP diastolic 56–66; PULSE 73–97; RESP 17–21; TEMP 96.9–99.2; O2SAT 95–99
[2016-07-14] MEDS: HEPARIN 25,000 UNITS-D5W 250 ML - PREMIX IV SCH (04:46)
[2016-07-14] MEDS: hydrALAZINE HCL 100 MG TAB PO SCH ×3 (05:10→21:04)
[2016-07-14] MEDS: PIPERACIL-TAZO 2.25 GM PREMIX 50 ML IV SCH ×3 (05:10→21:03)
[2016-07-14] MEDS: INSULIN ASPART SUPPLEMENTAL SCALE SQ SCH ×4 (06:15→21:08)
[2016-07-14] MEDS: CHLORHEXIDINE 0.12% (ORAL KIT) 15 ML CUP MT SCH ×2 (08:00→20:00)
[2016-07-14 08:44] LABS: HEMATOCRIT 30.4 % (35.0-46.0); MEAN CELL VOLUME 87.3 FL (80.0-100.0); MEAN CORPUSCULAR HEMOGLOBIN 27.7 PG (27.0-34.0); MEAN CORPUSCULAR HGB CONC 31.7 % (32.0-36.0); PLATELET COUNT 118 TH/MM3 (150-450); RED BLOOD COUNT 3.49 MIL/MM3 (4.00-5.30); RED CELL DISTRIBUTION WIDTH 15.4 % (11.6-17.2); REVIEW FLAG FINAL; WHITE BLOOD COUNT 9.3 TH/MM3 (4.0-11.0)
[2016-07-14 08:52] LABS: APTT (PATIENT) 56.6 SEC (24.3-30.1); INTERNATIONAL NORMALIZED RATIO 1.1 RATIO; PROTHROMBIN TIME - PATIENT 12.3 SEC (9.8-11.6)
[2016-07-14] MEDS: POLYETHYLENE GLYCOL 17 GM PKG PO SCH ×2 (09:00→21:00)
[2016-07-14] MEDS: DILTIAZEM-CD 300 MG CAP ER PO SCH (10:21)
[2016-07-14] MEDS: HYDROCORTISONE 10 MG TAB PO SCH ×2 (10:21→21:04)
[2016-07-14] MEDS: ISOSORBIDE DINITRATE 5 MG TAB PO SCH ×3 (10:21→16:10)
[2016-07-14] MEDS: METOPROLOL TARTRATE 100 MG TAB PO SCH (10:21)
[2016-07-14] MEDS: SODIUM CHLORIDE 0.9% FLUSH 5 ML FLUSH IV FLUSH SCH ×2 (10:22→21:08)
[2016-07-14] MEDS: COLLAGENASE OINT 30 GM TUBE TOP SCH (10:23)
--- NOTE | 2016-07-14 11:47 | HHI.PR ---
Subjective Remarks Follow-up encephalopathy/HCAP/possible sepsis/hypoglycemia/renal failure requiring dialysis 07/06/16-patient seen and examined, alert and oriented 3 vital stable. Renal function slightly up. Afebrile. APTT elevated and no reported bleed 07/07/16-patient seen and examined; no acute event overnight. Afebrile. Renal indices trending up 07/08/16-patient seen and examined; renal indices worsening. No acute event overnight and denies any shortness of breath or chest pain. 07/09/16-patient seen and examined, improving renal indices. No acute event overnight. Denies any shortness of breath. 07/10/16-patient seen and examined; no acute event overnight. Stable. Afebrile. 07/11/16-patient seen and examined; she has significant improvement of renal indices. No acute event overnight. Denies any chest pain or shortness of breath. 07/12/16-patient seen and examined, stable. No complaint. Afebrile. He is discussed this ed case manager. 07/13/16-patient seen and examined. No complaint, INR still subtherapeutic. Currently afebrile 07/14/16-patient seen and examined, did complain of left arm paresthesia/ weakness yesterday however resolved. She states, she didn't feel like doing anything yesterday. Currently afebrile. INR still subtherapeutic Objective Vitals Vital Signs Date Time Temp Pulse Resp B/P Pulse Ox O2 Delivery O2 Flow Rate FiO2 07/14/16 08:00 98.0 97 17 140/66 95 07/14/16 05:01 99.2 88 21 119/56 97 07/13/16 23:57 98.4 97 21 146/65 97 07/13/16 23:40 18 07/13/16 21:40 76 07/13/16 20:41 100.6 101 20 164/93 95 07/13/16 16:00 98.0 70 17 149/65 95 07/13/16 12:00 97.2 110 18 116/81 95 I/O 07/13/16 07/13/16 07/13/16 07/14/16 07/14/16 07/14/16 07:00 15:00 23:00 07:00 15:00 23:00 Intake Total 240 ml Output Total 250 ml 1000 ml 500 ml Balance -250 ml 240 ml -1000 ml -500 ml Intake Oral 240 ml Output Urine Total 250 ml 1000 ml 500 ml # Voids 1 # Bowel Movements 0 Result Diagram: 07/14/16 0812 07/13/16 0724 Objective Remarks GENERAL: NAD SKIN: Warm and dry. HEAD: Normocephalic. EYES: No scleral icterus. No injection or drainage. NECK: Supple, trachea midline. No JVD or lymphadenopathy. CARDIOVASCULAR: Regular rate and rhythm without murmurs, gallops, or rubs. RESPIRATORY: Breath sounds equal bilaterally. No accessory muscle use. GASTROINTESTINAL: Abdomen soft, non-tender, nondistended. MUSCULOSKELETAL: No cyanosis, or edema. BACK: Nontender without obvious deformity. No CVA tenderness. Procedures Vas-Cath placement and removal A/P Problem List: (1) Acute renal failure ICD Code: N17.9 Status: Chronic (2) Protein calorie malnutrition ICD Code: E46 Status: Acute (3) Healthcare-associated pneumonia ICD Code: J18.9 Status: Acute (4) Atrial fibrillation ICD Code: I48.91 Status: Chronic Assessment and Plan 80-year-old female with Toxic/metabolic encephalopathy - resolved. HCAP: Currently on Zosyn and keep oxygen saturation above 92%. Blood culture negative. Discontinue Zosyn today 07/14/16 Atrial fibrillation with rvr Systolic congestive heart failure, EF 30-35% Currently on diltiazem and metoprolol , digoxin held, patient is renal failure. On heparin drip and Coumadin . Appreciate input from cardiology Repeat echo 06/27: LVEF 40-45%, mild RV dysfunction, pulm htn rvsp 60s, dilated IVC , currently on heparin drip bridge with Coumadin. INR 1.1 today MARTHA - etiology uncertain: Appreciate input from nephrology.As Renal indices significantly improving ; patient no longer requires hemodialysis therefore Vas cath has been removed. Appreciate input from nephrology who signed off. Monitor BUN and creatinine. Avoid all nephrotoxic drugs. Patient will likely need renal biopsy to determine etiology of MARTHA Renal ultrasound 06/26: Negative for acute hydronephrosis Acute protein calorie malnutritionmoderate Life-threatening hyperkalemia : Resolved status post treatment Possible sepsis : Resolved Supra-therapeutic anticoagulation Continue Zosyn, 2.25 g IV every 8 hours. - s/p Vancomycin. discontinue antibiotic-Zosyn today 07/14/16 Daily CBC Daily coags Currently on warfarin and monitor INR/PT --continue heparin drip and Coumadin Severe life-threatening hypoglycemia- resolved --AC and HS accu checks. --s/p hydrocortisone 50mg iv daily ----> Now on mouth hydrocortisone 10 mg twice a day Sacral decubitus - continue with wound care per protocol. Daily Santyl HTN: Currently normotensive on Cardizem, Toprol, [id number] mg by mouth every 8 hours, labetalol and clonidine when necessary DVT Prophylaxis -- SCDs PT to treat and eval Problem Qualifiers (1) Atrial fibrillation: Qualified Code: I48.2 - Chronic atrial fibrillation Yfn Dodd MD Jul 14, 2016 11:47
[2016-07-14] MEDS ORDERED: POTASSIUM CL 40 MEQ/30 ML LIQ UDC PO ONE (12:00)
[2016-07-14] MEDS: ACETAMINOPHEN 325 MG TAB PO PRN (13:45)
[2016-07-14] MEDS ORDERED: WARFARIN SOD 2 MG TAB PO SCH (16:00)
[2016-07-14] MEDS: WARFARIN SOD 3 MG TAB PO SCH (16:10)
[2016-07-15] VITALS (9 sets, daily range): BP systolic 103–140; BP diastolic 58–74; PULSE 73–144; RESP 13–22; TEMP 96.4–98.7; O2SAT 98–100
[2016-07-15] MEDS: HEPARIN 25,000 UNITS-D5W 250 ML - PREMIX IV SCH (02:26)
[2016-07-15] MEDS: hydrALAZINE HCL 100 MG TAB PO SCH ×3 (06:10→21:42)
[2016-07-15] MEDS: PIPERACIL-TAZO 2.25 GM PREMIX 50 ML IV SCH ×2 (06:12→13:00)
[2016-07-15] MEDS: INSULIN ASPART SUPPLEMENTAL SCALE SQ SCH ×4 (06:12→21:42)
[2016-07-15] MEDS: CHLORHEXIDINE 0.12% (ORAL KIT) 15 ML CUP MT SCH ×2 (08:00→20:00)
[2016-07-15 08:38] LABS: APTT (PATIENT) 47.4 SEC (24.3-30.1); INTERNATIONAL NORMALIZED RATIO 1.1 RATIO; PROTHROMBIN TIME - PATIENT 12.7 SEC (9.8-11.6)
[2016-07-15 08:41] LABS: BICARBONATE 28.1 MEQ/L (21.0-32.0); POTASSIUM 3.8 MEQ/L (3.5-5.1)
[2016-07-15] MEDS: DILTIAZEM-CD 300 MG CAP ER PO SCH (09:00)
[2016-07-15] MEDS: METOPROLOL TARTRATE 100 MG TAB PO SCH (09:00)
[2016-07-15] MEDS: ISOSORBIDE DINITRATE 5 MG TAB PO SCH ×3 (09:05→17:10)
[2016-07-15] MEDS: COLLAGENASE OINT 30 GM TUBE TOP SCH (09:05)
[2016-07-15] MEDS: POLYETHYLENE GLYCOL 17 GM PKG PO SCH ×2 (09:05→21:00)
[2016-07-15] MEDS: SODIUM CHLORIDE 0.9% FLUSH 5 ML FLUSH IV FLUSH SCH ×2 (09:05→21:41)
[2016-07-15] MEDS: HYDROCORTISONE 10 MG TAB PO SCH (09:05)
--- NOTE | 2016-07-15 14:00 | HHI.PR ---
Subjective Remarks Follow-up encephalopathy/HCAP/possible sepsis/hypoglycemia/renal failure requiring dialysis 07/06/16-patient seen and examined, alert and oriented 3 vital stable. Renal function slightly up. Afebrile. APTT elevated and no reported bleed 07/07/16-patient seen and examined; no acute event overnight. Afebrile. Renal indices trending up 07/08/16-patient seen and examined; renal indices worsening. No acute event overnight and denies any shortness of breath or chest pain. 07/09/16-patient seen and examined, improving renal indices. No acute event overnight. Denies any shortness of breath. 07/10/16-patient seen and examined; no acute event overnight. Stable. Afebrile. 07/11/16-patient seen and examined; she has significant improvement of renal indices. No acute event overnight. Denies any chest pain or shortness of breath. 07/12/16-patient seen and examined, stable. No complaint. Afebrile. He is discussed this showcase maker. 07/13/16-patient seen and examined. No complaint, INR still subtherapeutic. Currently afebrile 07/14/16-patient seen and examined, did complain of left arm paresthesia/ weakness yesterday however resolved. She states, she didn't feel like doing anything yesterday. Currently afebrile. INR still subtherapeutic 07/15/16-patient seen and examined. No complain in stable. Improving renal indices. INR 1.1. She denies any chest pain or shortness of breath. Objective Vitals Vital Signs Date Time Temp Pulse Resp B/P Pulse Ox O2 Delivery O2 Flow Rate FiO2 07/15/16 11:50 96.4 112 22 136/72 98 07/15/16 07:15 97.0 88 22 109/59 100 07/15/16 04:00 98.7 85 13 130/61 07/15/16 00:00 98.7 73 16 103/58 100 07/14/16 20:00 97.2 82 18 107/58 95 07/14/16 18:00 73 07/14/16 16:00 96.9 76 18 115/57 98 I/O 07/14/16 07/14/16 07/14/16 07/15/16 07/15/1624/17 07:00 15:00 23:00 07:00 15:00 23:00 Intake Total 240 ml 1014 ml Output Total 500 ml 900 ml 150 ml Balance -500 ml -660 ml -150 ml 1014 ml Intake Oral 240 ml IV Total 1014 ml Output Urine Total 500 ml 900 ml 150 ml # Voids 1 # Bowel Movements 0 1 Result Diagram: 07/14/16 0812 07/15/16 0746 Objective Remarks GENERAL: NAD SKIN: Warm and dry. HEAD: Normocephalic. EYES: No scleral icterus. No injection or drainage. NECK: Supple, trachea midline. No JVD or lymphadenopathy. CARDIOVASCULAR: Regular rate and rhythm without murmurs, gallops, or rubs. RESPIRATORY: Breath sounds equal bilaterally. No accessory muscle use. GASTROINTESTINAL: Abdomen soft, non-tender, nondistended. MUSCULOSKELETAL: No cyanosis, or edema. BACK: Nontender without obvious deformity. No CVA tenderness. Procedures Vas-Cath placement and removal A/P Problem List: (1) Acute renal failure ICD Code: N17.9 Status: Chronic (2) Protein calorie malnutrition ICD Code: E46 Status: Acute (3) Healthcare-associated pneumonia ICD Code: J18.9 Status: Acute (4) Atrial fibrillation ICD Code: I48.91 Status: Chronic Assessment and Plan 80-year-old female with Toxic/metabolic encephalopathy - resolved. HCAP: Resolved and s/p Zosyn 07/14/16 Atrial fibrillation with rvr Systolic congestive heart failure, EF 30-35% Currently on diltiazem and metoprolol. Digoxin was held secondary to patient' s worsening renal function, however this may be resume if evidence of A. fib with RVR. On heparin drip and Coumadin . Appreciated input from cardiology Repeat echo 06/27: LVEF 40-45%, mild RV dysfunction, pulm htn rvsp 60s, dilated IVC , currently on heparin drip bridge with Coumadin. INR 1.1 today Hypertension: Normotensive on Lopressor 100 mg daily, hydralazine 100 mg 3 times a day, Isordil 5mg TID MARTHA - etiology uncertain: .As Renal indices significantly improving ; patient no longer required hemodialysis therefore Vas cath has been removed. Appreciated input from nephrology who signed off. Creatinine 1.93 today . Monitor BUN and creatinine. Avoid all nephrotoxic drugs. Renal ultrasound : Negative for acute hydronephrosis Acute protein calorie malnutritionmoderate Life-threatening hyperkalemia : Resolved status post treatment Possible sepsis : Resolved s/p Zosyn, 2.25 g IV every 8 hours. - s/p Vancomycin. s/p antibiotic-Zosyn Severe life-threatening hypoglycemia- resolved --AC and HS accu checks. --s/p hydrocortisone 50mg iv daily ----> Now on mouth hydrocortisone 10 mg twice a day ------ will change to 10 mg daily as of today 07/15/16 however it will eventually need to be tapered off and discontinued Sacral decubitus - continue with wound care per protocol. Daily Santyl HTN: Currently normotensive on Cardizem, Toprol, [id number] mg by mouth every 8 hours, labetalol and clonidine when necessary DVT Prophylaxis -- SCDs PT to treat and eval Problem Qualifiers (1) Atrial fibrillation: Qualified Code: I48.2 - Chronic atrial fibrillation Yfn Dodd MD Jul 15, 2016 14:00 Qualified Code: I48.2 - Chronic atrial fibrillation Yfn Dodd MD Jul 15, 2016 14:00
[2016-07-15] MEDS ORDERED: WARFARIN SOD 4 MG TAB PO SCH (16:00)
[2016-07-15] MEDS: WARFARIN SOD 3 MG TAB PO SCH (17:10)
[2016-07-16] VITALS (8 sets, daily range): BP systolic 75–185; BP diastolic 38–85; PULSE 86–167; RESP 17–18; TEMP 97.6–98.7; O2SAT 95–99
[2016-07-16] MEDS: HEPARIN 25,000 UNITS-D5W 250 ML - PREMIX IV SCH (02:42)
[2016-07-16] MEDS ORDERED: METOPROLOL TARTRATE 5 MG/5 ML VIAL IV PUSH ONE (06:00)
[2016-07-16] MEDS: hydrALAZINE HCL 100 MG TAB PO SCH ×4 (06:24→21:01)
[2016-07-16] MEDS: INSULIN ASPART SUPPLEMENTAL SCALE SQ SCH ×4 (06:24→21:04)
[2016-07-16] MEDS: CHLORHEXIDINE 0.12% (ORAL KIT) 15 ML CUP MT SCH ×2 (08:00→20:00)
[2016-07-16] MEDS: DILTIAZEM-CD 300 MG CAP ER PO SCH (09:52)
[2016-07-16] MEDS: METOPROLOL TARTRATE 100 MG TAB PO SCH (09:52)
[2016-07-16] MEDS: ACETAMINOPHEN 325 MG TAB PO PRN (09:53)
[2016-07-16] MEDS: POLYETHYLENE GLYCOL 17 GM PKG PO SCH ×2 (09:53→21:00)
[2016-07-16] MEDS: HYDROCORTISONE 10 MG TAB PO SCH (09:53)
[2016-07-16] MEDS: ISOSORBIDE DINITRATE 5 MG TAB PO SCH ×3 (09:53→17:18)
[2016-07-16] MEDS: COLLAGENASE OINT 30 GM TUBE TOP SCH (09:54)
[2016-07-16] MEDS: SODIUM CHLORIDE 0.9% FLUSH 5 ML FLUSH IV FLUSH SCH ×2 (09:54→20:59)
[2016-07-16 10:22] LABS: APTT (PATIENT) 48.3 SEC (24.3-30.1)
[2016-07-16 10:24] LABS: INTERNATIONAL NORMALIZED RATIO 1.2 RATIO
--- NOTE | 2016-07-16 15:54 | HHI.PR ---
Subjective Remarks Patient reports that she is feeling okay today. No fevers or chills. INR is 1.2. Objective Vitals Vital Signs Date Time Temp Pulse Resp B/P Pulse Ox O2 Delivery O2 Flow Rate FiO2 07/16/16 12:21 98.4 119 18 147/70 98 07/16/16 08:45 167 07/16/16 08:00 98.6 120 17 128/84 96 07/16/16 04:20 98.5 104 18 173/85 98 07/16/16 00:00 98.7 104 17 159/71 99 07/15/16 22:45 144 07/15/16 20:00 97.6 115 17 107/74 99 07/15/16 18:06 129 I/O 07/15/16 07/15/16 07/15/16 07/16/16 07/16/16 07/16/16 07:00 15:00 23:00 07:00 15:00 23:00 Intake Total 1014 ml 240 ml 413 ml 87 ml Output Total 500 ml 400 ml 650 ml Balance 1014 ml -260 ml 13 ml -563 ml Intake Oral 240 ml 240 ml IV Total 1014 ml 173 ml 87 ml Output Urine Total 500 ml 400 ml 650 ml # Bowel Movements 0 Result Diagram: 07/14/16 0812 07/15/16 0746 Imaging Last Impressions Chest X-Ray 06/29/16 0000 Signed Impressions: Service Date/Time: Wednesday, June 29, 2016 14:51 - CONCLUSION: 1. Mild central pulmonary vascular congestion. 2. Marked cardiomegaly. 3. Right internal jugular Vas cath has its tip in the right atrium. There is no pneumothorax. 4. Degenerative changes and scoliosis of the thoracolumbar spine. 5. Degenerative changes involving the shoulders bilaterally. Konstantin Dunbar MD Head CT 06/26/16 0646 Signed Impressions: Service Date/Time: June 08:48 - CONCLUSION: 1. No acute abnormality identified. Stable compared to prior exam dated 06/11/16. Abram Rivera MD Renal Ultrasound 06/26/16 0000 Signed Impressions: Service Date/Time: June 10:59 - CONCLUSION: Kidneys are slightly echogenic which can be seen with medical renal disease. Yfn Santillan MD Objective Remarks GENERAL: This is a well-nourished, well-developed patient, in no apparent distress. CARDIOVASCULAR: Normal rate and regular rhythm without murmurs, gallops, or rubs. RESPIRATORY: Good respiratory efforts. Breath sounds equal and clear to auscultation bilaterally. GASTROINTESTINAL: Abdomen soft, non-tender, non-distended. Normal active bowel sounds MUSCULOSKELETAL: Extremities without cyanosis, or edema. Generalized weakness. NEURO: Alert & Oriented x4 to person, place, time, situation. Moves all ext x4 but generally weak. PSYCH: Appropriate mood and affect. Procedures Vas-Cath placement and removal A/P Problem List: (1) Acute renal failure ICD Code: N17.9 Status: Chronic (2) Protein calorie malnutrition ICD Code: E46 Status: Acute (3) Healthcare-associated pneumonia ICD Code: J18.9 Status: Acute (4) Atrial fibrillation ICD Code: I48.91 Status: Chronic Assessment and Plan 80-year-old female with: Toxic/metabolic encephalopathy - resolved. HCAP: Resolved, s/p Zosyn 07/14/16 Atrial fibrillation with rvr Systolic congestive heart failure, EF 30-35% Currently on diltiazem and metoprolol. Digoxin was held secondary to patient' s worsening renal function, however this may be resume if evidence of A. fib with RVR. On heparin drip and Coumadin . Appreciated input from cardiology Repeat echo 06/27: LVEF 40-45%, mild RV dysfunction, pulm htn rvsp 60s, dilated IVC , currently on heparin drip bridge with Coumadin. INR 1.2 today Hypertension: Normotensive on Lopressor 100 mg daily, hydralazine 100 mg 3 times a day, Isordil 5mg TID MARTHA - etiology uncertain: .As Renal indices significantly improving ; patient no longer required hemodialysis therefore Vas cath has been removed. Appreciated input from nephrology who signed off. Follow BUN and creatinine. Avoid all nephrotoxic drugs. Renal ultrasound 06/26: Negative for acute hydronephrosis Acute protein calorie malnutritionmoderate Life-threatening hyperkalemia : Resolved status post treatment Severe life-threatening hypoglycemia- resolved --AC and HS accu checks. --s/p hydrocortisone 50mg iv daily ---->Taper, currently on hydrocortisone PO 10 mg daily. Plan to continue taper Sacral decubitus - continue with wound care per protocol. Daily Santyl HTN: Currently normotensive on Cardizem, Toprol, [id number] mg by mouth every 8 hours, labetalol and clonidine when necessary DVT Prophylaxis -- Heparin bridging to Coumadin Problem Qualifiers (1) Atrial fibrillation: Qualified Code: I48.2 - Chronic atrial fibrillation Selin Leiva MD Jul 16, 2016 15:54
[2016-07-16] MEDS ORDERED: WARFARIN SOD 5 MG TAB PO SCH (16:00)
--- NOTE | 2016-07-16 16:10 | HHI.HCPN ---
Reason for visit a. To assist with evaluation and management of symptoms including: Debility. b. To assist medical decision maker(s) with: better understanding of current medical conditions; weighing benefits/burdens of medical treatment options; making medical treatment decisions. . Subjective/Interval History Patient seen in her room. No family at bedside. No acute events overnight. Patient alert and oriented x4, verbal and able to communicate needs. Patient tells me that she feels better and is almost at baseline, however, remains feeling weak secondary to prolonged bedrest. Denies shortness of breath, n/v or abdominal discomfort. Patient afebrile, stable BP. No new labs or imaging. Renal function improved, no longer requiring hemodialysis. VasCath has been removed. Patient on heparin drip as bridge to Coumadin for a. fib, remains subtherapeutic. Patient tells me that she is not sure why she is still hospitalized, she wishes to go home. Reviewed clinical course to include management of a. fib. Reviewed risks of a. fib to include blood clots and PE. Reviewed that she is still not medically ready for discharge secondary to INR. Discussed discharge plan to include rehab, patient verbalized wishing to go home but that she understand why she needs rehab. Discussed CPR in the setting of her age, physical deconditioning and multiple chronic comorbidities. Reviewed risks, benefits and limitations of CPR, patient tells me that she will think about it, patient was encouraged to discuss further with her family. Patient appreciative for today's visit. Telephone conversation with patient's daughter Tia. Left message in VM. . Family/friend interactions See interval note. . Advance Directives Living Will: Never completed Health Care Surrogate: Copy in medical record Durable Power of Mulling Machine Operator: Never completed Advance Directive Specifics Date completed: 06/27/15. . Health Care Surrogate(s): Dejon Persaud. . Documented care wishes: No living will completed. . Significant change in goals: FULL CODE. Continue aggressive care. Objective Vital Signs Date Time Temp Pulse Resp B/P Pulse Ox O2 Delivery O2 Flow Rate FiO2 07/16/16 12:21 98.4 119 18 147/70 98 07/16/16 08:45 167 07/16/16 08:00 98.6 120 17 128/84 96 07/16/16 04:20 98.5 104 18 173/85 98 07/16/16 00:00 98.7 104 17 159/71 99 07/15/16 22:45 144 07/15/16 20:00 97.6 115 17 107/74 99 07/15/16 18:06 129 Intake & Output 07/16/16 07/16/16 07:00 19:00 Intake Total 500 ml Output Total 1050 ml Balance -550 ml Intake Oral 240 ml IV Total 260 ml Output Urine Total 1050 ml Physical Exam CONSTITUTIONAL/GENERAL: This is an adequately nourished patient, in no apparent distress. Alert, verbal and able to communicate needs. TUBES/LINES/DRAINS: Scanlon cath, PIV's, SCD's. SKIN: No jaundice, rashes, or lesions. Ecchymoses on upper extremities. No wounds seen anteriorly. Skin temperature appropriate. Not diaphoretic. HEAD: Atraumatic. Normocephalic. EYES: Pupils equal and round and reactive. Extraocular motions intact. No scleral icterus. ENT: Hearing grossly normal. Nose without bleeding or purulent drainage. Throat without visible erythema, exudates, masses, or lesions. NECK: Trachea midline. Supple, nontender. CARDIOVASCULAR: Irregular rate and rhythm without murmurs, gallops, or rubs. Peripheral pulses symmetric. RESPIRATORY/CHEST: Symmetric, unlabored respirations. Clear, diminished to auscultation. Breath sounds equal bilaterally. No wheezes, rales, or rhonchi. GASTROINTESTINAL: Abdomen soft, round, mildly distended. non-tender. No guarding. Bowel sounds present. GENITOURINARY: Without palpable bladder distension. Scanlon catheter in place. MUSCULOSKELETAL: Extremities without clubbing, cyanosis. No mottling or clubbing. +1 edema to BLE. NEUROLOGICAL: Awake and alert. Follows commands. Moves all extremities. Fine tremors to BUE. PSYCHIATRIC: No obvious anxiety/depression. . Diagnostic Tests Laboratory Laboratory Tests Test 07/14/16 07/15/16 07/16/16 08:12 07:46 09:28 White Blood Count 9.3 TH/MM3 (4.0-11.0) Red Blood Count 3.49 MIL/MM3 (4.00-5.30) Hemoglobin 9.7 GM/DL (11.6-15.3) Hematocrit 30.4 % (35.0-46.0) Mean Corpuscular Volume 87.3 FL (80.0-100.0) Mean Corpuscular Hemoglobin 27.7 PG (27.0-34.0) Mean Corpuscular Hemoglobin 31.7 % Concent (32.0-36.0) Red Cell Distribution Width 15.4 % (11.6-17.2) Platelet Count 118 TH/MM3 (150-450) Mean Platelet Volume 7.9 FL (7.0-11.0) Prothrombin Time 12.3 SEC 12.7 SEC 13.0 SEC (9.8-11.6) (9.8-11.6) (9.8-11.6) Prothromb Time International 1.1 RATIO 1.1 RATIO 1.2 RATIO Ratio Activated Partial 56.6 SEC 47.4 SEC 48.3 SEC Thromboplast Time (24.3-30.1) (24.3-30.1) (24.3-30.1) Sodium Level 140 MEQ/L (136-145) Potassium Level 3.8 MEQ/L (3.5-5.1) Chloride Level 101 MEQ/L (98-107) Carbon Dioxide Level 28.1 MEQ/L (21.0-32.0) Anion Gap 11 MEQ/L (5-15) Blood Urea Nitrogen 27 MG/DL (7-18) Creatinine 1.93 MG/DL (0.50-1.00) Estimat Glomerular Filtration 30 ML/MIN (>89) Rate Random Glucose 111 MG/DL (74-106) Calcium Level 8.8 MG/DL (8.5-10.1) Result Diagram: 07/14/16 0812 07/15/16 0746 Procedures * 06/29/16 - Rt IJ VasCath placement. . Assessment and Plan Disease Oriented Problem List: (1) Atrial fibrillation (2) Hypertension (3) Acute renal failure Comment: Resolved. No longer requiring CRIMINAL INVESTIGATIVE AGENT. (4) Hyperkalemia Comment: Resolved. Symptom Scale: (1) Debility 0-10 Scale: Unable to quantify Comment: Progressive (2) Decreased appetite 0-10 Scale: Unable to quantify Comment: Eating 25% of her meals. Pertinent Non-Medical Issues Psychosocial: . Has 3 children. Residing with nephew Xavier prior to previous hospitalization on 06/14/16. Discharged to SNF for rehab/ strengthening. Spiritual: Amish. Active member of her scientology. Good spiritual support. Legal: No living will completed. HCS designation completed during this palliative care visit. Ethical issues impacting care: No living will completed. . Important Contacts Daughter/RICA Persaud and . . Prognosis Mrs. Gabriel is an 80 y/o female with a medical history significant of a. fib, CHF , Diabetes type 2, HTN, CA and anemia who presented to the ED via EMS on with history of AMS and questionable seizure. Patient with a recent hospitalization secondary to a. fib with RVR and subsequent SNF discharge. Her baseline functional status has progressively declined and requires a walker for ambulation, with a PPS of 50%. Patient now presents with MARTHA likely requiring renal replacement therapy. She is at high risk for developing significant symptom burden and is at high risk for further complications, continue decline and . . Code Status: Full Code Plan * FULL CODE. Risks and limitations of CPR were discussed with patient and daughter in the setting of multiple comorbidities and poor functional status at baseline. * Patient is alert and oriented. Completed designation of HCS form during this visit. Patient designating her daughter Tia Persaud as HCS. Declined to designate an alternate surrogate. * No living will completed. LW information and form reviewed on 06/27/16 with patient and daughter Tia. Encouraged patient to complete and to call pall care with any questions. * 07/16/16: Patient wishing to continue with aggressive care to include FULL CODE, plans to discharge to rehab when medically stable. * Symptom: Debility, progressive for the past year. Multifactorial, likely secondary to multiple chronic comorbidities. Presented to ED from rehab facility. Will likely required rehab at discharge. Participating with PT. Decreased appetite, eating 25-50% of her meals. Albumin 2.4. Encouraged increase oral intake for wound healing. Decubitus ulcer, wound care nurse following. * Palliative care to f/u with this patient and family for further clarification of goals. . Time Spent Total Floor Time (mins): 36 (Total time to include review or medical records, physical exam, and telephone call to pt's daughter. ) Face to Face Time (mins): 25 >50% Counseling/Coord of Care: Yes Attestation To help prompt me to consider important information that might be impacting today's encounter and assessment, information from prior notes written by myself or my colleagues may have been "brought forward" into today's note. My signature on this note, however, is an attestation that I personally performed the exam, history, and/or decision-making noted today, and, unless otherwise indicated, the interactions with patient, family, and staff as well as the review of records all occurred today. I also attest that the listed assessment and stated plan reflect my best clinical judgment today based on the combination of historical information, prior notes, and today's exam/ interactions. When time spent is documented, it refers only to time spent today by the signer, or if indicated, combined time spent today by collaborating physician/nurse practitioner. Chioma Herrera Jul 16, 2016 16:10
[2016-07-16] MEDS: WARFARIN SOD 3 MG TAB PO SCH (17:18)
[2016-07-17] VITALS (11 sets, daily range): BP systolic 73–152; BP diastolic 38–70; PULSE 79–105; RESP 18–20; TEMP 97.4–98.6; O2SAT 93–100
[2016-07-17] MEDS: HEPARIN 25,000 UNITS-D5W 250 ML - PREMIX IV SCH (03:16)
[2016-07-17] MEDS: hydrALAZINE HCL 100 MG TAB PO SCH ×3 (06:00→21:58)
[2016-07-17] MEDS: INSULIN ASPART SUPPLEMENTAL SCALE SQ SCH ×4 (07:00→20:22)
[2016-07-17 07:43] LABS: HEMATOCRIT 28.5 % (35.0-46.0); MEAN CELL VOLUME 87.4 FL (80.0-100.0); MEAN CORPUSCULAR HEMOGLOBIN 27.6 PG (27.0-34.0); MEAN CORPUSCULAR HGB CONC 31.6 % (32.0-36.0); PLATELET COUNT 158 TH/MM3 (150-450); RED BLOOD COUNT 3.26 MIL/MM3 (4.00-5.30); RED CELL DISTRIBUTION WIDTH 15.6 % (11.6-17.2); REVIEW FLAG FINAL; WHITE BLOOD COUNT 6.5 TH/MM3 (4.0-11.0)
[2016-07-17 07:53] LABS: APTT (PATIENT) 64.1 SEC (24.3-30.1); INTERNATIONAL NORMALIZED RATIO 1.5 RATIO; PROTHROMBIN TIME - PATIENT 16.9 SEC (9.8-11.6)
[2016-07-17] MEDS: CHLORHEXIDINE 0.12% (ORAL KIT) 15 ML CUP MT SCH ×2 (08:00→20:00)
[2016-07-17 08:14] LABS: BICARBONATE 30.9 MEQ/L (21.0-32.0); POTASSIUM 3.6 MEQ/L (3.5-5.1)
[2016-07-17] MEDS: POLYETHYLENE GLYCOL 17 GM PKG PO SCH ×2 (09:00→20:19)
[2016-07-17] MEDS: DILTIAZEM-CD 300 MG CAP ER PO SCH (09:00)
[2016-07-17] MEDS: SODIUM CHLORIDE 0.9% FLUSH 5 ML FLUSH IV FLUSH SCH ×2 (09:00→20:18)
[2016-07-17] MEDS: METOPROLOL TARTRATE 100 MG TAB PO SCH (09:00)
[2016-07-17] MEDS: HYDROCORTISONE 10 MG TAB PO SCH (09:17)
[2016-07-17] MEDS: ISOSORBIDE DINITRATE 5 MG TAB PO SCH ×3 (09:17→17:16)
[2016-07-17] MEDS: COLLAGENASE OINT 30 GM TUBE TOP SCH (09:18)
[2016-07-17] MEDS ORDERED: WARFARIN SOD 3 MG TAB PO SCH (16:00)
--- NOTE | 2016-07-17 16:54 | HHI.PR ---
Subjective Remarks Patient reports that she is feeling okay today. No chest pain or shortness of breath. INR is 1.5 Objective Vitals Vital Signs Date Time Temp Pulse Resp B/P Pulse Ox O2 Delivery O2 Flow Rate FiO2 07/17/16 16:07 97.4 100 18 73/50 100 07/17/16 12:39 97.7 105 18 152/69 100 07/17/16 11:13 120/70 07/17/16 08:33 98.4 98 18 100/64 98 07/17/16 04:33 97.7 82 18 118/61 97 07/17/16 01:00 118/64 07/17/16 00:08 98.6 79 20 74/38 98 07/16/16 20:26 97.6 86 18 75/38 97 07/16/16 20:00 93 I/O 07/16/16 07/16/16 07/16/16 07/17/16 07/17/16 07/17/16 07:00 15:00 23:00 07:00 15:00 23:00 Intake Total 87 ml 120 ml 360 ml Output Total 650 ml 550 ml 400 ml 300 ml Balance -563 ml -430 ml -400 ml 60 ml Intake Oral 120 ml 360 ml IV Total 87 ml Output Urine Total 650 ml 550 ml 400 ml 300 ml # Bowel Movements 2 0 Result Diagram: 07/17/16 0646 07/17/16 0646 Objective Remarks GENERAL: This is a well-nourished, well-developed patient, in no apparent distress. CARDIOVASCULAR: Rate of about 95 and regular rhythm without murmurs, gallops, or rubs. RESPIRATORY: Good respiratory efforts. Breath sounds equal and clear to auscultation bilaterally. GASTROINTESTINAL: Abdomen soft, non-tender, non-distended. Normal active bowel sounds MUSCULOSKELETAL: Extremities without cyanosis, or edema. Generalized weakness. NEURO: Alert & Oriented x4 to person, place, time, situation. Moves all ext x4 but generally weak. PSYCH: Appropriate mood and affect. Procedures Vas-Cath placement and removal A/P Problem List: (1) Acute renal failure ICD Code: N17.9 Status: Chronic (2) Protein calorie malnutrition ICD Code: E46 Status: Acute (3) Healthcare-associated pneumonia ICD Code: J18.9 Status: Acute (4) Atrial fibrillation ICD Code: I48.91 Status: Chronic Assessment and Plan 80-year-old female with: Toxic/metabolic encephalopathy - resolved. HCAP: Resolved, s/p Zosyn 07/14/16 Atrial fibrillation with rvr Systolic congestive heart failure, EF 30-35% Currently on diltiazem and metoprolol. Digoxin was held secondary to patient' s worsening renal function, however this may be resume if evidence of A. fib with RVR. On heparin drip and Coumadin. Appreciated input from cardiology Repeat echo 06/27: LVEF 40-45%, mild RV dysfunction, pulm htn rvsp 60s, dilated IVC , currently on heparin drip bridge with Coumadin. INR 1.5 today Hypertension: Normotensive on Lopressor 100 mg daily, hydralazine 100 mg 3 times a day, Isordil 5mg TID MARTHA - etiology uncertain: .As Renal indices significantly improving ; patient no longer required hemodialysis therefore Vas cath has been removed. Appreciated input from nephrology who signed off. Follow BUN and creatinine. Avoid all nephrotoxic drugs. Renal ultrasound 06/26: Negative for acute hydronephrosis Acute protein calorie malnutritionmoderate Life-threatening hyperkalemia : Resolved status post treatment Severe life-threatening hypoglycemia- resolved --AC and HS accu checks. --s/p hydrocortisone 50mg iv daily ---->Taper, currently on hydrocortisone PO 10 mg daily. Plan to continue taper Sacral decubitus - continue with wound care per protocol. Daily Santyl HTN: Currently normotensive on Cardizem, Toprol, [id number] mg by mouth every 8 hours, labetalol and clonidine when necessary DVT Prophylaxis -- Heparin bridging to Coumadin Discharge Planning Can discharge to SNF once INR is 2 or above. Problem Qualifiers (1) Atrial fibrillation: Qualified Code: I48.2 - Chronic atrial fibrillation Selin Leiva MD Jul 17, 2016 16:54
[2016-07-17] MEDS: WARFARIN SOD 3 MG TAB PO SCH (17:16)
[2016-07-18] VITALS (8 sets, daily range): BP systolic 89–140; BP diastolic 44–75; PULSE 82–107; RESP 16–18; TEMP 96.4–97.9; O2SAT 90–100
[2016-07-18] MEDS: HEPARIN 25,000 UNITS-D5W 250 ML - PREMIX IV SCH ×2 (01:13→23:40)
[2016-07-18] MEDS: hydrALAZINE HCL 100 MG TAB PO SCH ×3 (05:03→21:23)
[2016-07-18] MEDS: INSULIN ASPART SUPPLEMENTAL SCALE SQ SCH ×4 (05:06→21:23)
[2016-07-18] MEDS: CHLORHEXIDINE 0.12% (ORAL KIT) 15 ML CUP MT SCH ×2 (08:00→20:00)
[2016-07-18] MEDS: SODIUM CHLORIDE 0.9% FLUSH 5 ML FLUSH IV FLUSH SCH ×2 (08:02→21:23)
[2016-07-18] MEDS: ISOSORBIDE DINITRATE 5 MG TAB PO SCH ×3 (08:02→20:07)
[2016-07-18] MEDS: POLYETHYLENE GLYCOL 17 GM PKG PO SCH ×2 (08:02→21:00)
[2016-07-18] MEDS: HYDROCORTISONE 10 MG TAB PO SCH (08:02)
[2016-07-18] MEDS: METOPROLOL TARTRATE 100 MG TAB PO SCH (08:02)
[2016-07-18] MEDS: COLLAGENASE OINT 30 GM TUBE TOP SCH (08:03)
[2016-07-18] MEDS: DILTIAZEM-CD 300 MG CAP ER PO SCH (08:18)
[2016-07-18 08:40] LABS: MEAN CELL VOLUME 86.2 FL (80.0-100.0); MEAN CORPUSCULAR HGB CONC 32.5 % (32.0-36.0); PLATELET COUNT 172 TH/MM3 (150-450); RED BLOOD COUNT 3.14 MIL/MM3 (4.00-5.30); RED CELL DISTRIBUTION WIDTH 15.7 % (11.6-17.2); REVIEW FLAG FINAL; WHITE BLOOD COUNT 5.7 TH/MM3 (4.0-11.0)
[2016-07-18 08:45] LABS: APTT (PATIENT) 71.8 SEC (24.3-30.1); INTERNATIONAL NORMALIZED RATIO 1.8 RATIO; PROTHROMBIN TIME - PATIENT 20.2 SEC (9.8-11.6)
[2016-07-18 08:59] LABS: BICARBONATE 31.7 MEQ/L (21.0-32.0); POTASSIUM 3.4 MEQ/L (3.5-5.1)
--- NOTE | 2016-07-18 12:58 | HHI.PR ---
Subjective Remarks Patient reports that she is feeling okay. She indicates that she would rather go home instead of a SNF. She reports that she has many help at home. INR still 1.8 Objective Vitals Vital Signs Date Time Temp Pulse Resp B/P Pulse Ox O2 Delivery O2 Flow Rate FiO2 07/18/16 12:00 96.4 106 16 119/75 95 07/18/16 08:00 97.8 98 16 89/45 97 07/18/16 08:00 98/50 07/18/16 04:00 97.9 89 18 89/51 100 90/58 07/18/16 00:08 97.9 107 18 91/44 90 07/17/16 21:08 97.5 98 18 103/64 93 07/17/16 20:00 85 07/17/16 17:23 110/70 07/17/16 16:07 97.4 100 18 73/50 100 I/O 07/17/16 07/17/16 07/17/16 07/18/16 07/18/16 07/18/16 07:00 15:00 23:00 07:00 15:00 23:00 Intake Total 360 ml Output Total 300 ml 600 ml Balance 60 ml -600 ml Intake Oral 360 ml Output Urine Total 300 ml 600 ml # Bowel Movements 1 0 Result Diagram: 07/18/1672907/18/1630 Objective Remarks GENERAL: Elderly female in no apparent distress. CARDIOVASCULAR: Rate of about 95 and regular rhythm without murmurs, gallops, or rubs. RESPIRATORY: Good respiratory efforts. Breath sounds equal and clear to auscultation bilaterally. GASTROINTESTINAL: Abdomen soft, non-tender, non-distended. Normal active bowel sounds MUSCULOSKELETAL: Extremities without cyanosis, or edema. Generalized weakness. NEURO: Alert & Oriented. Moves all ext x4 but generally weak. PSYCH: Appropriate mood and affect. Procedures Vas-Cath placement and removal A/P Problem List: (1) Acute renal failure ICD Code: N17.9 Status: Chronic (2) Protein calorie malnutrition ICD Code: E46 Status: Acute (3) Healthcare-associated pneumonia ICD Code: J18.9 Status: Acute (4) Atrial fibrillation ICD Code: I48.91 Status: Chronic Assessment and Plan 80-year-old female with: Toxic/metabolic encephalopathy - resolved. HCAP: Resolved, s/p Zosyn 07/14/16 Atrial fibrillation with rvr Systolic congestive heart failure, EF 30-35% Currently on diltiazem and metoprolol. Digoxin was held secondary to patient' s worsening renal function, however this may be resume if evidence of A. fib with RVR. On heparin drip and Coumadin. Appreciated input from cardiology Repeat echo 06/27: LVEF 40-45%, mild RV dysfunction, pulm htn rvsp 60s, dilated IVC , currently on heparin drip bridge with Coumadin. INR 1.8 today Hypertension: Normotensive on Lopressor 100 mg daily, hydralazine 100 mg 3 times a day, Isordil 5mg TID MARTHA - etiology uncertain: .As Renal indices significantly improving ; patient no longer required hemodialysis therefore Vas cath has been removed. Appreciated input from nephrology who signed off. Follow BUN and creatinine. Avoid all nephrotoxic drugs. Renal ultrasound 06/26: Negative for acute hydronephrosis Acute protein calorie malnutritionmoderate Life-threatening hyperkalemia : Resolved status post treatment Severe life-threatening hypoglycemia- resolved --AC and HS accu checks. --s/p hydrocortisone 50mg iv daily ---->Taper, currently on hydrocortisone PO 10 mg daily. Plan to continue taper Sacral decubitus - continue with wound care per protocol. Daily Santyl HTN: Currently normotensive on Cardizem, Toprol, [id number] mg by mouth every 8 hours, labetalol and clonidine when necessary DVT Prophylaxis -- Heparin bridging to Coumadin Discharge Planning Can discharge to SNF versus home with home health care once INR is 2 or above. Problem Qualifiers (1) Atrial fibrillation: Qualified Code: I48.2 - Chronic atrial fibrillation Selin Leiva MD Jul 18, 2016 12:58
[2016-07-18] MEDS: WARFARIN SOD 3 MG TAB PO SCH (20:07)
[2016-07-19] VITALS (7 sets, daily range): BP systolic 107–152; BP diastolic 57–65; PULSE 73–112; RESP 16–19; TEMP 96.8–98.8; O2SAT 96–99
[2016-07-19] MEDS: hydrALAZINE HCL 100 MG TAB PO SCH ×3 (05:17→20:51)
[2016-07-19] MEDS: INSULIN ASPART SUPPLEMENTAL SCALE SQ SCH ×4 (05:18→20:50)
[2016-07-19 07:27] LABS: HEMATOCRIT 27.3 % (35.0-46.0); MEAN CELL VOLUME 86.3 FL (80.0-100.0); MEAN CORPUSCULAR HEMOGLOBIN 28.3 PG (27.0-34.0); MEAN CORPUSCULAR HGB CONC 32.8 % (32.0-36.0); PLATELET COUNT 191 TH/MM3 (150-450); RED BLOOD COUNT 3.16 MIL/MM3 (4.00-5.30); RED CELL DISTRIBUTION WIDTH 15.6 % (11.6-17.2); REVIEW FLAG FINAL; WHITE BLOOD COUNT 5.4 TH/MM3 (4.0-11.0)
[2016-07-19 07:38] LABS: BICARBONATE 29.3 MEQ/L (21.0-32.0); POTASSIUM 3.4 MEQ/L (3.5-5.1)
[2016-07-19] MEDS: CHLORHEXIDINE 0.12% (ORAL KIT) 15 ML CUP MT SCH ×2 (08:00→20:00)
[2016-07-19] MEDS: POLYETHYLENE GLYCOL 17 GM PKG PO SCH ×2 (09:00→20:49)
[2016-07-19] MEDS: COLLAGENASE OINT 30 GM TUBE TOP SCH (09:00)
[2016-07-19] MEDS: SODIUM CHLORIDE 0.9% FLUSH 5 ML FLUSH IV FLUSH SCH ×2 (09:00→20:49)
[2016-07-19 09:08] LABS: INTERNATIONAL NORMALIZED RATIO 1.8 RATIO; PROTHROMBIN TIME - PATIENT 20.8 SEC (9.8-11.6)
[2016-07-19 09:10] LABS: APTT (PATIENT) 43.8 SEC (24.3-30.1)
[2016-07-19] MEDS: METOPROLOL TARTRATE 100 MG TAB PO SCH (10:09)
[2016-07-19] MEDS: DILTIAZEM-CD 300 MG CAP ER PO SCH (10:09)
[2016-07-19] MEDS: ISOSORBIDE DINITRATE 5 MG TAB PO SCH ×2 (10:09→16:32)
[2016-07-19] MEDS: HYDROCORTISONE 10 MG TAB PO SCH (10:09)
--- NOTE | 2016-07-19 10:53 | HHI.FF ---
Face to Face Verification Diagnosis: (1) Atrial fibrillation (2) Debility (3) Systolic congestive heart failure (4) Hypertension Physical Therapy Order: Evaluate and Treat, Improve ambulation, Strength and gait training Home Health Nursing Order: Medical education Medication education-adverse effect I have seen patient Deyanira Gabriel on 07/19/16. My clinical findings support the need for the requested home health care services because: Ltd mobility - disease progression Deconditioned w/ increased weakness Limited ability to care for self I certify that my clinical findings support that this patient is homebound because: Unsteady gait/balance Poor cardiac reserve Selin Leiva MD Jul 19, 2016 10:52
--- NOTE | 2016-07-19 10:57 | HHI.PR ---
Subjective Remarks Patient reports that she is feeling okay. No new complaints. INR is 1.8 again today. Objective Vitals Vital Signs Date Time Temp Pulse Resp B/P Pulse Ox O2 Delivery O2 Flow Rate FiO2 07/19/16 08:00 98.4 109 17 152/65 96 07/19/16 04:45 98.5 112 18 124/60 99 07/19/16 00:21 97.2 99 16 107/65 99 07/18/16 20:20 97.8 84 16 101/64 99 07/18/16 20:00 95 07/18/16 16:00 97.5 99 16 140/66 98 07/18/16 12:00 96.4 106 16 119/75 95 I/O 07/18/16 07/18/16 07/18/16 07/19/16 07/19/16 07/19/16 07:00 15:00 23:00 07:00 15:00 23:00 Intake Total 720 ml Output Total 600 ml 450 ml 350 ml Balance -600 ml 270 ml -350 ml Intake Oral 720 ml Output Urine Total 600 ml 450 ml 350 ml # Bowel Movements 0 1 0 Result Diagram: 07/19/16 0646 07/19/16 0646 Objective Remarks GENERAL: Elderly female in no apparent distress. CARDIOVASCULAR: Normal rate and regular rhythm without murmurs, gallops, or rubs. RESPIRATORY: Good respiratory efforts. Breath sounds equal and clear to auscultation bilaterally. GASTROINTESTINAL: Abdomen soft, non-tender, non-distended. Normal active bowel sounds MUSCULOSKELETAL: Extremities without cyanosis, or edema. Generalized weakness. NEURO: Alert & Oriented. Moves all ext x4 but generally weak. PSYCH: Appropriate mood and affect. Procedures Vas-Cath placement and removal A/P Problem List: (1) Acute renal failure ICD Code: N17.9 Status: Chronic (2) Protein calorie malnutrition ICD Code: E46 Status: Acute (3) Healthcare-associated pneumonia ICD Code: J18.9 Status: Acute (4) Atrial fibrillation ICD Code: I48.91 Status: Chronic Assessment and Plan 80-year-old female with: Toxic/metabolic encephalopathy - resolved. HCAP: Resolved, s/p Zosyn 07/14/16 Atrial fibrillation with rvr Systolic congestive heart failure, EF 30-35% Currently on diltiazem and metoprolol. Digoxin was held secondary to patient' s worsening renal function, however this may be resume if evidence of A. fib with RVR. On heparin drip and Coumadin. Appreciated input from cardiology Repeat echo 06/27: LVEF 40-45%, mild RV dysfunction, pulm htn rvsp 60s, dilated IVC , currently on heparin drip bridge with Coumadin. INR remained 1.8 today. - Will increase Coumadin to 4 mg daily. This was her previous outpatient dose. She is receiving an extra dose of 3 mg today. Hypertension: Normotensive on Lopressor 100 mg daily, hydralazine 100 mg 3 times a day, Isordil 5mg TID MARTHA - etiology uncertain: .As Renal indices significantly improving ; patient no longer required hemodialysis therefore Vas cath has been removed. Appreciated input from nephrology who signed off. Follow BUN and creatinine. Avoid all nephrotoxic drugs. Renal ultrasound 06/26: Negative for acute hydronephrosis Acute protein calorie malnutritionmoderate Life-threatening hyperkalemia : Resolved status post treatment Severe life-threatening hypoglycemia- resolved --AC and HS accu checks. --s/p hydrocortisone 50mg iv daily ---->Taper, currently on hydrocortisone PO 10 mg daily. Plan to continue taper Sacral decubitus - continue with wound care per protocol. Daily Santyl HTN: Currently normotensive on Cardizem, Toprol, [id number] mg by mouth every 8 hours, labetalol and clonidine when necessary DVT Prophylaxis -- Heparin bridging to Coumadin Discharge Planning Can discharge to SNF versus home with home health care once INR is 2 or above. Problem Qualifiers (1) Atrial fibrillation: Qualified Code: I48.2 - Chronic atrial fibrillation Selin Leiva MD Jul 19, 2016 10:57
[2016-07-19] MEDS ORDERED: WARFARIN SOD 6 MG TAB PO ONE (16:00)
[2016-07-20] VITALS: BP 129/78; PULSE 73; RESP 17; TEMP 98.2; O2SAT 97
[2016-07-20] MEDS: HEPARIN 25,000 UNITS-D5W 250 ML - PREMIX IV SCH (02:11)
[2016-07-20 04:51] VITALS: BP 135/63; PULSE 99; RESP 18; TEMP 98.4; O2SAT 95
[2016-07-20] MEDS: INSULIN ASPART SUPPLEMENTAL SCALE SQ SCH ×3 (05:35→15:58)
[2016-07-20] MEDS: hydrALAZINE HCL 100 MG TAB PO SCH ×2 (05:35→14:56)
[2016-07-20] MEDS: ISOSORBIDE DINITRATE 5 MG TAB PO SCH ×4 (05:35→15:57)
[2016-07-20 06:34] LABS: APTT (PATIENT) 62.9 SEC (24.3-30.1)
[2016-07-20 06:37] LABS: HEMATOCRIT 27.9 % (35.0-46.0); MEAN CELL VOLUME 86.3 FL (80.0-100.0); MEAN CORPUSCULAR HEMOGLOBIN 28.1 PG (27.0-34.0); MEAN CORPUSCULAR HGB CONC 32.5 % (32.0-36.0); PLATELET COUNT 213 TH/MM3 (150-450); RED BLOOD COUNT 3.23 MIL/MM3 (4.00-5.30); RED CELL DISTRIBUTION WIDTH 15.4 % (11.6-17.2); REVIEW FLAG FINAL
[2016-07-20 06:43] LABS: INTERNATIONAL NORMALIZED RATIO 2.2 RATIO; PROTHROMBIN TIME - PATIENT 25.4 SEC (9.8-11.6)
[2016-07-20 07:00] VITALS: PULSE 102; PULSE 89
[2016-07-20 08:00] VITALS: BP 136/74; PULSE 80; RESP 18; TEMP 97.9; O2SAT 96
[2016-07-20] MEDS: CHLORHEXIDINE 0.12% (ORAL KIT) 15 ML CUP MT SCH (08:00)
[2016-07-20] MEDS: DILTIAZEM-CD 300 MG CAP ER PO SCH (08:28)
[2016-07-20] MEDS: METOPROLOL TARTRATE 100 MG TAB PO SCH (08:29)
[2016-07-20] MEDS: POLYETHYLENE GLYCOL 17 GM PKG PO SCH (08:29)
[2016-07-20] MEDS: COLLAGENASE OINT 30 GM TUBE TOP SCH (08:29)
[2016-07-20] MEDS: HYDROCORTISONE 10 MG TAB PO SCH (08:29)
[2016-07-20] MEDS: SODIUM CHLORIDE 0.9% FLUSH 5 ML FLUSH IV FLUSH SCH (08:29)
[2016-07-20] MEDS ORDERED: WARF-20 PO (09:32)
--- NOTE | 2016-07-20 10:09 | HHI.DS ---
Discharge Summary Admission Date Jun 26, 2016 at 10:26 Discharge Date: Jul 20, 2016 Admitting Diagnosis ARF/sepsis/altered mental status (1) Acute renal failure ICD Code: N17.9 (2) Protein calorie malnutrition ICD Code: E46 (3) Healthcare-associated pneumonia ICD Code: J18.9 (4) Atrial fibrillation ICD Code: I48.91 Procedures Vas-Cath placement and removal Brief History - From Admission This is an 80-year-old female who was recently admitted to [facility] with new onset atrial fibrillation with rapid ventricular response. She reports sensitivity emergency department with altered mental status and severe life-threatening hypoglycemia with a serum glucose of 23. An I/O needle was placed and the patient was given D50. Her glucose slowly improved and she began to have improved mental status. When I evaluated the patient, she was somnolent but arousable. she denies chest pain, shortness of breath, nausea, vomiting, diarrhea. She states he hadn't urinated today, so she is unsure if she has dysuria. critical care medicine has been consulted to evaluate and manage her acute kidney injury and severe hypoglycemia. CBC/BMP: 07/20/16 0542 07/19/16 0646 Significant Findings Laboratory Tests Test 07/18/16 07/19/16 07/19/16 07/20/16 07:30 06:46 08:45 05:42 Red Blood Count 3.14 MIL/MM3 3.16 MIL/MM3 3.23 MIL/MM3 (4.00-5.30) (4.00-5.30) (4.00-5.30) Hemoglobin 8.8 GM/DL 9.0 GM/DL 9.1 GM/DL (11.6-15.3) (11.6-15.3) (11.6-15.3) Hematocrit 27.0 % 27.3 % 27.9 % (35.0-46.0) (35.0-46.0) (35.0-46.0) Prothrombin Time 20.2 SEC 20.8 SEC 25.4 SEC (9.8-11.6) (9.8-11.6) (9.8-11.6) Activated Partial 71.8 SEC 43.8 SEC 62.9 SEC Thromboplast Time (24.3-30.1) (24.3-30.1) (24.3-30.1) Potassium Level 3.4 MEQ/L 3.4 MEQ/L (3.5-5.1) (3.5-5.1) Blood Urea Nitrogen 27 MG/DL (7-18) 23 MG/DL (7-18) Creatinine 1.61 MG/DL 1.47 MG/DL (0.50-1.00) (0.50-1.00) Estimat Glomerular Filtration 37 ML/MIN (>89) 41 ML/MIN (>89) Rate Imaging Last Impressions Chest X-Ray 06/29/16 0000 Signed Impressions: Service Date/Time: Wednesday, June 29, 2016 14:51 - CONCLUSION: 1. Mild central pulmonary vascular congestion. 2. Marked cardiomegaly. 3. Right internal jugular Vas cath has its tip in the right atrium. There is no pneumothorax. 4. Degenerative changes and scoliosis of the thoracolumbar spine. 5. Degenerative changes involving the shoulders bilaterally. Konstantin Dunbar MD Head CT 06/26/16 0646 Signed Impressions: Service Date/Time: June 08:48 - CONCLUSION: 1. No acute abnormality identified. Stable compared to prior exam dated 06/11/16. Abram Rivera MD Renal Ultrasound 06/26/16 0000 Signed Impressions: Service Date/Time: June 10:59 - CONCLUSION: Kidneys are slightly echogenic which can be seen with medical renal disease. Yfn Santillan MD PE at Discharge GENERAL: Elderly female in no apparent distress. CARDIOVASCULAR: Normal rate and regular rhythm without murmurs, gallops, or rubs. RESPIRATORY: Good respiratory efforts. Breath sounds equal and clear to auscultation bilaterally. GASTROINTESTINAL: Abdomen soft, non-tender, non-distended. Normal active bowel sounds MUSCULOSKELETAL: Extremities without cyanosis, or edema. Generalized weakness. NEURO: Alert & Oriented. Moves all ext x4 but generally weak. PSYCH: Appropriate mood and affect. Pt update on day of discharge Patient reports that she is feeling okay. I discussed the case extensively with her daughter who indicated the patient does not have enough support to return home. I explained to the patient why she needed to be in the [facility] environment. She agreed but still upset that she could not go home. Hospital Course 80-year-old female who initially presented with Seth. mark with RVR, severe hypoglycemia and severe acute renal failure. The patient has had a prolonged hospital course. Evaluation and treatment course detailed below: Toxic/metabolic encephalopathy -the patient was admitted to the ICU under the critical care service. Her encephalopathy resolved as she improved. HCAP: Resolved, s/p Zosyn 07/14/16 Atrial fibrillation with rvr Systolic congestive heart failure, EF 30-35% Currently on diltiazem and metoprolol. Digoxin was held secondary to patient' s worsening renal function. Repeat echo 06/27: LVEF 40-45%, mild RV dysfunction, pulm htn rvsp 60s, dilated IVC. The patient was started on a heparin drip and bridged to Coumadin until her INR became therapeutic Hypertension: Normotensive on Lopressor 100 mg daily, hydralazine 100 mg 3 times a day, Isordil 5mg TID MARTHA - etiology uncertain: Renal indices significantly improving ; patient no longer required hemodialysis therefore Vas cath has been removed. Patient was followed by nephrology. Renal ultrasound 06/26: Negative for acute hydronephrosis Acute protein calorie malnutritionmoderate. Encourage nutritional supplements. Life-threatening hyperkalemia : Resolved status post treatment Severe life-threatening hypoglycemia- resolved --AC and HS accu checks. --s/p hydrocortisone 50mg iv daily ----> which was tapered off. Sacral decubitus - continue with wound care per protocol. Daily Santyl Patient is discharged in stable condition to a [facility] facility to continue rehabilitation. Pt Condition on Discharge: Good Discharge Disposition: Discharge to SNF Discharge Time: > 30 minutes Discharge Instructions DIET: Follow Instructions for: Diabetic Diet, Coumadin (Warfarin) Diet Speech Therapy-Diet Recommends: Mechanical Soft Activities you can perform: See Additionl Instruction Other Activity Instructions: Per PT instructions. Follow up Referrals: PCP Follow-up - 2-3 Days New Medications: Diltiazem CD 24 HR (Diltiazem CD 24 HR) 300 Mg Caper 300 MG PO DAILY Regulate Heart Beat #30 CAP Isosorbide Dinitrate (Isordil Titradose) 5 Mg Tab 5 MG PO TIDAC Blood Pressure Management #90 TAB Metoprolol Tartrate (Lopressor) 100 Mg Tab 100 MG PO DAILY Blood Pressure Management #30 TAB ([hydrALAZINE]) 100 MG TAB 100 MG PO Q8HR Blood Pressure Management #90 TAB Changed Medications: Warfarin (Warfarin) 4 Mg Tab 4 MG PO DAILY Blood Clot Prevention #30 Ref 0 TAB (Changed from: Warfarin 3 Mg Tab 3 Mg PO DAILY #30 TAB Ref 0) Discontinued Medications: Digoxin (Digoxin) 0.125 Mg Tab 125 MCG PO DAILY Regulate Heart Beat #30 Ref 0 TAB Diltiazem CD 24 HR (Cardizem CD 24 HR) 180 Mg Caper 180 MG PO DAILY Regulate Heart Beat #30 CAP Metoprolol Tartrate (Metoprolol Tartrate) 100 Mg Tab 100 MG PO DAILY #30 Ref 0 TAB Primidone (Primidone) 50 Mg Tab 50 MG PO TID Control Seizures #180 Ref 0 TAB Selin Leiva MD Jul 20, 2016 10:09
[2016-07-20 12:37] VITALS: BP 127/75; PULSE 90; RESP 16; TEMP 95.9; O2SAT 99
[2016-07-20] MEDS ORDERED: WARFARIN SOD 4 MG TAB PO SCH (16:00)
== END 2016-07-20 16:20 | DRG 871 ==
LOC: NEPE 06:32 → NEDA 10:26 → HIMN 22:00 → N05A 07-05 17:00
PROVIDERS: ADMIT Family Medicine; ATTEND Family Medicine
PROC: 03HY32Z Insertion of Monitoring Device into Upper Artery, Percutaneous Approach (ICD-10-PCS; principal; 2016-06-27)
PROC: 02H633Z Insertion of Infusion Device into Right Atrium, Percutaneous Approach (ICD-10-PCS; 2016-06-29)
PROC: 5A1D60Z (ICD-10-PCS; 2016-06-29)
DX: A41.9 Sepsis, unspecified organism (principal); G92 Toxic encephalopathy; N17.9 Acute kidney failure, unspecified; J18.9 Pneumonia, unspecified organism; E87.2 Acidosis; L89.153 Pressure ulcer of sacral region, stage 3; E44.0 Moderate protein-calorie malnutrition; I42.9 Cardiomyopathy, unspecified; I50.22 Chronic systolic (congestive) heart failure; J98.11 Atelectasis; N12 Tubulo-interstitial nephritis, not specified as acute or chronic; E11.649 Type 2 diabetes mellitus with hypoglycemia without coma; I27.2 Other secondary pulmonary hypertension; I48.2 Chronic atrial fibrillation; I10 Essential (primary) hypertension; E87.5 Hyperkalemia; E86.1 Hypovolemia; D64.9 Anemia, unspecified; M19.90 Unspecified osteoarthritis, unspecified site; E78.5 Hyperlipidemia, unspecified; R65.20 Severe sepsis without septic shock; Y95 Nosocomial condition; Z51.5 Encounter for palliative care; I25.2 Old myocardial infarction; Z68.28 Body mass index [BMI] 28.0-28.9, adult; Z79.01 Long term (current) use of anticoagulants; T36.8X5A Adverse effect of other systemic antibiotics, initial encounter
CPT/HCPCS: 36556; 51702; 70450; 71010; 76775; 76937; 80048; 80053; 80069; 80076; 80162; 80202; 81001; 82010; 82533; 82550; 82570; 82784; 82948; 83525; 83605; 83735; 83883; 84100; 84155; 84165; 84300; 84484; 84540; 84681; 85007; 85025; 85027; 85610; 85730; 86021; 86038; 86160; 86334; 86337; 86803; 87040; 87205; 87340; 87641; 90935; 92960; 93005; 93306; 94150; 94640; 94667; 94668; 96361; 96374; 96375; J1100; J1580; J1644; J1720; J1815; J1940; J2250; J2543; J3370; J3430; J7030; J7040; J7042; P9047

== ENCOUNTER 2016-10-13 16:59 | Inpatient (IN) | payer OTHER, MEDICARE ==
[~2016-10-13] VITALS: Ht 165.1 cm; Wt 84.2 kg
[2016-10-13] VITALS (7 sets, daily range): BP systolic 114–160; BP diastolic 65–94; PULSE 82–133; RESP 16–19; TEMP 98.2–98.6; O2SAT 95–100
[~2016-10-13 16:59] MED LIST changes: -CARD180C5 PO; -DIGO0.12 PO; +DILT300C3 PO; -FURO20TA PO; -GLIP10TA6 PO; +ISOS1TAB PO; -LISI2.5T3 PO; +METO-338 PO; -METO100T PO; -POTA-163 PO; -PRIM50TA5 PO; -ULTR50TA5 PO; +WARF-20 PO; -WARF-58 PO; +hydrALAZINE PO
--- NOTE | 2016-10-13 17:15 | PD ---
Physical Exam Time Seen by Provider: 17:13 Narrative 80yo F sent by Dr[address] Sahu for blood clots to the R arm. Had US of arm today. Arm has been swollen since last Thursday. Patient stable. Patient seen in triage. Awaiting bed placement. Data Data Last Documented VS Vital Signs Date Time Temp Pulse Resp B/P Pulse Ox O2 Delivery O2 Flow Rate FiO2 10/13/16 17:01 98.2 119 17 154/94 98 MDM Supervised Visit with SUSHIL: Amber Gates Oct 13, 2016 17:15
--- NOTE | 2016-10-13 18:15 | PD ---
HPI Chief Complaint: Edema Time Seen by Provider: 18:12 Travel History International Travel<30 days: No Contact w/Intl Traveler<30days: No Traveled to known affect area: No History of Present Illness HPI The patient is a 80-year-old [place] female who presents emergency department for a blood clot in the right upper extremity. The patient had a recent hospitalization several months ago, had a permacath placed to the right IJ for dialysis, according to family. The patient also had a PICC line in the right upper extremity. The patient has had some increased swelling of the right upper extremity since Thursday and had an outpatient ultrasound which revealed an extensive DVT of the right upper extremity. The patient was referred to the emergency department by her primary physician, Dr. Sahu. The patient does complain of pain located in the right upper extremity from the shoulder to the ACF, denies any forearm or hand pain. She does note swelling of the entire right upper extremity. The patient denies any previous history of pulmonary embolism or DVT, but is currently on Coumadin for history of atrial fibrillation. 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 The patient denies any chest pain, short of breath, dizziness, lightheadedness, or diaphoresis. Symptoms are moderate, possibly exacerbated by recent hospitalization, and there are no current alleviating factors. PFSH Past Medical History Hx Anticoagulant Therapy: Yes (WARFARIN) Anemia: Yes Arthritis: Yes Asthma: No Atrial Fibrillation: Yes Autoimmune Disease: No Blood Disorders: No Anxiety: No Depression: No Heart Rhythm Problems: Yes Cancer: No Cardiovascular Problems: Yes High Cholesterol: Yes Chest Pain: Yes Congestive Heart Failure: Yes COPD: No Cerebrovascular Accident: No Diabetes: Yes Diminished Hearing: No Endocrine: Yes Genitourinary: No Hypertension: Yes Immune Disorder: No Musculoskeletal: Yes Neurologic: No Psychiatric: No Reproductive: No Respiratory: No Immunizations Current: Yes Migraines: No Myocardial Infarction: Yes Seizures: No Thyroid Disease: No PNEUMOCCOCAL Vaccine (Year): 3 Menopausal: Yes : 5 Para: 3 Past Surgical History Abdominal Surgery: Yes ("SOME KIND OF INTENSINTAL REPAIR FOR A TWISTING") AICD: No Cardiac Surgery: No Ear Surgery: No Endocrine Surgery: No Eye Surgery: No Genitourinary Surgery: No Gynecologic Surgery: No Hysterectomy: Yes Pacemaker: No Thoracic Surgery: No Other Surgery: Yes Social History Alcohol Use: No Tobacco Use: No Substance Use: No Allergies-Medications (Allergen,Severity, Reaction): Coded Allergies: No Known Allergies (Verified , 10/13/16) Reported Meds & Prescriptions Reported Meds & Active Scripts Active Warfarin 4 Mg Tab 4 Mg PO DAILY Lopressor (Metoprolol Tartrate) 100 Mg Tab 100 Mg PO DAILY Isordil Titradose (Isosorbide Dinitrate) 5 Mg Tab 5 Mg PO TIDAC Reported Lasix (Furosemide) 40 Mg Tab 40 Mg PO DAILY Potassium Chloride ER (Potassium Chloride) 10 Meq Cap 10 Meq PO DAILY Lanoxin (Digoxin) 0.125 Mg Tab 0.125 Mg PO DAILY Hydralazine (Hydralazine HCl) 50 Mg Tab 25 Mg PO TID Take with a meal Primidone 50 Mg Tab 50 Mg PO TID Review of Systems Except as stated in HPI: all other systems reviewed are Neg General / Constitutional: No: Fever HENT: No: Lightheadedness Cardiovascular: No: Chest Pain or Discomfort Respiratory: No: Shortness of Breath Gastrointestinal: No: Nausea, Vomiting Musculoskeletal: Positive: Edema, Pain Neurologic: No: Dizziness Physical Exam Narrative GENERAL: Awake, alert, very pleasant 80-year-old female who appears her stated age and is in no acute respiratory distress. SKIN: Focused skin assessment warm/dry. HEAD: Atraumatic. Normocephalic. EYES: No injection or drainage. ENT: No nasal bleeding or discharge. Mucous membranes pink and moist. NECK: Trachea midline. No JVD. CARDIOVASCULAR: Irregularly irregular with a heart rate of 140. RESPIRATORY: No accessory muscle use. Clear to auscultation. Breath sounds equal bilaterally. GASTROINTESTINAL: Abdomen soft, non-tender, nondistended. No rebound tenderness. MUSCULOSKELETAL: Right upper extremity is edematous compared to left. Positive right radial pulse. Tenderness over the medial aspect of the right humerus but no obvious deformities, swelling is noted. Mild edema noted of the lower extremities bilateral. NEUROLOGICAL: Awake and alert. No obvious cranial nerve deficits. Motor grossly within normal limits. Normal speech. Nonfocal. Oriented 4. Follows commands without difficulty. PSYCHIATRIC: Appropriate mood and affect; insight and judgment normal. Data Data Last Documented VS Vital Signs Date Time Temp Pulse Resp B/P Pulse Ox O2 Delivery O2 Flow Rate FiO2 10/13/16 18:34 133 19 160/82 95 Room Air 10/13/16 17:01 98.2 Orders Complete Blood Count With Diff (10/13/16 18:22) Comprehensive Metabolic Panel (10/13/16 18:22) Magnesium (Mg) (10/13/16 18:22) Iv Access Insert/Monitor (10/13/16 18:22) Electrocardiogram (10/13/16 18:22) Ecg Monitoring (10/13/16 18:22) Oximetry (10/13/16 18:22) Oxygen Administration (10/13/16 18:22) Chest, Single Ap (10/13/16 18:22) Sodium Chloride 0.9% Flush (Ns Flush) (10/13/16 18:30) Morphine Inj (Morphine Inj) (10/13/16 18:30) Ondansetron Inj (Zofran Inj) (10/13/16 18:30) Act Partial Throm Time (Ptt) (10/13/16 18:22) Prothrombin Time / Inr (Pt) (10/13/16 18:22) Diltiazem Inj (Cardizem Inj) (10/13/16 18:45) Diltiazem Inj (Cardizem Inj) (10/13/16 18:45) MDM Medical Decision Making Medical Screen Exam Complete: Yes Emergency Medical Condition: Yes Medical Record Reviewed: Yes Interpretation(s) Ultrasound bilateral arms [facility]--there is occlusive thrombus seen within the right jugular vein, subclavian, axillary, brachial, basilic, radial, and ulnar veins. The cephalic vein is also occluded. Left upper extremity reveals spontaneous flow documented in the brachial, basilic, cephalic, axillary, subclavian veins. Conclusion was extensive right upper extremity DVT. EKG reveals atrial fibrillation with RVR, rate 144. Nonspecific ST changes. Waiting baseline in lead 1 and lead 3. Differential Diagnosis Differential diagnosis includes subtherapeutic INR, DVT, pulmonary embolism, atrial fibrillation with RVR, electrolyte abnormality, failed anticoagulation. Narrative Course Nursing staff was unable to provide IV access, therefore, I placed an ultrasound -guided IV in the left upper extremity. CBC, CMP, and PTT/INR/PTT were sent to lab. Patient was noted to have atrial fibrillation with RVR, was administered Cardizem 15 mg intravenously and then placed on a Cardizem drip. Chest x-ray was obtained. I reviewed the patient's outpatient ultrasound she had a twin [facility], she has an extensive DVT of the right upper extremity, is already on warfarin. Therefore, PT/INR were sent to lab. The patient was signed out to the oncoming physician, Dr. Rothman, at 7 PM. The patient will need admission for age. Fibrillation with RVR may need consultation with vascular surgery as she is already on warfarin and has extensive DVT of the right upper extremity. As the patient has a DVT the right upper extremity and may be fully anticoagulated, I'm unsure if the patient is a candidate for an IVC filter. Patient was signed out at 7 PM to the oncoming physician. Procedures Procedure Narrative I placed an ultrasound-guided IV in the left upper extremity with a linear probe. Using the linear probe, I placed a 1.88 inch 20-gauge IV in the left upper extremity under ultrasound guidance. There was good blood return, the IV flowed easily, and there was no obvious complications. The patient tolerated the procedure without difficulty. Physician Communication Physician Communication Patient has [employer], therefore, [place] of hospitalist were paged for permission. Diagnosis Primary Impression: Atrial fibrillation with rapid ventricular response Additional Impression: Deep vein thrombosis (DVT) of right upper extremity Qualified Code: I82.621 - Acute deep vein thrombosis (DVT) of right upper extremity, unspecified vein Admitting Information Admitting Physician Requests: Admit Condition: Stable Jayme Reddy MD Oct 13, 2016 18:15
[2016-10-13] MEDS ORDERED: SODIUM CHLORIDE 0.9% FLUSH 10 ML FLUSH IVF PRN (18:30)
[2016-10-13] MEDS ORDERED: ONDANSETRON HCL 4 MG/2 ML VIAL IV PUSH ONE (18:30)
[2016-10-13] MEDS ORDERED: MORPHINE SULFATE 4 MG/ML INJ IV PUSH ONE (18:30)
[2016-10-13] MEDS ORDERED: DILTIAZEM HCL 25 MG/5 ML VIAL IV ONE (18:45)
[2016-10-13] MEDS ORDERED: DILTIAZEM INJ 125 MG in SODIUM CHLORIDE 0.9% INJ 100 ML IV SCH (18:45)
[2016-10-13] MEDS ORDERED: HYDR50TA15 PO (18:54)
[2016-10-13] MEDS ORDERED: POTA10CA PO (18:54)
[2016-10-13] MEDS ORDERED: LANO0.1212 PO (18:54)
[2016-10-13] MEDS ORDERED: PRIM50TA5 PO (18:54)
[2016-10-13] MEDS ORDERED: FURO1TAB60 PO (18:54)
[2016-10-13 19:01] LABS: AUTOMATED NEUTROPHIL # 5.7 TH/MM3 (1.8-7.7); BASOPHIL # 0.1 TH/MM3 (0-0.2); BASOPHIL % 0.7 % (0.0-2.0); EOSINOPHIL % 0.3 % (0.0-4.0); HEMATOCRIT 34.5 % (35.0-46.0); HEMO FLAGS DIFF FINAL; LYMPH % 22.3 % (9.0-44.0); LYMPHOCYTE # 1.9 TH/MM3 (1.0-4.8); MEAN CELL VOLUME 90.2 FL (80.0-100.0); MEAN CORPUSCULAR HEMOGLOBIN 27.9 PG (27.0-34.0); MEAN CORPUSCULAR HGB CONC 30.9 % (32.0-36.0); MONO % 11.2 % (0.0-8.0); NEUT % 65.5 % (16.0-70.0); PLATELET COUNT 297 TH/MM3 (150-450); RED BLOOD COUNT 3.83 MIL/MM3 (4.00-5.30); RED CELL DISTRIBUTION WIDTH 17.4 % (11.6-17.2); WHITE BLOOD COUNT 8.7 TH/MM3 (4.0-11.0)
[2016-10-13 19:10] LABS: ANION GAP 9 MEQ/L (5-15); AST (GOT) 28 U/L (15-37); BICARBONATE 28.5 MEQ/L (21.0-32.0); BLOOD UREA NITROGEN 25 MG/DL (7-18); CHLORIDE 103 MEQ/L (98-107); GLOMERULAR FILTRATION RATE 36 ML/MIN (>89); MAGNESIUM 1.9 MG/DL (1.5-2.5); POTASSIUM 4.4 MEQ/L (3.5-5.1); SODIUM (NA) 140 MEQ/L (136-145)
--- NOTE | 2016-10-13 19:10 | RADRPT ---
EXAM DATE/TIME: 10/13/2016 18:51 [place] COMPARISON: CHEST SINGLE AP, June 29, 2016, 14:51. INDICATIONS : Possible right arm blood clots. Cough. MEDICAL HISTORY : Atrial fibrilation. SURGICAL HISTORY : Vas cath. ENCOUNTER: Initial ACUITY: 1 day PAIN SCORE: 0/10 LOCATION: Bilateral chest FINDINGS: Cardiomegaly. Clear lungs. Aortic calcification. CONCLUSION: No acute disease. Adam Perea MD on October 13, 2016 at 19:08 Board Certified Radiologist. This report was verified electronically.
[2016-10-13 19:11] LABS: INTERNATIONAL NORMALIZED RATIO 1.4 RATIO; PROTHROMBIN TIME - PATIENT 15.3 SEC (9.8-11.6)
[2016-10-13 19:14] LABS: ALKALINE PHOSPHATASE 97 U/L (45-117); ALT (GPT) 21 U/L (10-53); TOTAL BILIRUBIN ADULT 0.3 MG/DL (0.2-1.0)
--- NOTE | 2016-10-13 19:15 | PD ---
Data Data Last Documented VS Vital Signs Date Time Temp Pulse Resp B/P Pulse Ox O2 Delivery O2 Flow Rate FiO2 10/13/16 20:00 117 18 128/65 99 Nasal Cannula 2 10/13/16 17:01 98.2 Orders Complete Blood Count With Diff (10/13/16 18:22) Comprehensive Metabolic Panel (10/13/16 18:22) Magnesium (Mg) (10/13/16 18:22) Iv Access Insert/Monitor (10/13/16 18:22) Electrocardiogram (10/13/16 18:22) Ecg Monitoring (10/13/16 18:22) Oximetry (10/13/16 18:22) Oxygen Administration (10/13/16 18:22) Chest, Single Ap (10/13/16 18:22) Sodium Chloride 0.9% Flush (Ns Flush) (10/13/16 18:30) Morphine Inj (Morphine Inj) (10/13/16 18:30) Ondansetron Inj (Zofran Inj) (10/13/16 18:30) Act Partial Throm Time (Ptt) (10/13/16 18:22) Prothrombin Time / Inr (Pt) (10/13/16 18:22) Diltiazem Inj (Cardizem Inj) (10/13/16 18:45) Diltiazem Inj (Cardizem Inj) (10/13/16 18:45) Admit Order (Ed Use Only) (10/13/16 20:17) Heparin Infusion ZAC.Q1H (10/13/16 20:17) Heparin-D5w Inj (Heparin-D5w Inj) (10/13/16 20:30) Act Partial Throm Time (Ptt) (10/13/16 20:17) Prothrombin Time / Inr (Pt) (10/13/16 20:17) Cbc No Diff, Includes Plts (10/13/16 20:17) Cbc No Diff, Includes Plts (10/16/16 06:00) Act Partial Throm Time (Ptt) (10/14/16 03:17) Occult Blood (Hemoccult) Stool (10/13/16 20:17) Labs Laboratory Tests Test 10/13/16 18:32 White Blood Count 8.7 TH/MM3 Red Blood Count 3.83 MIL/MM3 Hemoglobin 10.7 GM/DL Hematocrit 34.5 % Mean Corpuscular Volume 90.2 FL Mean Corpuscular Hemoglobin 27.9 PG Mean Corpuscular Hemoglobin 30.9 % Concent Red Cell Distribution Width 17.4 % Platelet Count 297 TH/MM3 Mean Platelet Volume 8.2 FL Neutrophils (%) (Auto) 65.5 % Lymphocytes (%) (Auto) 22.3 % Monocytes (%) (Auto) 11.2 % Eosinophils (%) (Auto) 0.3 % Basophils (%) (Auto) 0.7 % Neutrophils # (Auto) 5.7 TH/MM3 Lymphocytes # (Auto) 1.9 TH/MM3 Monocytes # (Auto) 1.0 TH/MM3 Eosinophils # (Auto) 0.0 TH/MM3 Basophils # (Auto) 0.1 TH/MM3 CBC Comment DIFF FINAL Differential Comment Prothrombin Time 15.3 SEC Prothromb Time International 1.4 RATIO Ratio Activated Partial 29.0 SEC Thromboplast Time Sodium Level 140 MEQ/L Potassium Level 4.4 MEQ/L Chloride Level 103 MEQ/L Carbon Dioxide Level 28.5 MEQ/L Anion Gap 9 MEQ/L Blood Urea Nitrogen 25 MG/DL Creatinine 1.64 MG/DL Estimat Glomerular Filtration 36 ML/MIN Rate Random Glucose 147 MG/DL Calcium Level 9.1 MG/DL Magnesium Level 1.9 MG/DL Total Bilirubin 0.3 MG/DL Aspartate Amino Transf 28 U/L (AST/SGOT) Alanine Aminotransferase 21 U/L (ALT/SGPT) Alkaline Phosphatase 97 U/L Total Protein 7.6 GM/DL Albumin 2.8 GM/DL [facility] Medical Record Reviewed: Yes Supervised Visit with SUSHIL: No Interpretation(s) Last Impressions Chest X-Ray 10/13/16 0902 Signed Impressions: Service Date/Time: Thursday, October 13, 2016 18:51 - CONCLUSION: No acute disease. Adam Perea MD Narrative Course During the course of the patients emergency department visit, the patients history, examination, and differential diagnosis were reviewed with the patient. The patient had IV access obtained and blood work sent for analysis. The patient was was on a desk monitor with oximetry and blood pressure monitoring. An EKG was done on arrival. The patient's EKG shows atrial fibrillation with RVR, heart rate of 144, no acute ST segment elevation is noted , T wave inversions are noted in lead V3, V4, aVF. The patient's case was checked out to me by Dr. Reddy who requested that I review the patient's laboratory studies and imaging studies and admit the patient to the [facility] service. The patient has a history of being diagnosed with a upper extremity DVT after line placement with recent admission. The patient is reportedly chronically anticoagulated on Coumadin and in spite of this has devolved this DVT. The patient was initially provided morphine and Zofran for pain and nausea. The patient was started on Cardizem as a bolus and then a drip for A. fib with RVR. The patients laboratory studies were reviewed and remarkable for a white count of 8.7, hemoglobin 10.7, platelets 297 monocytes 11.2. CMP is remarkable for a BUN of 25, creatinine 1.64, glucose 147, albumin 2.8, INR is 1.4, PT 15.3, PTT 29. Radiology studies were reviewed and remarkable for a chest x-ray that shows no acute abnormality. Given the patient's renal insufficiency and recent placement briefly on hemodialysis the patient instead of being bridged with Lovenox will be started on heparin by drip until anticoagulated on Coumadin. The patients results were discussed with the patient, including the plan of care. I explained that further testing and/ or monitoring is indicated based on the patients history, examination, and/ or laboratory findings. Therefore, I recommended admission for additional evaluation. The patient expressed understanding and was agreeable with this plan. The patient was admitted to the hospital in guarded condition and sent to a bed under the care of the [facility] service. Physician Communication Physician Communication The patient's case was discussed with Dr. Adams who did agree to admit the patient for further evaluation and treatment at this time. Diagnosis Primary Impression: Atrial fibrillation with rapid ventricular response Additional Impression: Deep vein thrombosis (DVT) of right upper extremity Qualified Code: I82.621 - Acute deep vein thrombosis (DVT) of right upper extremity, unspecified vein Admitting Information Admitting Physician Requests: Admit Condition: Stable Vidya Rothman MD Oct 13, 2016 19:15
[2016-10-13] MEDS ORDERED: NALOXONE HCL 0.4 MG/ML AMP IV PRN (20:45)
[2016-10-13] MEDS ORDERED: SODIUM CHLORIDE 0.9% FLUSH 10 ML FLUSH IV FLUSH PRN (20:45)
[2016-10-13] MEDS: SODIUM CHLORIDE 0.9% FLUSH 10 ML FLUSH IV FLUSH SCH (20:55)
[2016-10-13] MEDS ORDERED: ONDANSETRON HCL 4 MG/2 ML VIAL IVP PRN (21:00)
[2016-10-13] MEDS: HEPARIN-D5W INJ 250 ML IV SCH (21:26)
--- NOTE | 2016-10-13 21:54 | HHI.HP ---
HPI Service [facility] Primary Care Physician June Sahu MD Admission Diagnosis Right upper ext DVT, AFib with RVR Diagnoses: Chief Complaint: RUE DVT Travel History International Travel<30 Days: No Contact w/Intl Traveler <30 Da: No Traveled to Known Affected Are: No History of Present Illness This is an 80-year-old female patient with past medical history which includes diabetes mellitus, hypertension, hyperlipidemia, atrial fibrillation, peripheral vascular disease, arthritis, CHF EF 40-45% echocardiogram 06/2016, hyperlipidemia and anemia. Patient was recently hospitalized June 2016 for critical hypoglycemia, acute kidney injury and hyperkalemia requiring temporary hemodialysis. At that time June 2016 patient had permacath RIJ and also had RUE PICC line. Per patient and family member at bedside she had been doing well is able to walk a few steps with a walker at home, seem to be improving. Then approximally one week ago patient began to have right upper extremity edema and pain. Patient had outpatient US [facility] which showed DVT RUE therefore patient was sent to the emergency department for further evaluation and treatment. Patient is currently on Coumadin secondary to Atrial fibrillation. Family helps with medication administration on a daily bases, reports that patient has not missed any doses, INR today 1.4. Patient denies SOB, chest pain, fevers, chills, N/V/D, black tarry stools or blood in stool. Family member at bedside reports that her oxygen level at home has been going down as low as in the "70's then back up to 100." Patient does not wear home oxygen, the family reports intermittently checking her oxygen levels. EKG upon arrival reviewed and reveals sinus tachycardia rate 144, patient with history of atrial fibrillation telemetry shows paroxysmal atrial fibrillation with RVR. Patient denies palpitations shortness of breath or chest pain. Review of Systems Except as stated in HPI: all other systems reviewed are Neg Past Family Social History Past Medical History diabetes mellitus, hypertension, hyperlipidemia, atrial fibrillation, peripheral vascular disease, arthritis, CHF EF 40-45% echocardiogram 06/2016, hyperlipidemia and anemia Past Surgical History hysterectomy, cholecystectomy Reported Medications Warfarin 4 Mg Tab 4 Mg PO DAILY Lopressor (Metoprolol Tartrate) 100 Mg Tab 100 Mg PO DAILY Isordil Titradose (Isosorbide Dinitrate) 5 Mg Tab 5 Mg PO TIDAC Lasix (Furosemide) 40 Mg Tab 40 Mg PO DAILY Potassium Chloride ER (Potassium Chloride) 10 Meq Cap 10 Meq PO DAILY Lanoxin (Digoxin) 0.125 Mg Tab 0.125 Mg PO DAILY Hydralazine (Hydralazine HCl) 50 Mg Tab 25 Mg PO TID Take with a meal Primidone 50 Mg Tab 50 Mg PO TID Allergies: Coded Allergies: No Known Allergies (Verified , 10/13/16) Active Ordered Medications Current Medications Medications (Trade) Dose Ordered Sig/Abigail Route Start Time Stop Time Status Last Admin Diltiazem HCl 125 mg/Sodium Chloride 125 ml @ 0 mls/hr TITRATE IV 10/13/16 18:45 10/13/16 18:57 (Heparin-D5W Inj) 250 ml @ 0 mls/hr TITRATE IV 10/13/16 20:30 10/13/16 21:26 (NS Flush) 2 ml UNSCH PRN IV FLUSH 10/13/16 20:45 (NS Flush) 2 ml BID IV FLUSH 10/13/16 21:00 10/13/16 20:55 (Zofran Inj) 4 mg Q6H PRN IVP 10/13/16 21:00 (Narcan Inj) 0.4 mg UNSCH PRN IV 10/13/16 20:45 (Lanoxin) 0.125 mg DAILY PO 10/14/16 09:00 (Lasix) 40 mg DAILY PO 10/14/16 09:00 (Isordil) 5 mg TIDAC PO 10/14/16 08:00 (Lopressor) 100 mg DAILY PO 10/14/16 09:00 (KCl) 10 meq DAILY PO 10/14/16 09:00 (Mysoline) 50 mg TID PO 10/14/16 09:00 Family History Sister has DM Social History denies ETOH use or tobacco use Physical Exam Vital Signs Vital Signs Date Time Temp Pulse Resp B/P Pulse Ox O2 Delivery O2 Flow Rate FiO2 10/13/16 21:13 105 16 114/74 97 Nasal Cannula 2 10/13/16 20:00 117 18 128/65 99 Nasal Cannula 2 10/13/16 19:14 94 16 122/73 100 Nasal Cannula 2 10/13/16 18:34 133 19 160/82 95 Room Air 10/13/16 17:01 98.2 119 17 154/94 98 Physical Exam GENERAL: This is a well-nourished, well-developed patient, in no apparent distress. SKIN: No rashes, ecchymoses or lesions. Cool and dry. RUE edema > L HEAD: Atraumatic. Normocephalic. No temporal or scalp tenderness. EYES: Extraocular motions intact. No scleral icterus. No injection or drainage. CARDIOVASCULAR: irregularly irregular without murmurs, gallops, or rubs. RESPIRATORY: Clear to auscultation. Breath sounds equal bilaterally. No wheezes , rales, or rhonchi. GASTROINTESTINAL: Abdomen soft, non-tender, nondistended. No hepato-splenomegaly , or palpable masses. No guarding. MUSCULOSKELETAL: No calf tenderness. Negative Homans sign bilaterally. bilateral trace lower extremity edema. RUE edema > L NEUROLOGICAL: Awake and alert. Motor and sensory grossly within normal limits. 3 -4 out of 5 muscle strength in all muscle groups. Normal speech. Laboratory Laboratory Tests Test 10/13/16 18:32 White Blood Count 8.7 Red Blood Count 3.83 Hemoglobin 10.7 Hematocrit 34.5 Mean Corpuscular Volume 90.2 Mean Corpuscular Hemoglobin 27.9 Mean Corpuscular Hemoglobin 30.9 Concent Red Cell Distribution Width 17.4 Platelet Count 297 Mean Platelet Volume 8.2 Neutrophils (%) (Auto) 65.5 Lymphocytes (%) (Auto) 22.3 Monocytes (%) (Auto) 11.2 Eosinophils (%) (Auto) 0.3 Basophils (%) (Auto) 0.7 Neutrophils # (Auto) 5.7 Lymphocytes # (Auto) 1.9 Monocytes # (Auto) 1.0 Eosinophils # (Auto) 0.0 Basophils # (Auto) 0.1 CBC Comment DIFF FINAL Differential Comment Prothrombin Time 15.3 Prothromb Time International 1.4 Ratio Activated Partial 29.0 Thromboplast Time Sodium Level 140 Potassium Level 4.4 Chloride Level 103 Carbon Dioxide Level 28.5 Anion Gap 9 Blood Urea Nitrogen 25 Creatinine 1.64 Estimat Glomerular Filtration 36 Rate Random Glucose 147 Calcium Level 9.1 Magnesium Level 1.9 Total Bilirubin 0.3 Aspartate Amino Transf 28 (AST/SGOT) Alanine Aminotransferase 21 (ALT/SGPT) Alkaline Phosphatase 97 Total Protein 7.6 Albumin 2.8 Result Diagram: 10/13/16 1832 10/13/161831 Imaging Last Impressions Chest X-Ray 10/13/161821 Signed Impressions: Service Date/Time: Thursday, October 13, 2016 18:51 - CONCLUSION: No acute disease. Adam Perea MD Assessment and Plan Problem List: (1) Deep vein thrombosis (DVT) of right upper extremity ICD Code: I82.621 Status: Acute (2) Atrial fibrillation with RVR ICD Code: I48.91 Status: Acute Assessment and Plan This is an 80-year-old female patient with past medical history which includes diabetes mellitus, hypertension, hyperlipidemia, atrial fibrillation, peripheral vascular disease, arthritis, CHF EF 40-45% echocardiogram 06/2016, hyperlipidemia and anemia. Patient was recently hospitalized June 2016 for critical hypoglycemia, acute kidney injury and hyperkalemia requiring temporary hemodialysis. At that time he received 2017 patient had permacath RIJ and also had RUE PICC. Approximally one week ago patient began to have right upper extremity edema and pain. Patient had outpatient US [facility] which showed DVT RUE therefore patient was sent to the emergency department for further evaluation and treatment. Patient is currently on Coumadin secondary to Atrial fibrillation. Family helps with medication administration on a daily bases, reports that patient has not missed any doses, INR today 1.4. RUE DVT- acute heparin drip on Coumadin subtherapeutic INR 1.4 Coumadin 10 mg times one tonight Consult pharmacy to continue Coumadin dosing hematology consult concern for PE- RUE DVT with elevated renal function VQ scan in AM A fib with RVR Cardizem drip after 15 mg bolus IV push given in ER Continuous Telemetry monitoring recent [facility] in June- s/p temporary dialysis diabetes mellitus- chronic- with recent hospitalization for critical hypoglycemia accuchecks ACHS with SSI coverage Other stable chronic conditions includes: hypertension, hyperlipidemia,CHF EF 40 -45% echocardiogram 06/2016 and anemia- continue home medications GI prophylaxis- Protonix Discussed with ER provider, nursing, patient and family member at bedside Written by Anne Lockhart, acting as scribe for Dr. Adams on 10/13/16 at 22: 19. This note was transcribed by scribe [ Anne Lockhart]. I, Dr. Beulah Adams personally performed the history, physical exam, and medical decision making; and confirmed the accuracy of the information in the transcribed note. Authenticated by Dr. Beulah Adams on 10/13/16 at 22:19. Physician Certification 2 Midnight Certification Type: Admission for Inpatient Services Order for Inpatient Services The services are ordered in accordance with Medicare regulations or non- Medicare payer requirements, as applicable. In the case of services not specified as inpatient-only, they are appropriately provided as inpatient services in accordance with the 2-midnight benchmark. Estimated LOS (days): 3 days is the estimated time the patient will need to remain in the hospital, assuming treatment plan goals are met and no additional complications. Post-Hospital Plan: Home Problem Qualifiers (1) Deep vein thrombosis (DVT) of right upper extremity: Qualified Code: I82.621 - Acute deep vein thrombosis (DVT) of right upper extremity, unspecified vein Anne Lockhart Oct 13, 2016 21:54 Beulah Adams MD Oct 14, 2016 06:52
[2016-10-13] MEDS ORDERED: WARFARIN SOD 10 MG TAB PO ONE (22:30)
[2016-10-13] MEDS ORDERED: DEXTROSE 50% IN WATER 50 ML VIAL(D50) IV PUSH PRN (22:45)
[2016-10-13] MEDS ORDERED: GLUCAGON 1 MG/ML VIAL OTHER PRN (22:45)
[2016-10-14] VITALS (14 sets, daily range): BP systolic 110–144; BP diastolic 64–93; PULSE 80–132; RESP 18–20; TEMP 97.8–98.8; O2SAT 99–100
[2016-10-14 05:35] LABS: APTT (PATIENT) 53.6 SEC (24.3-30.1)
[2016-10-14 06:04] LABS: BICARBONATE 25.4 MEQ/L (21.0-32.0); POTASSIUM 4.7 MEQ/L (3.5-5.1)
--- NOTE | 2016-10-14 08:54 | EKG ---
Date Performed: 10/13/2016 Time Performed: 18:43:45 PTAGE: 80 years EKG: ATRIAL FIBRILLATION WITH RAPID VENTRICULAR RESPONSE NONSPECIFIC ST/T CHANGES ABNORMAL ECG PREVIOUS TRACING : 06/26/2016 06.56 Compared to previous tracing, nonspecific T wave changes ar e now evident. DOCTOR: Matty Roman Interpretating Date/Time 10/14/2016 08:51:35
[2016-10-14] MEDS: POTASSIUM CHLORIDE 10 MEQ CAP PO SCH (09:46)
[2016-10-14] MEDS: ISOSORBIDE DINITRATE 5 MG TAB PO SCH ×3 (09:46→17:08)
[2016-10-14] MEDS: PRIMIDONE 50 MG TAB PO SCH ×3 (09:46→17:08)
[2016-10-14] MEDS: FUROSEMIDE 40 MG TAB PO SCH (09:47)
[2016-10-14] MEDS: SODIUM CHLORIDE 0.9% FLUSH 10 ML FLUSH IV FLUSH SCH ×2 (09:47→19:37)
[2016-10-14] MEDS: METOPROLOL TARTRATE 100 MG TAB PO SCH (09:47)
[2016-10-14] MEDS: DIGOXIN 0.125 MG TAB PO SCH (09:47)
[2016-10-14] MEDS ORDERED: EPINEPHrine HCL (1:10,000) 1 MG/10 ML SYRINGE ONE (09:57)
[2016-10-14] MEDS ORDERED: ATROPINE SULFATE 1 MG/10 ML SYRINGE ONE (09:57)
[2016-10-14] MEDS: INSULIN ASPART SUPPLEMENTAL SCALE SQ SCH ×3 (11:00→20:29)
--- NOTE | 2016-10-14 11:03 | RADRPT ---
EXAM DATE/TIME: 10/14/2016 10:15 [place] COMPARISON: CHEST SINGLE AP, October 13, 2016, 18:51. INDICATIONS : Shortness of breath for one week. DOSE: 8.7 mCi Tc99m MAA IV 0.6 mCi Tc99m DTPA aerosol MEDICAL HISTORY : Diabetes mellitus type 2. Hypertension. Congestive heart failure. SURGICAL HISTORY : Cholecystectomy. Hysterectomy. ENCOUNTER: Initial ACUITY: 1 week PAIN SCALE: 0/10 LOCATION: chest TECHNIQUE: Following five minutes of tidal breathing of DTPA aerosol, planar images of the lungs were performed in eight projections. The patient was then injected with MAA, and eight-view perfusion scan was perf ormed. FINDINGS: There is a homogeneous pattern of aerosol delivery to the periphery of both lungs. No focal ventilat ory defects are seen. The perfusion lung scan demonstrates a homogenous pattern of uptake in both lungs. No segmental or s ubsegmental defects are seen. CONCLUSION: 1. Low probability of pulmonary embolism Andrea Coughlin MD on October 14, 2016 at 10:58 Board Certified Radiologist. This report was verified electronically.
--- NOTE | 2016-10-14 11:21 | HHI.PR ---
Subjective Remarks Patient reports she is feeling okay. She wants to eat. No pain. No shortness of breath. Objective Vitals Vital Signs Date Time Temp Pulse Resp B/P Pulse Ox O2 Delivery O2 Flow Rate FiO2 10/14/16 03:00 98.3 89 18 110/64 100 10/13/16 23:55 98.6 82 18 134/70 99 10/13/16 22:03 100 16 118/90 100 Nasal Cannula 2 10/13/16 21:13 105 16 114/74 97 Nasal Cannula 2 10/13/16 20:00 117 18 128/65 99 Nasal Cannula 2 10/13/16 19:14 94 16 122/73 100 Nasal Cannula 2 10/13/16 18:34 133 19 160/82 95 Room Air 10/13/16 17:01 98.2 119 17 154/94 98 I/O 10/13/16 10/13/16 10/13/16 10/14/16 10/14/16 10/14/16 07:00 15:00 23:00 07:00 15:00 23:00 Intake Total 397 ml Balance 397 ml Intake Oral 240 ml IV Total 157 ml # Voids 2 # Bowel Movements 0 Result Diagram: 10/13/16 1832 10/14/16 0445 Imaging Last Impressions Lung Scan-VQ Nuclear Medicine 10/14/16 0600 Signed Impressions: Service Date/Time: Friday, October 14, 2016 10:15 - CONCLUSION: 1. Low probability of pulmonary embolism Andrea Coughlin MD Chest X-Ray 10/13/16 1822 Signed Impressions: Service Date/Time: Thursday, October 13, 2016 18:51 - CONCLUSION: No acute disease. Adam Perea MD Objective Remarks GENERAL: Elderly female in no apparent distress. CARDIOVASCULAR: Normal rate, irregular rhythm without significant murmur RESPIRATORY: Good respiratory efforts. Breath sounds equal and clear to auscultation bilaterally. GASTROINTESTINAL: Abdomen soft, non-tender, non-distended. Normal active bowel sounds MUSCULOSKELETAL: Right upper extremity is edematous. Bilateral lower extremity with trace edema. NEURO: Alert & Oriented x4 to person, place, time, situation. Moves all ext x4 PSYCH: Appropriate mood and affect. A/P Problem List: (1) Deep vein thrombosis (DVT) of right upper extremity ICD Code: I82.621 Status: Acute (2) Atrial fibrillation with RVR ICD Code: I48.91 Status: Acute Assessment and Plan 80-year-old female patient with past medical history which includes diabetes mellitus, hypertension, hyperlipidemia, atrial fibrillation, peripheral vascular disease, arthritis, CHF EF 40-45% echocardiogram 06/2016, hyperlipidemia and anemia. Patient was recently hospitalized June 2016 for critical hypoglycemia, acute kidney injury and hyperkalemia requiring temporary hemodialysis. At that time he received 2017 patient had permacath RIJ and also had RUE PICC. Approximally one week ago patient began to have right upper extremity edema and pain. Patient had outpatient US at [place] which showed DVT RUE therefore patient was sent to the emergency department for further evaluation and treatment. Patient presented with subtherapeutic INR of 1.4. RUE DVT- acute Patient was started on heparin drip on admission. on Coumadin subtherapeutic INR 1.4 S/P Coumadin 10 mg times one Consult pharmacy to continue Coumadin dosing hematology consult concern for PE- RUE DVT with elevated renal function VQ scan showed low probability of PE. A fib with RVR Patient currently on Cardizem drip. Wean off as tolerated. Resume digoxin and metoprolol. Continuous Telemetry monitoring recent MARTHA in June- s/p temporary dialysis. Renal function stable this morning. Continue to monitor. diabetes mellitus- chronic- with recent hospitalization for critical hypoglycemia accuchecks [facility] with SSI coverage Other stable chronic conditions includes: hypertension, hyperlipidemia,CHF EF 40 -45% echocardiogram 06/2016 and anemia- continue home medications GI prophylaxis- Protonix Problem Qualifiers (1) Deep vein thrombosis (DVT) of right upper extremity: Qualified Code: I82.621 - Acute deep vein thrombosis (DVT) of right upper extremity, unspecified vein Selin Leiva MD Oct 14, 2016 11:21
[2016-10-14 12:36] LABS: INTERNATIONAL NORMALIZED RATIO 1.4 RATIO; PROTHROMBIN TIME - PATIENT 16.2 SEC (9.8-11.6)
[2016-10-14 14:43] LABS: AUTOMATED NEUTROPHIL # 3.5 TH/MM3 (1.8-7.7); BASOPHIL # 0.1 TH/MM3 (0-0.2); BASOPHIL % 1.5 % (0.0-2.0); EOSINOPHIL # 0.1 TH/MM3 (0-0.4); EOSINOPHIL % 1.7 % (0.0-4.0); HEMATOCRIT 36.4 % (35.0-46.0); HEMO FLAGS DIFF FINAL; LYMPH % 21.2 % (9.0-44.0); LYMPHOCYTE # 1.1 TH/MM3 (1.0-4.8); MEAN CELL VOLUME 90.5 FL (80.0-100.0); MEAN CORPUSCULAR HEMOGLOBIN 27.6 PG (27.0-34.0); MEAN CORPUSCULAR HGB CONC 30.5 % (32.0-36.0); NEUT % 67.6 % (16.0-70.0); PLATELET COUNT 315 TH/MM3 (150-450); RED BLOOD COUNT 4.02 MIL/MM3 (4.00-5.30); RED CELL DISTRIBUTION WIDTH 17.9 % (11.6-17.2); WHITE BLOOD COUNT 5.1 TH/MM3 (4.0-11.0)
[2016-10-14] MEDS: WARFARIN SOD 4 MG TAB PO SCH (14:47)
[2016-10-14] MEDS: DILTIAZEM HCL 30 MG TAB PO SCH ×3 (14:47→23:16)
[2016-10-14] MEDS: HEPARIN-D5W INJ 250 ML IV SCH (14:51)
[2016-10-14 15:00] LABS: APTT (PATIENT) 89.2 SEC (24.3-30.1)
--- NOTE | 2016-10-14 18:25 | MB ---
cc: JULISSA ACEVES M.D. DATE OF CONSULTATION: 10/14/2016. REASON FOR CONSULTATION: Hematology was consulted to render opinion regarding a patient with right upper extremity deep venous thrombosis while on Coumadin. ATTENDING PHYSICIAN: Dr. Leiva. HISTORY OF PRESENT ILLNESS: The patient is an 80-year-old female. She presented to the hospital with complaint of right upper extremity edema and tenderness. She was admitted to the hospital in June with acute renal failure requiring temporary hemodialysis. At that time she had placement of Permacath in the right internal jugular and had right upper extremity PICC line placement. She was slowly getting better since discharge. However a week ago she noticed increasing right upper extremity edema and tenderness. She came to the hospital. She was sent for ultrasound which showed a right upper extremity deep venous thrombosis. She was then sent to the emergency room. On presentation, her INR was 1.4. According to family, she was taking the Coumadin regularly. She is a very poor historian. She could not tell me if she had started any other new medications or if she changed her diet. On presentation, she was started on heparin. When I saw her, she said that her arm pain has improved. She denies any bleeding or bruising. She has no constitutional symptoms. She denies any chest pain or shortness of breath. She denies any melena or hematochezia. PAST MEDICAL HISTORY: 1. Diabetes mellitus. 2. Hypertension. 3. Hyperlipidemia. 4. Atrial fibrillation. 5. Peripheral vascular disease. 6. Osteoarthritis. 7. Anemia. PAST SURGICAL HISTORY: 1. Cholecystectomy. 2. Hysterectomy. 3. Permacath placement and removal. FAMILY HISTORY: Noncontributory. SOCIAL HISTORY: Denies tobacco or alcohol use. ALLERGIES: NO KNOWN DRUG ALLERGIES. CURRENT MEDICATIONS: 1. Heparin. 2. Warfarin. 3. Protonix. 4. Cardizem. 5. Digoxin. 6. Lasix. 7. Metoprolol. 8. Potassium. 9. Primidone. 10. Isosorbide dinitrate. 11. Diltiazem. REVIEW OF SYSTEMS: CONSTITUTIONAL: Negative. EYES: Negative. ENT: Negative. CARDIOVASCULAR: As above. RESPIRATORY: As above. GI: Denies any nausea or vomiting, diarrhea or abdominal pain. Denies any melena or hematochezia. : Denies any dysuria or hematuria. MUSCULOSKELETAL: Negative. HEMATOLOGIC: As above. ENDOCRINE: Negative. DERMATOLOGIC: Negative. PSYCHIATRIC: Negative. NEUROLOGIC: Negative. PHYSICAL EXAMINATION: VITAL SIGNS: Temperature 97.8, blood pressure 122/70, 02 saturation 100% on two liters nasal cannula. GENERAL: She is alert and oriented times three. She looks a little weak. HEAD, EYES, EARS, NOSE, THROAT: Atraumatic, normocephalic. Pupils equal, round, reactive to light. Extraocular muscles intact. No scleral icterus. OROPHARYNX: Moist mucosa. No lesions. No thrush. No mucositis. NECK: No thyromegaly. No palpable mass. LYMPHATIC: No palpable cervical, clavicular, axillary or inguinal lymph nodes. CARDIOVASCULAR: Irregularly irregular S1-S2. LUNGS: Clear to auscultation anteriorly. ABDOMEN: Abdomen soft and nontender. I could not palpate the liver or spleen. EXTREMITIES: Right arm edema noted. Slight soreness but no significant tenderness. Trace bilateral lower extremity edema. No calf tenderness. SKIN: No rash or petechiae. NEUROLOGIC EXAM: Nonfocal. LABORATORY DATA: Reviewed. ASSESSMENT: 1. Right upper extremity deep venous thrombosis. She was admitted to the hospital in June. At that time, she had a right internal jugular Permacath placement. She also had a PICC line placed in the right upper extremity. She was doing well after discharge; however, a week ago she noticed increased right upper extremity edema and tenderness. She had ultrasound done outpatient which showed deep venous thrombosis. She came to the hospital. She has been on Coumadin for chronic atrial fibrillation but her INR was only 1.4. Her VQ scan showed low probability for a pulmonary embolism. She was started on heparin and her edema has improved. She could not tell me if she started any new medication recently. I suspect that she has a subtherapeutic prothrombin time because of the Primidone. She did not fail the Coumadin. She developed the clot likely due to prior central line and PICC line placement. She had propagation of the clot because her prothrombin time was subtherapeutic. Since starting on heparin, her symptoms have improved. I agree with continuing heparin and bridging her to Coumadin. She will likely need a higher dose of Coumadin because of the Primidone. If she cannot achieve a therapeutic INR despite high dose Coumadin, then she will have to stop the Primidone. 2. Chronic atrial fibrillation. She has a rapid rate. She is currently on diltiazem drip. 3. Peripheral vascular disease. 4. Chronic mild anemia likely due to chronic kidney disease. 5. Chronic kidney disease stage III. RECOMMENDATIONS: Agree with heparin and bridging to Coumadin with a goal INR between 2 to 3. If she cannot achieve a therapeutic INR despite higher dose of Coumadin, then she will have to stop the primidone. Thank you, Dr. Leiva, for asking he to see this patient. MD NANDINI Martinez/JCC /5:27 PM /6:10 PM [email or web address]
[2016-10-14 23:31] LABS: APTT (PATIENT) 68.2 SEC (24.3-30.1)
[2016-10-15] VITALS (23 sets, daily range): BP systolic 100–143; BP diastolic 57–83; PULSE 67–134; RESP 18–20; TEMP 97.4–100.5; O2SAT 97–100
[2016-10-15] MEDS: INSULIN ASPART SUPPLEMENTAL SCALE SQ SCH ×4 (06:12→20:43)
--- NOTE | 2016-10-15 08:00 | PD.ONC.PN ---
Subjective Subjective Remarks No CP/SOB. RUE soreness improving. No bleeding. Objective Data Date Time Temp Pulse Resp B/P Pulse Ox O2 Delivery O2 Flow Rate FiO2 10/15/16 07:24 98.1 115 19 143/77 100 10/15/16 04:00 105 10/15/16 04:00 98.6 69 18 126/69 99 10/15/16 00:00 98.7 92 20 133/83 100 10/14/16 20:00 98.8 129 20 143/76 100 10/14/16 18:00 122 10/14/16 17:00 100 10/14/16 16:00 106 10/14/16 15:00 100 10/14/16 15:00 98.3 111 19 144/82 99 10/14/16 14:00 104 10/14/16 13:00 96 10/14/16 12:00 86 10/14/16 11:00 80 10/14/16 11:00 98.4 101 19 138/93 100 10/14/16 10:00 132 10/14/16 09:00 96 10/14/16 08:00 96 10/15/16 10/15/16 10/15/16 07:00 15:00 23:00 Intake Total 440 ml Balance 440 ml Result Diagram: 10/14/16 1432 10/14/16 0445 Laboratory Results Laboratory Tests Test 10/14/16 10/14/16 14:32 22:47 White Blood Count 5.1 TH/MM3 Red Blood Count 4.02 MIL/MM3 Hemoglobin 11.1 GM/DL Hematocrit 36.4 % Mean Corpuscular Volume 90.5 FL Mean Corpuscular Hemoglobin 27.6 PG Mean Corpuscular Hemoglobin 30.5 % Concent Red Cell Distribution Width 17.9 % Platelet Count 315 TH/MM3 Mean Platelet Volume 8.0 FL Neutrophils (%) (Auto) 67.6 % Lymphocytes (%) (Auto) 21.2 % Monocytes (%) (Auto) 8.0 % Eosinophils (%) (Auto) 1.7 % Basophils (%) (Auto) 1.5 % Neutrophils # (Auto) 3.5 TH/MM3 Lymphocytes # (Auto) 1.1 TH/MM3 Monocytes # (Auto) 0.4 TH/MM3 Eosinophils # (Auto) 0.1 TH/MM3 Basophils # (Auto) 0.1 TH/MM3 CBC Comment DIFF FINAL Differential Comment Activated Partial 89.2 SEC 68.2 SEC Thromboplast Time Administered Medications Medications (Trade) Dose Ordered Sig/Abigail Route PRN Reason Start Time Stop Time Status Last Admin Dose Admin Heparin Sodium/ Dextrose (Heparin-D5W Inj) 250 ml @ 0 mls/hr TITRATE IV 10/13/16 20:30 10/14/16 14:51 Sodium Chloride (NS Flush) 2 ml BID IV FLUSH 10/13/16 21:00 10/13/16 20:55 Digoxin (Lanoxin) 0.125 mg DAILY PO 10/14/16 09:00 10/14/16 09:47 Furosemide (Lasix) 40 mg DAILY PO 10/14/16 09:00 10/14/16 09:47 Isosorbide Dinitrate (Isordil) 5 mg TIDAC PO 10/14/16 08:00 10/14/16 17:08 Metoprolol Tartrate (Lopressor) 100 mg DAILY PO 10/14/16 09:00 10/14/16 09:47 Potassium Chloride (KCl) 10 meq DAILY PO 10/14/16 09:00 10/14/16 09:46 Primidone (Mysoline) 50 mg TID PO 10/14/16 09:00 10/14/16 17:08 Warfarin Sodium (Coumadin) 4 mg DAILY@16 PO 10/14/16 16:00 10/14/16 14:47 Objective Remarks GENERAL: Well-nourished, well-developed patient. Obese SKIN: Warm and dry. HEAD: Normocephalic. EYES: No scleral icterus. No injection or drainage. NECK: Supple, trachea midline. No JVD or lymphadenopathy. LYMPHATIC: No adenopathy. CARDIOVASCULAR: Regular rate and rhythm without murmurs. RESPIRATORY: Breath sounds equal bilaterally. No accessory muscle use. GASTROINTESTINAL: Abdomen soft, non-tender, nondistended. EXTREMITIES: RUE edema improving, no significant tenderness. MUSCULOSKELETAL: Adequate muscle tone. NEUROLOGICAL: No obvious focal deficit. Awake, alert, and oriented x3. PSYCHIATRIC: Appropriate mood and affect; insight and judgment normal. Assessment/Plan Assessment 1. Right upper extremity deep venous thrombosis. She was admitted to the hospital in June. At that time, she had a right internal jugular Permacath placement. She also had a PICC line placed in the right upper extremity. She was doing well after discharge; however, a week ago she noticed increased right upper extremity edema and tenderness. She had ultrasound done outpatient which showed deep venous thrombosis. She came to the hospital. She has been on Coumadin for chronic atrial fibrillation but her INR was only 1.4. Her VQ scan showed low probability for a pulmonary embolism. She was started on heparin and her edema has improved. She could not tell me if she started any new medication recently. I suspect that she has a subtherapeutic prothrombin time because of the Primidone. She did not fail the Coumadin. She developed the clot likely due to prior central line and PICC line placement. She had propagation of the clot because her prothrombin time was subtherapeutic. Since starting on heparin, her symptoms have improved. I agree with continuing heparin and bridging her to Coumadin. She will likely need a higher dose of Coumadin because of the Primidone. If she cannot achieve a therapeutic INR despite high dose Coumadin, then she will have to stop the Primidone. 10/15 RUE edema continue to improve. Tolerating heparin. Continue coumadin until goal INR 2-3. Plan Plan: Continue heparin and bridging to Coumadin with a goal INR between 2 to 3. If she cannot achieve a therapeutic INR despite higher dose of Coumadin, then consider stopping the primidone. Mando Dias MD Oct 15, 2016 08:00
[2016-10-15] MEDS: METOPROLOL TARTRATE 100 MG TAB PO SCH (08:23)
[2016-10-15] MEDS: PANTOPRAZOLE SOD 40 MG DELAYED RELEASE TAB PO SCH (08:24)
[2016-10-15] MEDS: DILTIAZEM HCL 60 MG TAB PO SCH ×4 (08:24→20:44)
[2016-10-15] MEDS: DIGOXIN 0.125 MG TAB PO SCH (08:24)
[2016-10-15] MEDS: ISOSORBIDE DINITRATE 5 MG TAB PO SCH ×3 (08:24→16:25)
[2016-10-15] MEDS: POTASSIUM CHLORIDE 10 MEQ CAP PO SCH (08:24)
[2016-10-15] MEDS: FUROSEMIDE 40 MG TAB PO SCH (08:24)
[2016-10-15] MEDS: PRIMIDONE 50 MG TAB PO SCH ×3 (08:24→18:19)
[2016-10-15] MEDS: SODIUM CHLORIDE 0.9% FLUSH 10 ML FLUSH IV FLUSH SCH ×2 (08:25→20:44)
[2016-10-15] MEDS ORDERED: DILTIAZEM HCL 30 MG TAB PO SCH (09:00)
--- NOTE | 2016-10-15 09:42 | HHI.PR ---
Subjective Remarks Patient restarted on Cardizem drip overnight due to elevated HR. Oral Cardizem increased. Rate is controlled this morning and Cardizem is off. She reports she is feeling good. Right upper extremity swelling slightly better. No shortness of breath or chest pain. Objective Vitals Vital Signs Date Time Temp Pulse Resp B/P Pulse Ox O2 Delivery O2 Flow Rate FiO2 10/15/16 07:24 98.1 115 19 143/77 100 10/15/16 04:00 105 10/15/16 04:00 98.6 69 18 126/69 99 10/15/16 00:00 98.7 92 20 133/83 100 10/14/16 20:00 98.8 129 20 143/76 100 10/14/16 18:00 122 10/14/16 17:00 100 10/14/16 16:00 106 10/14/16 15:00 100 10/14/16 15:00 98.3 111 19 144/82 99 10/14/16 14:00 104 10/14/16 13:00 96 10/14/16 12:00 86 10/14/16 11:00 80 10/14/16 11:00 98.4 101 19 138/93 100 10/14/16 10:00 132 I/O 10/14/16 10/14/16 10/14/16 10/15/16 10/15/16 10/15/16 07:00 15:00 23:00 07:00 15:00 23:00 Intake Total 397 ml 440 ml Balance 397 ml 440 ml Intake Oral 240 ml 240 ml IV Total 157 ml 200 ml # Voids 2 3 2 # Bowel Movements 0 0 Result Diagram: 10/14/16 1432 10/14/16 0445 Objective Remarks GENERAL: Elderly female in no apparent distress. CARDIOVASCULAR: Normal rate, irregular rhythm without significant murmur RESPIRATORY: Good respiratory efforts. Breath sounds equal and clear to auscultation bilaterally. GASTROINTESTINAL: Abdomen soft, non-tender, non-distended. Normal active bowel sounds MUSCULOSKELETAL: Right upper extremity is edematous. Bilateral lower extremity with trace edema. NEURO: Alert & Oriented x4 to person, place, time, situation. Moves all ext x4 PSYCH: Appropriate mood and affect. A/P Problem List: (1) Deep vein thrombosis (DVT) of right upper extremity ICD Code: I82.621 Status: Acute (2) Atrial fibrillation with RVR ICD Code: I48.91 Status: Acute Assessment and Plan 80-year-old female patient with past medical history which includes diabetes mellitus, hypertension, hyperlipidemia, atrial fibrillation, peripheral vascular disease, arthritis, CHF EF 40-45% echocardiogram 06/2016, hyperlipidemia and anemia. Patient was recently hospitalized June 2016 for critical hypoglycemia, acute kidney injury and hyperkalemia requiring temporary hemodialysis. At that time he received 2017 patient had permacath RIJ and also had RUE PICC. Approximally one week ago patient began to have right upper extremity edema and pain. Patient had outpatient US at [place] which showed DVT RUE therefore patient was sent to the emergency department for further evaluation and treatment. Patient presented with subtherapeutic INR of 1.4. RUE DVT- acute Patient was started on heparin drip on admission. on Coumadin, subtherapeutic INR 1.4 S/P Coumadin 10 mg times one Pharmacy assisting with Coumadin dosing Appreciate hematology following, subtherapeutic INR may be due to primidone. Hematology recommends that we continue heparin bridging to Coumadin, discontinue primidone if she cannot achieve therapeutic INR on this medication. concern for PE- RUE DVT with elevated renal function VQ scan showed low probability of PE. A fib with RVR Patient status post Cardizem drip. Resume digoxin and metoprolol. Continue with higher dose of Cardizem. recent MARTHA in June- s/p temporary dialysis. Renal function stable this morning. Continue to monitor. diabetes mellitus- chronic- with recent hospitalization for critical hypoglycemia accuchecks [facility] with SSI coverage Other stable chronic conditions includes: hypertension, hyperlipidemia,CHF EF 40 -45% echocardiogram 06/2016 and anemia- continue home medications GI prophylaxis- Protonix Discharge Planning Continue heparin bridging to Coumadin. May be discharged once therapeutic INR is achieved. Problem Qualifiers (1) Deep vein thrombosis (DVT) of right upper extremity: Qualified Code: I82.621 - Acute deep vein thrombosis (DVT) of right upper extremity, unspecified vein Selin Leiva MD Oct 15, 2016 09:42
[2016-10-15] MEDS: HEPARIN-D5W INJ 250 ML IV SCH (11:34)
[2016-10-15 12:14] LABS: HEMATOCRIT 32.5 % (35.0-46.0); MEAN CELL VOLUME 89.6 FL (80.0-100.0); MEAN CORPUSCULAR HEMOGLOBIN 27.6 PG (27.0-34.0); MEAN CORPUSCULAR HGB CONC 30.9 % (32.0-36.0); PLATELET COUNT 376 TH/MM3 (150-450); RED BLOOD COUNT 3.63 MIL/MM3 (4.00-5.30); RED CELL DISTRIBUTION WIDTH 17.4 % (11.6-17.2); REVIEW FLAG FINAL; WHITE BLOOD COUNT 7.1 TH/MM3 (4.0-11.0)
[2016-10-15 12:21] LABS: APTT (PATIENT) 60.2 SEC (24.3-30.1); INTERNATIONAL NORMALIZED RATIO 1.6 RATIO; PROTHROMBIN TIME - PATIENT 18.1 SEC (9.8-11.6)
[2016-10-15 12:49] LABS: BICARBONATE 29.3 MEQ/L (21.0-32.0); POTASSIUM 4.7 MEQ/L (3.5-5.1)
[2016-10-15] MEDS: WARFARIN SOD 4 MG TAB PO SCH (16:24)
[2016-10-15] MEDS: ACETAMINOPHEN/CODEINE 300 MG/30 MG TAB PO PRN (16:25)
[2016-10-16] VITALS (28 sets, daily range): BP systolic 120–146; BP diastolic 68–96; PULSE 74–130; RESP 18–20; TEMP 97.6–100.4; O2SAT 98–100
[2016-10-16] MEDS: INSULIN ASPART SUPPLEMENTAL SCALE SQ SCH ×4 (06:12→20:16)
[2016-10-16] MEDS: HEPARIN-D5W INJ 250 ML IV SCH (06:19)
[2016-10-16 06:23] LABS: HEMATOCRIT 30.5 % (35.0-46.0); MEAN CELL VOLUME 90.3 FL (80.0-100.0); MEAN CORPUSCULAR HEMOGLOBIN 28.2 PG (27.0-34.0); MEAN CORPUSCULAR HGB CONC 31.3 % (32.0-36.0); PLATELET COUNT 337 TH/MM3 (150-450); RED BLOOD COUNT 3.38 MIL/MM3 (4.00-5.30); RED CELL DISTRIBUTION WIDTH 17.4 % (11.6-17.2); REVIEW FLAG FINAL; WHITE BLOOD COUNT 6.6 TH/MM3 (4.0-11.0)
[2016-10-16 06:29] LABS: APTT (PATIENT) 61.6 SEC (24.3-30.1); INTERNATIONAL NORMALIZED RATIO 1.5 RATIO; PROTHROMBIN TIME - PATIENT 16.4 SEC (9.8-11.6)
[2016-10-16] MEDS: ISOSORBIDE DINITRATE 5 MG TAB PO SCH ×3 (08:31→17:14)
[2016-10-16] MEDS: PRIMIDONE 50 MG TAB PO SCH ×3 (09:21→18:11)
[2016-10-16] MEDS: DIGOXIN 0.125 MG TAB PO SCH (09:21)
[2016-10-16] MEDS: POTASSIUM CHLORIDE 10 MEQ CAP PO SCH (09:21)
[2016-10-16] MEDS: DILTIAZEM HCL 60 MG TAB PO SCH ×4 (09:21→20:16)
[2016-10-16] MEDS: PANTOPRAZOLE SOD 40 MG DELAYED RELEASE TAB PO SCH (09:21)
[2016-10-16] MEDS: SODIUM CHLORIDE 0.9% FLUSH 10 ML FLUSH IV FLUSH SCH ×2 (09:22→20:21)
[2016-10-16] MEDS: METOPROLOL TARTRATE 100 MG TAB PO SCH (09:22)
[2016-10-16] MEDS: FUROSEMIDE 40 MG TAB PO SCH (09:22)
--- NOTE | 2016-10-16 10:06 | HHI.PR ---
Subjective Remarks Global weakness remains. INR is 1.5 (Coumadin adjusted). No chest pain or dyspnea or presyncope with PT. Constipation is present. Objective Vital Signs Date Time Temp Pulse Resp B/P Pulse Ox O2 Delivery O2 Flow Rate FiO2 10/16/16 06:00 121 10/16/16 05:00 96 10/16/16 04:00 111 10/16/16 03:00 81 10/16/16 03:00 97.9 86 20 136/81 98 10/16/16 02:00 101 10/16/16 01:00 87 10/16/16 00:00 84 10/15/16 23:00 97.4 101 20 143/65 100 10/15/16 23:00 92 10/15/16 22:00 96 10/15/16 21:00 100 10/15/16 20:00 96 10/15/16 20:00 98.9 107 20 129/57 97 10/15/16 19:00 99 10/15/16 18:28 92 10/15/16 18:27 124/66 10/15/16 17:18 99.9 10/15/16 17:04 100 10/15/16 16:07 107 10/15/16 15:30 98 10/15/16 15:00 100.5 101 18 100/68 98 10/15/16 14:06 105 10/15/16 13:00 84 10/15/16 12:23 75 10/15/16 11:00 98.1 79 20 115/58 100 10/15/16 11:00 67 10/15/16 10:00 74 I/O 10/15/16 10/15/16 10/15/16 10/16/16 10/16/16 10/16/16 07:00 15:00 23:00 07:00 15:00 23:00 Intake Total 440 ml 600 ml 537 ml Balance 440 ml 600 ml 537 ml Intake Oral 240 ml 600 ml 240 ml IV Total 200 ml 297 ml # Voids 2 3 3 # Bowel Movements 0 0 Result Diagram: 10/16/16 0448 10/15/16 1202 Imaging Last Impressions Lung Scan-VQ Nuclear Medicine 10/14/16 0600 Signed Impressions: Service Date/Time: Friday, October 14, 2016 10:15 - CONCLUSION: 1. Low probability of pulmonary embolism Andrea Coughlin MD Chest X-Ray 10/13/16 3729 Signed Impressions: Service Date/Time: Thursday, October 13, 2016 18:51 - CONCLUSION: No acute disease. Adam Perea MD Objective Remarks GENERAL: NAD, A&Ox3 SKIN: Warm and dry. HEAD: Normocephalic. EYES: No scleral icterus. No injection or drainage. NECK: Supple, trachea midline. No JVD or lymphadenopathy. CARDIOVASCULAR: Regular rate and rhythm without murmurs, gallops, or rubs. RESPIRATORY: Breath sounds equal bilaterally. No accessory muscle use. GASTROINTESTINAL: Abdomen soft, non-tender, nondistended. MUSCULOSKELETAL: No cyanosis. Mild edema at right arm. BACK: Nontender without obvious deformity. No CVA tenderness. Medications and IVs Administered Medications Medications (Trade) Dose Ordered Sig/Abigail Route PRN Reason Start Time Stop Time Status Last Admin Dose Admin Heparin Sodium/ Dextrose (Heparin-D5W Inj) 250 ml @ 0 mls/hr TITRATE IV 10/13/16 20:30 10/16/16 06:19 Sodium Chloride (NS Flush) 2 ml BID IV FLUSH 10/13/16 21:00 10/16/16 09:22 Digoxin (Lanoxin) 0.125 mg DAILY PO 10/14/16 09:00 10/16/16 09:21 Furosemide (Lasix) 40 mg DAILY PO 10/14/16 09:00 10/16/16 09:22 Isosorbide Dinitrate (Isordil) 5 mg TIDAC PO 10/14/16 08:00 10/16/16 08:31 Metoprolol Tartrate (Lopressor) 100 mg DAILY PO 10/14/16 09:00 10/16/16 09:22 Potassium Chloride (KCl) 10 meq DAILY PO 10/14/16 09:00 10/16/16 09:21 Primidone (Mysoline) 50 mg TID PO 10/14/16 09:00 10/16/16 09:21 Pantoprazole Sodium (Protonix) 40 mg DAILY PO 10/15/16 09:00 10/16/16 09:21 Diltiazem HCl (Cardizem) 60 mg QID PO 10/15/16 09:00 10/16/16 09:21 Acetaminophen/ Codeine Phosphate (Tylenol-Codeine #3) 1 tab Q4H PRN PO PAIN GREATER THAN 5 10/15/16 15:30 10/15/16 16:25 A/P Problem List: (1) Diabetes mellitus ICD Code: E11.9 (2) Atrial fibrillation, chronic ICD Code: I48.2 (3) Hypertension ICD Code: I10 (4) Systolic CHF ICD Code: I50.20 (5) Atrial fibrillation with RVR ICD Code: I48.91 (6) Debility ICD Code: R53.81 (7) DVT prophylaxis ICD Code: Z79.01 Assessment and Plan Assessment and Plan 80 year old female admitted with A-fib RVR with improvement now and continued need for PT RUE DVT Continue coumadin Follow INR (1.5 today) Increased coumadin to 6mg daily Right arm edema improving slowly A fib with RVR RVR is resolved Follow for recurrence Chronic A-fib Digoxin Coumadin Metoprolol CKD recent aka with temporary dialysis in June Follow renal function DM2 SSI Follow blood sugars Diabetic Diet Hypertension Stable Follow BP Hyperlipidemia Follow as an outpatient CHF EF 40-45% on echocardiogram in June Follow clinically Anemia Follow CBC Discharge Planning Discharge with therapeutic INR SNF at discharge if mobility/functionality does not improve Abram Dahl MD Oct 16, 2016 10:06 am
[2016-10-16] MEDS: POLYETHYLENE GLYCOL 17 GM PKG PO PRN (11:19)
[2016-10-16] MEDS ORDERED: WARFARIN SOD 6 MG TAB PO SCH (16:00)
[2016-10-16] MEDS ORDERED: WARFARIN SOD 1 MG TAB PO SCH (16:00)
--- NOTE | 2016-10-16 17:09 | PD.ONC.PN ---
Subjective Subjective Remarks Mild RUE soreness. No CP/SOB. Objective Data Date Time Temp Pulse Resp B/P Pulse Ox O2 Delivery O2 Flow Rate FiO2 10/16/16 17:01 80 10/16/16 16:43 89 10/16/16 15:00 97 10/16/16 15:00 100.4 103 18 127/96 10/16/16 14:00 96 10/16/16 13:00 74 10/16/16 12:00 80 10/16/16 11:20 98.4 89 18 120/68 10/16/16 11:00 98 10/16/16 10:00 118 10/16/16 09:00 130 10/16/16 08:00 102 10/16/16 07:40 97.6 90 18 146/89 10/16/16 07:00 97 10/16/16 06:00 121 10/16/16 05:00 96 10/16/16 04:00 111 10/16/16 03:00 81 10/16/16 03:00 97.9 86 20 136/81 98 10/16/16 02:00 101 10/16/16 01:00 87 10/16/16 00:00 84 10/15/16 23:00 97.4 101 20 143/65 100 10/15/16 23:00 92 10/15/16 22:00 96 10/15/16 21:00 100 10/15/16 20:00 96 10/15/16 20:00 98.9 107 20 129/57 97 10/15/16 19:00 99 10/15/16 18:28 92 10/15/16 18:27 124/66 10/15/16 17:18 99.9 10/16/16 10/16/16 10/16/16 07:00 15:00 23:00 Intake Total 537 ml Balance 537 ml Result Diagram: 10/16/16 0448 10/15/16 1202 Laboratory Results Laboratory Tests Test 10/16/16 04:48 White Blood Count 6.6 TH/MM3 Red Blood Count 3.38 MIL/MM3 Hemoglobin 9.5 GM/DL Hematocrit 30.5 % Mean Corpuscular Volume 90.3 FL Mean Corpuscular Hemoglobin 28.2 PG Mean Corpuscular Hemoglobin 31.3 % Concent Red Cell Distribution Width 17.4 % Platelet Count 337 TH/MM3 Mean Platelet Volume 8.3 FL Prothrombin Time 16.4 SEC Prothromb Time International 1.5 RATIO Ratio Activated Partial 61.6 SEC Thromboplast Time Administered Medications Medications (Trade) Dose Ordered Sig/Abigail Route PRN Reason Start Time Stop Time Status Last Admin Dose Admin Heparin Sodium/ Dextrose (Heparin-D5W Inj) 250 ml @ 0 mls/hr TITRATE IV 10/13/16 20:30 10/16/16 06:19 Sodium Chloride (NS Flush) 2 ml BID IV FLUSH 10/13/16 21:00 10/16/16 09:22 Digoxin (Lanoxin) 0.125 mg DAILY PO 10/14/16 09:00 10/16/16 09:21 Furosemide (Lasix) 40 mg DAILY PO 10/14/16 09:00 10/16/16 09:22 Isosorbide Dinitrate (Isordil) 5 mg TIDAC PO 10/14/16 08:00 10/16/16 11:19 Metoprolol Tartrate (Lopressor) 100 mg DAILY PO 10/14/16 09:00 10/16/16 09:22 Potassium Chloride (KCl) 10 meq DAILY PO 10/14/16 09:00 10/16/16 09:21 Primidone (Mysoline) 50 mg TID PO 10/14/16 09:00 10/16/16 13:11 Pantoprazole Sodium (Protonix) 40 mg DAILY PO 10/15/16 09:00 10/16/16 09:21 Diltiazem HCl (Cardizem) 60 mg QID PO 10/15/16 09:00 10/16/16 13:11 Acetaminophen/ Codeine Phosphate (Tylenol-Codeine #3) 1 tab Q4H PRN PO PAIN GREATER THAN 5 10/15/16 15:30 10/15/16 16:25 Polyethylene Glycol (Miralax) 17 gm DAILY PRN PO CONSTIPATION 10/16/16 10:00 10/16/16 11:19 Objective Remarks GENERAL: Well-nourished, well-developed patient.Obese SKIN: Warm and dry. HEAD: Normocephalic. EYES: No scleral icterus. No injection or drainage. NECK: Supple, trachea midline. No JVD or lymphadenopathy. LYMPHATIC: No adenopathy. CARDIOVASCULAR: Regular rate and rhythm without murmurs. RESPIRATORY: Breath sounds equal bilaterally. No accessory muscle use. GASTROINTESTINAL: Abdomen soft, non-tender, nondistended. EXTREMITIES: No cyanosis, RUE edema continue to improve. BLE trace ankle edema. MUSCULOSKELETAL: Adequate muscle tone. NEUROLOGICAL: No obvious focal deficit. Awake, alert, and oriented x3. PSYCHIATRIC: Appropriate mood and affect; insight and judgment normal. Assessment/Plan Assessment 1. Right upper extremity deep venous thrombosis. She was admitted to the hospital in June. At that time, she had a right internal jugular Permacath placement. She also had a PICC line placed in the right upper extremity. She was doing well after discharge; however, a week ago she noticed increased right upper extremity edema and tenderness. She had ultrasound done outpatient which showed deep venous thrombosis. She came to the hospital. She has been on Coumadin for chronic atrial fibrillation but her INR was only 1.4. Her VQ scan showed low probability for a pulmonary embolism. She was started on heparin and her edema has improved. She could not tell me if she started any new medication recently. I suspect that she has a subtherapeutic prothrombin time because of the Primidone. She did not fail the Coumadin. She developed the clot likely due to prior central line and PICC line placement. She had propagation of the clot because her prothrombin time was subtherapeutic. Since starting on heparin, her symptoms have improved. I agree with continuing heparin and bridging her to Coumadin. She will likely need a higher dose of Coumadin because of the Primidone. If she cannot achieve a therapeutic INR despite high dose Coumadin, then she will have to stop the Primidone. 10/15 RUE edema continue to improve. Tolerating heparin. Continue coumadin until goal INR 2-3. 10/16 RUE minimal edema. No bleeding. INR trending up but still not therapeutic. Plan Plan: Continue heparin and bridging to Coumadin with a goal INR between 2 to 3. If she cannot achieve a therapeutic INR despite higher dose of Coumadin, then consider stopping the primidone. Mando Dias MD Oct 16, 2016 17:09
[2016-10-17] VITALS (27 sets, daily range): BP systolic 122–182; BP diastolic 69–98; PULSE 72–140; RESP 18–19; TEMP 97.9–100.1; O2SAT 98–100
[2016-10-17 05:38] LABS: HEMATOCRIT 34.9 % (35.0-46.0); MEAN CELL VOLUME 90.9 FL (80.0-100.0); MEAN CORPUSCULAR HEMOGLOBIN 27.9 PG (27.0-34.0); MEAN CORPUSCULAR HGB CONC 30.7 % (32.0-36.0); PLATELET COUNT 375 TH/MM3 (150-450); RED BLOOD COUNT 3.84 MIL/MM3 (4.00-5.30); RED CELL DISTRIBUTION WIDTH 17.8 % (11.6-17.2); REVIEW FLAG FINAL; WHITE BLOOD COUNT 6.9 TH/MM3 (4.0-11.0)
[2016-10-17 05:44] LABS: BICARBONATE 27.4 MEQ/L (21.0-32.0); POTASSIUM 4.3 MEQ/L (3.5-5.1)
[2016-10-17 05:49] LABS: APTT (PATIENT) 42.8 SEC (24.3-30.1); INTERNATIONAL NORMALIZED RATIO 1.4 RATIO; PROTHROMBIN TIME - PATIENT 15.8 SEC (9.8-11.6)
[2016-10-17] MEDS: INSULIN ASPART SUPPLEMENTAL SCALE SQ SCH ×4 (06:20→20:37)
[2016-10-17] MEDS: METOPROLOL TARTRATE 100 MG TAB PO SCH (08:26)
[2016-10-17] MEDS: PANTOPRAZOLE SOD 40 MG DELAYED RELEASE TAB PO SCH (08:26)
[2016-10-17] MEDS: POTASSIUM CHLORIDE 10 MEQ CAP PO SCH (08:26)
[2016-10-17] MEDS: ISOSORBIDE DINITRATE 5 MG TAB PO SCH ×3 (08:26→16:50)
[2016-10-17] MEDS: PRIMIDONE 50 MG TAB PO SCH ×3 (08:26→16:51)
[2016-10-17] MEDS: DILTIAZEM HCL 60 MG TAB PO SCH ×4 (08:26→20:46)
[2016-10-17] MEDS: DIGOXIN 0.125 MG TAB PO SCH (08:27)
[2016-10-17] MEDS: SODIUM CHLORIDE 0.9% FLUSH 10 ML FLUSH IV FLUSH SCH ×2 (08:27→20:46)
[2016-10-17] MEDS: FUROSEMIDE 40 MG TAB PO SCH (08:27)
--- NOTE | 2016-10-17 11:11 | HHI.PR ---
Subjective Remarks Global weakness remains. Right arm swelling is improving per patient. INR is 1.4 today, despite adjustment. She may have Coumadin resistance. Objective Vital Signs Date Time Temp Pulse Resp B/P Pulse Ox O2 Delivery O2 Flow Rate FiO2 10/17/16 08:20 150/71 10/17/16 07:30 98.0 120 182/98 100 10/17/16 05:00 114 10/17/16 04:00 98.8 106 18 148/98 100 10/17/16 04:00 112 10/17/16 03:00 103 10/17/16 02:00 106 10/17/16 01:00 104 10/17/16 00:00 100 10/16/16 23:45 98.8 96 18 126/75 100 10/16/16 23:00 104 10/16/16 22:00 86 10/16/16 21:00 102 10/16/16 20:00 114 10/16/16 19:35 98.8 112 18 140/72 98 10/16/16 19:00 108 10/16/16 18:00 92 10/16/16 17:01 80 10/16/16 16:43 89 10/16/16 15:00 97 10/16/16 15:00 100.4 103 18 127/96 10/16/16 14:00 96 10/16/16 13:00 74 10/16/16 12:00 80 10/16/16 11:20 98.4 89 18 120/68 I/O 10/16/16 10/16/16 10/16/16 10/17/16 10/17/16 10/17/16 07:00 15:00 23:00 07:00 15:00 23:00 Intake Total 537 ml 510 ml 480 ml Output Total 900 ml Balance 537 ml 510 ml -420 ml Intake Oral 240 ml 360 ml 480 ml IV Total 297 ml 150 ml Output Urine Total 900 ml # Voids 3 3 # Bowel Movements 0 0 Result Diagram: 10/17/16 0500 10/17/16 0500 Objective Remarks GENERAL: NAD, A&Ox3 SKIN: Warm and dry. HEAD: Normocephalic. EYES: No scleral icterus. No injection or drainage. NECK: Supple, trachea midline. No JVD or lymphadenopathy. CARDIOVASCULAR: Regular rate and rhythm without murmurs, gallops, or rubs. RESPIRATORY: Breath sounds equal bilaterally. No accessory muscle use. GASTROINTESTINAL: Abdomen soft, non-tender, nondistended. MUSCULOSKELETAL: No cyanosis. Mild edema at right arm. BACK: Nontender without obvious deformity. No CVA tenderness. Medications and IVs Administered Medications Medications (Trade) Dose Ordered Sig/Abigail Route PRN Reason Start Time Stop Time Status Last Admin Dose Admin Heparin Sodium/ Dextrose (Heparin-D5W Inj) 250 ml @ 0 mls/hr TITRATE IV 10/13/16 20:30 10/16/16 06:19 Sodium Chloride (NS Flush) 2 ml BID IV FLUSH 10/13/16 21:00 10/17/16 08:27 Digoxin (Lanoxin) 0.125 mg DAILY PO 10/14/16 09:00 10/17/16 08:27 Furosemide (Lasix) 40 mg DAILY PO 10/14/16 09:00 10/17/16 08:27 Isosorbide Dinitrate (Isordil) 5 mg TIDAC PO 10/14/16 08:00 10/17/16 08:26 Metoprolol Tartrate (Lopressor) 100 mg DAILY PO 10/14/16 09:00 10/17/16 08:26 Potassium Chloride (KCl) 10 meq DAILY PO 10/14/16 09:00 10/17/16 08:26 Primidone (Mysoline) 50 mg TID PO 10/14/16 09:00 10/17/16 08:26 Pantoprazole Sodium (Protonix) 40 mg DAILY PO 10/15/16 09:00 10/17/16 08:26 Diltiazem HCl (Cardizem) 60 mg QID PO 10/15/16 09:00 10/17/16 08:26 Acetaminophen/ Codeine Phosphate (Tylenol-Codeine #3) 1 tab Q4H PRN PO PAIN GREATER THAN 5 10/15/16 15:30 10/15/16 16:25 Polyethylene Glycol (Miralax) 17 gm DAILY PRN PO CONSTIPATION 10/16/16 10:00 10/16/16 11:19 A/P Problem List: (1) Diabetes mellitus ICD Code: E11.9 (2) Atrial fibrillation, chronic ICD Code: I48.2 (3) Hypertension ICD Code: I10 (4) Systolic CHF ICD Code: I50.20 (5) Atrial fibrillation with RVR ICD Code: I48.91 (6) Debility ICD Code: R53.81 (7) DVT prophylaxis ICD Code: Z79.01 Assessment and Plan Assessment and Plan 80 year old female admitted with A-fib RVR with improvement now and continued need for PT. Working on transition to coumadin. RUE DVT Continue coumadin Follow INR (1.4 today) Increased coumadin to 10mg daily There may be coumadin resistance, especially if she has no response to 10mg within two days Right arm edema improving slowly A fib with RVR RVR is resolved Follow for recurrence Chronic A-fib Digoxin Coumadin Metoprolol CKD recent aka with temporary dialysis in June Follow renal function DM2 SSI Follow blood sugars Diabetic Diet Hypertension Stable Follow BP Hyperlipidemia Follow as an outpatient CHF EF 40-45% on echocardiogram in June Follow clinically Anemia Follow CBC Discharge Planning Discharge with therapeutic INR SNF at discharge if mobility/functionality does not improve Abram Dahl MD Oct 17, 2016 11:11 am
--- NOTE | 2016-10-17 13:27 | PD.ONC.PN ---
Subjective Subjective Remarks Afebrile overnight. Patient resting in bed. She was just moved to a new room and her nurse is at the bedside. She had breakfast but is refusing lunch. She says she is not hungry. No bleeding. Patient is somewhat lethargic today. Objective Data Date Time Temp Pulse Resp B/P Pulse Ox O2 Delivery O2 Flow Rate FiO2 10/17/16 12:00 82 10/17/16 11:20 97.9 85 19 122/70 98 10/17/16 11:00 78 10/17/16 10:00 72 10/17/16 09:00 110 10/17/16 08:20 150/71 10/17/16 08:00 134 10/17/16 07:30 98.0 120 182/98 100 10/17/16 07:00 136 10/17/16 05:00 114 10/17/16 04:00 98.8 106 18 148/98 100 10/17/16 04:00 112 10/17/16 03:00 103 10/17/16 02:00 106 10/17/16 01:00 104 10/17/16 00:00 100 10/16/16 23:45 98.8 96 18 126/75 100 10/16/16 23:00 104 10/16/16 22:00 86 10/16/16 21:00 102 10/16/16 20:00 114 10/16/16 19:35 98.8 112 18 140/72 98 10/16/16 19:00 108 10/16/16 18:00 92 10/16/16 17:01 80 10/16/16 16:43 89 10/16/16 15:00 97 10/16/16 15:00 100.4 103 18 127/96 10/16/16 14:00 96 10/17/16 10/17/16 10/17/16 07:00 15:00 23:00 Intake Total 480 ml Output Total 900 ml Balance -420 ml Result Diagram: 10/17/16 0500 10/17/16 0500 Laboratory Results Laboratory Tests Test 10/17/16 05:00 White Blood Count 6.9 TH/MM3 Red Blood Count 3.84 MIL/MM3 Hemoglobin 10.7 GM/DL Hematocrit 34.9 % Mean Corpuscular Volume 90.9 FL Mean Corpuscular Hemoglobin 27.9 PG Mean Corpuscular Hemoglobin 30.7 % Concent Red Cell Distribution Width 17.8 % Platelet Count 375 TH/MM3 Mean Platelet Volume 8.0 FL Prothrombin Time 15.8 SEC Prothromb Time International 1.4 RATIO Ratio Activated Partial 42.8 SEC Thromboplast Time Sodium Level 135 MEQ/L Potassium Level 4.3 MEQ/L Chloride Level 101 MEQ/L Carbon Dioxide Level 27.4 MEQ/L Anion Gap 7 MEQ/L Blood Urea Nitrogen 14 MG/DL Creatinine 1.09 MG/DL Estimat Glomerular Filtration 58 ML/MIN Rate Random Glucose 105 MG/DL Calcium Level 8.9 MG/DL Administered Medications Medications (Trade) Dose Ordered Sig/Abigail Route PRN Reason Start Time Stop Time Status Last Admin Dose Admin Heparin Sodium/ Dextrose (Heparin-D5W Inj) 250 ml @ 0 mls/hr TITRATE IV 10/13/16 20:30 10/16/16 06:19 Sodium Chloride (NS Flush) 2 ml BID IV FLUSH 10/13/16 21:00 10/17/16 08:27 Digoxin (Lanoxin) 0.125 mg DAILY PO 10/14/16 09:00 10/17/16 08:27 Furosemide (Lasix) 40 mg DAILY PO 10/14/16 09:00 10/17/16 08:27 Isosorbide Dinitrate (Isordil) 5 mg TIDAC PO 10/14/16 08:00 10/17/16 12:16 Metoprolol Tartrate (Lopressor) 100 mg DAILY PO 10/14/16 09:00 10/17/16 08:26 Potassium Chloride (KCl) 10 meq DAILY PO 10/14/16 09:00 10/17/16 08:26 Primidone (Mysoline) 50 mg TID PO 10/14/16 09:00 10/17/16 12:16 Pantoprazole Sodium (Protonix) 40 mg DAILY PO 10/15/16 09:00 10/17/16 08:26 Diltiazem HCl (Cardizem) 60 mg QID PO 10/15/16 09:00 10/17/16 12:16 Acetaminophen/ Codeine Phosphate (Tylenol-Codeine #3) 1 tab Q4H PRN PO PAIN GREATER THAN 5 10/15/16 15:30 10/15/16 16:25 Polyethylene Glycol (Miralax) 17 gm DAILY PRN PO CONSTIPATION 10/16/16 10:00 10/16/16 11:19 Objective Remarks GENERAL: Elderly female, lying in bed, lethargic. SKIN: Warm and dry. HEAD: Normocephalic. EYES: No injection or drainage. NECK: Supple, trachea midline. CARDIOVASCULAR: +S1/S2 RESPIRATORY: Breath sounds equal bilaterally. No accessory muscle use. GASTROINTESTINAL: Abdomen soft, non-tender, nondistended. EXTREMITIES: No cyanosis. + LE edema NEUROLOGICAL: awake. lethargic. Assessment/Plan Problem List: (1) Deep vein thrombosis (DVT) of right upper extremity Status: Acute Plan: --on heparin-->coumadin --h/o PICC line placed in the right upper extremity. --U/S sowed RUE DVT --suspect that she has a subtherapeutic prothrombin time because of the Primidone. She did not fail the Coumadin. Assessment 80y/o female with DVT h/o atrial fibrillation Plan 1. continue heparin bridge to coumadin 2. monitor CBC, INR 3. if she cannot achieve a therapeutic INR despite higher dose of Coumadin, then consider stopping the primidone. Attending Statement The exam, history, and the medical decision-making described in the above note were completed with the assistance of the mid-level provider. I reviewed and agree with the findings presented. I attest that I had a [id number] encounter with the patient on the same day, and personally performed and documented my assessment and findings in the medical record. RUE edema improving. No bleeding noted. INR still subtherapeutic. Pharmacy is adjusting coumadin dose. Consider stopping primidone if INR still not therapeutic. Problem Qualifiers (1) Deep vein thrombosis (DVT) of right upper extremity: Qualified Code: I82.621 - Acute deep vein thrombosis (DVT) of right upper extremity, unspecified vein Ines Louie Oct 17, 2016 13:27 Mando Dias MD Oct 17, 2016 16:47
[2016-10-17] MEDS: ACETAMINOPHEN/CODEINE 300 MG/30 MG TAB PO PRN (16:51)
[2016-10-17] MEDS: WARFARIN SOD 10 MG TAB PO SCH (16:51)
[2016-10-17] MEDS ORDERED: METOPROLOL TARTRATE 50 MG TAB PO ONE (17:30)
[2016-10-17] MEDS: HEPARIN-D5W INJ 250 ML IV SCH (20:50)
[2016-10-18] VITALS (27 sets, daily range): BP systolic 117–153; BP diastolic 60–87; PULSE 75–136; RESP 18; TEMP 97.7–98.4; O2SAT 95–100
[2016-10-18] MEDS: INSULIN ASPART SUPPLEMENTAL SCALE SQ SCH ×4 (05:42→20:13)
[2016-10-18] MEDS: ISOSORBIDE DINITRATE 5 MG TAB PO SCH ×3 (07:50→17:23)
[2016-10-18 09:03] LABS: INTERNATIONAL NORMALIZED RATIO 1.6 RATIO; PROTHROMBIN TIME - PATIENT 17.7 SEC (9.8-11.6)
[2016-10-18] MEDS: PRIMIDONE 50 MG TAB PO SCH ×3 (09:53→17:23)
[2016-10-18] MEDS: PANTOPRAZOLE SOD 40 MG DELAYED RELEASE TAB PO SCH (09:54)
[2016-10-18] MEDS: FUROSEMIDE 40 MG TAB PO SCH (09:54)
[2016-10-18] MEDS: DIGOXIN 0.125 MG TAB PO SCH (09:54)
[2016-10-18] MEDS: DILTIAZEM HCL 60 MG TAB PO SCH ×4 (09:54→20:14)
[2016-10-18] MEDS: SODIUM CHLORIDE 0.9% FLUSH 10 ML FLUSH IV FLUSH SCH ×2 (09:54→20:13)
[2016-10-18] MEDS: POTASSIUM CHLORIDE 10 MEQ CAP PO SCH (09:54)
[2016-10-18] MEDS: METOPROLOL TARTRATE 50 MG TAB PO SCH ×2 (09:54→20:14)
--- NOTE | 2016-10-18 10:40 | HHI.PR ---
Subjective Remarks INR is at 1.6 today, up from 1.4. This may be due to coumadin, but could also be variance without change. Patient has no new complaints. Objective Vital Signs Date Time Temp Pulse Resp B/P Pulse Ox O2 Delivery O2 Flow Rate FiO2 10/18/16 10:00 136 10/18/16 09:00 84 10/18/16 08:00 96 10/18/16 07:00 97.9 93 18 146/69 98 10/18/16 07:00 108 10/18/16 06:00 90 10/18/16 05:00 90 10/18/16 04:00 96 10/18/16 03:30 92 18 153/87 100 10/18/16 03:00 75 10/18/16 02:00 88 10/18/16 01:00 82 10/18/16 00:08 82 18 127/63 100 10/18/16 00:00 76 10/17/16 23:00 91 10/17/16 22:00 84 10/17/16 21:00 112 10/17/16 20:00 114 10/17/16 19:30 98.4 114 18 143/77 100 10/17/16 18:23 98.0 10/17/16 18:00 122 10/17/16 17:53 18 10/17/16 17:00 130 10/17/16 16:00 140 10/17/16 15:00 124 10/17/16 15:00 100.1 119 18 159/92 98 10/17/16 14:00 114 10/17/16 13:00 98 10/17/16 13:00 98.9 98 18 147/69 98 10/17/16 12:00 82 10/17/16 11:20 97.9 85 19 122/70 98 10/17/16 11:00 78 I/O 10/17/16 10/17/16 10/17/16 10/18/16 10/18/16 10/18/16 07:00 15:00 23:00 07:00 15:00 23:00 Intake Total 480 ml 170 ml 350 ml Output Total 900 ml Balance -420 ml 170 ml 350 ml Intake Oral 480 ml 120 ml 200 ml IV Total 50 ml 150 ml Output Urine Total 900 ml # Voids 3 2 # Bowel Movements 0 Result Diagram: 10/17/16 0500 10/17/16 0500 Objective Remarks GENERAL: NAD, A&Ox3 SKIN: Warm and dry. HEAD: Normocephalic. EYES: No scleral icterus. No injection or drainage. NECK: Supple, trachea midline. No JVD or lymphadenopathy. CARDIOVASCULAR: Regular rate and rhythm without murmurs, gallops, or rubs. RESPIRATORY: Breath sounds equal bilaterally. No accessory muscle use. GASTROINTESTINAL: Abdomen soft, non-tender, nondistended. MUSCULOSKELETAL: No cyanosis. Mild edema at right arm. BACK: Nontender without obvious deformity. No CVA tenderness. Medications and IVs Administered Medications Medications (Trade) Dose Ordered Sig/Abigail Route PRN Reason Start Time Stop Time Status Last Admin Dose Admin Heparin Sodium/ Dextrose (Heparin-D5W Inj) 250 ml @ 0 mls/hr TITRATE IV 10/13/16 20:30 10/17/16 20:50 Sodium Chloride (NS Flush) 2 ml BID IV FLUSH 10/13/16 21:00 10/18/16 09:54 Digoxin (Lanoxin) 0.125 mg DAILY PO 10/14/16 09:00 10/18/16 09:54 Furosemide (Lasix) 40 mg DAILY PO 10/14/16 09:00 10/18/16 09:54 Isosorbide Dinitrate (Isordil) 5 mg TIDAC PO 10/14/16 08:00 10/18/16 07:50 Potassium Chloride (KCl) 10 meq DAILY PO 10/14/16 09:00 10/18/16 09:54 Primidone (Mysoline) 50 mg TID PO 10/14/16 09:00 10/18/16 09:53 Pantoprazole Sodium (Protonix) 40 mg DAILY PO 10/15/16 09:00 10/18/16 09:54 Diltiazem HCl (Cardizem) 60 mg QID PO 10/15/16 09:00 10/18/16 09:54 Acetaminophen/ Codeine Phosphate (Tylenol-Codeine #3) 1 tab Q4H PRN PO PAIN GREATER THAN 5 10/15/16 15:30 10/17/16 16:51 Polyethylene Glycol (Miralax) 17 gm DAILY PRN PO CONSTIPATION 10/16/16 10:00 10/16/16 11:19 Warfarin Sodium (Coumadin) 10 mg DAILY@16 PO 10/17/16 16:00 10/17/16 16:51 Metoprolol Tartrate (Lopressor) 50 mg Q12HR PO 10/18/16 09:00 10/18/16 09:54 A/P Problem List: (1) Diabetes mellitus ICD Code: E11.9 (2) Atrial fibrillation, chronic ICD Code: I48.2 (3) Hypertension ICD Code: I10 (4) Systolic CHF ICD Code: I50.20 (5) Atrial fibrillation with RVR ICD Code: I48.91 (6) Debility ICD Code: R53.81 (7) DVT prophylaxis ICD Code: Z79.01 Assessment and Plan Assessment and Plan 80 year old female admitted with A-fib RVR with improvement now and continued need for PT. Working on transition to coumadin. RUE DVT Continue coumadin Follow INR (1.6 today) Continue coumadin 10mg daily There may be coumadin resistance Right arm edema improving slowly A fib with RVR RVR is resolved Follow for recurrence Chronic A-fib Digoxin Coumadin Metoprolol CKD recent aka with temporary dialysis in June Follow renal function DM2 SSI Follow blood sugars Diabetic Diet Hypertension Stable Follow BP Hyperlipidemia Follow as an outpatient CHF EF 40-45% on echocardiogram in June Follow clinically Anemia Follow CBC Discharge Planning Discharge with therapeutic INR SNF at discharge if mobility/functionality does not improve Abram Dahl MD Oct 18, 2016 10:40
[2016-10-18 13:00] LABS: HEMATOCRIT 36.8 % (35.0-46.0); MEAN CELL VOLUME 89.4 FL (80.0-100.0); MEAN CORPUSCULAR HEMOGLOBIN 27.8 PG (27.0-34.0); MEAN CORPUSCULAR HGB CONC 31.1 % (32.0-36.0); PLATELET COUNT 469 TH/MM3 (150-450); RED BLOOD COUNT 4.11 MIL/MM3 (4.00-5.30); RED CELL DISTRIBUTION WIDTH 17.8 % (11.6-17.2); WHITE BLOOD COUNT 6.5 TH/MM3 (4.0-11.0)
[2016-10-18 13:03] LABS: REVIEW FLAG FINAL
[2016-10-18 13:29] LABS: BICARBONATE 28.4 MEQ/L (21.0-32.0); POTASSIUM 4.5 MEQ/L (3.5-5.1)
[2016-10-18] MEDS: POLYETHYLENE GLYCOL 17 GM PKG PO PRN (15:04)
[2016-10-18] MEDS: WARFARIN SOD 10 MG TAB PO SCH (16:00)
[2016-10-18] MEDS: HEPARIN-D5W INJ 250 ML IV SCH (16:42)
[2016-10-19] VITALS (26 sets, daily range): BP systolic 91–166; BP diastolic 70–94; PULSE 80–141; RESP 20; TEMP 97.7–99.2; O2SAT 93–100
[2016-10-19] MEDS: INSULIN ASPART SUPPLEMENTAL SCALE SQ SCH ×4 (07:00→20:25)
[2016-10-19 07:14] LABS: INTERNATIONAL NORMALIZED RATIO 2.1 RATIO; PROTHROMBIN TIME - PATIENT 23.9 SEC (9.8-11.6)
[2016-10-19 07:20] LABS: HEMATOCRIT 34.5 % (35.0-46.0); MEAN CELL VOLUME 87.1 FL (80.0-100.0); MEAN CORPUSCULAR HEMOGLOBIN 27.8 PG (27.0-34.0); MEAN CORPUSCULAR HGB CONC 31.9 % (32.0-36.0); PLATELET COUNT 444 TH/MM3 (150-450); RED BLOOD COUNT 3.96 MIL/MM3 (4.00-5.30); RED CELL DISTRIBUTION WIDTH 18.2 % (11.6-17.2); REVIEW FLAG FINAL; WHITE BLOOD COUNT 7.1 TH/MM3 (4.0-11.0)
[2016-10-19] MEDS: METOPROLOL TARTRATE 50 MG TAB PO SCH ×2 (07:44→20:24)
[2016-10-19] MEDS: SODIUM CHLORIDE 0.9% FLUSH 10 ML FLUSH IV FLUSH SCH ×2 (07:44→20:25)
[2016-10-19] MEDS: DIGOXIN 0.125 MG TAB PO SCH (07:44)
[2016-10-19] MEDS: DILTIAZEM HCL 60 MG TAB PO SCH ×4 (07:44→20:24)
[2016-10-19] MEDS: POTASSIUM CHLORIDE 10 MEQ CAP PO SCH (07:44)
[2016-10-19] MEDS: PANTOPRAZOLE SOD 40 MG DELAYED RELEASE TAB PO SCH (07:44)
[2016-10-19] MEDS: PRIMIDONE 50 MG TAB PO SCH ×3 (07:45→16:24)
[2016-10-19] MEDS: ISOSORBIDE DINITRATE 5 MG TAB PO SCH ×3 (07:45→16:23)
[2016-10-19] MEDS: FUROSEMIDE 40 MG TAB PO SCH (07:45)
--- NOTE | 2016-10-19 10:05 | HHI.PR ---
Subjective Remarks INR is at 2.1 today, up from 1.6. No new complaints from the patient. Possible DC tomorrow if stable through tomorrow and Lovenox stopped with 24 hours of overlap. Objective Vital Signs Date Time Temp Pulse Resp B/P Pulse Ox O2 Delivery O2 Flow Rate FiO2 10/19/16 06:16 114 10/19/16 05:17 116 10/19/16 04:06 109 10/19/16 03:56 98.2 112 138/87 98 10/19/16 03:00 101 10/19/16 02:00 124 10/19/16 01:00 112 10/19/16 00:00 108 10/18/16 23:00 118 10/18/16 23:00 97.9 104 151/74 95 10/18/16 22:00 114 10/18/16 21:00 120 10/18/16 20:00 114 10/18/16 19:35 97 Nasal Cannula 2.00 10/18/16 19:00 102 10/18/16 19:00 98.4 78 127/87 97 10/18/16 18:00 98 10/18/16 17:00 90 10/18/16 16:00 114 10/18/16 15:00 82 10/18/16 15:00 98.1 82 18 119/60 98 10/18/16 14:00 78 10/18/16 13:00 80 10/18/16 12:00 108 10/18/16 11:00 135 10/18/16 11:00 97.7 92 18 117/62 98 I/O 10/18/16 10/18/16 10/18/16 10/19/16 10/19/16 10/19/16 07:00 15:00 23:00 07:00 15:00 23:00 Intake Total 350 ml 580 ml 250 ml Balance 350 ml 580 ml 250 ml Intake Oral 200 ml 580 ml 120 ml IV Total 150 ml 130 ml # Voids 2 2 3 # Bowel Movements 0 0 Result Diagram: 10/19/16 0620 10/18/16 1227 Objective Remarks GENERAL: NAD, A&Ox3 SKIN: Warm and dry. HEAD: Normocephalic. EYES: No scleral icterus. No injection or drainage. NECK: Supple, trachea midline. No JVD or lymphadenopathy. CARDIOVASCULAR: Regular rate and rhythm without murmurs, gallops, or rubs. RESPIRATORY: Breath sounds equal bilaterally. No accessory muscle use. GASTROINTESTINAL: Abdomen soft, non-tender, nondistended. MUSCULOSKELETAL: No cyanosis. Mild edema at right arm. BACK: Nontender without obvious deformity. No CVA tenderness. Medications and IVs Administered Medications Medications (Trade) Dose Ordered Sig/Abigail Route PRN Reason Start Time Stop Time Status Last Admin Dose Admin Heparin Sodium/ Dextrose (Heparin-D5W Inj) 250 ml @ 0 mls/hr TITRATE IV 10/13/16 20:30 10/18/16 16:42 Sodium Chloride (NS Flush) 2 ml BID IV FLUSH 10/13/16 21:00 10/19/16 07:44 Digoxin (Lanoxin) 0.125 mg DAILY PO 10/14/16 09:00 10/19/16 07:44 Furosemide (Lasix) 40 mg DAILY PO 10/14/16 09:00 10/19/16 07:45 Isosorbide Dinitrate (Isordil) 5 mg TIDAC PO 10/14/16 08:00 10/19/16 07:45 Potassium Chloride (KCl) 10 meq DAILY PO 10/14/16 09:00 10/19/16 07:44 Primidone (Mysoline) 50 mg TID PO 10/14/16 09:00 10/19/16 07:45 Pantoprazole Sodium (Protonix) 40 mg DAILY PO 10/15/16 09:00 10/19/16 07:44 Diltiazem HCl (Cardizem) 60 mg QID PO 10/15/16 09:00 10/19/16 07:44 Acetaminophen/ Codeine Phosphate (Tylenol-Codeine #3) 1 tab Q4H PRN PO PAIN GREATER THAN 5 10/15/16 15:30 10/17/16 16:51 Polyethylene Glycol (Miralax) 17 gm DAILY PRN PO CONSTIPATION 10/16/16 10:00 10/18/16 15:04 Metoprolol Tartrate (Lopressor) 50 mg Q12HR PO 10/18/16 09:00 10/19/16 07:44 A/P Problem List: (1) Diabetes mellitus ICD Code: E11.9 (2) Atrial fibrillation, chronic ICD Code: I48.2 (3) Hypertension ICD Code: I10 (4) Systolic CHF ICD Code: I50.20 (5) Atrial fibrillation with RVR ICD Code: I48.91 (6) Debility ICD Code: R53.81 (7) DVT prophylaxis ICD Code: Z79.01 Assessment and Plan Assessment and Plan 80 year old female admitted with A-fib RVR with improvement now and continued need for PT. Working on transition to coumadin. RUE DVT Continue coumadin Follow INR (2.1 today) Continue coumadin at 7.5mg daily Monitor if 7.5 mg coumadin holds here in therapeutic range Right arm edema improving slowly Stop lovenox if thereputic range sustained for at least 24 hours A fib with RVR RVR is resolved Follow for recurrence Chronic A-fib Digoxin Coumadin Metoprolol CKD recent aka with temporary dialysis in June Follow renal function DM2 SSI Follow blood sugars Diabetic Diet Hypertension Stable Follow BP Hyperlipidemia Follow as an outpatient CHF EF 40-45% on echocardiogram in June Follow clinically Anemia Follow CBC Discharge Planning Discharge with therapeutic INR off other anticoagulants SNF at discharge if mobility/functionality does not improve Abram Dahl MD Oct 19, 2016 10:05
[2016-10-19 12:35] LABS: APTT (PATIENT) 100.1 SEC (24.3-30.1)
[2016-10-19] MEDS: HEPARIN-D5W INJ 250 ML IV SCH (13:49)
[2016-10-19] MEDS: WARFARIN SOD 7.5 MG TAB PO SCH (15:44)
[2016-10-19 21:17] LABS: APTT (PATIENT) 41.2 SEC (24.3-30.1)
[2016-10-20] VITALS (24 sets, daily range): BP systolic 131–145; BP diastolic 58–86; PULSE 72–128; RESP 20; TEMP 97.6–98.9; O2SAT 96–100
[2016-10-20 04:05] LABS: BICARBONATE 33.5 MEQ/L (21.0-32.0); POTASSIUM 4.4 MEQ/L (3.5-5.1)
[2016-10-20 04:26] LABS: APTT (PATIENT) 65.8 SEC (24.3-30.1)
[2016-10-20 04:59] LABS: MEAN CELL VOLUME 86.1 FL (80.0-100.0); MEAN CORPUSCULAR HEMOGLOBIN 28.2 PG (27.0-34.0); MEAN CORPUSCULAR HGB CONC 32.7 % (32.0-36.0); PLATELET COUNT 483 TH/MM3 (150-450); RED BLOOD COUNT 3.84 MIL/MM3 (4.00-5.30); RED CELL DISTRIBUTION WIDTH 17.4 % (11.6-17.2); REVIEW FLAG FINAL; WHITE BLOOD COUNT 7.6 TH/MM3 (4.0-11.0)
[2016-10-20] MEDS: INSULIN ASPART SUPPLEMENTAL SCALE SQ SCH ×4 (06:26→20:14)
[2016-10-20] MEDS: SODIUM CHLORIDE 0.9% FLUSH 10 ML FLUSH IV FLUSH SCH ×2 (09:00→20:13)
[2016-10-20] MEDS: PRIMIDONE 50 MG TAB PO SCH ×3 (09:22→16:30)
[2016-10-20] MEDS: DILTIAZEM HCL 60 MG TAB PO SCH ×4 (09:22→20:13)
[2016-10-20] MEDS: METOPROLOL TARTRATE 50 MG TAB PO SCH ×2 (09:23→20:13)
[2016-10-20] MEDS: DIGOXIN 0.125 MG TAB PO SCH (09:23)
[2016-10-20] MEDS: ISOSORBIDE DINITRATE 5 MG TAB PO SCH ×3 (09:23→16:30)
[2016-10-20] MEDS: POTASSIUM CHLORIDE 10 MEQ CAP PO SCH (09:23)
[2016-10-20] MEDS: PANTOPRAZOLE SOD 40 MG DELAYED RELEASE TAB PO SCH (09:23)
[2016-10-20] MEDS: FUROSEMIDE 40 MG TAB PO SCH (09:24)
[2016-10-20 09:40] LABS: APTT (PATIENT) 72.7 SEC (24.3-30.1); INTERNATIONAL NORMALIZED RATIO 2.3 RATIO; PROTHROMBIN TIME - PATIENT 26.8 SEC (9.8-11.6)
--- NOTE | 2016-10-20 09:55 | PD.ONC.PN ---
Subjective Subjective Remarks Afebrile overnight. Patient resting in bed. She just finished eating breakfast. Objective Data Date Time Temp Pulse Resp B/P Pulse Ox O2 Delivery O2 Flow Rate FiO2 10/20/16 06:00 100 10/20/16 05:00 94 10/20/16 04:09 98.9 113 134/58 100 10/20/16 04:00 100 10/20/16 03:33 111 10/20/16 02:00 90 10/20/16 01:00 102 10/20/16 00:43 98.1 104 140/64 99 10/20/16 00:00 108 10/19/16 23:00 87 10/19/16 22:00 104 10/19/16 21:00 116 10/19/16 20:00 114 10/19/16 19:00 98.0 88 91/70 93 10/19/16 19:00 141 10/19/16 18:00 126 10/19/16 17:00 128 10/19/16 16:00 130 10/19/16 15:00 111 10/19/16 15:00 98.7 109 20 166/94 100 10/19/16 14:00 100 10/19/16 13:00 102 10/19/16 12:00 86 10/19/16 11:00 98 10/19/16 11:00 99.2 101 20 122/74 97 10/19/16 10:00 82 Result Diagram: 10/20/160 10/20/16309 Laboratory Results Laboratory Tests Test 10/19/16 10/19/16 10/20/16 10/20/16 10:32 20:44 03:10 03:20 Activated Partial 100.1 SEC 41.2 SEC 65.8 SEC Thromboplast Time White Blood Count 7.6 TH/MM3 Red Blood Count 3.84 MIL/MM3 Hemoglobin 10.8 GM/DL Hematocrit 33.0 % Mean Corpuscular Volume 86.1 FL Mean Corpuscular Hemoglobin 28.2 PG Mean Corpuscular Hemoglobin 32.7 % Concent Red Cell Distribution Width 17.4 % Platelet Count 483 TH/MM3 Mean Platelet Volume 8.7 FL Hematology Comments Sodium Level 137 MEQ/L Potassium Level 4.4 MEQ/L Chloride Level 96 MEQ/L Carbon Dioxide Level 33.5 MEQ/L Anion Gap 8 MEQ/L Blood Urea Nitrogen 12 MG/DL Creatinine 1.11 MG/DL Estimat Glomerular Filtration 57 ML/MIN Rate Random Glucose 96 MG/DL Calcium Level 9.3 MG/DL Test 10/20/16 09:11 Prothrombin Time 26.8 SEC Prothromb Time International 2.3 RATIO Ratio Activated Partial 72.7 SEC Thromboplast Time Administered Medications Medications (Trade) Dose Ordered Sig/Abigail Route PRN Reason Start Time Stop Time Status Last Admin Dose Admin Heparin Sodium/ Dextrose (Heparin-D5W Inj) 250 ml @ 0 mls/hr TITRATE IV 10/13/16 20:30 10/19/16 13:49 Sodium Chloride (NS Flush) 2 ml BID IV FLUSH 10/13/16 21:00 10/20/16 09:00 Digoxin (Lanoxin) 0.125 mg DAILY PO 10/14/16 09:00 10/20/16 09:23 Furosemide (Lasix) 40 mg DAILY PO 10/14/16 09:00 10/20/16 09:24 Isosorbide Dinitrate (Isordil) 5 mg TIDAC PO 10/14/16 08:00 10/20/16 09:23 Potassium Chloride (KCl) 10 meq DAILY PO 10/14/16 09:00 10/20/16 09:23 Primidone (Mysoline) 50 mg TID PO 10/14/16 09:00 10/20/16 09:22 Pantoprazole Sodium (Protonix) 40 mg DAILY PO 10/15/16 09:00 10/20/16 09:23 Diltiazem HCl (Cardizem) 60 mg QID PO 10/15/16 09:00 10/20/16 09:22 Acetaminophen/ Codeine Phosphate (Tylenol-Codeine #3) 1 tab Q4H PRN PO PAIN GREATER THAN 5 10/15/16 15:30 10/17/16 16:51 Polyethylene Glycol (Miralax) 17 gm DAILY PRN PO CONSTIPATION 10/16/16 10:00 10/18/16 15:04 Metoprolol Tartrate (Lopressor) 50 mg Q12HR PO 10/18/16 09:00 10/20/16 09:23 Warfarin Sodium (Coumadin) 7.5 mg DAILY@16 PO 10/19/16 16:00 10/19/16 15:44 Objective Remarks GENERAL: Pleasant elderly female, supine in bed in nad. SKIN: Warm and dry. HEAD: Normocephalic. EYES: No injection or drainage. NECK: Supple, trachea midline. CARDIOVASCULAR: +S1/S2 RESPIRATORY: Breath sounds equal bilaterally. No accessory muscle use. GASTROINTESTINAL: Abdomen soft, non-tender, nondistended. EXTREMITIES: No cyanosis. NEUROLOGICAL: awake. normal speech. able to move extremities. Assessment/Plan Problem List: (1) Deep vein thrombosis (DVT) of right upper extremity Status: Acute Plan: --on heparin-->coumadin --h/o PICC line placed in the right upper extremity. --U/S sowed RUE DVT --suspect that she has a subtherapeutic prothrombin time because of the Primidone. She did not fail the Coumadin. Assessment 80y/o female with DVT h/o atrial fibrillation Plan 1. INR therapeutic today 2. hematology will sign off. Please call or reconsult if needed. Attending Statement The exam, history, and the medical decision-making described in the above note were completed with the assistance of the mid-level provider. I reviewed and agree with the findings presented. I attest that I had a [id number] encounter with the patient on the same day, and personally performed and documented my assessment and findings in the medical record. RUE edema resolved , non tender. INR therapeutic. Continue couamdin. I will sign off. Problem Qualifiers (1) Deep vein thrombosis (DVT) of right upper extremity: Qualified Code: I82.621 - Acute deep vein thrombosis (DVT) of right upper extremity, unspecified vein Ines Louie October 20, 2016 09:55 Mando Dias MD October 20, 2016 15:45
[2016-10-20] MEDS ORDERED: MAGNESIUM CITRATE SOLN 300 ML BTL PO ONE (10:00)
--- NOTE | 2016-10-20 14:24 | HHI.PR ---
Subjective Remarks INR is at 2.3 today, up from 2.1, on 7.5mg of Coumadin daily. Heparin is discontinued. She is constipated and needs to have a bowel movement prior to discharge. Objective Vital Signs Date Time Temp Pulse Resp B/P Pulse Ox O2 Delivery O2 Flow Rate FiO2 10/20/16 12:00 102 10/20/16 11:30 97.6 86 20 131/64 96 10/20/16 11:00 91 10/20/16 10:00 98 10/20/16 10:00 102 10/20/16 08:00 97.9 90 20 136/86 97 10/20/16 08:00 128 10/20/16 07:00 100 10/20/16 06:00 100 10/20/16 05:00 94 10/20/16 04:09 98.9 113 134/58 100 10/20/16 04:00 100 10/20/16 03:33 111 10/20/16 02:00 90 10/20/16 01:00 102 10/20/16 00:43 98.1 104 140/64 99 10/20/16 00:00 108 10/19/16 23:00 87 10/19/16 22:00 104 10/19/16 21:00 116 10/19/16 20:00 114 10/19/16 19:00 98.0 88 91/70 93 10/19/16 19:00 141 10/19/16 18:00 126 10/19/16 17:00 128 10/19/16 16:00 130 10/19/16 15:00 111 10/19/16 15:00 98.7 109 20 166/94 100 I/O 10/19/16 10/19/16 10/19/16 10/20/16 10/20/16 10/20/16 07:00 15:00 23:00 07:00 15:00 23:00 Intake Total 250 ml 420 ml 240 ml Balance 250 ml 420 ml 240 ml Intake Oral 120 ml 420 ml 240 ml IV Total 130 ml # Voids 3 4 4 2 # Bowel Movements 0 Result Diagram: 10/20/1630910/20/16 0310 Objective Remarks GENERAL: NAD, A&Ox3 SKIN: Warm and dry. HEAD: Normocephalic. EYES: No scleral icterus. No injection or drainage. NECK: Supple, trachea midline. No JVD or lymphadenopathy. CARDIOVASCULAR: Regular rate and rhythm without murmurs, gallops, or rubs. RESPIRATORY: Breath sounds equal bilaterally. No accessory muscle use. GASTROINTESTINAL: Abdomen soft, non-tender, nondistended. MUSCULOSKELETAL: No cyanosis. Mild edema at right arm. BACK: Nontender without obvious deformity. No CVA tenderness. Medications and IVs Administered Medications Medications (Trade) Dose Ordered Sig/Abigail Route PRN Reason Start Time Stop Time Status Last Admin Dose Admin Sodium Chloride (NS Flush) 2 ml BID IV FLUSH 10/13/16 21:00 10/20/16 09:00 Digoxin (Lanoxin) 0.125 mg DAILY PO 10/14/16 09:00 10/20/16 09:23 Furosemide (Lasix) 40 mg DAILY PO 10/14/16 09:00 10/20/16 09:24 Isosorbide Dinitrate (Isordil) 5 mg TIDAC PO 10/14/16 08:00 10/20/16 12:00 Potassium Chloride (KCl) 10 meq DAILY PO 10/14/16 09:00 10/20/16 09:23 Primidone (Mysoline) 50 mg TID PO 10/14/16 09:00 10/20/16 13:00 Pantoprazole Sodium (Protonix) 40 mg DAILY PO 10/15/16 09:00 10/20/16 09:23 Diltiazem HCl (Cardizem) 60 mg QID PO 10/15/16 09:00 10/20/16 13:00 Acetaminophen/ Codeine Phosphate (Tylenol-Codeine #3) 1 tab Q4H PRN PO PAIN GREATER THAN 5 10/15/16 15:30 10/17/16 16:51 Polyethylene Glycol (Miralax) 17 gm DAILY PRN PO CONSTIPATION 10/16/16 10:00 10/18/16 15:04 Metoprolol Tartrate (Lopressor) 50 mg Q12HR PO 10/18/16 09:00 10/20/16 09:23 Warfarin Sodium (Coumadin) 7.5 mg DAILY@16 PO 10/19/16 16:00 10/19/16 15:44 A/P Problem List: (1) Diabetes mellitus ICD Code: E11.9 (2) Atrial fibrillation, chronic ICD Code: I48.2 (3) Hypertension ICD Code: I10 (4) Systolic CHF ICD Code: I50.20 (5) Atrial fibrillation with RVR ICD Code: I48.91 (6) Debility ICD Code: R53.81 (7) DVT prophylaxis ICD Code: Z79.01 (8) Constipation ICD Code: K59.00 Assessment and Plan Assessment and Plan 80 year old female admitted with A-fib RVR with improvement now and continued need for PT. Working on transition to coumadin. RUE DVT Continue coumadin Follow INR (2.3 today) Continue coumadin at 7.5mg daily for now hepatin stopped A fib with RVR RVR is resolved Follow for recurrence Chronic A-fib Digoxin Coumadin Metoprolol CKD recent aka with temporary dialysis in June Follow renal function DM2 SSI Follow blood sugars Diabetic Diet Hypertension Stable Follow BP Hyperlipidemia Follow as an outpatient CHF EF 40-45% on echocardiogram in June Follow clinically Anemia Follow CBC Constipation Magnesium citrate provided this morning Follow for bowel movement Discharge Planning Patient desires home with home PT at discharge Resolution of constipation needed prior to discharge Abram Dahl MD October 20, 2016 14:24
[2016-10-20] MEDS ORDERED: GLYCERIN ADULT 2 GM SUPP RECTAL PRN (15:00)
[2016-10-20] MEDS: WARFARIN SOD 7.5 MG TAB PO SCH (16:30)
--- NOTE | 2016-10-20 23:27 | HHI.PR ---
Addendum to Inpatient Note Addendum Reason: Additional Documentation Additional Information I was called by patient's nurse that the patient was found to have 4 seconds because on telemetry monitoring together with some episodes of bradycardia into the 40s. Chart reviewed. Patient has multiple negative chronotropic medications including metoprolol, Cardizem, digoxin. Possible that this is medications related. However patient was admitted with A. fib with RVR initially. Therefore possible sick sinus syndrome/ tachybradycardia syndrome. Therefore will hold Cardizem for now. Continue metoprolol and digoxin. We'll monitor patient on telemetry. to please consider cardiology consult if no improvement for possible need of pacemaker placement. Beulah Adams MD October 20, 2016 23:27
[2016-10-21] VITALS (9 sets, daily range): BP systolic 139–140; BP diastolic 66–67; PULSE 79–111; RESP 18; TEMP 97.5–97.7; O2SAT 98–100
[2016-10-21] MEDS: INSULIN ASPART SUPPLEMENTAL SCALE SQ SCH ×2 (06:26→11:00)
[2016-10-21] MEDS: PRIMIDONE 50 MG TAB PO SCH ×2 (08:19→13:46)
[2016-10-21] MEDS: PANTOPRAZOLE SOD 40 MG DELAYED RELEASE TAB PO SCH (08:19)
[2016-10-21] MEDS: POTASSIUM CHLORIDE 10 MEQ CAP PO SCH (08:19)
[2016-10-21] MEDS: DIGOXIN 0.125 MG TAB PO SCH (08:19)
[2016-10-21] MEDS: ISOSORBIDE DINITRATE 5 MG TAB PO SCH ×2 (08:19→13:46)
[2016-10-21] MEDS: FUROSEMIDE 40 MG TAB PO SCH (08:20)
[2016-10-21] MEDS: METOPROLOL TARTRATE 50 MG TAB PO SCH (08:26)
[2016-10-21] MEDS: SODIUM CHLORIDE 0.9% FLUSH 10 ML FLUSH IV FLUSH SCH (08:26)
[2016-10-21] MEDS ORDERED: COUM7.5T PO (10:23)
[2016-10-21 13:34] LABS: APTT (PATIENT) 41.6 SEC (24.3-30.1); INTERNATIONAL NORMALIZED RATIO 2.3 RATIO; PROTHROMBIN TIME - PATIENT 26.2 SEC (9.8-11.6)
--- NOTE | 2016-10-22 14:09 | HHI.DS ---
Discharge Summary Admission Date Oct 13, 2016 at 20:19 Discharge Date: October 21, 2016 Admitting Diagnosis Right upper ext DVT, AFib with RVR (1) Deep vein thrombosis (DVT) of right upper extremity ICD Code: I82.621 Diagnosis: Principal (2) Atrial fibrillation with RVR ICD Code: I48.91 Diagnosis: Principal Procedures none Brief History - From Admission This is an 80-year-old female patient with past medical history which includes diabetes mellitus, hypertension, hyperlipidemia, atrial fibrillation, peripheral vascular disease, arthritis, CHF EF 40-45% echocardiogram 06/2016, hyperlipidemia and anemia. Patient was recently hospitalized June 2016 for critical hypoglycemia, acute kidney injury and hyperkalemia requiring temporary hemodialysis. At that time June 2016 patient had permacath RIJ and also had RUE PICC line. Per patient and family member at bedside she had been doing well is able to walk a few steps with a walker at home, seem to be improving. Then approximally one week ago patient began to have right upper extremity edema and pain. Patient had outpatient US at [facility] which showed DVT RUE therefore patient was sent to the emergency department for further evaluation and treatment. Patient is currently on Coumadin secondary to Atrial fibrillation. Family helps with medication administration on a daily bases, reports that patient has not missed any doses, INR today 1.4. Patient denies SOB, chest pain, fevers, chills, N/V/D, black tarry stools or blood in stool. Family member at bedside reports that her oxygen level at home has been going down as low as in the "70's then back up to 100." Patient does not wear home oxygen, the family reports intermittently checking her oxygen levels. EKG upon arrival reviewed and reveals sinus tachycardia rate 144, patient with history of atrial fibrillation telemetry shows paroxysmal atrial fibrillation with RVR. Patient denies palpitations shortness of breath or chest pain. CBC/BMP: 10/20/16 0310 10/20/16 0310 Significant Findings Laboratory Tests Test 10/19/16 10/20/16 10/20/16 10/20/16 20:44 03:10 03:20 09:11 Activated Partial 41.2 SEC 65.8 SEC 72.7 SEC Thromboplast Time (24.3-30.1) (24.3-30.1) (24.3-30.1) Red Blood Count 3.84 MIL/MM3 (4.00-5.30) Hemoglobin 10.8 GM/DL (11.6-15.3) Hematocrit 33.0 % (35.0-46.0) Red Cell Distribution Width 17.4 % (11.6-17.2) Platelet Count 483 TH/MM3 (150-450) Chloride Level 96 MEQ/L (98-107) Carbon Dioxide Level 33.5 MEQ/L (21.0-32.0) Creatinine 1.11 MG/DL (0.50-1.00) Estimat Glomerular Filtration 57 ML/MIN (>89) Rate Prothrombin Time 26.8 SEC (9.8-11.6) Test 10/21/16 13:14 Prothrombin Time 26.2 SEC (9.8-11.6) Activated Partial 41.6 SEC Thromboplast Time (24.3-30.1) Imaging Last Impressions Lung Scan-[facility] Nuclear Medicine 10/14/16 0600 Signed Impressions: Service Date/Time: Friday, October 14, 2016 10:15 - CONCLUSION: 1. Low probability of pulmonary embolism Andrea Coughlin MD Chest X-Ray 10/13/16 1822 Signed Impressions: Service Date/Time: Thursday, October 13, 2016 18:51 - CONCLUSION: No acute disease. Adam Perea MD PE at Discharge GENERAL: Elderly female in no apparent distress. CARDIOVASCULAR: Normal rate, irregular rhythm without significant murmur RESPIRATORY: Good respiratory efforts. Breath sounds equal and clear to auscultation bilaterally. GASTROINTESTINAL: Abdomen soft, non-tender, non-distended. Normal active bowel sounds MUSCULOSKELETAL: Right upper extremity is edematous. Bilateral lower extremity with trace edema. NEURO: Alert & Oriented x4 to person, place, time, situation. Moves all ext x4 PSYCH: Appropriate mood and affect. Pt update on day of discharge Mrs. Gabriel is medically stable for discharge with a thereputic INR today. Hospital Course Mrs. Gabriel is an 80 year old female. She came in with A-fib RVR and a right upper extremity DVT. She had resolution of her A-fib with treatment. Acquiring thereputic INR levels was prolonged, but she eventually acquired this with 7.5mg of coumadin daily. She has dementia and physical debility, so her family elected for a SNF at discharge. She is discharged with medical clearance for further PT at a SNF. Pt Condition on Discharge: Stable Discharge Disposition: Discharge to SNF Discharge Time: > 30 minutes Discharge Instructions DIET: Follow Instructions for: As Tolerated, No Restrictions Activities you can perform: Regular-No Restrictions, See Additionl Instruction Other Activity Instructions: Ambulate only with assistance Follow up Referrals: PCP Follow-up - 2 Weeks New Medications: Warfarin (Coumadin) 7.5 Mg Tab 7.5 MG PO DAILY@16 Blood Clot Prevention #30 TAB Continued Medications: Digoxin (Lanoxin) 0.125 Mg Tab 0.125 MG PO DAILY Regulate Heart Beat #30 Ref 0 TAB Furosemide (Lasix) 40 Mg Tab 40 MG PO DAILY #30 Ref 0 TAB Hydralazine (Hydralazine) 50 Mg Tab 25 MG PO TID Take with a meal Blood Pressure Management Ref 0 TAB Isosorbide Dinitrate (Isordil Titradose) 5 Mg Tab 5 MG PO TIDAC Blood Pressure Management #90 TAB Metoprolol Tartrate (Lopressor) 100 Mg Tab 100 MG PO DAILY Blood Pressure Management #30 TAB Potassium Chloride ER (Potassium Chloride ER) 10 Meq Cap 10 MEQ PO DAILY Electrolyte Replacement #30 Ref 0 CAP Primidone (Primidone) 50 Mg Tab 50 MG PO TID Control Seizures #60 Ref 0 TAB Discontinued Medications: Warfarin (Warfarin) 4 Mg Tab 4 MG PO DAILY Blood Clot Prevention #30 Ref 0 TAB Abram Dahl MD October 22, 2016 14:09
== END 2016-10-21 15:30 | disposition home or self-care (01) | DRG 300 ==
LOC: NEPC 16:59 → NEDA 20:19 → HCIN 23:37 → HCIS 10-17 13:15
PROVIDERS: ADMIT Hospitalist; ATTEND Hospitalist
DX: I82.621 Acute embolism and thrombosis of deep veins of right upper extremity (principal); I13.0 Hypertensive heart and chronic kidney disease with heart failure and stage 1 through stage 4 chronic kidney disease, or unspecified chronic kidney disease; I50.20 Unspecified systolic (congestive) heart failure; F03.90 Unspecified dementia, unspecified severity, without behavioral disturbance, psychotic disturbance, mood disturbance, and anxiety; E11.22 Type 2 diabetes mellitus with diabetic chronic kidney disease; E78.5 Hyperlipidemia, unspecified; N18.3 Chronic kidney disease, stage 3 (moderate); D63.1 Anemia in chronic kidney disease; I73.9 Peripheral vascular disease, unspecified; I25.2 Old myocardial infarction; I48.0 Paroxysmal atrial fibrillation; K59.00 Constipation, unspecified; Z79.01 Long term (current) use of anticoagulants; Z99.2 Dependence on renal dialysis
CPT/HCPCS: 71010; 76937; 78582; 80048; 80053; 80162; 82948; 83735; 85025; 85027; 85610; 85730; 93005; 96365; 96375; 96376; A9540; A9567; J0171; J0461; J1644; J1815; J2270; J2405

== ENCOUNTER 2016-11-25 16:10 | Inpatient (IN) | payer OTHER, MEDICARE ==
[2016-11-25] VITALS (9 sets, daily range): BP systolic 96–148; BP diastolic 48–70; PULSE 98–166; RESP 16–20; TEMP 99.1–99.6; O2SAT 98–100
[~2016-11-25] VITALS: Ht 165.1 cm; Wt 72.5 kg
[~2016-11-25 16:10] MED LIST changes: +COUM7.5T PO; -DILT300C3 PO; +FURO1TAB60 PO; +HYDR50TA15 PO; +LANO0.1212 PO; +POTA10CA PO; +PRIM50TA5 PO; -WARF-20 PO; -hydrALAZINE PO
[2016-11-25] MEDS ORDERED: CEFEPIME INJ 2,000 MG in SODIUM CHLORIDE 0.9% INJ 100 ML IV STA (16:21)
--- NOTE | 2016-11-25 16:27 | PD ---
HPI Chief Complaint: Cardiac Complaint Time Seen by Provider: 16:15 Travel History International Travel<30 days: No Contact w/Intl Traveler<30days: No Traveled to known affect area: No History of Present Illness HPI 80-year-old female patient with history of multiple medical issues, A. fib history on Coumadin and digoxin, presents to the ER today because patient is looking more disoriented in the past few days according to family. She has been weak, and was noted by EMS crew to be fairly tachycardic. She denies any shortness of breath, chest pains, fevers, or other symptoms. Modifying Factors: None Associated Signs & Symptoms: General weakness, increased disorientation Risk Factors: Elderly PFSH Past Medical History Hx Anticoagulant Therapy: Yes (WARFARIN) Anemia: Yes Arthritis: Yes Asthma: No Atrial Fibrillation: Yes Autoimmune Disease: No Blood Disorders: No Anxiety: No Depression: No Heart Rhythm Problems: No Cancer: No Cardiovascular Problems: Yes High Cholesterol: No Chest Pain: No Congestive Heart Failure: No COPD: No Cerebrovascular Accident: No Diabetes: Yes Patient Takes Glucophage: No Diminished Hearing: No Endocrine: Yes Genitourinary: Yes Headaches: Yes Hypertension: Yes Immune Disorder: No Implanted Vascular Access Dvce: Yes Musculoskeletal: Yes Neurologic: Yes Psychiatric: No Reproductive: No Respiratory: No Immunizations Current: Yes Migraines: No Myocardial Infarction: Yes Renal Failure: Yes Seizures: Yes (2017 in [facility]) Thyroid Disease: Yes Tetanus Vaccination: Unknown PNEUMOCCOCAL Vaccine (Year): 3 Menopausal: Yes : 5 Para: 3 Past Surgical History Abdominal Surgery: Yes (cholecysectomy) AICD: No Arteriovenous Shunt: No Cardiac Surgery: No Ear Surgery: No Endocrine Surgery: Yes (thyroid removal) Eye Surgery: No Genitourinary Surgery: No Gynecologic Surgery: Yes (partial hysterectomy) Hysterectomy: Yes Insulin Pump: No Joint Replacement: No Oral Surgery: No Pacemaker: No Thoracic Surgery: No Other Surgery: Yes Social History Alcohol Use: No Tobacco Use: No Substance Use: No Allergies-Medications (Allergen,Severity, Reaction): Coded Allergies: No Known Allergies (Verified , 10/13/16) Reported Meds & Prescriptions Reported Meds & Active Scripts Active Coumadin (Warfarin) 7.5 Mg Tab 7.5 Mg PO DAILY@16 Lopressor (Metoprolol Tartrate) 100 Mg Tab 100 Mg PO DAILY Isordil Titradose (Isosorbide Dinitrate) 5 Mg Tab 5 Mg PO TIDAC Reported Warfarin 5 Mg Tab 5.5 Mg PO DAILY Hydralazine HCl 25 Mg Tablet 25 Mg PO TID Dulcolax Supp (Bisacodyl) 10 Mg Supp 10 Mg RECTAL DAILY PRN Digoxin 0.125 Mg Tab 0.125 Mg PO DAILY Lasix (Furosemide) 40 Mg Tab 40 Mg PO DAILY Potassium Chloride ER (Potassium Chloride) 10 Meq Cap 10 Meq PO DAILY Primidone 50 Mg Tab 50 Mg PO TID Review of Systems Except as stated in HPI: all other systems reviewed are Neg Physical Exam Narrative GENERAL: Well-developed elderly -Canadian female patient currently in moderate distress. Lethargic. SKIN: Focused skin assessment warm/dry. HEAD: Atraumatic. Normocephalic. EYES: Pupils equal and round. No scleral icterus. No injection or drainage. ENT: No nasal bleeding or discharge. Mucous membranes pink and moist. NECK: Trachea midline. No JVD. CARDIOVASCULAR: Fast and irregularly irregular. No murmur appreciated. RESPIRATORY: No accessory muscle use. Clear to auscultation. Breath sounds equal bilaterally. GASTROINTESTINAL: Abdomen soft, non-tender, nondistended. Hepatic and splenic margins not palpable. MUSCULOSKELETAL: No obvious deformities. No clubbing. No cyanosis. No edema. NEUROLOGICAL: Lethargic. No obvious cranial nerve deficits. Not following commands. PSYCHIATRIC: Disoriented; lethargic. Data Data Last Documented VS Vital Signs Date Time Temp Pulse Resp B/P Pulse Ox O2 Delivery O2 Flow Rate FiO2 11/25/16 16:47 100 Nasal Cannula 11/25/16 16:47 2 11/25/16 16:45 166 96/56 11/25/16 16:12 99.6 16 Orders Electrocardiogram (11/25/16 16:15) Complete Blood Count With Diff (11/25/16 16:15) Comprehensive Metabolic Panel (11/25/16 16:15) Prothrombin Time / Inr (Pt) (11/25/16 16:15) Act Partial Throm Time (Ptt) (11/25/16 16:15) Lactic Acid Sepsis Protocol (11/25/16 16:15) Magnesium (Mg) (11/25/16 16:15) Ckmb (Isoenzyme) Profile (11/25/16 16:15) Troponin I (11/25/16 16:15) Urinalysis - C+S If Indicated (11/25/16 16:15) Blood Culture (11/25/16 16:15) Chest, Single Ap (11/25/16 16:15) Blood Glucose (11/25/16 16:15) Ecg Monitoring (11/25/16 16:15) Iv Access Insert/Monitor (11/25/16 16:15) Oximetry (11/25/16 16:15) Oxygen Administration (11/25/16 16:15) Urinary Catheter Insert/Apply (11/25/16 16:15) Ct Brain W/O Iv Contrast(Rout) (11/25/16 16:15) Digoxin (11/25/16 16:15) B-Type Natriuretic Peptide (11/25/16 16:17) Sodium Chlorid 0.9% 500 Ml Inj (Ns 500 M (11/25/16 16:30) Cefepime Inj (Maxipime Inj) (11/25/16 16:21) Vascular Access Team Consult/P PRN (11/25/16 16:58) Vascular Poc Ultrasound (11/25/16 ) Urine Culture (11/25/16 16:36) Diltiazem Inj (Cardizem Inj) (11/25/16 17:30) Sodium Chloride 0.9% Flush (Ns Flush) (11/25/16 17:30) Labs Laboratory Tests Test 11/25/16 11/25/16 16:30 16:36 White Blood Count 9.5 TH/MM3 Red Blood Count 4.30 MIL/MM3 Hemoglobin 11.6 GM/DL Hematocrit 36.3 % Mean Corpuscular Volume 84.3 FL Mean Corpuscular Hemoglobin 26.9 PG Mean Corpuscular Hemoglobin 31.9 % Concent Red Cell Distribution Width 17.2 % Platelet Count 357 TH/MM3 Mean Platelet Volume 8.0 FL Neutrophils (%) (Auto) 61.0 % Lymphocytes (%) (Auto) 24.6 % Monocytes (%) (Auto) 13.6 % Eosinophils (%) (Auto) 0.3 % Basophils (%) (Auto) 0.5 % Neutrophils # (Auto) 5.8 TH/MM3 Lymphocytes # (Auto) 2.3 TH/MM3 Monocytes # (Auto) 1.3 TH/MM3 Eosinophils # (Auto) 0.0 TH/MM3 Basophils # (Auto) 0.0 TH/MM3 CBC Comment DIFF FINAL Differential Comment Prothrombin Time 23.0 SEC Prothromb Time International 2.0 RATIO Ratio Activated Partial 34.3 SEC Thromboplast Time Sodium Level 136 MEQ/L Potassium Level 5.0 MEQ/L Chloride Level 100 MEQ/L Carbon Dioxide Level 29.0 MEQ/L Anion Gap 7 MEQ/L Blood Urea Nitrogen 18 MG/DL Creatinine 1.12 MG/DL Estimat Glomerular Filtration 56 ML/MIN Rate Random Glucose 146 MG/DL Lactic Acid Level 1.0 mmol/L Calcium Level 9.5 MG/DL Magnesium Level 1.6 MG/DL Total Bilirubin 0.4 MG/DL Aspartate Amino Transf 29 U/L (AST/SGOT) Alanine Aminotransferase 18 U/L (ALT/SGPT) Alkaline Phosphatase 95 U/L Total Creatine Kinase 80 U/L Troponin I LESS THAN 0.02 NG/ML B-Type Natriuretic Peptide 172 PG/ML Total Protein 6.9 GM/DL Albumin 2.5 GM/DL Digoxin Level 1.3 NG/ML Urine Color YELLOW Urine Turbidity HAZY Urine pH 5.5 Urine Specific [employer] 1.011 Urine Protein NEG mg/dL Urine Glucose (UA) NEG mg/dL Urine Ketones NEG mg/dL Urine Occult Blood NEG Urine Nitrite POS Urine Bilirubin NEG Urine Urobilinogen LESS THAN 2.0 MG/DL Urine Leukocyte Esterase LARGE Urine RBC 1 /hpf Urine WBC 10 /hpf Urine Squamous Epithelial <1 /hpf Cells Urine Amorphous Sediment OCC Urine Bacteria MANY /hpf Urine Hyaline Casts 5 /lpf Urine Mucus FEW /lpf Microscopic Urinalysis Comment CATH-CULTURE IND MDM Medical Decision Making Medical Screen Exam Complete: Yes Emergency Medical Condition: Yes Medical Record Reviewed: Yes Interpretation(s) Initial EKG shows A. fib with rapid ventricular response at a rate of 149 bpm. No signs of acute ST-T changes. Laboratory Tests Test 11/25/16 11/25/16 16:30 16:36 Mean Corpuscular Hemoglobin 26.9 PG (27.0-34.0) Mean Corpuscular Hemoglobin 31.9 % Concent (32.0-36.0) Monocytes (%) (Auto) 13.6 % (0.0-8.0) Monocytes # (Auto) 1.3 TH/MM3 (0-0.9) Prothrombin Time 23.0 SEC (9.8-11.6) Activated Partial 34.3 SEC Thromboplast Time (24.3-30.1) Creatinine 1.12 MG/DL (0.50-1.00) Estimat Glomerular Filtration 56 ML/MIN (>89) Rate Random Glucose 146 MG/DL (74-106) Troponin I LESS THAN 0.02 NG/ML (0.02-0.05) B-Type Natriuretic Peptide 172 PG/ML (0-100) Albumin 2.5 GM/DL (3.4-5.0) Urine Turbidity HAZY (CLEAR) Urine Nitrite POS (NEG) Urine Leukocyte Esterase LARGE (NEG) Urine WBC 10 /hpf (0-5) Urine Bacteria MANY /hpf (NONE) Urine Mucus FEW /lpf (OCC) Last [address] 11/25/161614 Signed Impressions: Service Date/Time: Friday, November 25, 2016 16:29 - CONCLUSION: 1. Old right occipital lobe infarct. 2. No acute intracanal abnormality. Sean Reese MD Chest X-Ray 11/25/161614 Signed Impressions: Service Date/Time: Friday, November 25, 2016 16:27 - CONCLUSION: 1. Hiatal hernia. 2. Left basilar atelectasis and minimal left basilar effusion. 3. Stable appearing exam compared to prior. Abram Rivera MD Differential Diagnosis Altered mental status, lethargy, tachycardiadysrhythmias versus dehydration versus metabolic issues versus acute intracranial processes Narrative Course Patient is hypotensive in the ER. IV fluids were ordered for the patient. Lab work and chest x-ray did not show significant acute processes. Her lab work does show that she has a UTI and IV antibiotics were initiated after cultures of been done. Cardizem was ordered for the patient for better rate control. And at this point, my plan would be to admit the patient for further treatment. Case is discussed with Dr. Arechiga for admission. Sepsis Criteria SIRS Criteria (2 or more): Heart rate over 90 Diagnosis Primary Impression: Atrial fibrillation with rapid ventricular response Additional Impression: UTI (urinary tract infection) Admitting Information Admitting Physician Requests: Admit Roslyn Luna MD Nov 25, 2016 16:27
[2016-11-25] MEDS ORDERED: SODIUM CHLORID 0.9% 500 ML INJ 500 ML IV ONE (16:30)
[2016-11-25] MEDS ORDERED: HYDR-3799 PO (16:35)
[2016-11-25] MEDS ORDERED: DULC10SU3 RECTAL (16:35)
[2016-11-25] MEDS ORDERED: DIGO0.12 PO (16:35)
[2016-11-25] MEDS ORDERED: WARF-23 PO (16:44)
--- NOTE | 2016-11-25 16:49 | RADRPT ---
EXAM DATE/TIME: 11/25/2016 16:27 [facility] COMPARISON: CT ABDOMEN & PELVIS W CONTRAST, June 11, 2016, 11:34. CHEST SINGLE AP, June 26, 2016, 6:59. CHEST SINGLE AP, October 13, 2016, 18:51. INDICATIONS : Short of breath, weakness MEDICAL HISTORY : previous thrombosis in right arm SURGICAL HISTORY : Vas cath ENCOUNTER: Initial ACUITY: 1 day PAIN SCORE: Non-responsive. LOCATION: Bilateral chest FINDINGS: Single view chest demonstrates a hiatal hernia on the left. There is consolidation and a small left b asilar effusion as well. The heart is at the upper limits of normal in size. Bony structures demonstrate degenerative changes in the shoulders bilaterally. CONCLUSION: 1. Hiatal hernia. 2. Left basilar atelectasis and minimal left basilar effusion. 3. Stable appearing exam compared to prior. Abram Rivera MD on November 25, 2016 at 16:35 Board Certified Radiologist. This report was verified electronically.
[2016-11-25 16:56] LABS: AUTOMATED NEUTROPHIL # 5.8 TH/MM3 (1.8-7.7); BASOPHIL % 0.5 % (0.0-2.0); EOSINOPHIL % 0.3 % (0.0-4.0); HEMATOCRIT 36.3 % (35.0-46.0); HEMO FLAGS DIFF FINAL; LYMPH % 24.6 % (9.0-44.0); LYMPHOCYTE # 2.3 TH/MM3 (1.0-4.8); MEAN CELL VOLUME 84.3 FL (80.0-100.0); MEAN CORPUSCULAR HEMOGLOBIN 26.9 PG (27.0-34.0); MEAN CORPUSCULAR HGB CONC 31.9 % (32.0-36.0); MONO % 13.6 % (0.0-8.0); PLATELET COUNT 357 TH/MM3 (150-450); RED CELL DISTRIBUTION WIDTH 17.2 % (11.6-17.2); WHITE BLOOD COUNT 9.5 TH/MM3 (4.0-11.0)
[2016-11-25 17:05] LABS: APTT (PATIENT) 34.3 SEC (24.3-30.1)
--- NOTE | 2016-11-25 17:10 | RADRPT ---
EXAM DATE/TIME: 11/25/2016 16:29 [facility] COMPARISON: CT BRAIN W/O CONTRAST, June 26, 2016, 8:48. INDICATIONS : Evaluate for altered mental status. RADIATION DOSE: 56.38 CTDIvol (mGy) MEDICAL HISTORY : Seizures. Hypertension. Cardiovascular diseaseDiabetes II, AFIB SURGICAL HISTORY : Cholecystectomy. Hysterectomy. ENCOUNTER: Initial ACUITY: 2 days PAIN SCALE: 4/10 LOCATION: Bilateral cranial TECHNIQUE: Multiple contiguous axial images were obtained of the head. Using automated exposure control and adj ustment of the mA and/or kV according to patient size, radiation dose was kept as low as reasonably a chievable to obtain optimal diagnostic quality images. FINDINGS: CEREBRUM: Focal insufflation a defect in the right occipital lobe consistent with prior infarct. The ventricles are normal for age. No evidence of midline shift, mass lesion, hemorrhage or acute infarction. No extra-axial fluid collections are seen. POSTERIOR FOSSA: The cerebellum and brainstem are intact. The 4th ventricle is midline. The cerebellopontine angle i s unremarkable. EXTRACRANIAL: The visualized portion of the orbits is intact. SKULL: The calvaria is intact. No evidence of skull fracture. CONCLUSION: 1. Old right occipital lobe infarct. 2. No acute intracanal abnormality. Sean Reese MD on November 25, 2016 at 17:05 Board Certified Radiologist. This report was verified electronically.
[2016-11-25 17:20] LABS: ANION GAP 7 MEQ/L (5-15); AST (GOT) 29 U/L (15-37); BLOOD UREA NITROGEN 18 MG/DL (7-18); CHLORIDE 100 MEQ/L (98-107); GLOMERULAR FILTRATION RATE 56 ML/MIN (>89); MAGNESIUM 1.6 MG/DL (1.5-2.5); SODIUM (NA) 136 MEQ/L (136-145)
[2016-11-25 17:24] LABS: BACTERIA, URINE MANY /hpf; BLOOD, URINE NEG (NEG); GLUCOSE,URINE NEG (NEG); HYALINE CAST, URINE 5 /lpf (RARE); KETONE, URINE NEG (NEG); MUCUS URINE FEW /lpf (OCC); PH, URINE 5.5 (5.0-8.5); SQUAMOUS EPITHELIAL CELL URINE <1 /hpf (0-5); URINE COLOR YELLOW (YELLW/STRAW)
[2016-11-25 17:25] LABS: NITRITE,URINE POS (NEG)
[2016-11-25 17:26] LABS: COMMENT (UR) CATH-CULTURE IND; CULTURE IF INDICATED CATH CULTURE IND
[2016-11-25] MEDS ORDERED: SODIUM CHLORIDE 0.9% FLUSH 10 ML FLUSH IVF PRN (17:30)
[2016-11-25] MEDS ORDERED: DILTIAZEM HCL 25 MG/5 ML VIAL IV PUSH ONE (17:30)
[2016-11-25 17:34] LABS: ALKALINE PHOSPHATASE 95 U/L (45-117); ALT (GPT) 18 U/L (10-53); DIGOXIN 1.3 NG/ML (0.8-2.0); TOTAL BILIRUBIN ADULT 0.4 MG/DL (0.2-1.0)
[2016-11-25 17:50] LABS: CREATINE KINASE 80 U/L (26-192)
[2016-11-25] MEDS ORDERED: ONDANSETRON HCL 4 MG/2 ML VIAL IVP PRN (18:45)
[2016-11-25] MEDS ORDERED: NALOXONE HCL 0.4 MG/ML AMP IV PRN (18:45)
[2016-11-25] MEDS ORDERED: LACTULOSE SYRUP 20 GM/30 ML CUP PO PRN (18:45)
[2016-11-25] MEDS ORDERED: MAGNESIUM HYDROXIDE SUSP 30 ML CUP PO PRN (18:45)
[2016-11-25] MEDS ORDERED: SODIUM CHLORIDE 0.9% FLUSH 10 ML FLUSH IV FLUSH PRN (18:45)
[2016-11-25] MEDS ORDERED: BISACODYL 10 MG SUPP RECTAL PRN (18:45)
[2016-11-25] MEDS ORDERED: SENNOSIDES 8.6 MG TAB PO PRN (18:45)
[2016-11-25] MEDS: SODIUM CHLOR 0.9% 1000 ML INJ 1,000 ML IV SCH (19:45)
[2016-11-25] MEDS: DILTIAZEM INJ 125 MG in SODIUM CHLORIDE 0.9% INJ 100 ML IV SCH (19:46)
[2016-11-25] MEDS: DOCUSATE SODIUM 50 MG/SENNA 8.6 MG TAB PO SCH (21:00)
[2016-11-25] MEDS: SODIUM CHLORIDE 0.9% FLUSH 10 ML FLUSH IV FLUSH SCH (21:00)
--- NOTE | 2016-11-25 22:13 | HHI.HP ---
[facility] June Sahu MD Admission Diagnosis A. fib with RVR/UTI Diagnoses: Chief Complaint: Brought by family for increasing disorientation/confusion for the past few days Travel History International Travel<30 Days: No Contact w/Intl Traveler <30 Da: No Traveled to Known Affected Are: No History of Present Illness Written by Anne Lockhart, acting as scribe for Dr. Pretty on 11/25/16 at 22: 28. This is an 80-year-old female patient with past medical history which includes diabetes mellitus, hypertension, hyperlipidemia, atrial fibrillation, peripheral vascular disease, arthritis, CHF EF 40-45% echocardiogram 06/2016, hyperlipidemia and anemia. Patient was recently hospitalized June 2016 for critical hypoglycemia, acute kidney injury and hyperkalemia requiring temporary hemodialysis. Patient was also recently hospitalized 09/2016 for DVT of RUE and A Fib RVR. Patient is alert and oriented to person and place only she is a poor historian therefore information gathered from patient as well as prior computerized charting. Patient is unable to tell why she is in the hospital. Patient and review of ER doctor medication patient was brought in by family members for increased confusion/disorientation over the past few days. Patient arrived to the emergency department she was noted to have atrial fibrillation with a rapid ventricular rate as high as 166 on telemetry monitoring. EKG reviewed and revealed atrial fibrillation with RVR at a rate of 149 bpm. Patient was given Cardizem IV push and started on Cardizem drip in the emergency department. Patient is currently on Cardizem drip with a heart rate 90s to low 100s. UA also reviewed and reveals: Negative protein and positive nitrates large amount leukocyte esterase and many urine bacteria hyalin casts in urine mucus culture pending Per ER documentation there was no report of chest pain, shortness of breath or feeling lightheaded, although patient is a poor historian and unreliable. At this time patient offers no complaints. Review of Systems ROS Limitations: Poor Historian Except as stated in HPI: all other systems reviewed are Neg Past Family Social History Past Medical History diabetes mellitus, hypertension, hyperlipidemia, atrial fibrillation, peripheral vascular disease, arthritis, CHF EF 40-45% echocardiogram 06/2016, hyperlipidemia and anemia Past Surgical History hysterectomy, cholecystectomy Reported Medications Coumadin (Warfarin) 7.5 Mg Tab 7.5 Mg PO DAILY@16 Lopressor (Metoprolol Tartrate) 100 Mg Tab 100 Mg PO DAILY Isordil Titradose (Isosorbide Dinitrate) 5 Mg Tab 5 Mg PO TIDAC Warfarin 5 Mg Tab 5.5 Mg PO DAILY Hydralazine HCl 25 Mg Tablet 25 Mg PO TID Dulcolax Supp (Bisacodyl) 10 Mg Supp 10 Mg RECTAL DAILY PRN Digoxin 0.125 Mg Tab 0.125 Mg PO DAILY Lasix (Furosemide) 40 Mg Tab 40 Mg PO DAILY Potassium Chloride ER (Potassium Chloride) 10 Meq Cap 10 Meq PO DAILY Primidone 50 Mg Tab 50 Mg PO TID Allergies: Coded Allergies: No Known Allergies (Verified , 10/13/16) Active Ordered Medications Current Medications Medications (Trade) Dose Ordered Sig/Abigail Route Start Time Stop Time Status Last Admin (NS 1000 ml Inj) 1,000 ml @ 75 mls/hr [id number] IV 11/25/16 18:34 11/25/16 19:45 (NS Flush) 2 ml UNSCH PRN IV FLUSH 11/25/16 18:45 (NS Flush) 2 ml BID IV FLUSH 11/25/16 21:00 (Zofran Inj) 4 mg Q6H PRN IVP 11/25/16 18:45 (Narcan Inj) 0.4 mg UNSCH PRN IV 11/25/16 18:45 (Esthela-Colace) 1 tab BID PO 11/25/16 21:00 (Milk Of Magnesia Liq) 30 ml Q12H PRN PO 11/25/16 18:45 (Senokot) 17.2 mg Q12H PRN PO 11/25/16 18:45 (Dulcolax Supp) 10 mg DAILY PRN RECTAL 11/25/16 18:45 Lactulose 30 ml 30 ml DAILY PRN PO 11/25/16 18:45 (Cardizem Inj/NS Inj) 125 ml @ 0 mls/hr TITRATE IV 11/25/16 21:00 11/25/16 19:46 Family History Sister has DM Social History denies ETOH use or tobacco use Physical Exam Vital Signs Vital Signs Date Time Temp Pulse Resp B/P Pulse Ox O2 Delivery O2 Flow Rate FiO2 11/25/16 19:31 124 16 111/61 100 Nasal Cannula 2 11/25/16 18:30 148 20 133/60 99 Nasal Cannula 2 11/25/16 16:47 100 Nasal Cannula 11/25/16 16:47 100 Nasal Cannula 2 11/25/16 16:45 166 96/56 100 Nasal Cannula 2 11/25/16 16:12 99.6 159 16 112/48 100 Physical Exam GENERAL: This is a well-nourished, well-developed patient, on Cardizem drip heart rate improved. Alert and oriented to person and place only unable to provide meaningful information SKIN: No rashes, ecchymoses or lesions. Cool and dry. HEAD: Atraumatic. Normocephalic. No temporal or scalp tenderness. EYES: Pupils equal round and reactive. Extraocular motions intact. No scleral icterus. No injection or drainage. CARDIOVASCULAR: Irregularly irregular and tachycardic RESPIRATORY: Clear to auscultation. Breath sounds equal bilaterally. No wheezes , rales, or rhonchi. GASTROINTESTINAL: Abdomen obese soft, non-tender, nondistended. No guarding. MUSCULOSKELETAL: No calf tenderness. Negative Homans sign bilaterally. Right upper extremity edematous greater than left. NEUROLOGICAL: Awake and alert. Oriented to person and place only poor historian. Cranial nerves II through XII intact. Motor and sensory grossly within normal limits. 3-4 out of 5 muscle strength in all muscle groups. Laboratory Laboratory Tests Test 11/25/16 11/25/16 16:30 16:36 White Blood Count 9.5 Red Blood Count 4.30 Hemoglobin 11.6 Hematocrit 36.3 Mean Corpuscular Volume 84.3 Mean Corpuscular Hemoglobin 26.9 Mean Corpuscular Hemoglobin 31.9 Concent Red Cell Distribution Width 17.2 Platelet Count 357 Mean Platelet Volume 8.0 Neutrophils (%) (Auto) 61.0 Lymphocytes (%) (Auto) 24.6 Monocytes (%) (Auto) 13.6 Eosinophils (%) (Auto) 0.3 Basophils (%) (Auto) 0.5 Neutrophils # (Auto) 5.8 Lymphocytes # (Auto) 2.3 Monocytes # (Auto) 1.3 Eosinophils # (Auto) 0.0 Basophils # (Auto) 0.0 CBC Comment DIFF FINAL Differential Comment Prothrombin Time 23.0 Prothromb Time International 2.0 Ratio Activated Partial 34.3 Thromboplast Time Sodium Level 136 Potassium Level 5.0 Chloride Level 100 Carbon Dioxide Level 29.0 Anion Gap 7 Blood Urea Nitrogen 18 Creatinine 1.12 Estimat Glomerular Filtration 56 Rate Random Glucose 146 Lactic Acid Level 1.0 Calcium Level 9.5 Magnesium Level 1.6 Total Bilirubin 0.4 Aspartate Amino Transf 29 (AST/SGOT) Alanine Aminotransferase 18 (ALT/SGPT) Alkaline Phosphatase 95 Total Creatine Kinase 80 Troponin I LESS THAN 0.02 B-Type Natriuretic Peptide 172 Total Protein 6.9 Albumin 2.5 Digoxin Level 1.3 Urine Color YELLOW Urine Turbidity HAZY Urine pH 5.5 Urine Specific [employer] 1.011 Urine Protein NEG Urine Glucose (UA) NEG Urine Ketones NEG Urine Occult Blood NEG Urine Nitrite POS Urine Bilirubin NEG Urine Urobilinogen LESS THAN 2.0 Urine Leukocyte Esterase LARGE Urine RBC 1 Urine WBC 10 Urine Squamous Epithelial <1 Cells Urine Amorphous Sediment OCC Urine Bacteria MANY Urine Hyaline Casts 5 Urine Mucus FEW Microscopic Urinalysis Comment CATH-CULTURE IND Date/Time Procedure Status Source Growth 11/25/16 16:36 Urine Culture Received Urine Catheterized Urine Pending 11/25/16 16:20 Aerobic Blood Culture Received Blood Peripheral Pending 11/25/16 16:20 Anaerobic Blood Culture Received Blood Peripheral Pending Result Diagram: 11/25/16 1630 11/25/16 1630 Imaging Last Impressions Head CT 11/25/16 1615 Signed Impressions: Service Date/Time: Friday, November 25, 2016 16:29 - CONCLUSION: 1. Old right occipital lobe infarct. 2. No acute intracanal abnormality. Sean Reese MD Chest X-Ray 11/25/16 1615 Signed Impressions: Service Date/Time: Friday, November 25, 2016 16:27 - CONCLUSION: 1. Hiatal hernia. 2. Left basilar atelectasis and minimal left basilar effusion. 3. Stable appearing exam compared to prior. Abram Rivera MD Assessment and Plan Problem List: (1) Atrial fibrillation with RVR ICD Code: I48.91 Status: Acute (2) UTI (urinary tract infection) ICD Code: N39.0 Status: Acute Assessment and Plan This is an 80-year-old female patient with past medical history which includes diabetes mellitus, hypertension, hyperlipidemia, atrial fibrillation, peripheral vascular disease, arthritis, CHF EF 40-45% echocardiogram 06/2016, hyperlipidemia and anemia. Patient was recently hospitalized June 2016 for critical hypoglycemia, acute kidney injury and hyperkalemia requiring temporary hemodialysis. Patient was also recently hospitalized 09/2016 for DVT of RUE and A Fib RVR. EKG reviewed and revealed atrial fibrillation with RVR at a rate of 149 bpm. UA also reviewed and reveals: Negative protein and positive nitrates large amount leukocyte esterase and many urine bacteria hyalin casts in urine mucus culture pending A fib with RVR- acute on chronic. Patient with rapid ventricular rate at risk for decompensation requiring IV medication and close telemetry monitoring. Continue Cardizem drip after bolus IV push given in ER Continuous Telemetry monitoring 2.0. Continue Coumadin with pharmacy consult Patient on Coumadin with therapeutic INR of Confusion/disorientation possibly secondary to UTI Continue to monitor and reorient as needed CT of the head reviewed and reveals old right occipital lobe infarct and no acute intracranial abnormalities UTI culture pending Patient given cefepime 2 g IV in emergency department Start Rocephin 1 g every 24 hours await culture results recent [facility] in June- s/p temporary dialysis diabetes mellitus- chronic- with recent hospitalization for critical hypoglycemia accuchecks ACHS with low dose SSI coverage Other stable chronic conditions includes: hypertension, hyperlipidemia,CHF EF 40 -45% echocardiogram 06/2016 and anemia- continue home medications GI prophylaxis- Protonix Discussed with ER provider, nursing, patient Physician Certification 2 Midnight Certification Type: Admission for Inpatient Services Order for Inpatient Services The services are ordered in accordance with Medicare regulations or non- Medicare payer requirements, as applicable. In the case of services not specified as inpatient-only, they are appropriately provided as inpatient services in accordance with the 2-midnight benchmark. Estimated LOS (days): 3 days is the estimated time the patient will need to remain in the hospital, assuming treatment plan goals are met and no additional complications. Post-Hospital Plan: Not yet determined Anne Lockhart Nov 25, 2016 22:13 Continuous Telemetry monitoring 2.0. Continue Coumadin with pharmacy consult Patient on Coumadin with therapeutic INR of UTI culture pending Patient given cefepime 2 g IV in emergency department Start Rocephin 1 g every 24 hours await culture results recent [facility] in June- s/p temporary dialysis diabetes mellitus- chronic- with recent hospitalization for critical hypoglycemia accuchecks ACHS with SSI coverage Other stable chronic conditions includes: hypertension, hyperlipidemia,CHF EF 40 -45% echocardiogram 06/2016 and anemia- continue home medications GI prophylaxis- Protonix Discussed with ER provider, nursing, patient Physician Certification Order for Inpatient Services The services are ordered in accordance with Medicare regulations or non- Medicare payer requirements, as applicable. In the case of services not specified as inpatient-only, they are appropriately provided as inpatient services in accordance with the 2-midnight benchmark. days is the estimated time the patient will need to remain in the hospital, assuming treatment plan goals are met and no additional complications. Anne Lockhart Nov 25, 2016 22:13
[2016-11-25] MEDS: PRIMIDONE 50 MG TAB PO SCH (22:15)
[2016-11-25 22:22] LABS: CREATINE KINASE 47 U/L (26-192)
[2016-11-25] MEDS ORDERED: GLUCAGON 1 MG/ML VIAL OTHER PRN ×2 (22:30)
[2016-11-25] MEDS ORDERED: DEXTROSE 50% IN WATER 50 ML VIAL(D50) IV PUSH PRN (22:30)
[2016-11-25] MEDS ORDERED: DEXTROSE 50% IN WATER 50 ML VIAL(D50) IV PRN (22:30)
[2016-11-26] VITALS (25 sets, daily range): BP systolic 107–174; BP diastolic 57–88; PULSE 68–135; RESP 18; TEMP 97.4–100.3; O2SAT 94–100
[2016-11-26] MEDS: INSULIN ASPART SUPPLEMENTAL SCALE SQ SCH ×4 (06:20→20:29)
[2016-11-26 06:25] LABS: CREATINE KINASE 41 U/L (26-192)
[2016-11-26] MEDS: DOCUSATE SODIUM 50 MG/SENNA 8.6 MG TAB PO SCH ×2 (08:26→20:23)
[2016-11-26] MEDS: hydrALAZINE HCL 25 MG TAB PO SCH ×3 (08:26→17:34)
[2016-11-26] MEDS: METOPROLOL TARTRATE 100 MG TAB PO SCH (08:26)
[2016-11-26] MEDS: PRIMIDONE 50 MG TAB PO SCH ×3 (08:27→17:32)
[2016-11-26] MEDS: FUROSEMIDE 40 MG TAB PO SCH (08:27)
[2016-11-26] MEDS: DIGOXIN 0.125 MG TAB PO SCH (08:27)
[2016-11-26] MEDS: SODIUM CHLORIDE 0.9% FLUSH 10 ML FLUSH IV FLUSH SCH ×2 (08:28→20:33)
[2016-11-26] MEDS: ISOSORBIDE DINITRATE 5 MG TAB PO SCH ×3 (08:31→17:32)
[2016-11-26] MEDS: SODIUM CHLOR 0.9% 1000 ML INJ 1,000 ML IV SCH ×2 (08:33→20:33)
--- NOTE | 2016-11-26 09:49 | HHI.PR ---
Subjective Remarks f/u Atrial fib and UTI Pt feels tired, denies any CP/SOB/palpitations. States her cut to length operator is Dr. Romero from [facility]. no nausea or vomiting discussed w RN, pt had some trouble taking her pills this morning and recommends a speech swallow eval Objective Vitals Vital Signs Date Time Temp Pulse Resp B/P Pulse Ox O2 Delivery O2 Flow Rate FiO2 11/26/16 07:00 97.4 107 18 124/66 94 11/26/16 07:00 104 11/26/16 06:00 92 11/26/16 05:00 86 11/26/16 04:00 76 11/26/16 04:00 98.9 86 18 150/65 96 11/26/16 03:00 88 11/26/16 02:00 99 11/26/16 01:00 98 11/26/16 00:00 98.9 99 18 174/88 98 11/26/16 00:00 103 11/25/16 23:00 98 11/25/16 22:00 108 11/25/16 21:00 106 11/25/16 20:15 130 11/25/16 20:15 99.1 130 18 148/70 98 11/25/16 19:31 124 16 111/61 100 Nasal Cannula 2 11/25/16 18:30 148 20 133/60 99 Nasal Cannula 2 11/25/16 16:47 100 Nasal Cannula 11/25/16 16:47 100 Nasal Cannula 2 11/25/16 16:45 166 96/56 100 Nasal Cannula 2 11/25/16 16:12 99.6 159 16 112/48 100 I/O 11/25/16 11/25/16 11/25/16 11/26/16 11/26/16 11/26/16 07:00 15:00 23:00 07:00 15:00 23:00 Intake Total 240 ml Output Total 400 ml Balance -160 ml Intake Oral 240 ml Output Urine Total 400 ml Result Diagram: 11/25/16 1630 11/25/16 1630 Imaging Last Impressions Head CT 11/25/16 1615 Signed Impressions: Service Date/Time: Friday, November 25, 2016 16:29 - CONCLUSION: 1. Old right occipital lobe infarct. 2. No acute intracanal abnormality. Sean Reees MD Chest X-Ray 11/25/16 8824 Signed Impressions: Service Date/Time: Friday, November 25, 2016 16:27 - CONCLUSION: 1. Hiatal hernia. 2. Left basilar atelectasis and minimal left basilar effusion. 3. Stable appearing exam compared to prior. Abram Rivera MD Objective Remarks GENERAL: This is a well-nourished, well-developed patient, on Cardizem drip heart rate improved. Alert and oriented to person and place and year, very softspoken and not the best historian CARDIOVASCULAR: Irregularly irregular and controlled RESPIRATORY: Clear to auscultation. Breath sounds equal bilaterally. No wheezes GASTROINTESTINAL: Abdomen obese soft, non-tender, nondistended. No guarding. MUSCULOSKELETAL: No calf tenderness. Right upper extremity edematous greater than left. NEUROLOGICAL: Awake and alert. Oriented to person and place only poor historian. Cranial nerves II through XII grossly intact. 3-4 out of 5 muscle strength in all muscle groups. A/P Problem List: (1) Atrial fibrillation with RVR ICD Code: I48.91 Status: Acute (2) UTI (urinary tract infection) ICD Code: N39.0 Status: Acute Assessment and Plan This is an 80-year-old female patient with past medical history which includes diabetes mellitus, hypertension, hyperlipidemia, atrial fibrillation, peripheral vascular disease, arthritis, CHF EF 40-45% echocardiogram 06/2016, hyperlipidemia and anemia. Patient was recently hospitalized June 2016 for critical hypoglycemia, acute kidney injury and hyperkalemia requiring temporary hemodialysis. Patient was also recently hospitalized 09/2016 for DVT of RUE and A Fib RVR. on admission EKG revealed atrial fibrillation with RVR at a rate of 149 bpm. UA also reviewed and revealed: positive nitrates large amount leukocyte esterase and many urine bacteria hyalin casts in urine mucus culture pending A fib with RVR- acute on chronic. Patient with rapid ventricular rate at risk for decompensation requiring IV medication and close telemetry monitoring. on Cardizem drip after bolus IV push given in ER, pt was on cardizem gtt until 8:30 this morning but lost IV access and did get her morning meds per RN. TELE reviewed by me this morning and still in afib but rate controlled. Continue Coumadin with pharmacy consult on Coumadin with therapeutic INR of 2.0 on admission. monitor INRs daily on home dose of metoprolol and digoxin. Digoxin level 1.3 cards consult for assistance w adjusting meds. appreciate assistance. Confusion/disorientation possibly secondary to UTI Continue to monitor and reorient as needed CT of the head reviewed and reveals old right occipital lobe infarct and no acute intracranial abnormalities UTI culture pending Patient given cefepime 2 g IV in emergency department on Rocephin 1 g every 24 hours, urine cx pending. recent MARTHA in June- s/p temporary dialysis. Cr 1.12. monitor. diabetes mellitus- chronic- with recent hospitalization for critical hypoglycemia accuchecks ACHS with low dose SSI coverage Other stable chronic conditions includes: hypertension, hyperlipidemia,CHF EF 40 -45% echocardiogram 06/2016 and anemia- continue home medications will get a speech swallow eval for diet recs GI prophylaxis- Protonix DVT proph: coumadin Discharge Planning awaiting blood and urine cultures final results cards consult pending Mallory Garza MD Nov 26, 2016 09:49
--- NOTE | 2016-11-26 11:23 | MB ---
cc: JENNIFER QUINN DATE OF CONSULTATION 11/26/2016 DATE OF 1935 REASON FOR CONSULTATION Atrial fibrillation with RVR. HISTORY OF PRESENT ILLNESS 80-year-old female with a past medical history which include diabetes, hypertension, hyperlipidemia, atrial fibrillation on chronic oral anticoagulation and pulmonary artery diastolic, LV systolic dysfunction, hyperlipidemia, and anemia who was brought in by family members because of increased confusion and disorientation over the last couple of days. The patient is a poor historian and thus most of the history was taken from the chart. In the emergency department, she was noted to have atrial fibrillation with RVR for which she was started on a Cardizem drip and she was admitted to [facility] for further management evaluation. Further work up revealed a UTI. The patient denies chest pain, shortness of breath, lightheadedness, palpitations, dizziness, presyncope, nausea, vomiting, diarrhea or fevers. Cardiology has been consulted for further management and evaluation. REVIEW OF SYSTEMS Negative except for what is mentioned in the HPI. PAST MEDICAL HISTORY 1. Diabetes 2. Hypertension 3. Hyperlipidemia 4. Atrial fibrillation 5. Peripheral vascular disease 6. Arthritis 7. 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 Hyperlipidemia 9. Anemia PAST SURGICAL HISTORY 1. Hysterectomy 2. Cholecystectomy HOME CARDIAC MEDICATIONS 1. Warfarin 7.5 mg p.o. daily 2. Lopressor 100 mg p.o. daily 3. Imdur 4. Isordil 5 mg p.o. t.i.d. 5. Hydralazine 25 mg p.o. t.i.d. 6. Digoxin 0.125 mg daily 7. Lasix 40 mg p.o. daily 8. Potassium chloride 10 mg p.o. daily ALLERGIES NO KNOWN DRUG ALLERGIES. FAMILY HISTORY Noncontributory SOCIAL HISTORY No alcohol, no tobacco use or illicit drug use. PHYSICAL EXAMINATION VITAL SIGNS: Temperature 97, respiratory rate 18, heart rate 68, blood pressure 124/66, O2 sat 94% on room air. GENERAL: She is awake, arousable, and oriented in no distress. NECK: No JVD, no carotid bruits. HEART: Irregularly irregular, no murmurs, rubs or gallops. LUNGS: Poor inspiratory effort. No rales or rhonchi. No wheezes. ABDOMEN: Soft, nontender, nondistended. EXTREMITIES: There is edema in the upper extremities. DATA CBC hemoglobin 11, hematocrit 36, platelet count 357, INR 2. Chemistries sodium 136, potassium 5.0, troponin less than 0.02 x 3, BUN 18, creatinine 1.1. Urinalysis positive for infection. Chest x-ray, there is a hiatal hernia and there is bibasilar atelectasis. Head CT, there is an old right occipital lobe infarct. No acute intracranial abnormalities. EKG is in atrial fibrillation with RVR. ASSESSMENT/PLAN 80-year-old female with the above past medical history and findings who presented with disorientation and confusion in the setting of a UTI. Also found to have atrial fibrillation with RVR. She remains afebrile and hemodynamically stable. Negative cardiac markers. The Cardizem drip has been shut off. Heart rate is still in atrial fibrillation, however, the ventricular response is controlled with adequate ventricular response. RECOMMENDATIONS 1. Continue telemetry monitoring. 2. Continue metoprolol 100 mg p.o. daily. 3. Continue Coumadin and go INR 2-3. 4. Avoid electrolyte abnormalities. 5. Encourage out of bed to chair and incentive spirometry. Thank you for the opportunity to take part in the care of this patient. We will be available on a p.r.n. basis for any other questions or concerns. MD RAUL Gaspar/ANKIT /10:43 AM /11:12 AM ASHOK
[2016-11-26 14:22] LABS: INTERNATIONAL NORMALIZED RATIO 1.7 RATIO; PROTHROMBIN TIME - PATIENT 19.5 SEC (9.8-11.6)
[2016-11-26] MEDS ORDERED: WARFARIN SOD 5 MG TAB PO SCH (16:00)
--- NOTE | 2016-11-26 16:03 | EKG ---
Date Performed: 11/26/2016 Time Performed: 05:18:32 PTAGE: 80 years EKG: Atrial fibrillation Extensive ST-T changes are nonspecific Abnormal ECG PREVIOUS TRACING : 11/25/2016 23.59 Compared to prior tracing no significant change DOCTOR: Jeferson Sultana Interpretating Date/Time 11/26/2016 16:02:00
--- NOTE | 2016-11-26 16:32 | EKG ---
Date Performed: 11/25/2016 Time Performed: 23:59:12 PTAGE: 80 years EKG: Atrial fibrillation Extensive ST-T changes are nonspecific Abnormal ECG PREVIOUS TRACING : 11/25/2016 16.19 Compared to the previous tracing, rate has decreased DOCTOR: Jeferson Sultana Interpretating Date/Time 11/26/2016 16:31:21
[2016-11-26] MEDS: WARFARIN SOD 7.5 MG TAB PO SCH (17:32)
[2016-11-26] MEDS ORDERED: DILTIAZEM HCL 50 MG/10 ML VIAL IV ONE (19:00)
--- NOTE | 2016-11-26 19:35 | EKG ---
Date Performed: 11/25/2016 Time Performed: 16:19:01 PTAGE: 80 years EKG: ATRIAL FIBRILLATION WITH RAPID VENTRICULAR RESPONSE LOW QRS VOLTAGE IN EXTREMITY LEADS NONS PECIFIC ST & T-WAVE ABNORMALITY ABNORMAL ECG Compared to the PREVIOUS TRACING from 10/13/16, no significant change DOCTOR: Jeferson Sultana Interpretating Date/Time 11/26/2016 19:34:19
[2016-11-26] MEDS ORDERED: DILTIAZEM HCL 25 MG/5 ML VIAL IV PUSH ONE (19:45)
[2016-11-27] VITALS (26 sets, daily range): BP systolic 102–157; BP diastolic 42–76; PULSE 64–140; RESP 16–18; TEMP 97.2–98.9; O2SAT 95–100
[2016-11-27] MEDS ORDERED: DILTIAZEM HCL 25 MG/5 ML VIAL IV SCH (04:15)
[2016-11-27] MEDS: SODIUM CHLOR 0.9% 1000 ML INJ 1,000 ML IV SCH ×2 (04:37→23:22)
[2016-11-27 06:56] LABS: INTERNATIONAL NORMALIZED RATIO 1.3 RATIO; PROTHROMBIN TIME - PATIENT 14.8 SEC (9.8-11.6)
[2016-11-27 07:07] LABS: BICARBONATE 30.8 MEQ/L (21.0-32.0); POTASSIUM 4.5 MEQ/L (3.5-5.1)
[2016-11-27] MEDS: SODIUM CHLORIDE 0.9% FLUSH 10 ML FLUSH IV FLUSH SCH ×2 (09:00→20:42)
[2016-11-27] MEDS: PRIMIDONE 50 MG TAB PO SCH ×3 (09:00→18:00)
[2016-11-27] MEDS: DOCUSATE SODIUM 50 MG/SENNA 8.6 MG TAB PO SCH ×2 (10:27→20:42)
[2016-11-27] MEDS: ISOSORBIDE DINITRATE 5 MG TAB PO SCH ×3 (10:27→17:00)
[2016-11-27] MEDS: METOPROLOL TARTRATE 100 MG TAB PO SCH (10:28)
[2016-11-27] MEDS: DIGOXIN 0.125 MG TAB PO SCH (10:28)
[2016-11-27] MEDS: FUROSEMIDE 40 MG TAB PO SCH (10:28)
[2016-11-27] MEDS: hydrALAZINE HCL 25 MG TAB PO SCH ×3 (10:29→18:00)
[2016-11-27] MEDS: INSULIN ASPART SUPPLEMENTAL SCALE SQ SCH ×4 (10:53→20:45)
--- NOTE | 2016-11-27 12:28 | HHI.PR ---
Subjective Remarks Pt seems a little more alert today. denies any CP/SOB/N/V. denies any pain whatsoever. states "I feel fine" discussed w RN, pt was restarted on the cardizem gtt overnight and also received one bolus last night and one this morning of cardizem. daughter also concerned about pt's anticoagulation. Daughter also told RN that pt complaining of leg pain on and off and wanted something for pain. Pt never had any complaints regarding her legs when I saw her Objective Vitals Vital Signs Date Time Temp Pulse Resp B/P Pulse Ox O2 Delivery O2 Flow Rate FiO2 11/27/16 07:30 98.9 136 18 147/62 100 11/27/16 06:01 140 11/27/16 05:01 104 11/27/16 04:01 102 11/27/16 03:01 97.9 137 18 102/69 99 11/27/16 03:01 135 11/27/16 02:01 102 11/27/16 01:01 114 11/27/16 00:01 106 11/26/16 23:01 99.7 105 18 107/57 99 11/26/16 23:01 124 11/26/16 22:01 109 11/26/16 21:01 108 11/26/16 20:01 105 11/26/16 19:01 98.7 73 18 130/76 100 11/26/16 19:01 135 11/26/16 18:23 118 11/26/16 17:18 78 11/26/16 16:17 82 11/26/16 15:25 81 11/26/16 15:11 97.6 98 18 117/69 99 11/26/16 14:13 95 11/26/16 13:49 82 I/O 11/26/16 11/26/16 11/26/16 11/27/16 11/27/16 11/27/16 07:00 15:00 23:00 07:00 15:00 23:00 Intake Total 240 ml 787 ml 1298 ml Output Total 400 ml 852 ml 250 ml Balance -160 ml -65 ml 1048 ml Intake Oral 240 ml 240 ml 480 ml IV Total 547 ml 818 ml Output Urine Total 400 ml 852 ml 250 ml # Bowel Movements 0 0 Result Diagram: 11/25/16 1630 11/27/16 0619 Imaging Last Impressions Head CT 11/25/16 1615 Signed Impressions: Service Date/Time: Friday, November 25, 2016 16:29 - CONCLUSION: 1. Old right occipital lobe infarct. 2. No acute intracanal abnormality. Sean Reese MD Chest X-Ray 11/25/16 1615 Signed Impressions: Service Date/Time: Friday, November 25, 2016 16:27 - CONCLUSION: 1. Hiatal hernia. 2. Left basilar atelectasis and minimal left basilar effusion. 3. Stable appearing exam compared to prior. Abram Rivera MD Objective Remarks GENERAL: This is a well-nourished, well-developed patient. Alert and oriented to person and place and year, very softspoken and not the best historian but appears more alert this morning CARDIOVASCULAR: Irregularly irregular and controlled RESPIRATORY: Clear to auscultation. Breath sounds equal bilaterally. No wheezes GASTROINTESTINAL: Abdomen obese soft, non-tender, nondistended. No guarding. MUSCULOSKELETAL: No calf tenderness. Right upper extremity edematous greater than left. NEUROLOGICAL: Awake and alert. Cranial nerves II through XII grossly intact. 3 -4 out of 5 muscle strength in all muscle groups. A/P Problem List: (1) Atrial fibrillation with RVR ICD Code: I48.91 Status: Acute (2) UTI (urinary tract infection) ICD Code: N39.0 Status: Acute Assessment and Plan This is an 80-year-old female patient with past medical history which includes diabetes mellitus, hypertension, hyperlipidemia, atrial fibrillation, peripheral vascular disease, arthritis, CHF EF 40-45% echocardiogram 06/2016, hyperlipidemia and anemia. Patient was recently hospitalized June 2016 for critical hypoglycemia, acute kidney injury and hyperkalemia requiring temporary hemodialysis. Patient was also recently hospitalized 09/2016 for DVT of RUE and A Fib RVR. on admission EKG revealed atrial fibrillation with RVR at a rate of 149 bpm. UA also reviewed and revealed: positive nitrates large amount leukocyte esterase and many urine bacteria hyalin casts in urine mucus culture pending A fib with RVR- acute on chronic. Patient with rapid ventricular rate at risk for decompensation requiring IV medication and close telemetry monitoring. back on Cardizem drip since last night but RN just weaned her off. She went into Afib w RVR last night and this morning. Rate is controlled at this time. Continue Coumadin with pharmacy consult however will cover w therapeutic lovenox as pt's INR is 1.3 today. pharmacy assisting w dosing of coumadin. monitor INR daily on home dose of metoprolol and digoxin. Digoxin level 1.3 cards fallowing. appreciate assistance. Confusion/disorientation possibly secondary to UTI Continue to monitor and reorient as needed CT of the head reviewed and reveals old right occipital lobe infarct and no acute intracranial abnormalities UTI culture pending Patient given cefepime 2 g IV in emergency department on Rocephin 1 g every 24 hours, urine cx growing E. Coli sensitive to rocephin and nitrofurantoin, planning on d/c her on macrobid. recent MARTHA in June- s/p temporary dialysis. Cr 1.12-->1.05. monitor. diabetes mellitus- chronic- with recent hospitalization for critical hypoglycemia accuchecks ACHS with low dose SSI coverage RUE DVT: coumadin/lovenox. INR subtherapeutic Other stable chronic conditions includes: hypertension, hyperlipidemia,CHF EF 40 -45% echocardiogram 06/2016 and anemia- continue home medications speech swallow recommends mechanical soft/nectar consistency diet. GI prophylaxis- Protonix DVT proph: coumadin/lovenox. pharmacy coumadin consult Discharge Planning awaiting final recs from cards. PT to evaluate pt and make d/c recs Mallory Garza MD Nov 27, 2016 12:28
[2016-11-27] MEDS ORDERED: ENOXAPARIN SODIUM 100 MG/ML SYRINGE SQ SCH (12:30)
[2016-11-27] MEDS ORDERED: ACETAMINOPHEN 325 MG TAB PO PRN (12:30)
[2016-11-27] MEDS: WARFARIN SOD 7.5 MG TAB PO SCH (16:00)
[2016-11-27] MEDS: ENOXAPARIN SODIUM 100 MG/ML SYRINGE SQ SCH (16:57)
[2016-11-28] VITALS (24 sets, daily range): BP systolic 136–161; BP diastolic 62–77; PULSE 66–135; RESP 14–20; TEMP 97.1–99.5; O2SAT 99–100
[2016-11-28] MEDS: ENOXAPARIN SODIUM 100 MG/ML SYRINGE SQ SCH (05:19)
[2016-11-28 05:50] LABS: INTERNATIONAL NORMALIZED RATIO 1.6 RATIO; PROTHROMBIN TIME - PATIENT 18.1 SEC (9.8-11.6)
[2016-11-28 05:52] LABS: BICARBONATE 30.4 MEQ/L (21.0-32.0); POTASSIUM 4.1 MEQ/L (3.5-5.1)
[2016-11-28] MEDS: INSULIN ASPART SUPPLEMENTAL SCALE SQ SCH ×4 (05:53→20:41)
[2016-11-28] MEDS: PRIMIDONE 50 MG TAB PO SCH ×3 (08:26→17:27)
[2016-11-28] MEDS: FUROSEMIDE 40 MG TAB PO SCH (08:26)
[2016-11-28] MEDS: SODIUM CHLORIDE 0.9% FLUSH 10 ML FLUSH IV FLUSH SCH ×2 (08:27→20:37)
[2016-11-28] MEDS: hydrALAZINE HCL 25 MG TAB PO SCH ×3 (08:27→17:27)
[2016-11-28] MEDS: ISOSORBIDE DINITRATE 5 MG TAB PO SCH ×3 (08:27→16:27)
[2016-11-28] MEDS: DOCUSATE SODIUM 50 MG/SENNA 8.6 MG TAB PO SCH ×2 (08:27→20:37)
[2016-11-28] MEDS: METOPROLOL TARTRATE 100 MG TAB PO SCH (08:27)
[2016-11-28] MEDS: DIGOXIN 0.125 MG TAB PO SCH (08:27)
--- NOTE | 2016-11-28 08:27 | PQ ---
Physician Query Response Document PATIENT: ANTOINETTE MANRIQUE : 1935 ADMIT DATE: 11/25/2016 6:34 PM DISCH DATE: RESPONDING PROVIDER #: [email or web address] QUERY TEXT: CHF Acuity and Type Congestive Heart Failure is documented in the Medical Record. Please document the type and acuity (in cludes probable or suspected) Such as: Type: -- Systolic -- Diastolic -- Combined -- Other, please specify Acuity: -- Acute -- Chronic -- Acute on chronic -- Other, please specify PLEASE CALL [facility] @ EXT [phone] FOR ASSISTANCE The patient's Clinical Indicators include: PER PROGRESS NOTE 11/26/16: Other stable chronic conditions includes: CHF EF 40-45% echocardiogram 06/201611/25/16 [id number] MEDICATIONS INCLUDE LASIX 40 PO DAILY Query created by: Flor Mccurdy on 11/26/2016 11:22 AM RESPONSE TEXT: SYSTOLIC Electronically signed by: Mallory Garza MD 11/28/2016 8:23 AM
[2016-11-28] MEDS: cefTRIAXone INJ 1,000 MG in SODIUM CHLORIDE 0.9% INJ 100 ML IV SCH (10:00)
--- NOTE | 2016-11-28 10:32 | PD.CARD.PN ---
Subjective Subjective Remarks afib with rvr on cardizem drip no complaints Objective Medications Current Medications Medications (Trade) Dose Ordered Sig/Abigail Route Start Time Stop Time Status Last Admin (NS 1000 ml Inj) 1,000 ml @ 75 mls/hr [id number] IV 11/25/16 18:34 11/27/16 23:22 (NS Flush) 2 ml UNSCH PRN IV FLUSH 11/25/16 18:45 (NS Flush) 2 ml BID IV FLUSH 11/25/16 21:00 11/28/16 08:27 (Zofran Inj) 4 mg Q6H PRN IVP 11/25/16 18:45 (Narcan Inj) 0.4 mg UNSCH PRN IV 11/25/16 18:45 (Esthela-Colace) 1 tab BID PO 11/25/16 21:00 11/28/16 08:27 (Milk Of Magnesia Liq) 30 ml Q12H PRN PO 11/25/16 18:45 (Senokot) 17.2 mg Q12H PRN PO 11/25/16 18:45 (Dulcolax Supp) 10 mg DAILY PRN RECTAL 11/25/16 18:45 Lactulose 30 ml 30 ml DAILY PRN PO 11/25/16 18:45 (Cardizem Inj/NS Inj) 125 ml @ 0 mls/hr TITRATE IV 11/25/16 21:00 11/25/16 19:46 (Lanoxin) 0.125 mg DAILY PO 11/26/16 09:00 11/28/16 08:27 (Lasix) 40 mg DAILY PO 11/26/16 09:00 11/28/16 08:26 (Apresoline) 25 mg TID PO 11/26/16 09:00 11/28/16 08:27 (Isordil) 5 mg TIDAC PO 11/26/16 08:00 11/28/16 08:27 (Lopressor) 100 mg DAILY PO 11/26/16 09:00 11/28/16 08:27 (Mysoline) 50 mg TID PO 11/25/16 22:15 11/28/16 08:26 (Coumadin) 5 mg DAILY@16 PO 11/26/16 16:00 Hold 11/26/16 17:32 Warfarin Sodium 7.5 mg 7.5 mg DAILY@16 PO 11/26/16 16:00 11/27/16 16:00 (Coumadin Consult Pharmacy) 0 ml @ 0 mls/hr UNSCH OTHER 11/25/16 22:15 (D50w (Vial) Inj) 25 ml UNSCH PRN IV PUSH 11/25/16 22:30 (Glucagon Inj) 1 mg UNSCH PRN OTHER 11/25/16 22:30 (Tylenol) 650 mg Q4H PRN PO 11/27/16 12:30 Enoxaparin Sodium 95 mg 95 mg Q12H SQ 11/27/16 17:00 11/28/16 05:19 (Rocephin Inj/NS Inj) 100 ml @ 200 mls/hr Q24H IV 11/28/16 10:00 Vital Signs / I&O Vital Signs Date Time Temp Pulse Resp B/P Pulse Ox O2 Delivery O2 Flow Rate FiO2 11/28/16 09:00 88 11/28/16 08:00 130 11/28/16 08:00 99.0 131 16 142/65 100 11/28/16 07:00 133 11/28/16 06:00 122 11/28/16 05:00 117 11/28/16 04:00 135 11/28/16 03:00 127 11/28/16 03:00 97.1 127 14 161/77 99 11/28/16 02:00 135 11/28/16 01:00 123 11/28/16 00:00 129 11/27/16 23:00 97.3 114 16 144/73 100 11/27/16 23:00 132 11/27/16 22:00 130 11/27/16 21:00 112 11/27/16 20:00 101 11/27/16 19:00 132 11/27/16 19:00 97.2 132 16 157/76 100 11/27/16 18:00 108 11/27/16 17:00 104 11/27/16 16:00 96 11/27/16 15:30 98.0 101 18 150/68 95 11/27/16 15:00 94 11/27/16 14:00 90 11/27/16 13:00 70 11/27/16 12:00 64 11/27/16 11:00 104 11/27/16 11:00 98.8 97 18 139/42 100 I/O 11/27/16 11/27/16 11/27/16 11/28/16 11/28/16 11/28/16 07:00 15:00 23:00 07:00 15:00 23:00 Intake Total 1298 ml 1155 ml Output Total 250 ml 200 ml Balance 1048 ml 955 ml Intake Oral 480 ml 140 ml IV Total 818 ml 1015 ml Output Urine Total 250 ml 200 ml Stool Total 0 ml # Bowel Movements 0 Physical Exam GENERAL: Well-nourished, well-developed patient. SKIN: Warm and dry. HEAD: Normocephalic. EYES: No scleral icterus. No injection or drainage. NECK: Supple, trachea midline. No JVD or lymphadenopathy. CARDIOVASCULAR: Irr Irr RESPIRATORY: Breath sounds equal bilaterally. No accessory muscle use. GASTROINTESTINAL: Abdomen soft, non-tender, nondistended. EXTREMITIES: No cyanosis, or edema. Laboratory Laboratory Tests Test 11/28/16 04:45 Prothrombin Time 18.1 SEC Prothromb Time International 1.6 RATIO Ratio Sodium Level 142 MEQ/L Potassium Level 4.1 MEQ/L Chloride Level 105 MEQ/L Carbon Dioxide Level 30.4 MEQ/L Anion Gap 7 MEQ/L Blood Urea Nitrogen 20 MG/DL Creatinine 1.06 MG/DL Estimat Glomerular Filtration 60 ML/MIN Rate Random Glucose 123 MG/DL Calcium Level 9.1 MG/DL Imaging Last Impressions Head CT 11/25/161614 Signed Impressions: Service Date/Time: Friday, November 25, 2016 16:29 - CONCLUSION: 1. Old right occipital lobe infarct. 2. No acute intracanal abnormality. Sean Reese MD Chest X-Ray 11/25/161614 Signed Impressions: Service Date/Time: Friday, November 25, 2016 16:27 - CONCLUSION: 1. Hiatal hernia. 2. Left basilar atelectasis and minimal left basilar effusion. 3. Stable appearing exam compared to prior. Abram Rivera MD Assessment and Plan Problem List: (1) Atrial fibrillation, chronic Assessment and Plan: Wean Cardizem drip Cont OAC D/C Metoprolol Tartrate Start Metoprolol 50mg PO QID Kapil Garcia MD Nov 28, 2016 10:32
--- NOTE | 2016-11-28 10:36 | HHI.PR ---
Subjective Remarks Pt states she is not hungry, denies any CP/SOB/N/V RN states that pt hasn't been eating. required cardizem gtt overnight Objective Vitals Vital Signs Date Time Temp Pulse Resp B/P Pulse Ox O2 Delivery O2 Flow Rate FiO2 11/28/16 09:00 88 11/28/16 08:00 130 11/28/16 08:00 99.0 131 16 142/65 100 11/28/16 07:00 133 11/28/16 06:00 122 11/28/16 05:00 117 11/28/16 04:00 135 11/28/16 03:00 127 11/28/16 03:00 97.1 127 14 161/77 99 11/28/16 02:00 135 11/28/16 01:00 123 11/28/16 00:00 129 11/27/16 23:00 97.3 114 16 144/73 100 11/27/16 23:00 132 11/27/16 22:00 130 11/27/16 21:00 112 11/27/16 20:00 101 11/27/16 19:00 132 11/27/16 19:00 97.2 132 16 157/76 100 11/27/16 18:00 108 11/27/16 17:00 104 11/27/16 16:00 96 11/27/16 15:30 98.0 101 18 150/68 95 11/27/16 15:00 94 11/27/16 14:00 90 11/27/16 13:00 70 11/27/16 12:00 64 11/27/16 11:00 104 11/27/16 11:00 98.8 97 18 139/42 100 I/O 11/27/16 11/27/16 11/27/16 11/28/16 11/28/16 11/28/16 07:00 15:00 23:00 07:00 15:00 23:00 Intake Total 1298 ml 1155 ml Output Total 250 ml 200 ml Balance 1048 ml 955 ml Intake Oral 480 ml 140 ml IV Total 818 ml 1015 ml Output Urine Total 250 ml 200 ml Stool Total 0 ml # Bowel Movements 0 Result Diagram: 11/25/16 1630 11/28/16 0445 Imaging Last Impressions Head CT 11/25/16 1615 Signed Impressions: Service Date/Time: Friday, November 25, 2016 16:29 - CONCLUSION: 1. Old right occipital lobe infarct. 2. No acute intracanal abnormality. Sean Reese MD Chest X-Ray 11/25/16 1615 Signed Impressions: Service Date/Time: Friday, November 25, 2016 16:27 - CONCLUSION: 1. Hiatal hernia. 2. Left basilar atelectasis and minimal left basilar effusion. 3. Stable appearing exam compared to prior. Abram Rivera MD Objective Remarks GENERAL: This is a well-nourished, well-developed patient. Alert and oriented to person and place and year, very softspoken and not the best historian, appears tired CARDIOVASCULAR: Irregularly irregular and controlled at this time. RESPIRATORY: Clear to auscultation. Breath sounds equal bilaterally. No wheezes GASTROINTESTINAL: Abdomen obese soft, non-tender, nondistended. No guarding. MUSCULOSKELETAL: No calf tenderness. Right upper extremity edematous greater than left. NEUROLOGICAL: Awake and alert but looks tired. 3-4 out of 5 muscle strength in all muscle groups. A/P Problem List: (1) Atrial fibrillation with RVR ICD Code: I48.91 Status: Acute (2) UTI (urinary tract infection) ICD Code: N39.0 Status: Acute Assessment and Plan This is an 80-year-old female patient with past medical history which includes diabetes mellitus, hypertension, hyperlipidemia, atrial fibrillation, peripheral vascular disease, arthritis, CHF EF 40-45% echocardiogram 06/2016, hyperlipidemia and anemia. Patient was recently hospitalized June 2016 for critical hypoglycemia, acute kidney injury and hyperkalemia requiring temporary hemodialysis. Patient was also recently hospitalized 09/2016 for DVT of RUE and A Fib RVR. on admission EKG revealed atrial fibrillation with RVR at a rate of 149 bpm. UA also reviewed and revealed: positive nitrates large amount leukocyte esterase and many urine bacteria hyalin casts in urine mucus culture pending A fib with RVR- acute on chronic. Patient with rapid ventricular rate at risk for decompensation requiring IV medication and close telemetry monitoring. back on Cardizem drip since last night Rate is controlled at this time. Continue Coumadin with pharmacy consult however will cover w therapeutic lovenox as pt's INR is 1.6 today. pharmacy assisting w dosing of coumadin. monitor INR daily on home dose of metoprolol and digoxin. Digoxin level 1.[address] Mccloud, he will adjust meds. appreciate assistance. Confusion/disorientation possibly secondary to UTI Continue to monitor and reorient as needed CT of the head reviewed and reveals old right occipital lobe infarct and no acute intracranial abnormalities UTI culture pending Patient given cefepime 2 g IV in emergency department restarted Rocephin 1 g every 24 hours (apparently ordered was not entered as I don't see it in computer) , urine cx growing E. Coli sensitive to rocephin recent [facility] in June- s/p temporary dialysis. Cr 1.12-->1.06. monitor. diabetes mellitus- chronic- with recent hospitalization for critical hypoglycemia accuchecks ACHS with low dose SSI coverage RUE DVT: coumadin/lovenox. INR subtherapeutic Other stable chronic conditions includes: hypertension, hyperlipidemia,CHF EF 40 -45% echocardiogram 06/2016 and anemia- continue home medications speech swallow recommends mechanical soft/nectar consistency diet. pt not eating. will get a environmental conflict manager consult for recs and dulce maria count. GI prophylaxis- Protonix DVT proph: coumadin/lovenox. pharmacy coumadin consult Discharge Planning wean off cardizem gtt. cards adjusting med continue IV rocephin monitor INR environmental conflict manager consulted for recs and dulce maria count PT recommends PT at rehab Mallory Garza MD Nov 28, 2016 10:36
[2016-11-28] MEDS: SODIUM CHLOR 0.9% 1000 ML INJ 1,000 ML IV SCH (13:14)
[2016-11-28] MEDS: METOPROLOL TARTRATE 50 MG TAB PO SCH ×2 (14:00→20:43)
[2016-11-28] MEDS: WARFARIN SOD 7.5 MG TAB PO SCH (16:00)
[2016-11-28] MEDS: ENOXAPARIN SODIUM 80 MG/0.8 ML SYRINGE SQ SCH (16:27)
[2016-11-29] VITALS (28 sets, daily range): BP systolic 145–167; BP diastolic 46–82; PULSE 78–130; RESP 18; TEMP 97.6–98.9; O2SAT 98–100
[2016-11-29] MEDS: SODIUM CHLOR 0.9% 1000 ML INJ 1,000 ML IV SCH ×2 (03:41→15:54)
[2016-11-29] MEDS: DILTIAZEM INJ 125 MG in SODIUM CHLORIDE 0.9% INJ 100 ML IV SCH (03:42)
[2016-11-29] MEDS: ENOXAPARIN SODIUM 80 MG/0.8 ML SYRINGE SQ SCH (05:23)
[2016-11-29] MEDS: METOPROLOL TARTRATE 50 MG TAB PO SCH ×3 (05:52→22:10)
[2016-11-29] MEDS: INSULIN ASPART SUPPLEMENTAL SCALE SQ SCH ×4 (06:29→21:00)
[2016-11-29] MEDS: ISOSORBIDE DINITRATE 5 MG TAB PO SCH ×3 (09:07→16:54)
[2016-11-29] MEDS: DIGOXIN 0.125 MG TAB PO SCH (09:07)
[2016-11-29] MEDS: FUROSEMIDE 40 MG TAB PO SCH (09:07)
[2016-11-29] MEDS: hydrALAZINE HCL 25 MG TAB PO SCH ×3 (09:07→16:56)
[2016-11-29] MEDS: PRIMIDONE 50 MG TAB PO SCH ×3 (09:07→16:56)
[2016-11-29] MEDS: DOCUSATE SODIUM 50 MG/SENNA 8.6 MG TAB PO SCH ×2 (09:07→22:11)
[2016-11-29] MEDS: SODIUM CHLORIDE 0.9% FLUSH 10 ML FLUSH IV FLUSH SCH ×2 (09:08→22:11)
[2016-11-29] MEDS: cefTRIAXone INJ 1,000 MG in SODIUM CHLORIDE 0.9% INJ 100 ML IV SCH (09:17)
[2016-11-29 09:53] LABS: INTERNATIONAL NORMALIZED RATIO 2.1 RATIO; PROTHROMBIN TIME - PATIENT 24.1 SEC (9.8-11.6)
--- NOTE | 2016-11-29 13:27 | HHI.PR ---
Subjective Remarks Patient is somnolent wake up to verbal stimuli but right back to sleep She seems to be comfortable Heart rate 108, INR 2.1 today will DC Lovenox patient on digoxin and Cardizem drip and Lopressor Objective Vitals Vital Signs Date Time Temp Pulse Resp B/P Pulse Ox O2 Delivery O2 Flow Rate FiO2 11/29/16 12:24 87 11/29/16 11:00 98.9 78 18 145/46 98 11/29/16 11:00 102 11/29/16 10:00 88 11/29/16 09:34 108 11/29/16 08:00 115 11/29/16 07:43 109 11/29/16 07:00 98.9 120 18 152/76 100 11/29/16 07:00 Nasal Cannula 2.00 11/29/16 06:00 104 11/29/16 05:00 96 11/29/16 04:00 98.0 104 18 159/60 100 11/29/16 04:00 104 11/29/16 04:00 Nasal Cannula 2.00 11/29/16 03:00 106 11/29/16 02:00 94 11/29/16 01:00 85 11/29/16 00:00 84 11/29/16 00:00 98.8 84 18 149/58 100 11/29/16 00:00 Nasal Cannula 2.00 11/28/16 23:00 92 11/28/16 22:00 90 11/28/16 21:00 73 11/28/16 20:25 100 Nasal Cannula 2.00 11/28/16 20:00 99.1 69 20 151/62 100 11/28/16 20:00 69 11/28/16 18:00 66 11/28/16 17:00 86 11/28/16 16:00 82 11/28/16 16:00 99.5 95 18 136/77 100 11/28/16 15:00 80 11/28/16 14:00 82 I/O 11/28/16 11/28/16 11/28/16 11/29/16 11/29/16 11/29/16 07:00 15:00 23:00 07:00 15:00 23:00 Intake Total 1155 ml 560 ml 850 ml Output Total 200 ml 200 ml 500 ml Balance 955 ml 360 ml 350 ml Intake Oral 140 ml 60 ml 0 ml IV Total 1015 ml 500 ml 850 ml Output Urine Total 200 ml 200 ml 500 ml Stool Total 0 ml # Bowel Movements 0 Result Diagram: 11/25/16 1630 11/28/16 0445 Objective Remarks GENERAL: This is a well-nourished, well-developed patient. Alert and oriented to person and place and year, very softspoken and not the best historian, appears tired CARDIOVASCULAR: Irregularly irregular RESPIRATORY: Clear to auscultation. Breath sounds equal bilaterally. No wheezes GASTROINTESTINAL: Abdomen obese soft, non-tender, nondistended. No guarding. MUSCULOSKELETAL: No calf tenderness. Right upper extremity edematous greater than left. NEUROLOGICAL: Awake and alert but looks tired. 3-4 out of 5 muscle strength in all muscle groups. A/P Problem List: (1) Atrial fibrillation with RVR ICD Code: I48.91 Status: Acute (2) UTI (urinary tract infection) ICD Code: N39.0 Status: Acute Assessment and Plan 11/29: INR 2.1, will DC Lovenox,. Repeat INR in a.m. A/P: This is an 80-year-old female patient with past medical history which includes diabetes mellitus, hypertension, hyperlipidemia, atrial fibrillation, peripheral vascular disease, arthritis, CHF EF 40-45% echocardiogram 06/2016, hyperlipidemia and anemia. Patient was recently hospitalized June 2016 for critical hypoglycemia, acute kidney injury and hyperkalemia requiring temporary hemodialysis. Patient was also recently hospitalized 09/2016 for DVT of RUE and A Fib RVR. on admission EKG revealed atrial fibrillation with RVR at a rate of 149 bpm. UA also reviewed and revealed: positive nitrates large amount leukocyte esterase and many urine bacteria hyalin casts in urine mucus culture pending A fib with RVR- acute on chronic. Patient with rapid ventricular rate at risk for decompensation requiring IV medication and close telemetry monitoring. back on Cardizem drip since last night Rate is controlled at this time. Continue Coumadin with bridging Lovenox on home dose of metoprolol and digoxin. Digoxin level 1.3 Dr. Mccloud following Confusion/disorientation possibly secondary to UTI Continue to monitor and reorient as needed CT of the head reviewed and reveals old right occipital lobe infarct and no acute intracranial abnormalities UTI culture pending Patient given cefepime 2 g IV in emergency department restarted Rocephin 1 g every 24 hours (apparently ordered was not entered as I don't see it in computer) , urine cx growing E. Coli sensitive to rocephin recent [facility] in June- s/p temporary dialysis. Cr 1.12-->1.06. monitor. diabetes mellitus- chronic- with recent hospitalization for critical hypoglycemia accuchecks ACHS with low dose SSI coverage RUE DVT: coumadin/lovenox. INR subtherapeutic Other stable chronic conditions includes: hypertension, hyperlipidemia,CHF EF 40 -45% echocardiogram 06/2016 and anemia- continue home medications speech swallow recommends mechanical soft/nectar consistency diet. pt not eating. will get a fruit vendor consult for recs and dulce maria count. GI prophylaxis- Protonix DVT proph: coumadin/lovenox. pharmacy coumadin consult Stuart Pretty MD Nov 29, 2016 13:27
[2016-11-29] MEDS: WARFARIN SOD 1 MG TAB PO SCH (16:54)
[2016-11-29] MEDS: WARFARIN SOD 5 MG TAB PO SCH (16:54)
[2016-11-30] VITALS (24 sets, daily range): BP systolic 125–162; BP diastolic 54–82; PULSE 66–119; RESP 18; TEMP 98.4–99.2; O2SAT 96–100
[2016-11-30] MEDS: DILTIAZEM INJ 125 MG in SODIUM CHLORIDE 0.9% INJ 100 ML IV SCH (04:31)
[2016-11-30] MEDS: SODIUM CHLOR 0.9% 1000 ML INJ 1,000 ML IV SCH ×2 (04:32→17:32)
[2016-11-30] MEDS: METOPROLOL TARTRATE 50 MG TAB PO SCH ×3 (06:13→22:00)
[2016-11-30] MEDS: INSULIN ASPART SUPPLEMENTAL SCALE SQ SCH ×4 (07:00→20:52)
[2016-11-30] MEDS: ISOSORBIDE DINITRATE 5 MG TAB PO SCH ×3 (08:00→17:19)
[2016-11-30] MEDS: SODIUM CHLORIDE 0.9% FLUSH 10 ML FLUSH IV FLUSH SCH ×2 (09:00→20:12)
[2016-11-30] MEDS: FUROSEMIDE 40 MG TAB PO SCH (09:00)
[2016-11-30] MEDS: PRIMIDONE 50 MG TAB PO SCH ×3 (09:00→17:19)
[2016-11-30] MEDS: DOCUSATE SODIUM 50 MG/SENNA 8.6 MG TAB PO SCH ×2 (09:00→20:12)
[2016-11-30] MEDS: hydrALAZINE HCL 25 MG TAB PO SCH ×3 (09:00→17:19)
[2016-11-30] MEDS: DIGOXIN 0.125 MG TAB PO SCH (09:00)
[2016-11-30 09:38] LABS: INTERNATIONAL NORMALIZED RATIO 2.2 RATIO; PROTHROMBIN TIME - PATIENT 25.4 SEC (9.8-11.6)
[2016-11-30] MEDS: cefTRIAXone INJ 1,000 MG in SODIUM CHLORIDE 0.9% INJ 100 ML IV SCH (10:00)
--- NOTE | 2016-11-30 11:07 | HHI.PR ---
Subjective Remarks Patient laying in bed somnolent arousable to verbal stimuli looks comfortable, heart rate still high she is on 15 BRODIE of Cardizem will start by mouth and wean down, may add Lopressor if needed Objective Vitals Vital Signs Date Time Temp Pulse Resp B/P Pulse Ox O2 Delivery O2 Flow Rate FiO2 11/30/16 10:11 95 11/30/16 09:00 78 11/30/16 08:07 78 11/30/16 07:00 89 11/30/16 07:00 99.2 96 18 151/54 100 11/30/16 07:00 99 Nasal Cannula 2.00 11/30/16 05:00 119 11/30/16 04:51 98.6 112 18 158/70 96 11/30/16 04:00 118 11/30/16 03:00 108 11/30/16 02:00 115 11/30/16 01:42 101 11/30/16 00:36 98.6 102 18 160/82 98 11/30/16 00:00 102 11/29/16 23:00 94 11/29/16 22:00 114 11/29/16 21:00 118 11/29/16 20:30 99 Nasal Cannula 2.00 11/29/16 20:00 122 11/29/16 19:49 98.5 124 18 156/64 99 11/29/16 19:00 130 11/29/16 18:00 96 11/29/16 17:00 104 11/29/16 16:26 95 11/29/16 16:07 87 11/29/16 15:02 97.6 114 18 167/82 100 11/29/16 15:00 97 11/29/16 14:00 89 11/29/16 13:00 98 11/29/16 12:24 87 I/O 11/29/16 11/29/16 11/29/16 11/30/16 11/30/16 11/30/16 06:59 14:59 22:59 06:59 14:59 22:59 Intake Total 850 ml 1225 ml 1320 ml Output Total 500 ml 1100 ml 375 ml Balance 350 ml 125 ml 945 ml Intake Oral 0 ml 240 ml 240 ml IV Total 850 ml 985 ml 1080 ml Output Urine Total 500 ml 1100 ml 375 ml # Bowel Movements 0 0 Result Diagram: 11/25/16 1630 11/28/16 0445 Objective Remarks GENERAL: This is a well-nourished, well-developed patient. Alert and oriented to person and place and year, very softspoken and not the best historian, appears tired CARDIOVASCULAR: Irregularly irregular RESPIRATORY: Clear to auscultation. Breath sounds equal bilaterally. No wheezes GASTROINTESTINAL: Abdomen obese soft, non-tender, nondistended. No guarding. MUSCULOSKELETAL: No calf tenderness. Right upper extremity edematous greater than left. NEUROLOGICAL: Somnolent with right facial droop. 3-4 out of 5 muscle strength in all muscle groups. A/P Problem List: (1) Atrial fibrillation with RVR ICD Code: I48.91 Status: Acute (2) UTI (urinary tract infection) ICD Code: N39.0 Status: Acute Assessment and Plan 11/29: INR 2.1, will DC Lovenox,. Repeat INR in a.m. 11/30: Heart rate still in the 120, will start Cardizem by mouth 4 times a day, wean down Cardizem drip to keep heart rate below 110, sacral ulcer consult wound care team A/P: This is an 80-year-old female patient with past medical history which includes diabetes mellitus, hypertension, hyperlipidemia, atrial fibrillation, peripheral vascular disease, arthritis, CHF EF 40-45% echocardiogram 06/2016, hyperlipidemia and anemia. Patient was recently hospitalized June 2016 for critical hypoglycemia, acute kidney injury and hyperkalemia requiring temporary hemodialysis. Patient was also recently hospitalized 09/2016 for DVT of RUE and A Fib RVR. on admission EKG revealed atrial fibrillation with RVR at a rate of 149 bpm. UA also reviewed and revealed: positive nitrates large amount leukocyte esterase and many urine bacteria hyalin casts in urine mucus culture pending A fib with RVR- acute on chronic. Patient with rapid ventricular rate at risk for decompensation requiring IV medication and close telemetry monitoring. back on Cardizem drip since last night Rate is controlled at this time. Continue Coumadin with bridging Lovenox on home dose of metoprolol and digoxin. Digoxin level 1.3 Dr. Mccloud following Confusion/disorientation possibly secondary to UTI Continue to monitor and reorient as needed CT of the head reviewed and reveals old right occipital lobe infarct and no acute intracranial abnormalities UTI Escherichia coli Patient given cefepime 2 g IV in emergency department On Rocephin 1 g every 24 hours urine cx growing E. Coli sensitive to rocephin , switched to Rocephin at discharge recent [facility] in June- s/p temporary dialysis. Cr 1.12-->1.06. monitor. diabetes mellitus- chronic- with recent hospitalization for critical hypoglycemia accuchecks ACHS with low dose SSI coverage RUE DVT: coumadin/lovenox. daily inr Other stable chronic conditions includes: hypertension, hyperlipidemia,CHF EF 40 -45% echocardiogram 06/2016 and anemia- continue home medications speech swallow recommends mechanical soft/nectar consistency diet. GI prophylaxis- Protonix DVT proph: coumadin/lovenox. pharmacy coumadin consult Stuart Pretty MD Nov 30, 2016 11:06
[2016-11-30] MEDS: DILTIAZEM HCL 60 MG TAB PO SCH ×2 (12:00→17:19)
--- NOTE | 2016-11-30 13:33 | PD.CONS ---
History of Present Illness Service Plastic and Reconstructive surgery Consult Requested By Dr Pretty Reason for Consult Pressure Ulcer Primary Care Physician June Sahu MD Diagnoses: History of Present Illness Patient is am 80yo who has a sacral wound. I have been consulted for care of the wound. Past Family Social History Allergies: Coded Allergies: No Known Allergies (Verified , 10/13/16) Past Medical History A fib, DVT RUE, HTn, [place], anemia, DM Past Surgical History none known Active Ordered Medications Current Medications Medications (Trade) Dose Ordered Sig/Abigail Route Start Time Stop Time Status Last Admin (NS 1000 ml Inj) 1,000 ml @ 75 mls/hr [id number] IV 11/25/16 18:34 11/30/16 04:32 (NS Flush) 2 ml UNSCH PRN IV FLUSH 11/25/16 18:45 (NS Flush) 2 ml BID IV FLUSH 11/25/16 21:00 11/30/16 09:00 (Zofran Inj) 4 mg Q6H PRN IVP 11/25/16 18:45 (Narcan Inj) 0.4 mg UNSCH PRN IV 11/25/16 18:45 (Esthela-Colace) 1 tab BID PO 11/25/16 21:00 11/30/16 09:00 (Milk Of Magnesia Liq) 30 ml Q12H PRN PO 11/25/16 18:45 (Senokot) 17.2 mg Q12H PRN PO 11/25/16 18:45 (Dulcolax Supp) 10 mg DAILY PRN RECTAL 11/25/16 18:45 Lactulose 30 ml 30 ml DAILY PRN PO 11/25/16 18:45 (Cardizem Inj/NS Inj) 125 ml @ 0 mls/hr TITRATE IV 11/25/16 21:00 11/30/16 04:31 (Lanoxin) 0.125 mg DAILY PO 11/26/16 09:00 11/30/16 09:00 (Lasix) 40 mg DAILY PO 11/26/16 09:00 11/30/16 09:00 (Apresoline) 25 mg TID PO 11/26/16 09:00 11/30/16 13:08 (Isordil) 5 mg TIDAC PO 11/26/16 08:00 11/30/16 13:09 Primidone 50 mg 50 mg TID PO 11/25/16 22:15 11/30/16 13:09 (Coumadin Consult Pharmacy) 0 ml @ 0 mls/hr UNSCH OTHER 11/25/16 22:15 (D50w (Vial) Inj) 25 ml UNSCH PRN IV PUSH 11/25/16 22:30 (Glucagon Inj) 1 mg UNSCH PRN OTHER 11/25/16 22:30 Acetaminophen 650 mg 650 mg Q4H PRN PO 11/27/16 12:30 (Rocephin Inj/NS Inj) 100 ml @ 200 mls/hr Q24H IV 11/28/16 10:00 11/30/16 10:00 (Lopressor) 50 mg Q8HR PO 11/28/16 14:00 11/30/16 13:08 (Coumadin) 5 mg DAILY@16 PO 11/29/16 16:00 11/29/16 16:54 (Coumadin) 0.5 mg DAILY@16 PO 11/29/16 16:00 11/29/16 16:54 (Cardizem) 60 mg Q6HR PO 11/30/16 12:00 11/30/16 12:00 Family History not contributory Social History non smoker Physical Exam Vital Signs Vital Signs Date Time Temp Pulse Resp B/P Pulse Ox O2 Delivery O2 Flow Rate FiO2 11/30/16 12:27 108 11/30/16 11:00 98.6 104 18 162/78 98 11/30/16 11:00 98 11/30/16 10:11 95 11/30/16 09:00 78 11/30/16 08:07 78 11/30/16 07:00 89 11/30/16 07:00 99.2 96 18 151/54 100 11/30/16 07:00 99 Nasal Cannula 2.00 11/30/16 05:00 119 11/30/16 04:51 98.6 112 18 158/70 96 11/30/16 04:00 118 11/30/16 03:00 108 11/30/16 02:00 115 11/30/16 01:42 101 11/30/16 00:36 98.6 102 18 160/82 98 11/30/16 00:00 102 11/29/16 23:00 94 11/29/16 22:00 114 11/29/16 21:00 118 11/29/16 20:30 99 Nasal Cannula 2.00 11/29/16 20:00 122 11/29/16 19:49 98.5 124 18 156/64 99 11/29/16 19:00 130 11/29/16 18:00 96 11/29/16 17:00 104 11/29/16 16:26 95 11/29/16 16:07 87 11/29/16 15:02 97.6 114 18 167/82 100 11/29/16 15:00 97 11/29/16 14:00 89 Physical Exam GENERAL: This is a well-nourished, well-developed patient, in no apparent distress. SKIN: There is a small 3cm area of superficial epidermal breakdown of the soft tissue HEAD: Atraumatic. Normocephalic. No temporal or scalp tenderness. EYES: Pupils equal round and reactive. Extraocular motions intact. No scleral icterus. No injection or drainage. ENT: Nose without bleeding, purulent drainage or septal hematoma. Throat without erythema, tonsillar hypertrophy or exudate. Uvula midline. Airway patent. NECK: Trachea midline. No JVD or lymphadenopathy. Supple, nontender, no meningeal signs. CARDIOVASCULAR: Regular rate and rhythm without murmurs, gallops, or rubs. RESPIRATORY: Clear to auscultation. Breath sounds equal bilaterally. No wheezes , rales, or rhonchi. GASTROINTESTINAL: Abdomen soft, non-tender, nondistended. No hepato-splenomegaly , or palpable masses. No guarding. MUSCULOSKELETAL: Extremities without clubbing, cyanosis, or edema. No joint tenderness, effusion, or edema noted. No calf tenderness. Negative Homans sign bilaterally. NEUROLOGICAL: Awake and alert. Cranial nerves II through XII intact. Motor and sensory grossly within normal limits. Five out of 5 muscle strength in all muscle groups. Normal speech. Laboratory Laboratory Tests Test 11/30/16 08:22 Prothrombin Time 25.4 Prothromb Time International 2.2 Ratio Date/Time Procedure Status Source Growth 11/25/16 16:36 Urine Culture - Final Complete Urine Catheterized Urine Escherichia Coli 11/25/16 16:20 Aerobic Blood Culture - Final Complete Blood Peripheral NO GROWTH IN 5 DAYS 11/25/16 16:20 Anaerobic Blood Culture - Final Complete Blood Peripheral NO GROWTH IN 5 DAYS Result Diagram: 11/25/16 1630 11/28/16 0445 Assessment and Plan Assessment and Plan Patient is an 80yo with superficial loss of the sacral skin. This is a stage 1/ 2 ulcer. I do not recommend any surgery. 1. Recommend a pressure ulcer type bed to offload the pressure. 2. Turn patient every 2 hours. 3. Current dressing is acceptable. Please call if you have any questions. Otherwise the wound care team may follow her. Ifrah Aparicio MD Nov 30, 2016 13:33
[2016-11-30] MEDS: WARFARIN SOD 5 MG TAB PO SCH (17:19)
[2016-11-30] MEDS: WARFARIN SOD 1 MG TAB PO SCH (17:19)
[2016-12-01] VITALS (20 sets, daily range): BP systolic 146–181; BP diastolic 70–85; PULSE 60–114; RESP 18–23; TEMP 97.6–98.5; O2SAT 93–100
[2016-12-01] MEDS: METOPROLOL TARTRATE 50 MG TAB PO SCH ×2 (05:09→12:17)
[2016-12-01] MEDS: DILTIAZEM HCL 60 MG TAB PO SCH ×4 (05:09→16:48)
[2016-12-01] MEDS: INSULIN ASPART SUPPLEMENTAL SCALE SQ SCH ×3 (06:34→16:00)
[2016-12-01 06:36] LABS: INTERNATIONAL NORMALIZED RATIO 2.3 RATIO; PROTHROMBIN TIME - PATIENT 26.1 SEC (9.8-11.6)
[2016-12-01] MEDS: SODIUM CHLOR 0.9% 1000 ML INJ 1,000 ML IV SCH (07:59)
[2016-12-01] MEDS: ISOSORBIDE DINITRATE 5 MG TAB PO SCH ×3 (08:55→16:48)
[2016-12-01] MEDS: FUROSEMIDE 40 MG TAB PO SCH (08:55)
[2016-12-01] MEDS: DOCUSATE SODIUM 50 MG/SENNA 8.6 MG TAB PO SCH (08:55)
[2016-12-01] MEDS: DIGOXIN 0.125 MG TAB PO SCH (08:55)
[2016-12-01] MEDS: hydrALAZINE HCL 25 MG TAB PO SCH ×3 (08:55→16:48)
[2016-12-01] MEDS: PRIMIDONE 50 MG TAB PO SCH ×3 (08:55→16:47)
[2016-12-01] MEDS: SODIUM CHLORIDE 0.9% FLUSH 10 ML FLUSH IV FLUSH SCH (08:56)
[2016-12-01] MEDS: cefTRIAXone INJ 1,000 MG in SODIUM CHLORIDE 0.9% INJ 100 ML IV SCH (08:56)
[2016-12-01] MEDS ORDERED: CARD240C6 PO (11:22)
[2016-12-01] MEDS ORDERED: METO-309 PO (11:22)
[2016-12-01] MEDS ORDERED: CEFT250S PO (11:27)
--- NOTE | 2016-12-01 12:48 | HHI.PR ---
Subjective Remarks Patient stable, no acute issue, laying in bed open eyes to verbal stimuli and answers simple questions I discussed with her family in length, she is stable enough to be transferred to rehabilitation center Objective Vitals Vital Signs Date Time Temp Pulse Resp B/P Pulse Ox O2 Delivery O2 Flow Rate FiO2 12/01/16 12:00 102 12/01/16 12:00 160/71 12/01/16 11:00 97.6 82 20 181/83 97 12/01/16 11:00 96 12/01/16 10:00 90 12/01/16 09:00 83 12/01/16 08:00 73 12/01/16 07:00 98.5 79 20 154/74 100 12/01/16 07:00 100 Nasal Cannula 2.00 12/01/16 07:00 60 12/01/16 06:00 70 12/01/16 05:00 66 12/01/16 04:00 Nasal Cannula 2.00 12/01/16 04:00 99 12/01/16 04:00 98.3 99 20 155/85 99 12/01/16 03:00 110 12/01/16 02:00 105 12/01/16 01:00 108 12/01/16 00:00 Nasal Cannula 2.00 12/01/16 00:00 98.1 110 18 161/83 97 12/01/16 00:00 110 11/30/16 23:00 108 11/30/16 22:00 98 11/30/16 21:00 88 11/30/16 20:00 Nasal Cannula 2.00 11/30/16 20:00 100 11/30/16 20:00 98.4 100 18 162/81 100 11/30/16 18:16 86 11/30/16 17:02 76 11/30/16 16:00 88 11/30/16 15:39 98.9 78 18 125/54 100 11/30/16 15:39 83 11/30/16 14:16 76 11/30/16 13:00 66 I/O 11/30/16 11/30/16 11/30/16 12/01/16 12/01/16 12/01/16 07:00 15:00 23:00 07:00 15:00 23:00 Intake Total 1320 ml 890 ml 760 ml Output Total 375 ml 700 ml 500 ml Balance 945 ml 190 ml 260 ml Intake Oral 240 ml 240 ml 10 ml IV Total 1080 ml 650 ml 750 ml Output Urine Total 375 ml 700 ml 500 ml # Bowel Movements 0 0 Result Diagram: 11/28/16 0445 Objective Remarks GENERAL: This is a well-nourished, well-developed patient. Alert and oriented to person and place and year, very softspoken and not the best historian, appears tired CARDIOVASCULAR: Irregularly irregular RESPIRATORY: Clear to auscultation. Breath sounds equal bilaterally. No wheezes GASTROINTESTINAL: Abdomen obese soft, non-tender, nondistended. No guarding. MUSCULOSKELETAL: No calf tenderness. Right upper extremity edematous greater than left. NEUROLOGICAL: Somnolent with right facial droop. 3-4 out of 5 muscle strength in all muscle groups. A/P Problem List: (1) Atrial fibrillation with RVR ICD Code: I48.91 Status: Acute (2) UTI (urinary tract infection) ICD Code: N39.0 Status: Acute Assessment and Plan 11/29: INR 2.1, will DC Lovenox,. Repeat INR in a.m. 11/30: Heart rate still in the 120, will start Cardizem by mouth 4 times a day, wean down Cardizem drip to keep heart rate below 110, sacral ulcer consult wound care team 12/01: Heart rate. Well-controlled today she is on Cardizem and Lopressor, stable to be transferred to rehabilitation, discussed with family A/P: This is an 80-year-old female patient with past medical history which includes diabetes mellitus, hypertension, hyperlipidemia, atrial fibrillation, peripheral vascular disease, arthritis, CHF EF 40-45% echocardiogram 06/2016, hyperlipidemia and anemia. Patient was recently hospitalized June 2016 for critical hypoglycemia, acute kidney injury and hyperkalemia requiring temporary hemodialysis. Patient was also recently hospitalized 09/2016 for DVT of RUE and A Fib RVR. on admission EKG revealed atrial fibrillation with RVR at a rate of 149 bpm. UA also reviewed and revealed: positive nitrates large amount leukocyte esterase and many urine bacteria hyalin casts in urine mucus culture pending A fib with RVR- acute on chronic. Patient with rapid ventricular rate at risk for decompensation requiring IV medication and close telemetry monitoring. back on Cardizem drip since last night Rate is controlled at this time. Continue Coumadin with bridging Lovenox on home dose of metoprolol and digoxin. Digoxin level 1.3 Dr. Mccloud following Confusion/disorientation possibly secondary to UTI Continue to monitor and reorient as needed CT of the head reviewed and reveals old right occipital lobe infarct and no acute intracranial abnormalities UTI Escherichia coli Patient given cefepime 2 g IV in emergency department On Rocephin 1 g every 24 hours urine cx growing E. Coli sensitive to rocephin , switched to Rocephin at discharge recent [facility] in June- s/p temporary dialysis. Cr 1.12-->1.06. monitor. diabetes mellitus- chronic- with recent hospitalization for critical hypoglycemia accuchecks ACHS with low dose SSI coverage RUE DVT: coumadin/lovenox. daily inr Other stable chronic conditions includes: hypertension, hyperlipidemia,CHF EF 40 -45% echocardiogram 06/2016 and anemia- continue home medications speech swallow recommends mechanical soft/nectar consistency diet. GI prophylaxis- Protonix DVT proph: coumadin/lovenox. pharmacy coumadin consult Stuart Pretty MD Dec 01, 2016 12:48
--- NOTE | 2016-12-01 16:29 | HHI.FF ---
Face to Face Verification Diagnosis: (1) Diabetes mellitus (2) Atrial fibrillation, chronic (3) Hypertension (4) Systolic CHF (5) Debility (6) Atrial fibrillation with RVR Physical Therapy Order: Evaluate and Treat Occupational Therapy Order: Evaluate and Treat Home Health Nursing Order: Wound care and dressing changes Nursing assessment with vital signs I have seen patient Deyanira Gabriel on 12/01/16. My clinical findings support the need for the requested home health care services because: Ltd mobility - disease progression Deconditioned w/ increased weakness Limited ability to care for self I certify that my clinical findings support that this patient is homebound because: Unsteady gait/balance Unsafe to leave home unassisted Unable to use public transportation Stuart Pretty MD Dec 01, 2016 16:29
[2016-12-01] MEDS: WARFARIN SOD 5 MG TAB PO SCH (16:47)
[2016-12-01] MEDS: WARFARIN SOD 1 MG TAB PO SCH (16:48)
--- NOTE | 2016-12-04 13:40 | HHI.DS ---
Discharge Summary Admission Date Nov 25, 2016 at 18:34 Discharge Date: Dec 01, 2016 Admitting Diagnosis A. fib with RVR/UTI (1) Atrial fibrillation with RVR ICD Code: I48.91 (2) UTI (urinary tract infection) ICD Code: N39.0 Procedures See below Brief History - From Admission Written by Anne Lockhart, acting as scribe for Dr. Pretty on 11/25/16 at 22: 28. This is an 80-year-old female patient with past medical history which includes diabetes mellitus, hypertension, hyperlipidemia, atrial fibrillation, peripheral vascular disease, arthritis, CHF EF 40-45% echocardiogram 06/2016, hyperlipidemia and anemia. Patient was recently hospitalized June 2016 for critical hypoglycemia, acute kidney injury and hyperkalemia requiring temporary hemodialysis. Patient was also recently hospitalized 09/2016 for DVT of RUE and A Fib RVR. Patient is alert and oriented to person and place only she is a poor historian therefore information gathered from patient as well as prior computerized charting. Patient is unable to tell why she is in the hospital. Patient and review of ER doctor medication patient was brought in by family members for increased confusion/disorientation over the past few days. Patient arrived to the emergency department she was noted to have atrial fibrillation with a rapid ventricular rate as high as 166 on telemetry monitoring. EKG reviewed and revealed atrial fibrillation with RVR at a rate of 149 bpm. Patient was given Cardizem IV push and started on Cardizem drip in the emergency department. Patient is currently on Cardizem drip with a heart rate 90s to low 100s. UA also reviewed and reveals: Negative protein and positive nitrates large amount leukocyte esterase and many urine bacteria hyalin casts in urine mucus culture pending Per ER documentation there was no report of chest pain, shortness of breath or feeling lightheaded, although patient is a poor historian and unreliable. At this time patient offers no complaints. PE at Discharge GENERAL: This is a well-nourished, well-developed patient. Alert and oriented to person and place and year, very softspoken and not the best historian, appears tired CARDIOVASCULAR: Irregularly irregular RESPIRATORY: Clear to auscultation. Breath sounds equal bilaterally. No wheezes GASTROINTESTINAL: Abdomen obese soft, non-tender, nondistended. No guarding. MUSCULOSKELETAL: No calf tenderness. Right upper extremity edematous greater than left. NEUROLOGICAL: Somnolent with right facial droop. 3-4 out of 5 muscle strength in all muscle groups. Hospital Course This is an 80-year-old female patient with past medical history which includes diabetes mellitus, hypertension, hyperlipidemia, atrial fibrillation, peripheral vascular disease, arthritis, CHF EF 40-45% echocardiogram 06/2016, hyperlipidemia and anemia. Patient was recently hospitalized June 2016 for critical hypoglycemia, acute kidney injury and hyperkalemia requiring temporary hemodialysis. Patient was also recently hospitalized 09/2016 for DVT of RUE and A Fib RVR. on admission EKG revealed atrial fibrillation with RVR at a rate of 149 bpm. UA also reviewed and revealed: positive nitrates large amount leukocyte esterase and many urine bacteria hyalin casts in urine mucus culture pending A fib with RVR- acute on chronic. Patient with rapid ventricular rate at risk for decompensation requiring IV medication and close telemetry monitoring. Patient started on Cardizem drip, Continue Coumadin with bridging Lovenox, metoprolol and digoxin. Digoxin level 1.3, cardiology consulted, we titrated her Cardizem and switch to by mouth as well as Lopressor until heart rate in well-controlled Confusion/disorientation possibly secondary to UTI, CT of the head reviewed and reveals old right occipital lobe infarct and no acute intracranial abnormalities UTI Escherichia coli, Patient given cefepime 2 g IV in emergency department On Rocephin 1 g every 24 hours urine cx growing E. Coli sensitive to rocephin , switched to Rocephin at discharge recent [facility] in June- s/p temporary dialysis. Cr 1.12-->1.06. monitor. diabetes mellitus- chronic- with recent hospitalization for critical hypoglycemia accuchecks ACHS with low dose SSI coverage RUE DVT: coumadin/lovenox. daily inr Other stable chronic conditions includes: hypertension, hyperlipidemia,CHF EF 40 -45% echocardiogram 06/2016 and anemia- continue home medications speech swallow recommends mechanical soft/nectar consistency diet. [id number] encounter performed with the patient on discharge day, as well as physical exam, summary of hospitalization course and postdischarge plan has been D/W the patient. D/W nurse D/W bilingual patient support caseworker. Discharge medications reviewed and printed and signed, post discharge follow up visit with PCP and other specialist as well as Brief hospital course and discharge summary has been placed. Pt Condition on Discharge: Stable Discharge Disposition: Disch w/ Home Health Serv Discharge Time: > 30 minutes Discharge Instructions DIET: Follow Instructions for: Heart Healthy Diet, Diabetic Diet Speech Therapy-Diet Recommends: Mechanical Soft Activities you can perform: See Additionl Instruction Other Activity Instructions: per PT New Medications: Cefuroxime Liq (Ceftin Liq) 250 Mg/5 Ml Susp 250 MG PO BID Infection #6 Ref 0 ML Diltiazem CD 24 HR (Cardizem CD 24 HR) 240 Mg Caper 240 MG PO DAILY afib #30 Ref 0 CAP Metoprolol Tartrate (Lopressor) 50 Mg Tab 50 MG PO Q8HR afib #90 TAB Continued Medications: Digoxin (Digoxin) 0.125 Mg Tab 0.125 MG PO DAILY Regulate Heart Beat #30 Ref 0 TAB Furosemide (Lasix) 40 Mg Tab 40 MG PO DAILY #30 Ref 0 TAB Hydralazine HCl (Hydralazine HCl) 25 Mg Tablet 25 MG PO TID Blood Pressure Management #60 Ref 0 TAB Isosorbide Dinitrate (Isordil Titradose) 5 Mg Tab 5 MG PO TIDAC Blood Pressure Management #90 TAB Potassium Chloride ER (Potassium Chloride ER) 10 Meq Cap 10 MEQ PO DAILY Electrolyte Replacement #30 Ref 0 CAP Primidone (Primidone) 50 Mg Tab 50 MG PO TID Control Seizures #60 Ref 0 TAB Warfarin (Warfarin) 5 Mg Tab 5.5 MG PO DAILY Blood Clot Prevention #30 Ref 0 TAB Stuart Pretty MD Dec 04, 2016 13:40
== END 2016-12-01 20:00 | disposition home health service (06) | DRG 309 ==
LOC: NEPC 16:10 → NEDA 18:34 → HCIS 20:15
PROVIDERS: ADMIT Hospitalist; ATTEND Hospitalist
DX: I48.2 Chronic atrial fibrillation (principal); N39.0 Urinary tract infection, site not specified; L89.151 Pressure ulcer of sacral region, stage 1; I11.0 Hypertensive heart disease with heart failure; I95.9 Hypotension, unspecified; I82.621 Acute embolism and thrombosis of deep veins of right upper extremity; E11.51 Type 2 diabetes mellitus with diabetic peripheral angiopathy without gangrene; I50.22 Chronic systolic (congestive) heart failure; E78.5 Hyperlipidemia, unspecified; I25.2 Old myocardial infarction; R41.0 Disorientation, unspecified; M19.90 Unspecified osteoarthritis, unspecified site; B96.20 Unspecified Escherichia coli [E. coli] as the cause of diseases classified elsewhere; Z79.01 Long term (current) use of anticoagulants; Z86.718 Personal history of other venous thrombosis and embolism
CPT/HCPCS: 51702; 70450; 71010; 76937; 80048; 80053; 80162; 81001; 82550; 82948; 83605; 83735; 83880; 84484; 85025; 85610; 85730; 87040; 87077; 87086; 87186; 93005; 96374; J0692; J0696; J1650; J1815; J7030; J7040

== ENCOUNTER 2017-06-11 19:19 | Inpatient (IN) | payer OTHER, MEDICARE ==
[~2017-06-11] VITALS: Ht 175.3 cm; Wt 60.5 kg
[~2017-06-11 19:19] MED LIST changes: +CARD240C6 PO; +CEFT250S PO; -COUM7.5T PO; +DIGO0.12 PO; +DULC10SU3 RECTAL; +HYDR-3799 PO; -HYDR50TA15 PO; -LANO0.1212 PO; +METO-309 PO; +WARF-23 PO
[2017-06-11 19:32] VITALS: BP 135/63; PULSE 152; RESP 20; TEMP 98.8
[2017-06-11] MEDS ORDERED: SODIUM CHLOR 0.9% 1000 ML INJ 1,000 ML IV SCH (19:32)
[2017-06-11] MEDS ORDERED: SODIUM CHLORIDE 0.9% FLUSH 10 ML FLUSH IV FLUSH PRN ×3 (19:45→22:45)
[2017-06-11] MEDS ORDERED: CEFEPIME INJ 2,000 MG in SODIUM CHLORIDE 0.9% INJ 100 ML IV ONE (19:45)
[2017-06-11] MEDS ORDERED: DILTIAZEM HCL 25 MG/5 ML VIAL IV PUSH ONE (19:45)
[2017-06-11] MEDS ORDERED: ACETAMINOPHEN 650 MG/20.3 ML UDC PO ONE (19:45)
[2017-06-11 20:02] LABS: AUTOMATED NEUTROPHIL # 5.3 TH/MM3 (1.8-7.7); BASOPHIL # 0.1 TH/MM3 (0-0.2); HEMATOCRIT 33.7 % (35.0-46.0); HEMOGLOBIN 10.9 GM/DL (11.6-15.3); LYMPH % 8.4 % (9.0-44.0); LYMPHOCYTE # 0.5 TH/MM3 (1.0-4.8); MEAN CELL VOLUME 93.9 FL (80.0-100.0); MEAN CORPUSCULAR HEMOGLOBIN 30.5 PG (27.0-34.0); MEAN CORPUSCULAR HGB CONC 32.5 % (32.0-36.0); MEAN PLATELET VOLUME 7.8 FL (7.0-11.0); MONO % 5.8 % (0.0-8.0); MONOCYTE # 0.4 TH/MM3 (0-0.9); NEUT % 84.8 % (16.0-70.0); PLATELET COUNT 348 TH/MM3 (150-450); RED BLOOD COUNT 3.58 MIL/MM3 (4.00-5.30); RED CELL DISTRIBUTION WIDTH 14.5 % (11.6-17.2); WHITE BLOOD COUNT 6.3 TH/MM3 (4.0-11.0)
[2017-06-11 20:10] LABS: INTERNATIONAL NORMALIZED RATIO 1.8 RATIO; PROTHROMBIN TIME - PATIENT 18.1 SEC (9.8-11.6)
[2017-06-11 20:24] LABS: ALT (GPT) 17 U/L (10-53)
[2017-06-11 20:35] LABS: ALBUMIN 2.3 GM/DL (3.4-5.0); ALKALINE PHOSPHATASE 109 U/L (45-117); AST (GOT) 37 U/L (15-37); BICARBONATE 29.5 MEQ/L (21.0-32.0); BLOOD UREA NITROGEN 37 MG/DL (7-18); CHLORIDE 107 MEQ/L (98-107); GLOMERULAR FILTRATION RATE 37 ML/MIN (>89); GLUCOSE,RANDOM 132 MG/DL (74-106); SODIUM (NA) 143 MEQ/L (136-145); TOTAL BILIRUBIN ADULT 0.3 MG/DL (0.2-1.0); TOTAL PROTEIN 7.3 GM/DL (6.4-8.2); TROPONIN I LESS THAN 0.02 NG/ML (0.02-0.05)
[2017-06-11 20:51] LABS: LACTIC ACID SEPSIS PROTOCOL 3.2 mmol/L (0.4-2.0)
--- NOTE | 2017-06-11 21:07 | RADRPT ---
EXAM DATE/TIME: 06/11/2017 20:33 [facility] COMPARISON: CT BRAIN W/O CONTRAST, November 25, 2016, 16:29. INDICATIONS : Altered mental status. RADIATION DOSE: 56.35 CTDIvol (mGy) MEDICAL HISTORY : Seizures. Hypertension. Cardiovascular diseaseDiabetes II. AFIB SURGICAL HISTORY : None. ENCOUNTER: Initial ACUITY: 1 day PAIN SCALE: Non-responsive LOCATION: cranial TECHNIQUE: Multiple contiguous axial images were obtained of the head. Using automated exposure control and adj ustment of the mA and/or kV according to patient size, radiation dose was kept as low as reasonably a chievable to obtain optimal diagnostic quality images. DICOM format image data is available electro nically for review and comparison. FINDINGS: Mild motion degradation of the mid convexity images. CEREBRUM: The ventricles are normal for age. No evidence of midline shift, mass lesion, hemorrhage or acute in farction. No extra-axial fluid collections are seen. Focal area of encephalomalacia in the mid conv exity right occipital region stable from prior. POSTERIOR FOSSA: The cerebellum and brainstem are intact. The 4th ventricle is midline. The cerebellopontine angle i s unremarkable. EXTRACRANIAL: The visualized portion of the orbits is intact. SKULL: The calvaria is intact. No evidence of skull fracture. CONCLUSION: 1. No acute findings in the brain. 2. 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 Mauricio Meza MD on June 11, 2017 at 21:03 Board Certified Radiologist. This report was verified electronically.
--- NOTE | 2017-06-11 21:09 | RADRPT ---
EXAM DATE/TIME: 06/11/2017 20:39 [facility] COMPARISON: CHEST SINGLE AP, November 25, 2016, 16:27. INDICATIONS : Syncope MEDICAL HISTORY : Seizures. Hypertension. Cardiovascular diseaseDiabetes II, AFIB SURGICAL HISTORY : Cholecystectomy. Hysterectomy. ENCOUNTER: Initial ACUITY: 1 day PAIN SCORE: Non-responsive. LOCATION: Bilateral chest FINDINGS: There is elevation of the left hemidiaphragm and a gas containing viscus structure in the left hemidi aphragm, probably representing a distended stomach. There is associated compressive atelectasis of t he adjacent left lower lung. The right lung is clear. No evidence of pneumothorax. The heart is no rmal size. Mild patient rotation towards the left. CONCLUSION: Probable distended stomach causing left basilar atelectasis. Mauricio Meza MD on June 11, 2017 at 21:05 Board Certified Radiologist. This report was verified electronically.
[2017-06-11] MEDS: DILTIAZEM INJ 125 MG in SODIUM CHLORIDE 0.9% INJ 100 ML IV PRN (21:10)
--- NOTE | 2017-06-11 21:37 | PD ---
HPI Chief Complaint: General Weakness Time Seen by Provider: 19:32 Travel History International Travel<30 days: No Contact w/Intl Traveler<30days: No Traveled to known affect area: No History of Present Illness HPI 81-year-old female presents to the emergency department by EMS transport for evaluation of generalized weakness and depressed mentation. According to [facility] head wet process report patient from family's report has not felt well all day long and then this evening symptoms seem to worsen so [facility] head wet process for called to the home to assess the patient. Upon their evaluation patient was somnolent and a blood sugar at bedside was 39 patient was given D10 bolus and improvement of blood sugar 89 patient's mentation markedly improved patient was also noted to be in atrial fibrillation with rapid ventricular rate was given a bolus of normal saline without change in her heart rate and therefore given a bolus of Cardizem 20 mg times one dose with good heart rate response patient was also noted to have fever of 101F and was brought in for further evaluation. Patient here in the emergency department is awake and denies any pain. Patient denies head pain chest pain abdominal pain back pain or extremity pain. Patient denies any shortness of breath. Patient denies nausea and has had no vomiting. Patient does admit to being diabetic and states that she has no complaints. Patient is also identified to have history of atrial fibrillation and is on Coumadin anticoagulation. Patient rates pain 0/10 in intensity. Paramedics also report family stated patient is on hospice for worsening renal function. PFSH Past Medical History Narrative Medical Anemia arthritis renal failure diabetes hypertension atrial fibrillation Coumadin therapy Hx Anticoagulant Therapy: Yes (WARFARIN) Anemia: Yes Arthritis: Yes Asthma: No Atrial Fibrillation: Yes Autoimmune Disease: No Blood Disorders: No Anxiety: No Depression: No Heart Rhythm Problems: No Cancer: No Cardiovascular Problems: Yes High Cholesterol: No Chest Pain: No Congestive Heart Failure: No COPD: No Cerebrovascular Accident: No Diabetes: Yes Patient Takes Glucophage: No Diminished Hearing: No Endocrine: Yes Genitourinary: Yes Headaches: Yes Hypertension: Yes Immune Disorder: No Implanted Vascular Access Dvce: Yes Musculoskeletal: Yes Neurologic: Yes Psychiatric: No Reproductive: No Respiratory: No Immunizations Current: Yes Migraines: No Myocardial Infarction: Yes Renal Failure: Yes Seizures: Yes (2017 in [facility]) Thyroid Disease: Yes Tetanus Vaccination: Unknown PNEUMOCCOCAL Vaccine (Year): 3 ?: Not Menopausal: Yes : 5 Para: 3 Past Surgical History Abdominal Surgery: Yes (cholecysectomy) AICD: No Arteriovenous Shunt: No Cardiac Surgery: No Ear Surgery: No Endocrine Surgery: Yes (thyroid removal) Eye Surgery: No Genitourinary Surgery: No Gynecologic Surgery: Yes (partial hysterectomy) Hysterectomy: Yes Insulin Pump: No Joint Replacement: No Oral Surgery: No Pacemaker: No Thoracic Surgery: No Other Surgery: Yes Social History Alcohol Use: No Tobacco Use: No Substance Use: No Allergies-Medications (Allergen,Severity, Reaction): Coded Allergies: No Known Allergies (Verified , 10/13/16) Reported Meds & Prescriptions Reported Meds & Active Scripts Active Cardizem CD 24 HR (Diltiazem CD 24 HR) 240 Mg Caper 240 Mg PO DAILY Reported Warfarin 5 Mg Tab 5.5 Mg PO DAILY Dulcolax Supp (Bisacodyl) 10 Mg Supp 10 Mg RECTAL DAILY PRN Digoxin 0.125 Mg Tab 0.125 Mg PO DAILY Lasix (Furosemide) 40 Mg Tab 40 Mg PO DAILY Potassium Chloride ER (Potassium Chloride) 10 Meq Cap 10 Meq PO DAILY Primidone 50 Mg Tab 50 Mg PO TID Review of Systems Except as stated in HPI: all other systems reviewed are Neg Physical Exam Narrative GENERAL: well-developed well-nourished elderly female in no acute distress no respiratory distress; GCS 15 SKIN: Warm and dry. HEAD: Atraumatic. Normocephalic. EYES: Pupils equal and round. No scleral icterus. No injection or drainage. ENT: No nasal bleeding or discharge. Mucous membranes pink and moist. NECK: Trachea midline. No JVD. CARDIOVASCULAR: Increased irregular irregular rate and rhythm. RESPIRATORY: No accessory muscle use. Clear to auscultation. Breath sounds equal bilaterally. GASTROINTESTINAL: Abdomen soft, non-tender, nondistended. Hepatic and splenic margins not palpable. MUSCULOSKELETAL: Extremities without clubbing, cyanosis, or edema. No obvious deformities. Attention left foot #3 toe is black and necrotic mild soft tissue swelling at the base of the toe no increased warmth or redness. NEUROLOGICAL: Awake and alert. No obvious cranial nerve deficits. Motor grossly within normal limits. Five out of 5 muscle strength in the arms and legs. Normal speech. PSYCHIATRIC: Appropriate mood and affect; insight and judgment normal. Data Data Last Documented VS Vital Signs Date Time Temp Pulse Resp B/P (MAP) Pulse Ox O2 Delivery O2 Flow Rate FiO2 06/11/17 21:47 116 114/53 06/11/17 19:32 98.8 20 Orders Orders Electrocardiogram (06/11/17 19:32) Ammonia (06/11/17 19:32) Complete Blood Count With Diff (06/11/17 19:32) Comprehensive Metabolic Panel (06/11/17 19:32) Creatine Kinase (Cpk) (06/11/17 19:32) Prothrombin Time / Inr (Pt) (06/11/17:32) Troponin I (06/11/17:32) Thyroid Stimulating Hormone (06/11/17 19:32) Urinalysis - C+S If Indicated (06/11/17:32) Lactic Acid Sepsis Protocol (06/11/17:32) Blood Culture (06/11/17 19:32) Chest, Single Ap (06/11/17 19:32) Ct Brain W/O Iv Contrast(Rout) (06/11/17 19:32) Blood Glucose (06/11/17:32) Ecg Monitoring (06/11/17 19:32) Iv Access Insert/Monitor (06/11/17 19:32) Oximetry (06/11/17 19:32) Sodium Chloride 0.9% Flush (Ns Flush) (06/11/17 19:45) Sodium Chlor 0.9% 1000 Ml Inj (Ns 1000 M (06/11/17 19:32) Acetaminophen 650 Mg/20 Ml Liq (Tylenol (06/11/17 19:45) Cefepime Inj (Maxipime Inj) (06/11/17 19:45) Diltiazem Inj (Cardizem Inj) (06/11/17 19:45) Diltiazem Inj (Cardizem Inj) (06/11/17 19:45) Sodium Chloride 0.9% Flush (Ns Flush) (06/11/17 19:45) Cath For Specimen (06/11/17 20:30) Digoxin (06/11/17 21:37) Urine Culture (06/11/17 21:45) Sodium Chlorid 0.9% 500 Ml Inj (Ns 500 M (06/11/17 22:30) Admit Order (Ed Use Only) (06/11/17 ) Vice President Of Development / Telemetry [id number] (06/11/17 22:28) Activity Bed Rest (06/11/17 22:28) Notify Dr: Other (06/11/17 22:28) Labs Laboratory Tests Test 06/11/17 19:45 06/11/17 20:02 06/11/17 21:45 White Blood Count 6.3 TH/MM3 Red Blood Count 3.58 MIL/MM3 Hemoglobin 10.9 GM/DL Hematocrit 33.7 % Mean Corpuscular Volume 93.9 FL Mean Corpuscular Hemoglobin 30.5 PG Mean Corpuscular Hemoglobin Concent 32.5 % Red Cell Distribution Width 14.5 % Platelet Count 348 TH/MM3 Mean Platelet Volume 7.8 FL Neutrophils (%) (Auto) 84.8 % Lymphocytes (%) (Auto) 8.4 % Monocytes (%) (Auto) 5.8 % Eosinophils (%) (Auto) 0.0 % Basophils (%) (Auto) 1.0 % Neutrophils # (Auto) 5.3 TH/MM3 Lymphocytes # (Auto) 0.5 TH/MM3 Monocytes # (Auto) 0.4 TH/MM3 Eosinophils # (Auto) 0.0 TH/MM3 Basophils # (Auto) 0.1 TH/MM3 CBC Comment DIFF FINAL Differential Comment Prothrombin Time 18.1 SEC Prothromb Time International Ratio 1.8 RATIO Blood Urea Nitrogen 37 MG/DL Creatinine 1.60 MG/DL Random Glucose 132 MG/DL Total Protein 7.3 GM/DL Albumin 2.3 GM/DL Calcium Level 9.0 MG/DL Alkaline Phosphatase 109 U/L Aspartate Amino Transf (AST/SGOT) 37 U/L Alanine Aminotransferase (ALT/SGPT) 17 U/L Total Bilirubin 0.3 MG/DL Sodium Level 143 MEQ/L Potassium Level 4.0 MEQ/L Chloride Level 107 MEQ/L Carbon Dioxide Level 29.5 MEQ/L Anion Gap 7 MEQ/L Estimat Glomerular Filtration Rate 37 ML/MIN Total Creatine Kinase 60 U/L Troponin I LESS THAN 0.02 NG/ML Thyroid Stimulating Hormone 3rd Gen 0.233 uIU/ML Lactic Acid Level 3.2 mmol/L Ammonia LESS THAN 10 MCMOL/L Urine Color YELLOW Urine Turbidity HAZY Urine pH 5.5 Urine Specific Clark 1.016 Urine Protein TRACE mg/dL Urine Glucose (UA) NEG mg/dL Urine Ketones NEG mg/dL Urine Occult Blood NEG Urine Nitrite POS Urine Bilirubin NEG Urine Urobilinogen 2.0 MG/DL Urine Leukocyte Esterase LARGE Urine RBC 7 /hpf Urine WBC 25 /hpf Urine Squamous Epithelial Cells 2 /hpf Urine Bacteria MANY /hpf Urine Hyaline Casts 136 /lpf Urine Mucus FEW /lpf Microscopic Urinalysis Comment CATH-CULTURE IND MDM Medical Decision Making Medical Screen Exam Complete: Yes Emergency Medical Condition: Yes Medical Record Reviewed: Yes Interpretation(s) CK 60, not elevated; troponin I less than 0.02, not elevated Last Impressions Head CT 06/11/[id number] Signed Impressions: Service Date/Time: , June 11, 2017 20:33 - CONCLUSION: 1. No acute findings in the brain. 2. 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 Mauricio Meza MD Chest X-Ray 06/11/[id number] Signed Impressions: Service Date/Time: , June 11, 2017 20:39 - CONCLUSION: Probable distended stomach causing left basilar atelectasis. Mauricio Meza MD CBC & BMP Diagram 06/11/17 19:45 Total Protein 7.3, Albumin 2.3 L, Calcium Level 9.0, Alkaline Phosphatase 109, Aspartate Amino Transf (AST/SGOT) 37, Alanine Aminotransferase (ALT/SGPT) 17, Total Bilirubin 0.3 Vital Signs Date Time Temp Pulse Resp B/P (MAP) Pulse Ox O2 Delivery O2 Flow Rate FiO2 06/11/17 21:47 116 114/53 06/11/17 21:10 129 123/49 06/11/17 19:32 98.8 152 20 135/63 (87) Differential Diagnosis Hypoglycemia, sepsis, adverse medication reaction, UTI, pneumonia, CHF Narrative Course Patient placed on monitor and storage bin tender IV access obtained specimens collected and sent for resulting; patient placed on Cardizem infusion after repeat Cardizem bolus acetaminophen administered and patient treated presumptively with cefepime for possible UTI. EKG from EMS reviewed consistent with atrial fibrillation with RVR no acute ST elevation or injury pattern noted. Patient on monitor and storage bin tender noted to be in atrial fibrillation with rapid ventricular rate of 1:30 to 145. Patient resting comfortably rate improved after Cardizem and fluid bolus Urine specimen pending @ 9 PM family reports patient under the care of gastroenterology nurse practitioner and and visiting patient in her home for management of left third toe diabetic infection. Family denies patient currently on antibiotic and no recent fever. Daughter states that throughout the day she has been weak and was noted to have elevated blood sugar so she administered 4 units of insulin subcutaneous just prior to arrival to the EMS providers. Daughter also reports that patient is under the care of hospice for progressively worsening renal function. Decreased activity and poor oral intake today. Urinalysis markedly abnormal with leukocytosis white blood cells clumped white blood cells bacteria and nitrites; culture is indicated; review of medical record identifies last urinary tract infection was positive for Escherichia coli and resistant to several antibiotics but sensitive to cefepime. Patient admitted for sepsis UTI atrial fibrillation with RVR most likely infection source of generalized weakness and contributed to hypoglycemic event as well as administration of insulin just prior to EMS arrival. Patient's case discussed with on-call medicine service for admission Critical Care Narrative Aggregate critical care time was 30 minutes. Time to perform other separately billable procedures was not included in the critical care time. My time did not include minutes spent treating any other patients simultaneously or on activities that did not directly contribute to the patient's treatment. The services I provided to this patient were to treat and/or prevent clinically significant deterioration that could result in: Sepsis, [place], I provided critical care services requiring my management, as noted below: Chart data review, documentation time, medication orders and management, vital sign assessments/reviewing monitor data, ordering and reviewing lab tests, ordering and interpreting/reviewing x-rays and diagnostic studies, care of the patient and discussion of the patient with the admitting physicians. Diagnosis Primary Impression: Sepsis Additional Impressions: UTI (urinary tract infection) Atrial fibrillation with RVR Admitting Information Admitting Physician Requests: Admit Nina Huertas MD Jun 11, 2017 21:37
[2017-06-11 22:05] LABS: BACTERIA, URINE MANY /hpf; BILIRUBIN, URINE NEG (NEG); BLOOD, URINE NEG (NEG); GLUCOSE,URINE NEG (NEG); HYALINE CAST, URINE 136 /lpf (RARE); KETONE, URINE NEG (NEG); MUCUS URINE FEW /lpf (OCC); NITRITE,URINE POS (NEG); PH, URINE 5.5 (5.0-8.5); SQUAMOUS EPITHELIAL CELL URINE 2 /hpf (0-5); URINE COLOR YELLOW (YELLW/STRAW); URINE LEUKOCYTE ESTERASE LARGE (NEG)
[2017-06-11] MEDS ORDERED: SODIUM CHLORID 0.9% 500 ML INJ 500 ML IV ONE (22:30)
--- NOTE | 2017-06-11 22:42 | HHI.HP ---
[facility] Unknown Admission Diagnosis sepsis hypoglycemia uti afrvr Diagnoses: (1) Encephalopathy Diagnosis: Principal (2) Hypoglycemia Diagnosis: Principal (3) UTI (urinary tract infection) Diagnosis: Principal (4) MARTHA (acute kidney injury) Diagnosis: Principal (5) Atrial fibrillation with RVR Diagnosis: Principal (6) DNR (do not resuscitate) Diagnosis: Principal Travel History International Travel<30 Days: No Contact w/Intl Traveler <30 Da: No Traveled to Known Affected Are: No History of Present Illness This is an 81-year-old female with a PMH of HTN, A. fib on Coumadin, CAD and DM who was brought to the ER by EMS secondary to weakness and AMS. Per family, pt somnolent and confused. BS 39 per EMS and Temp 101, s/p D10 w/ improvement in mentation. Daughter denies fever/chills or recent illness. On arrival, BP 135/ 63, HR 152 in A. fib, Afebrile. S/p Cardizem IV in ER and started on Cardizem gtt. CBC essentially unremarkable. Melyssa 1.60, producing 1.06 on 12/08/16. Lactic Acid 3.2. Troponin negative. INR 1.8. UA positive for UTI. Digoxin 1.3. CXR with probable distended stomach causing left basilar atelectasis. CT Head with no acute findings, old right occipital infarct stable. S/p Blood/ Urine Cultures, IV Cefepime in ER. Review of Systems Except as stated in HPI: all other systems reviewed are Neg ROS: 14 point review of systems otherwise negative. Past Family Social History Past Medical History PMH: HTN, A. fib on Coumadin, CAD and DM Past Surgical History PAST SURGICAL HISTORY: Cholecystectomy, Thyroidectomy, Partial Hysterectomy Allergies: Coded Allergies: No Known Allergies (Verified , 10/13/16) Family History PAST FAMILY HISTORY: Reviewed. No h/o DM or CAD Social History PAST SURGICAL HISTORY: Negative for alcohol, tobacco or drugs. Physical Exam Vital Signs Vital Signs Date Time Temp Pulse Resp B/P (MAP) Pulse Ox O2 Delivery O2 Flow Rate FiO2 12/21/17 22:36 116 114/53 06/11/17 21:47 116 114/53 06/11/17 21:10 129 123/49 06/11/17 19:32 98.8 152 20 135/63 (87) Physical Exam PE: GENERAL: Elderly black female in no acute distress. Family at bedside. HEENT: PERRLA, EOMI. No scleral icterus or conjunctival pallor. No lid lag or facial droop. CARDIOVASCULAR: Irregularly irregular, in A. fib, HR 106-120's. No obvious murmurs to auscultation. No chest tenderness to palpation. RESPIRATORY: No obvious rhonchi or wheezing. Clear to auscultation. Breath sounds equal bilaterally. GASTROINTESTINAL: Abdomen soft, non-tender, nondistended. BS normal. MUSCULOSKELETAL: Extremities without clubbing, cyanosis, or edema. No obvious deformities. 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 NEUROLOGICAL: Awake, alert, answering few questions. No focal neurologic deficits. Moving both upper and lower extremities spontaneously. Laboratory Laboratory Tests Test 06/11/17 19:45 06/11/17 20:02 06/11/17 21:45 White Blood Count 6.3 Red Blood Count 3.58 Hemoglobin 10.9 Hematocrit 33.7 Mean Corpuscular Volume 93.9 Mean Corpuscular Hemoglobin 30.5 Mean Corpuscular Hemoglobin Concent 32.5 Red Cell Distribution Width 14.5 Platelet Count 348 Mean Platelet Volume 7.8 Neutrophils (%) (Auto) 84.8 Lymphocytes (%) (Auto) 8.4 Monocytes (%) (Auto) 5.8 Eosinophils (%) (Auto) 0.0 Basophils (%) (Auto) 1.0 Neutrophils # (Auto) 5.3 Lymphocytes # (Auto) 0.5 Monocytes # (Auto) 0.4 Eosinophils # (Auto) 0.0 Basophils # (Auto) 0.1 CBC Comment DIFF FINAL Differential Comment Prothrombin Time 18.1 Prothromb Time International Ratio 1.8 Blood Urea Nitrogen 37 Creatinine 1.60 Random Glucose 132 Total Protein 7.3 Albumin 2.3 Calcium Level 9.0 Alkaline Phosphatase 109 Aspartate Amino Transf (AST/SGOT) 37 Alanine Aminotransferase (ALT/SGPT) 17 Total Bilirubin 0.3 Sodium Level 143 Potassium Level 4.0 Chloride Level 107 Carbon Dioxide Level 29.5 Anion Gap 7 Estimat Glomerular Filtration Rate 37 Total Creatine Kinase 60 Troponin I LESS THAN 0.02 Thyroid Stimulating Hormone 3rd Gen 0.233 Lactic Acid Level 3.2 Ammonia LESS THAN 10 Urine Color YELLOW Urine Turbidity HAZY Urine pH 5.5 Urine Specific [place] 1.016 Urine Protein TRACE Urine Glucose (UA) NEG Urine Ketones NEG Urine Occult Blood NEG Urine Nitrite POS Urine Bilirubin NEG Urine Urobilinogen 2.0 Urine Leukocyte Esterase LARGE Urine RBC 7 Urine WBC 25 Urine Squamous Epithelial Cells 2 Urine Bacteria MANY Urine Hyaline Casts 136 Urine Mucus FEW Microscopic Urinalysis Comment CATH-CULTURE IND Date/Time Source Procedure Growth Status 06/11/17 20:02 Blood Peripheral Aerobic Blood Culture Pending Received 06/11/17 20:02 Blood Peripheral Anaerobic Blood Culture Pending Received 06/11/17 21:45 Urine Catheterized Urine Urine Culture Pending Received Result Diagram: 06/11/17194406/11/171944 Caprini VTE Risk Assessment Caprini VTE Risk Assessment: Mod/High Risk (score >= 2) Caprini Risk Assessment Model Point Value = 1 Point Value = 2 Point Value = 3 Point Value = 5 Age 41-60 Minor surgery BMI > 25 kg/m2 Swollen legs Varicose veins or History of unexplained or recurrent spontaneous Oral contraceptives or hormone replacement Sepsis (< 1 month) Serious lung disease, including pneumonia (< 1 month) Abnormal pulmonary function Acute myocardial infarction Congestive heart failure (< 1 month) History of inflammatory bowel disease Medical patient at bed rest Age 61-74 Arthroscopic surgery Major open surgery (> 45 min) Laparoscopic surgery (> 45 min) Malignancy Confined to bed (> 72 hours) Immobilizing plaster cast Central venous access Age >= 75 History of VTE Family history of VTE Factor V Leiden Prothrombin [id number] Lupus anticoagulant Anticardiolipin antibodies Elevated serum homocysteine Heparin-induced thrombocytopenia Other congenital or acquired thrombophilia Stroke (< 1 month) Elective arthroplasty Hip, pelvis, or leg fracture Acute spinal cord injury (< 1 month) Prophylaxis Regimen Total Risk Factor Score Risk Level Prophylaxis Regimen 0-1 Low Early ambulation 2 Moderate Order ONE of the following: *Sequential Compression Device (SCD) *Heparin 5000 units SQ BID 3-4 Higher Order ONE of the following medications: *Heparin 5000 units SQ TID *Enoxaparin/Lovenox 40 mg SQ daily (WT < 150 kg, CrCl > 30 mL/min) *Enoxaparin/Lovenox 30 mg SQ daily (WT < 150 kg, CrCl > 10-29 mL/min) *Enoxaparin/Lovenox 30 mg SQ BID (WT < 150 kg, CrCl > 30 mL/min) AND/OR *Sequential Compression Device (SCD) 5 or more Highest Order ONE of the following medications: *Heparin 5000 units SQ TID (Preferred with Epidurals) *Enoxaparin/Lovenox 40 mg SQ daily (WT < 150 kg, CrCl > 30 mL/min) *Enoxaparin/Lovenox 30 mg SQ daily (WT < 150 kg, CrCl > 10-29 mL/min) *Enoxaparin/Lovenox 30 mg SQ BID (WT < 150 kg, CrCl > 30 mL/min) AND *Sequential Compression Device (SCD) Assessment and Plan Problem List: (1) Encephalopathy ICD Code: G93.40 - Encephalopathy, unspecified (2) Hypoglycemia ICD Code: E16.2 - Hypoglycemia, unspecified (3) UTI (urinary tract infection) ICD Code: N39.0 - Urinary tract infection, site not specified (4) Atrial fibrillation with RVR ICD Code: I48.91 - Unspecified atrial fibrillation (5) MARTHA (acute kidney injury) ICD Code: N17.9 - Acute kidney failure, unspecified (6) DNR (do not resuscitate) ICD Code: Z66 - Do not resuscitate Assessment and Plan A/P: 1. Encephalopathy: Multifactorial-UTI/Hypoglycemia/Afib w/ RVR. Mentation back to baseline per family. CT Head w/ no acute findings, images reviewed by me. Neuro Checks. S/p Blood/Urine cultures in ER, follow up cultures. 2. UTI: U/a w/ UTI, s/p IV Cefepime in ER, continue w/ IV Abx. Temp 101, follow up cultures as above. 3. MARTHA: Creatinine 1.60, previously 1.06 on 11/28/16, IVF for hydration, repeat labs in am. 4. Hypoglycemia: BS 39 per EMS, s/p D10 w/ improvement, likely secondary to acute infection/early sepsis. Accu-Cheks, hold antihyperglycemics. 5. A-fib w/ RVR: S/p Cardizem, currently on Cardizem gtt, likely compounded by infection/dehydration. IVF for hydration, resume home medications. 6. DNR: Code Status reviewed and confirmed. DNR in chart. 7. DVT Prophylaxis: On Coumadin. 8. Social work for d/c planning as needed. 9. Case discussed w/ ER physician at length. Physician Certification 2 Midnight Certification Type: Admission for Inpatient Services Order for Inpatient Services The services are ordered in accordance with Medicare regulations or non- Medicare payer requirements, as applicable. In the case of services not specified as inpatient-only, they are appropriately provided as inpatient services in accordance with the 2-midnight benchmark. Estimated LOS (days): 2 days is the estimated time the patient will need to remain in the hospital, assuming treatment plan goals are met and no additional complications. Post-Hospital Plan: Not yet determined Lashanda Barth MD Jun 11, 2017 22:42
[2017-06-11] MEDS ORDERED: BISACODYL 10 MG SUPP RECTAL PRN (22:45)
[2017-06-11] MEDS ORDERED: ONDANSETRON HCL 4 MG/2 ML VIAL IVP PRN (22:45)
[2017-06-11] MEDS ORDERED: MAGNESIUM HYDROXIDE SUSP 30 ML CUP PO PRN (22:45)
[2017-06-11] MEDS ORDERED: LACTULOSE SYRUP 20 GM/30 ML CUP PO PRN (22:45)
[2017-06-11] MEDS ORDERED: SODIUM CHLOR 0.9% 1000 ML INJ 1,000 ML IV ONE (22:45)
[2017-06-11] MEDS ORDERED: SENNOSIDES 8.6 MG TAB PO PRN (22:45)
[2017-06-11] MEDS ORDERED: ACETAMINOPHEN 325 MG TAB PO PRN (22:45)
[2017-06-11] MEDS ORDERED: ACETAMINOPHEN/HYDROcodone 325 MG/5 MG TAB PO PRN (22:45)
[2017-06-11] MEDS ORDERED: PILL SPLITTER OTHER PRN (23:00)
[2017-06-11 23:20] VITALS: BP 118/63; PULSE 95; RESP 20
[2017-06-11 23:58] VITALS: TEMP 98.2
[2017-06-12] VITALS (17 sets, daily range): BP systolic 85–126; BP diastolic 45–80; PULSE 79–132; RESP 16–20; TEMP 97.9–98.7; O2SAT 97–100
[2017-06-12] MEDS ORDERED: SODIUM CHLORID 0.9% 500 ML INJ 500 ML IV ONE (03:00)
[2017-06-12] MEDS: SODIUM CHLORIDE 0.9% FLUSH 10 ML FLUSH IV FLUSH SCH ×2 (09:00→19:59)
[2017-06-12] MEDS: PRIMIDONE 50 MG TAB PO SCH ×3 (09:00→17:33)
[2017-06-12] MEDS ORDERED: FUROSEMIDE 40 MG TAB PO SCH (09:00)
[2017-06-12] MEDS ORDERED: DEXTROSE 50% IN WATER 50 ML SYRINGE ONE (09:29)
[2017-06-12] MEDS: DIGOXIN 0.125 MG TAB PO SCH (09:37)
[2017-06-12] MEDS: DOCUSATE SODIUM 50 MG/SENNA 8.6 MG TAB PO SCH ×2 (09:37→19:59)
[2017-06-12] MEDS: CEFEPIME INJ 1,000 MG in SODIUM CHLORIDE 0.9% INJ 100 ML IV SCH ×2 (09:37→20:00)
[2017-06-12 11:01] LABS: AUTOMATED NEUTROPHIL # 5.1 TH/MM3 (1.8-7.7); BASOPHIL % 0.5 % (0.0-2.0); EOSINOPHIL % 0.1 % (0.0-4.0); HEMATOCRIT 34.9 % (35.0-46.0); HEMOGLOBIN 11.2 GM/DL (11.6-15.3); LYMPH % 10.5 % (9.0-44.0); LYMPHOCYTE # 0.7 TH/MM3 (1.0-4.8); MEAN CELL VOLUME 94.4 FL (80.0-100.0); MEAN CORPUSCULAR HEMOGLOBIN 30.2 PG (27.0-34.0); MEAN CORPUSCULAR HGB CONC 31.9 % (32.0-36.0); MONO % 10.1 % (0.0-8.0); MONOCYTE # 0.7 TH/MM3 (0-0.9); NEUT % 78.8 % (16.0-70.0); PLATELET COUNT 311 TH/MM3 (150-450); RED CELL DISTRIBUTION WIDTH 15.1 % (11.6-17.2); WHITE BLOOD COUNT 6.4 TH/MM3 (4.0-11.0)
[2017-06-12 11:04] LABS: INTERNATIONAL NORMALIZED RATIO 1.7 RATIO; PROTHROMBIN TIME - PATIENT 17.1 SEC (9.8-11.6)
[2017-06-12] MEDS ORDERED: DEXT 5%-NACL 0.9% 1000 ML INJ 1,000 ML IV SCH (11:10)
[2017-06-12] MEDS ORDERED: DEXTROSE 50% IN WATER 50 ML VIAL(D50) IV PUSH PRN (11:15)
[2017-06-12] MEDS ORDERED: GLUCAGON 1 MG/ML VIAL IM PRN (11:15)
[2017-06-12] MEDS ORDERED: D5-NS + KCL 20 MEQ INJ 1,000 ML IV SCH (11:15)
[2017-06-12 11:28] LABS: ALBUMIN 2.4 GM/DL (3.4-5.0); AST (GOT) 35 U/L (15-37); BICARBONATE 28.8 MEQ/L (21.0-32.0); BLOOD UREA NITROGEN 42 MG/DL (7-18); CHLORIDE 112 MEQ/L (98-107); CREATININE 1.26 MG/DL (0.50-1.00); GLOMERULAR FILTRATION RATE 49 ML/MIN (>89); GLUCOSE,RANDOM 75 MG/DL (74-106); SODIUM (NA) 145 MEQ/L (136-145)
[2017-06-12 11:31] LABS: ALKALINE PHOSPHATASE 100 U/L (45-117); ALT (GPT) 17 U/L (10-53); TOTAL BILIRUBIN ADULT 0.3 MG/DL (0.2-1.0)
[2017-06-12] MEDS: SODIUM CHLOR 0.9% 1000 ML INJ 1,000 ML IV SCH ×2 (13:23→14:02)
[2017-06-12] MEDS: WARFARIN SOD 1 MG TAB PO SCH (16:27)
[2017-06-12] MEDS: WARFARIN SOD 5 MG TAB PO SCH (16:28)
--- NOTE | 2017-06-12 19:25 | HHI.PR ---
Subjective Remarks The patient states she does not feel well however she is unable to give more detailed explanation. States feels weak. Patient also c/o diarrhea for 3 days. Objective Vitals Vital Signs Date Time Temp Pulse Resp B/P (MAP) Pulse Ox O2 Delivery O2 Flow Rate FiO2 06/12/17 17:32 98.1 82 16 124/80 (95) 100 06/12/17 17:00 100 06/12/17 15:00 116 06/12/17 14:02 97.9 88 20 118/75 (89) 100 06/12/17 11:00 106 06/12/17 10:00 132 06/12/17 08:30 98.7 97 16 120/55 (76) 100 06/12/17 07:47 79 06/12/17 07:43 80 06/12/17 05:17 100 16 126/54 (78) 100 06/12/17 03:42 98.0 95 16 98/60 (73) 100 06/12/17 02:46 101 85/45 (58) 06/12/17 00:45 98.3 103 20 115/58 (77) 100 06/11/17 23:58 98.2 06/11/17 23:20 95 20 118/63 (81) Nasal Cannula 06/11/17 22:36 116 114/53 06/11/17 21:47 116 114/53 06/11/17 21:10 129 123/49 06/11/17 19:32 98.8 152 20 135/63 (87) I/O 06/11/17 06/11/17 06/11/17 06/12/17 06/12/17 06/12/17 07:00 15:00 23:00 07:00 15:00 23:00 Intake Total 100 ml 100 ml 2320 ml Balance 100 ml 100 ml 2320 ml Intake Oral 420 ml IV Total 100 ml 100 ml 1900 ml # Voids 4 # Bowel Movements 4 Result Diagram: 06/12/17 1040 06/12/17 1040 Imaging Last Impressions Head CT 06/11/171931 Signed Impressions: Service Date/Time: May 20:33 - CONCLUSION: 1. No acute findings in the brain. 2. 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 Mauricio Meza MD Chest X-Ray 06/11/171931 Signed Impressions: Service Date/Time: May 20:39 - CONCLUSION: Probable distended stomach causing left basilar atelectasis. Mauricio Meza MD Objective Remarks GENERAL: Elderly black female in no acute distress. Family at bedside. HEENT: PERRLA, EOMI. No scleral icterus or conjunctival pallor. No lid lag or facial droop. CARDIOVASCULAR: Irregularly irregular, in A. fib, HR 106-120's. No obvious murmurs to auscultation. No chest tenderness to palpation. RESPIRATORY: No obvious rhonchi or wheezing. Clear to auscultation. Breath sounds equal bilaterally. GASTROINTESTINAL: Abdomen soft, non-tender, nondistended. BS normal. MUSCULOSKELETAL: Extremities without clubbing, cyanosis, or edema. No obvious deformities. 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 NEUROLOGICAL: Awake, alert, answering few questions. No focal neurologic deficits. Moving both upper and lower extremities spontaneously. Medications and IVs Current Medications Medications (Trade) Dose Ordered Sig/Abigail Route Start Time Stop Time Status Last Admin Diltiazem HCl 125 mg/Sodium Chloride 125 ml @ 5 mls/hr TITRATE PRN IV 06/11/17 19:45 06/12/17 22:24 Cefepime HCl 1000 mg/Sodium Chloride 100 ml @ 200 mls/hr Q12H IV 06/12/17 09:00 06/12/17 20:00 (NS Flush) 2 ml UNSCH PRN IV FLUSH 06/11/17 22:45 (NS Flush) 2 ml BID IV FLUSH 06/12/17 09:00 06/12/17 19:59 (Zofran Inj) 4 mg Q6H PRN IVP 06/11/17 22:45 (Tylenol) 650 mg Q6H PRN PO 06/11/17 22:45 ([place]rowley 5-325 Mg) 1 tab Q4H PRN PO 06/11/17 22:45 ([place] 10-325 Mg) 1 tab Q4H PRN PO 06/11/17 22:45 (Esthela-Colace) 1 tab BID PO 06/12/17 09:00 06/12/17 09:37 (Milk Of Magnesia Liq) 30 ml Q12H PRN PO 06/11/17 22:45 (Senokot) 17.2 mg Q12H PRN PO 06/11/17 22:45 (Dulcolax Supp) 10 mg DAILY PRN RECTAL 06/11/17 22:45 (Lactulose Liq) 30 ml DAILY PRN PO 06/11/17 22:45 (Lanoxin) 0.125 mg DAILY PO 06/12/17 09:00 06/12/17 09:37 (Lasix) 40 mg DAILY PO 06/12/17 09:00 06/12/17 09:37 (Mysoline) 50 mg TID PO 06/12/17 09:00 06/12/17 17:33 (Coumadin) 5 mg DAILY@1600 PO 06/12/17 16:00 06/12/17 16:28 (Coumadin) 0.5 mg DAILY@1600 PO 06/12/17 16:00 06/12/17 16:27 (Pill Splitter) 1 ea UNSCH PRN OTHER 06/11/17 23:00 (D50w (Vial) Inj) 50 ml UNSCH PRN IV PUSH 06/12/17 11:15 (Glucagon Inj) 1 mg STAT PRN IM 06/12/17 11:15 (Flagyl) 500 mg Q8HR PO 06/12/17 22:00 06/12/17 20:57 Dextrose/Sodium Chloride 1,000 ml @ 100 mls/hr Q10H IV 06/12/17 20:30 06/12/17 20:58 A/P Problem List: (1) Encephalopathy ICD Code: G93.40 - Encephalopathy, unspecified (2) Hypoglycemia ICD Code: E16.2 - Hypoglycemia, unspecified (3) UTI (urinary tract infection) ICD Code: N39.0 - Urinary tract infection, site not specified (4) Atrial fibrillation with RVR ICD Code: I48.91 - Unspecified atrial fibrillation (5) MARTHA (acute kidney injury) ICD Code: N17.9 - Acute kidney failure, unspecified (6) DNR (do not resuscitate) ICD Code: Z66 - Do not resuscitate Assessment and Plan 1. Encephalopathy: Multifactorial-UTI/Hypoglycemia/Afib w/ RVR. Mentation back to baseline per family. CT Head w/ no acute findings, images reviewed by me. Neuro Checks. S/p Blood/Urine cultures in ER, follow up cultures. - 06/12 Encephalopathy is improving. Continue to monitor neuro status. 2. UTI: U/a w/ UTI, s/p IV Cefepime in ER, continue w/ IV Abx. Temp 101, follow up cultures as above. - 06/12 Urine culture growing gram negative rods. Continue Cefepime IV. 3. MARTHA: Creatinine 1.60, previously 1.06 on 11/28/16, IVF for hydration, repeat labs in am. - 06/12 suspect prerenal azotemia. Continue IV fluids. Creatinine is improving and trending down. Monitor BUN, Creatinine, avoid nephrotoxins. Hold Lasix. IVF - NS. 4. Hypoglycemia: BS 39 per EMS, s/p D10 w/ improvement, likely secondary to acute infection/early sepsis. Accu-Cheks, hold antihyperglycemics - 06/12 Blood sugar low on several ocassions today. initially D5 to be started however blood sugar went up to the 200's so it was held. Bood sugar later in the 70's however patient about to eat. Ordered hypoglycemia protocol with accuchecks. 5. A-fib w/ RVR: S/p Cardizem, currently on Cardizem gtt, likely compounded by infection/dehydration. IVF for hydration, resume home medications. - 06/12 Initially heart rate controlled on cardizem gtt which was titrated to off. However, hear rate became fast again, RN instructed to resume cardizem gtt. - Consult cardiology. INR subtherpeutic at 1.7 - will consult pharmacy to aid with coumadin. dosage management. nMonitor PT/INR daily. 6. DNR: Code Status reviewed and confirmed. DNR in chart. 7. DVT Prophylaxis: On Coumadin. 8. Social work for d/c planning as needed. 9. Generalize weakness: Due to acute illness. Consult PT. 10. Low TSH: check free t4 and t3. Suspect euthyroid sick syndrome. 11. Diarrhea: Stool for C diff ordered - results pending. Discharge Planning Continue to monior in the medical floor. Kirk White MD Jun 12, 2017 19:25
[2017-06-12] MEDS: metroNIDAZOLE 500 MG TAB PO SCH (20:57)
[2017-06-12] MEDS: DEXT 5%-NACL 0.9% 1000 ML INJ 1,000 ML IV SCH (20:58)
[2017-06-12] MEDS: DILTIAZEM INJ 125 MG in SODIUM CHLORIDE 0.9% INJ 100 ML IV PRN (22:24)
--- NOTE | 2017-06-12 22:42 | EKG ---
Date Performed: 06/12/2017 Time Performed: 05:03:22 PTAGE: 81 years EKG: Atrial fibrillation with rapid ventricular response. Extensive ST-T changes are nonspecific Low QRS voltages in limb leads Abnormal ECG PREVIOUS TRACING : 11/26/2016 05.18 Compared to prior tracing no significant change DOCTOR: Jeferson Sultana Interpretating Date/Time 06/12/2017 22:40:52
[2017-06-13] VITALS (27 sets, daily range): BP systolic 107–147; BP diastolic 52–74; PULSE 67–123; RESP 18–20; TEMP 98.1–98.6; O2SAT 95–98
[2017-06-13] MEDS: metroNIDAZOLE 500 MG TAB PO SCH ×3 (05:27→21:37)
[2017-06-13] MEDS: DEXT 5%-NACL 0.9% 1000 ML INJ 1,000 ML IV SCH ×2 (05:28→16:15)
[2017-06-13] MEDS: DILTIAZEM INJ 125 MG in SODIUM CHLORIDE 0.9% INJ 100 ML IV PRN ×2 (07:37→15:58)
[2017-06-13] MEDS: DIGOXIN 0.125 MG TAB PO SCH (09:33)
[2017-06-13] MEDS: PRIMIDONE 50 MG TAB PO SCH ×3 (09:33→18:20)
[2017-06-13] MEDS: DOCUSATE SODIUM 50 MG/SENNA 8.6 MG TAB PO SCH (09:33)
[2017-06-13] MEDS: CEFEPIME INJ 1,000 MG in SODIUM CHLORIDE 0.9% INJ 100 ML IV SCH ×2 (09:34→21:37)
[2017-06-13] MEDS: SODIUM CHLORIDE 0.9% FLUSH 10 ML FLUSH IV FLUSH SCH ×2 (09:35→21:38)
[2017-06-13 10:10] LABS: ALBUMIN 2.3 GM/DL (3.4-5.0); ALT (GPT) 19 U/L (10-53); AST (GOT) 48 U/L (15-37); BLOOD UREA NITROGEN 28 MG/DL (7-18); CALCIUM 8.5 MG/DL (8.5-10.1); CHLORIDE 113 MEQ/L (98-107); CREATININE 1.12 MG/DL (0.50-1.00); GLOMERULAR FILTRATION RATE 56 ML/MIN (>89); GLUCOSE,RANDOM 126 MG/DL (74-106); PHOSPHORUS 1.3 MG/DL (2.5-4.9); SODIUM (NA) 141 MEQ/L (136-145)
[2017-06-13 10:23] LABS: ALKALINE PHOSPHATASE 107 U/L (45-117); MAGNESIUM 1.5 MG/DL (1.5-2.5); TOTAL BILIRUBIN ADULT 0.2 MG/DL (0.2-1.0); TOTAL PROTEIN 7.4 GM/DL (6.4-8.2)
[2017-06-13 12:32] LABS: AUTOMATED NEUTROPHIL # 4.3 TH/MM3 (1.8-7.7); BASOPHIL % 0.4 % (0.0-2.0); EOSINOPHIL % 0.8 % (0.0-4.0); HEMATOCRIT 33.2 % (35.0-46.0); HEMOGLOBIN 10.5 GM/DL (11.6-15.3); LYMPH % 16.1 % (9.0-44.0); MEAN CELL VOLUME 94.4 FL (80.0-100.0); MEAN CORPUSCULAR HEMOGLOBIN 29.9 PG (27.0-34.0); MEAN CORPUSCULAR HGB CONC 31.6 % (32.0-36.0); MEAN PLATELET VOLUME 7.9 FL (7.0-11.0); MONO % 10.2 % (0.0-8.0); MONOCYTE # 0.6 TH/MM3 (0-0.9); NEUT % 72.5 % (16.0-70.0); PLATELET COUNT 297 TH/MM3 (150-450); RED BLOOD COUNT 3.52 MIL/MM3 (4.00-5.30); RED CELL DISTRIBUTION WIDTH 15.2 % (11.6-17.2); WHITE BLOOD COUNT 5.9 TH/MM3 (4.0-11.0)
[2017-06-13 12:36] LABS: INTERNATIONAL NORMALIZED RATIO 1.9 RATIO; PROTHROMBIN TIME - PATIENT 18.8 SEC (9.8-11.6)
--- NOTE | 2017-06-13 12:52 | MB ---
cc: BEV ROWLAND M.D. DATE OF CONSULTATION: 06/13/2017 REASON FOR CONSULTATION: For evaluation of atrial fibrillation and rapid ventricular response. HISTORY OF PRESENT ILLNESS: Deyanira Gabriel is a 81-year-old female with known chronic A fib. She has been on digoxin, diltiazem, warfarin best I can tell. She came in weakness, decreased mentation, elevated temperature initially hyperglycemia which is corrected. She is on IV Cardizem Currently. She denies any chest pain. She is disoriented. I could not elicit any complaints from her. PAST MEDICAL HISTORY: 1. Peripheral arterial disease. 2. Known ejection fraction 40%. 3. Hyperlipidemia. 4. Hypertension. 5. Diabetes. 6. Arthritis. 7. Anemia. SOCIAL HISTORY Nonsmoker, nondrinker. FAMILY HISTORY: Family history is positive for hypertension. PHYSICAL EXAMINATION Elderly black female. She is not oriented. VITAL SIGNS: Her vital signs are charted, she is on intravenous Cardizem drip. HEAD, EYES, EARS, NOSE, AND THROAT: Exam unremarkable. NECK: Neck is supple. CHEST: Chest is clear to auscultation. CARDIAC: Cardiac exam S1-S2 regular rate rhythm. ABDOMEN: Soft. EXTREMITIES: Extremities revealed diminished, good pedal pulses with trace edema. LABORATORIES: Charted. INR is 1.8, Creatinine is 1.6 digoxin level 1.3. IMPRESSION: She has been treated for urinary tract infection. 1. Atrial fibrillation with rapid ventricular response. We will resume p.o. Cardizem 240 mg daily, maybe we can add some low-dose metoprolol on top of that. Continue her digoxin. Thank you for asking us to see her. MD MEGAN Dooley/dorota /12:23 PM /12:32 PM
[2017-06-13] MEDS: DILTIAZEM-CD 240 MG CAP ER PO SCH (13:52)
--- NOTE | 2017-06-13 14:47 | HHI.PR ---
Subjective Remarks Follow-up metabolic encephalopathy/UTI/C. difficile diarrhea/A. fib with RVR 06/13/17-patient seen and examined, confused however alert and oriented to self and heart rate not controlled. Multiple episode of diarrhea Objective Vitals Vital Signs Date Time Temp Pulse Resp B/P (MAP) Pulse Ox O2 Delivery O2 Flow Rate FiO2 06/13/17 12:28 98.5 106 18 147/63 (91) 95 06/13/17 07:40 Nasal Cannula 2.00 06/13/17 07:40 98.6 123 18 112/74 (87) 97 06/13/17 07:37 123 112/74 06/13/17 07:30 124 112/74 06/13/17 05:59 106 06/13/17 05:00 100 06/13/17 04:00 103 06/13/17 03:59 98.4 103 20 124/66 (85) 97 06/13/17 03:59 Nasal Cannula 2.00 06/13/17 03:00 100 06/13/17 02:00 96 06/13/17 01:00 116 06/13/17 00:00 98 06/13/17 00:00 98.1 98 20 107/52 (70) 96 06/13/17 00:00 Nasal Cannula 2.00 06/12/17 23:00 111 06/12/17 22:24 108 100/59 06/12/17 22:00 103 06/12/17 21:00 100 06/12/17 20:00 97.9 109 20 114/56 (75) 97 06/12/17 20:00 109 06/12/17 17:32 98.1 82 16 124/80 (95) 100 06/12/17 17:00 100 06/12/17 15:00 116 I/O 06/12/17 06/12/17 06/12/17 06/13/17 06/13/17 06/13/17 07:00 15:00 23:00 07:00 15:00 23:00 Intake Total 100 ml 2320 ml 1440 ml 100 ml Balance 100 ml 2320 ml 1440 ml 100 ml Intake Oral 420 ml 240 ml IV Total 100 ml 1900 ml 1200 ml 100 ml # Voids 4 3 # Bowel Movements 4 3 Result Diagram: 06/13/17 1210 06/13/17 0908 Imaging Last Impressions Head CT 06/11/171931 Signed Impressions: Service Date/Time: May 20:33 - CONCLUSION: 1. No acute findings in the brain. 2. 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 Mauricio Meza MD Chest X-Ray 06/11/171931 Signed Impressions: Service Date/Time: May 20:39 - CONCLUSION: Probable distended stomach causing left basilar atelectasis. Mauricio Mzea MD Objective Remarks GENERAL: SKIN: Warm and dry. HEAD: Normocephalic. EYES: No scleral icterus. No injection or drainage. NECK: Supple, trachea midline. No JVD or lymphadenopathy. CARDIOVASCULAR: Irregular Regular rate and rhythm without murmurs, gallops, or rubs. RESPIRATORY: Breath sounds equal bilaterally. No accessory muscle use. GASTROINTESTINAL: Abdomen soft, non-tender, nondistended. MUSCULOSKELETAL: No cyanosis, or edema. BACK: Nontender without obvious deformity. No CVA tenderness. A/P Problem List: (1) Metabolic encephalopathy ICD Code: G93.41 - Metabolic encephalopathy (2) Hypoglycemia ICD Code: E16.2 - Hypoglycemia, unspecified (3) UTI (urinary tract infection) ICD Code: N39.0 - Urinary tract infection, site not specified (4) Atrial fibrillation with RVR ICD Code: I48.91 - Unspecified atrial fibrillation (5) MARTHA (acute kidney injury) ICD Code: N17.9 - Acute kidney failure, unspecified (6) DNR (do not resuscitate) ICD Code: Z66 - Do not resuscitate Assessment and Plan 81-year-old female with 1. Metabolic Encephalopathy: -Multifactorial-UTI/Hypoglycemia/Afib w/ RVR. CT Head w/ no acute findings, - Continue treatment for UTI 2. UTI-Escherichia coli Continue cefepime IV 3. MARTHA: Renal indices improving, continue to monitor BUN/creatinine. Hold all nephrotoxic drugs 4. Hypoglycemia: Continue with D10 w however decrease rate, likely secondary to acute infection/early sepsis. Accu-Cheks, hold antihyperglycemics 5. A-fib w/ RVR: S/p Cardizem, currently on Cardizem gtt, as well as Cardizem 20-40 mg by mouth and digoxin Appreciate input from cardiology Continue Coumadin and monitor INR 6. DNR: Code Status reviewed and confirmed. DNR in chart. 7. DVT Prophylaxis: On Coumadin. 8. Generalize weakness: Due to acute illness. Consult PT. 9. Low TSH Suspect euthyroid sick syndrome. 10. C. difficile diarrhea C. difficile PCR positive, continue with Yfn Conte MD Jun 13, 2017 14:47
[2017-06-13] MEDS: WARFARIN SOD 1 MG TAB PO SCH (16:14)
[2017-06-13] MEDS: WARFARIN SOD 5 MG TAB PO SCH (16:14)
[2017-06-13] MEDS: ACETAMINOPHEN/HYDROcodone 325 MG/10 MG TAB PO PRN (21:37)
[2017-06-14] VITALS (22 sets, daily range): BP systolic 112–129; BP diastolic 54–68; PULSE 68–130; RESP 18–20; TEMP 98.1–98.5; O2SAT 95–98
[2017-06-14] MEDS: metroNIDAZOLE 500 MG TAB PO SCH ×3 (05:52→20:31)
[2017-06-14 08:06] LABS: BASOPHIL % 0.6 % (0.0-2.0); EOSINOPHIL # 0.1 TH/MM3 (0-0.4); EOSINOPHIL % 1.5 % (0.0-4.0); HEMATOCRIT 32.9 % (35.0-46.0); HEMOGLOBIN 10.6 GM/DL (11.6-15.3); LYMPH % 30.2 % (9.0-44.0); LYMPHOCYTE # 2.2 TH/MM3 (1.0-4.8); MEAN CELL VOLUME 93.2 FL (80.0-100.0); MEAN CORPUSCULAR HGB CONC 32.2 % (32.0-36.0); MEAN PLATELET VOLUME 8.1 FL (7.0-11.0); MONO % 11.9 % (0.0-8.0); MONOCYTE # 0.9 TH/MM3 (0-0.9); NEUT % 55.8 % (16.0-70.0); PLATELET COUNT 320 TH/MM3 (150-450); RED BLOOD COUNT 3.52 MIL/MM3 (4.00-5.30); WHITE BLOOD COUNT 7.2 TH/MM3 (4.0-11.0)
[2017-06-14 08:10] LABS: INTERNATIONAL NORMALIZED RATIO 1.9 RATIO; PROTHROMBIN TIME - PATIENT 19.4 SEC (9.8-11.6)
[2017-06-14 08:43] LABS: ALBUMIN 2.3 GM/DL (3.4-5.0); ALKALINE PHOSPHATASE 110 U/L (45-117); ALT (GPT) 16 U/L (10-53); AST (GOT) 29 U/L (15-37); BLOOD UREA NITROGEN 21 MG/DL (7-18); CALCIUM 8.5 MG/DL (8.5-10.1); CHLORIDE 112 MEQ/L (98-107); CREATININE 0.91 MG/DL (0.50-1.00); GLOMERULAR FILTRATION RATE 72 ML/MIN (>89); GLUCOSE,RANDOM 100 MG/DL (74-106); MAGNESIUM 1.5 MG/DL (1.5-2.5); PHOSPHORUS 1.2 MG/DL (2.5-4.9); SODIUM (NA) 144 MEQ/L (136-145); TOTAL BILIRUBIN ADULT 0.2 MG/DL (0.2-1.0); TOTAL PROTEIN 6.9 GM/DL (6.4-8.2)
[2017-06-14] MEDS: DILTIAZEM-CD 240 MG CAP ER PO SCH (10:39)
[2017-06-14] MEDS: PRIMIDONE 50 MG TAB PO SCH ×3 (10:40→18:11)
[2017-06-14] MEDS: DIGOXIN 0.125 MG TAB PO SCH (10:40)
--- NOTE | 2017-06-14 12:07 | HHI.PR ---
Subjective Remarks Follow-up metabolic encephalopathy/UTI/C. difficile diarrhea/A. fib with RVR 06/13/17-patient seen and examined, confused however alert and oriented to self and heart rate not controlled. Multiple episode of diarrhea 06/14/17-patient seen and examined, no acute event overnight. HR better controlled. Alert to self, and place of Objective Vitals Vital Signs Date Time Temp Pulse Resp B/P (MAP) Pulse Ox O2 Delivery O2 Flow Rate FiO2 06/14/17 09:00 98.2 96 20 129/67 (87) 95 06/14/17 07:32 95 Nasal Cannula 2.00 06/14/17 06:00 90 06/14/17 05:00 80 06/14/17 04:00 76 06/14/17 04:00 Nasal Cannula 2.00 06/14/17 04:00 98.5 76 18 117/66 (83) 96 06/14/17 03:00 92 06/14/17 02:00 83 06/14/17 01:00 92 06/14/17 00:00 98.1 84 20 112/54 (73) 98 06/14/17 00:00 Nasal Cannula 2.00 06/14/17 00:00 78 06/13/17 23:00 92 06/13/17 22:00 70 06/13/17 21:00 67 06/13/17 20:00 98.2 76 20 116/58 (77) 98 06/13/17 20:00 76 06/13/17 20:00 Nasal Cannula 2.00 06/13/17 18:00 100 06/13/17 17:00 90 06/13/17 16:03 98.5 108 20 114/60 (78) 97 06/13/17 16:01 108 114/60 06/13/17 16:00 96 06/13/17 15:58 108 114/60 06/13/17 15:00 92 06/13/17 14:00 96 06/13/17 13:00 102 06/13/17 12:28 98.5 106 18 147/63 (91) 95 06/13/17 12:00 98 I/O 06/13/17 06/13/17 06/13/17 06/14/17 06/14/17 06/14/17 07:00 15:00 23:00 07:00 15:00 23:00 Intake Total 1440 ml 200 ml 1560 ml 1330 ml Balance 1440 ml 200 ml 1560 ml 1330 ml Intake Oral 240 ml 480 ml 480 ml IV Total 1200 ml 200 ml 1080 ml 850 ml # Voids 3 3 3 # Bowel Movements 3 1 2 Result Diagram: 06/14/17 0707 06/14/17 0707 Imaging Last Impressions Head CT 06/11/171931 Signed Impressions: Service Date/Time: May 20:33 - CONCLUSION: 1. No acute findings in the brain. 2. 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 Mauricio Meza MD Chest X-Ray 06/11/171931 Signed Impressions: Service Date/Time: May 20:39 - CONCLUSION: Probable distended stomach causing left basilar atelectasis. Mauricio Meza MD Objective Remarks GENERAL: SKIN: Warm and dry. HEAD: Normocephalic. EYES: No scleral icterus. No injection or drainage. NECK: Supple, trachea midline. No JVD or lymphadenopathy. CARDIOVASCULAR: Irregular Regular rate and rhythm without murmurs, gallops, or rubs. RESPIRATORY: Breath sounds equal bilaterally. No accessory muscle use. GASTROINTESTINAL: Abdomen soft, non-tender, nondistended. MUSCULOSKELETAL: No cyanosis, or edema. BACK: Nontender without obvious deformity. No CVA tenderness. A/P Problem List: (1) Metabolic encephalopathy ICD Code: G93.41 - Metabolic encephalopathy (2) Hypoglycemia ICD Code: E16.2 - Hypoglycemia, unspecified (3) UTI (urinary tract infection) ICD Code: N39.0 - Urinary tract infection, site not specified (4) Atrial fibrillation with RVR ICD Code: I48.91 - Unspecified atrial fibrillation (5) MARTHA (acute kidney injury) ICD Code: N17.9 - Acute kidney failure, unspecified (6) DNR (do not resuscitate) ICD Code: Z66 - Do not resuscitate Assessment and Plan 81-year-old female with 1. Metabolic Encephalopathy: -Multifactorial-UTI/Hypoglycemia/Afib w/ RVR. CT Head w/ no acute findings, - Continue treatment for UTI 2. UTI-Escherichia coli Continue cefepime IV. Will switch to Macrobid tomorrow 3. MARTHA: Renal indices improving, continue to monitor BUN/creatinine. Hold all nephrotoxic drugs 4. Hypoglycemia: Continue with D10 w , likely secondary to acute infection/early sepsis. Accu -Cheks, hold antihyperglycemics 5. A-fib w/ RVR: S/p Cardizem, currently on Cardizem gtt, as well as Cardizem 240 mg by mouth and digoxin Appreciate input from cardiology Continue Coumadin and monitor INR 6. DNR: Code Status reviewed and confirmed. DNR in chart. 7. DVT Prophylaxis: On Coumadin. 8. Generalize weakness: Due to acute illness. PT to treat. 9. Low TSH Suspect euthyroid sick syndrome. 10. C. difficile diarrhea C. difficile PCR positive, continue with Yfn Conte MD Jun 14, 2017 12:07
[2017-06-14] MEDS: CEFEPIME INJ 1,000 MG in SODIUM CHLORIDE 0.9% INJ 100 ML IV SCH ×2 (12:40→19:47)
[2017-06-14] MEDS: SODIUM CHLORIDE 0.9% FLUSH 10 ML FLUSH IV FLUSH SCH ×2 (12:42→19:47)
[2017-06-14] MEDS: DEXT 5%-NACL 0.9% 1000 ML INJ 1,000 ML IV SCH ×2 (12:43→19:51)
[2017-06-14] MEDS: DILTIAZEM INJ 125 MG in SODIUM CHLORIDE 0.9% INJ 100 ML IV PRN (14:11)
--- NOTE | 2017-06-14 14:46 | PD.CARD.PN ---
Subjective Subjective Remarks no complaints Objective Medications Current Medications Medications (Trade) Dose Ordered Sig/Abigail Route Start Time Stop Time Status Last Admin Diltiazem HCl 125 mg/Sodium Chloride 125 ml @ 5 mls/hr TITRATE PRN IV 06/11/17 19:45 06/14/17 14:11 Cefepime HCl 1000 mg/Sodium Chloride 100 ml @ 200 mls/hr Q12H IV 06/12/17 09:00 06/14/17 12:40 (NS Flush) 2 ml UNSCH PRN IV FLUSH 06/11/17 22:45 (NS Flush) 2 ml BID IV FLUSH 06/12/17 09:00 06/14/17 12:42 (Zofran Inj) 4 mg Q6H PRN IVP 06/11/17 22:45 (Tylenol) 650 mg Q6H PRN PO 06/11/17 22:45 ([place] 5-325 Mg) 1 tab Q4H PRN PO 06/11/17 22:45 ([place] 10-325 Mg) 1 tab Q4H PRN PO 06/11/17 22:45 06/13/17 21:37 (Milk Of Magnjen Liq) 30 ml Q12H PRN PO 06/11/17 22:45 (Lanoxin) 0.125 mg DAILY PO 06/12/17 09:00 06/14/17 10:40 (Lasix) 40 mg DAILY PO 06/12/17 09:00 Future Hold 06/12/17 09:37 (Mysoline) 50 mg TID PO 06/12/17 09:00 06/14/17 12:41 (Coumadin) 5 mg DAILY@1600 PO 06/12/17 16:00 06/13/17 16:14 (Coumadin) 0.5 mg DAILY@1600 PO 06/12/17 16:00 Future hold 06/13/17 16:14 (Pill Splitter) 1 ea UNSCH PRN OTHER 06/11/17 23:00 (D50w (Vial) Inj) 50 ml UNSCH PRN IV PUSH 06/12/17 11:15 (Glucagon Inj) 1 mg STAT PRN IM 06/12/17 11:15 (Flagyl) 500 mg Q8HR PO 06/12/17 22:00 06/14/17 12:41 Dextrose/Sodium Chloride 1,000 ml @ 70 mls/hr [id number] IV 06/12/17 20:30 06/14/17 12:43 (Cardizem Cd) 240 mg DAILY PO 06/13/17 12:45 06/14/17 10:39 Pharmacy Profile Note 0 ml @ 0 mls/hr UNSCH OTHER 06/13/17 14:45 (Coumadin) 1 mg DAILY@1600 PO 06/14/17 16:00 06/14/17 16:01 Vital Signs / I&O Vital Signs Date Time Temp Pulse Resp B/P (MAP) Pulse Ox O2 Delivery O2 Flow Rate FiO2 06/14/17 14:14 120 127/69 06/14/17 14:11 120 127/69 06/14/17 13:00 130 06/14/17 12:43 130 122/68 06/14/17 12:40 115 122/68 06/14/17 12:32 98.5 124 20 122/68 (86) 96 06/14/17 12:00 116 06/14/17 11:00 109 06/14/17 10:00 118 06/14/17 09:00 128 06/14/17 09:00 98.2 96 20 129/67 (87) 95 06/14/17 08:00 98 06/14/17 07:32 95 Nasal Cannula 2.00 06/14/17 07:00 88 06/14/17 06:00 90 06/14/17 05:00 80 06/14/17 04:00 76 06/14/17 04:00 Nasal Cannula 2.00 06/14/17 04:00 98.5 76 18 117/66 (83) 96 06/14/17 03:00 92 06/14/17 02:00 83 06/14/17 01:00 92 06/14/17 00:00 98.1 84 20 112/54 (73) 98 06/14/17 00:00 Nasal Cannula 2.00 06/14/17 00:00 78 06/13/17 23:00 92 06/13/17 22:00 70 06/13/17 21:00 67 06/13/17 20:00 98.2 76 20 116/58 (77) 98 06/13/17 20:00 76 06/13/17 20:00 Nasal Cannula 2.00 06/13/17 18:00 100 06/13/17 17:00 90 06/13/17 16:03 98.5 108 20 114/60 (78) 97 06/13/17 16:01 108 114/60 06/13/17 16:00 96 06/13/17 15:58 108 114/60 06/13/17 15:00 92 I/O 06/13/17 06/13/17 06/13/17 06/14/17 06/14/17 06/14/17 07:00 15:00 23:00 07:00 15:00 23:00 Intake Total 1440 ml 200 ml 1560 ml 1330 ml 412 ml Balance 1440 ml 200 ml 1560 ml 1330 ml 412 ml Intake Oral 240 ml 480 ml 480 ml IV Total 1200 ml 200 ml 1080 ml 850 ml 412 ml # Voids 3 3 3 # Bowel Movements 3 1 2 Physical Exam Confused Tele: persistent AF RVR Chest clear anteriorly CV S1S2 irr irr no edema Laboratory Laboratory Tests Test 06/14/17 07:07 White Blood Count 7.2 TH/MM3 Red Blood Count 3.52 MIL/MM3 Hemoglobin 10.6 GM/DL Hematocrit 32.9 % Mean Corpuscular Volume 93.2 FL Mean Corpuscular Hemoglobin 30.0 PG Mean Corpuscular Hemoglobin Concent 32.2 % Red Cell Distribution Width 15.0 % Platelet Count 320 TH/MM3 Mean Platelet Volume 8.1 FL Neutrophils (%) (Auto) 55.8 % Lymphocytes (%) (Auto) 30.2 % Monocytes (%) (Auto) 11.9 % Eosinophils (%) (Auto) 1.5 % Basophils (%) (Auto) 0.6 % Neutrophils # (Auto) 4.0 TH/MM3 Lymphocytes # (Auto) 2.2 TH/MM3 Monocytes # (Auto) 0.9 TH/MM3 Eosinophils # (Auto) 0.1 TH/MM3 Basophils # (Auto) 0.0 TH/MM3 CBC Comment DIFF FINAL Differential Comment Prothrombin Time 19.4 SEC Prothromb Time International Ratio 1.9 RATIO Blood Urea Nitrogen 21 MG/DL Creatinine 0.91 MG/DL Random Glucose 100 MG/DL Total Protein 6.9 GM/DL Albumin 2.3 GM/DL Calcium Level 8.5 MG/DL Phosphorus Level 1.2 MG/DL Magnesium Level 1.5 MG/DL Alkaline Phosphatase 110 U/L Aspartate Amino Transf (AST/SGOT) 29 U/L Alanine Aminotransferase (ALT/SGPT) 16 U/L Total Bilirubin 0.2 MG/DL Sodium Level 144 MEQ/L Potassium Level 3.5 MEQ/L Chloride Level 112 MEQ/L Carbon Dioxide Level 26.0 MEQ/L Anion Gap 6 MEQ/L Estimat Glomerular Filtration Rate 72 ML/MIN Assessment and Plan Problem List: (1) Atrial fibrillation with rapid ventricular response ICD Codes: I48.91 - Atrial fibrillation with rapid ventricular response Status: Acute Plan: Not controlled with digoxin and diltiazem. Add metoprolol Rocky Rothman MD Jun 14, 2017 14:46
[2017-06-14] MEDS: METOPROLOL TARTRATE 25 MG TAB PO SCH ×2 (15:37→19:49)
[2017-06-14] MEDS: WARFARIN SOD 5 MG TAB PO SCH (15:37)
[2017-06-14] MEDS ORDERED: WARFARIN SOD 1 MG TAB PO SCH (16:00)
[2017-06-14] MEDS: ACETAMINOPHEN/HYDROcodone 325 MG/10 MG TAB PO PRN (20:31)
[2017-06-15] VITALS (24 sets, daily range): BP systolic 99–146; BP diastolic 54–87; PULSE 70–128; RESP 12–18; TEMP 97.8–98.7; O2SAT 96–98
[2017-06-15] MEDS: metroNIDAZOLE 500 MG TAB PO SCH ×2 (06:17→22:22)
[2017-06-15] MEDS: CEFEPIME INJ 1,000 MG in SODIUM CHLORIDE 0.9% INJ 100 ML IV SCH ×2 (10:36→22:22)
[2017-06-15] MEDS: PRIMIDONE 50 MG TAB PO SCH ×2 (10:40→17:53)
[2017-06-15] MEDS: SODIUM CHLORIDE 0.9% FLUSH 10 ML FLUSH IV FLUSH SCH ×2 (10:41→21:00)
[2017-06-15] MEDS: METOPROLOL TARTRATE 25 MG TAB PO SCH ×2 (10:41→22:22)
[2017-06-15] MEDS: DILTIAZEM-CD 240 MG CAP ER PO SCH (10:41)
[2017-06-15] MEDS: DIGOXIN 0.125 MG TAB PO SCH (10:41)
[2017-06-15 11:21] LABS: INTERNATIONAL NORMALIZED RATIO 2.5 RATIO
--- NOTE | 2017-06-15 11:48 | HHI.PR ---
Subjective Remarks Follow-up metabolic encephalopathy/UTI/C. difficile diarrhea/A. fib with RVR 06/13/17-patient seen and examined, confused however alert and oriented to self and heart rate not controlled. Multiple episode of diarrhea 06/14/17-patient seen and examined, no acute event overnight. HR better controlled. Alert to self, and place of 06/15/17-patient seen and examined, alert but confused as patient thinks she is at her sister's house. Currently on Cardizem by mouth, Lopressor and digoxin Objective Vitals Vital Signs Date Time Temp Pulse Resp B/P (MAP) Pulse Ox O2 Delivery O2 Flow Rate FiO2 06/15/17 06:00 92 06/15/17 05:00 88 06/15/17 04:00 98.0 106 18 138/87 (104) 97 06/15/17 04:00 106 06/15/17 03:00 88 06/15/17 02:00 92 06/15/17 01:00 82 06/15/17 00:00 98.2 79 18 99/54 (69) 96 06/15/17 00:00 79 06/15/17 00:00 Nasal Cannula 2.00 06/14/17 23:00 74 06/14/17 22:00 83 06/14/17 21:00 68 06/14/17 20:00 77 06/14/17 20:00 Nasal Cannula 2.00 06/14/17 20:00 98.2 77 18 116/61 (79) 96 06/14/17 16:30 98.2 69 18 126/67 (86) 95 06/14/17 16:26 69 126/67 06/14/17 16:00 68 06/14/17 15:00 80 06/14/17 14:14 120 127/69 06/14/17 14:11 120 127/69 06/14/17 13:00 130 06/14/17 12:43 130 122/68 06/14/17 12:40 115 122/68 06/14/17 12:32 98.5 124 20 122/68 (86) 96 06/14/17 12:00 116 I/O 06/14/17 06/14/17 06/14/17 06/15/17 06/15/17 06/15/17 07:00 15:00 23:00 07:00 15:00 23:00 Intake Total 1330 ml 512 ml 1050 ml 1040 ml Balance 1330 ml 512 ml 1050 ml 1040 ml Intake Oral 480 ml 670 ml 240 ml IV Total 850 ml 512 ml 380 ml 800 ml # Voids 3 3 2 # Bowel Movements 2 0 2 Result Diagram: 06/14/17 0707 06/14/17 0707 Imaging Last Impressions Head CT 06/11/171931 Signed Impressions: Service Date/Time: May 20:33 - CONCLUSION: 1. No acute findings in the brain. 2. 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 Mauricio Meza MD Chest X-Ray 06/11/171931 Signed Impressions: Service Date/Time: May 20:39 - CONCLUSION: Probable distended stomach causing left basilar atelectasis. Mauricio Meza MD Objective Remarks GENERAL: SKIN: Warm and dry. HEAD: Normocephalic. EYES: No scleral icterus. No injection or drainage. NECK: Supple, trachea midline. No JVD or lymphadenopathy. CARDIOVASCULAR: Irregular Regular rate and rhythm without murmurs, gallops, or rubs. RESPIRATORY: Breath sounds equal bilaterally. No accessory muscle use. GASTROINTESTINAL: Abdomen soft, non-tender, nondistended. MUSCULOSKELETAL: No cyanosis, or edema. BACK: Nontender without obvious deformity. No CVA tenderness. Procedures none A/P Problem List: (1) Metabolic encephalopathy ICD Code: G93.41 - Metabolic encephalopathy (2) Hypoglycemia ICD Code: E16.2 - Hypoglycemia, unspecified (3) UTI (urinary tract infection) ICD Code: N39.0 - Urinary tract infection, site not specified (4) Atrial fibrillation with RVR ICD Code: I48.91 - Unspecified atrial fibrillation (5) MARTHA (acute kidney injury) ICD Code: N17.9 - Acute kidney failure, unspecified (6) DNR (do not resuscitate) ICD Code: Z66 - Do not resuscitate Assessment and Plan 81-year-old female with 1. Metabolic Encephalopathy: -Multifactorial-UTI/Hypoglycemia/Afib w/ RVR. CT Head w/ no acute findings, - Continue treatment for UTI 2. UTI-Escherichia coli Continue cefepime IV. Will switch to Macrobid tomorrow 06/16/17 3. MARTHA: Renal indices improved, continue to monitor BUN/creatinine. Hold all nephrotoxic drugs 4. Hypoglycemia: Continue with D10 w , likely secondary to acute infection/early sepsis. Accu -Cheks, hold antihyperglycemics 5. A-fib w/ RVR: S/p Cardizem, currently on Cardizem 240 mg by mouth, Lopressor 25 mg twice a day and digoxin Appreciate input from cardiology Continue Coumadin and monitor INR 6. DNR: Code Status reviewed and confirmed. DNR 7. DVT Prophylaxis: On Coumadin. 8. Generalize weakness: Due to acute illness. PT to treat. 9. Low TSH Suspect euthyroid sick syndrome. 10. C. difficile diarrhea C. difficile PCR positive, continue with Yfn Conte MD Jun 15, 2017 11:48
--- NOTE | 2017-06-15 12:36 | PD.CARD.PN ---
Subjective Subjective Remarks Resting comfortably. Denies CP, dyspnea, dizziness, palpitations, nausea. Slept well. Objective Medications Item Value Date Time Warfarin Sodium 3 mg 06/15/17 1600 (Coumadin) DAILY@1600/PO Metoprolol 25 mg 06/14/17 1445 Tartrate Q12HR/PO 06/15/17 1041 (Lopressor) Diltiazem HCl 240 mg 06/13/17 1245 (Cardizem Cd) DAILY/PO 06/15/17 1041 Digoxin 0.125 mg 06/12/17 0900 (Lanoxin) DAILY/PO 06/15/17 1041 Current Medications Medications (Trade) Dose Ordered Sig/Abigail Route Start Time Stop Time Status Last Admin Cefepime HCl 1000 mg/Sodium Chloride 100 ml @ 200 mls/hr Q12H IV 06/12/17 09:00 06/15/17 10:36 (NS Flush) 2 ml UNSCH PRN IV FLUSH 06/11/17 22:45 (NS Flush) 2 ml BID IV FLUSH 06/12/17 09:00 06/15/17 10:41 (Zofran Inj) 4 mg Q6H PRN IVP 06/11/17 22:45 (Tylenol) 650 mg Q6H PRN PO 06/11/17 22:45 ([place] 5-325 Mg) 1 tab Q4H PRN PO 06/11/17 22:45 ([place] 10-325 Mg) 1 tab Q4H PRN PO 06/11/17 22:45 06/14/17 20:31 (Milk Of Magnesia Liq) 30 ml Q12H PRN PO 06/11/17 22:45 (Lanoxin) 0.125 mg DAILY PO 06/12/17 09:00 06/15/17 10:41 (Lasix) 40 mg DAILY PO 06/12/17 09:00 Future Hold 06/12/17 09:37 (Mysoline) 50 mg TID PO 06/12/17 09:00 06/15/17 10:40 (Pill Splitter) 1 ea UNSCH PRN OTHER 06/11/17 23:00 (D50w (Vial) Inj) 50 ml UNSCH PRN IV PUSH 06/12/17 11:15 (Glucagon Inj) 1 mg STAT PRN IM 12/22/17 11:15 (Flagyl) 500 mg Q8HR PO 06/12/17 22:00 06/15/17 06:17 Dextrose/Sodium Chloride 1,000 ml @ 70 mls/hr [id number] IV 06/12/17 20:30 06/14/17 19:51 (Cardizem Cd) 240 mg DAILY PO 06/13/17 12:45 06/15/17 10:41 Pharmacy Profile Note 0 ml @ 0 mls/hr UNSCH OTHER 06/13/17 14:45 (Lopressor) 25 mg Q12HR PO 06/14/17 14:45 06/15/17 10:41 (Coumadin) 3 mg DAILY@1600 PO 06/15/17 16:00 Vital Signs / I&O Vital Signs Date Time Temp Pulse Resp B/P (MAP) Pulse Ox O2 Delivery O2 Flow Rate FiO2 06/15/17 06:00 92 06/15/17 05:00 88 06/15/17 04:00 98.0 106 18 138/87 (104) 97 06/15/17 04:00 106 06/15/17 03:00 88 06/15/17 02:00 92 06/15/17 01:00 82 06/15/17 00:00 98.2 79 18 99/54 (69) 96 06/15/17 00:00 79 06/15/17 00:00 Nasal Cannula 2.00 06/14/17 23:00 74 06/14/17 22:00 83 06/14/17 21:00 68 06/14/17 20:00 77 06/14/17 20:00 Nasal Cannula 2.00 06/14/17 20:00 98.2 77 18 116/61 (79) 96 06/14/17 16:30 98.2 69 18 126/67 (86) 95 06/14/17 16:26 69 126/67 06/14/17 16:00 68 06/14/17 15:00 80 06/14/17 14:14 120 127/69 06/14/17 14:11 120 127/69 06/14/17 13:00 130 06/14/17 12:43 130 122/68 06/14/17 12:40 115 122/68 06/14/17 12:32 98.5 124 20 122/68 (86) 96 I/O 06/14/17 06/14/17 06/14/17 06/15/17 06/15/17 06/15/17 07:00 15:00 23:00 07:00 15:00 23:00 Intake Total 1330 ml 512 ml 1050 ml 1040 ml Balance 1330 ml 512 ml 1050 ml 1040 ml Intake Oral 480 ml 670 ml 240 ml IV Total 850 ml 512 ml 380 ml 800 ml # Voids 3 3 2 # Bowel Movements 2 0 2 Physical Exam GENERAL: Well developed, well nourished. No acute distress. HEENT: Jugular venous pressure is normal. CHEST: Lungs clear to auscultation anteriorly. CARDIAC: Irregular rate and rhythm without S3, S4, or murmur. ABDOMEN: Soft, nontender, no hepatosplenomegaly. Bowel sounds present. EXTREMITIES: No clubbing, cyanosis, or edema. Laboratory Laboratory Tests Test 06/15/17 10:20 Prothrombin Time 25.0 SEC Prothromb Time International Ratio 2.5 RATIO Assessment and Plan Problem List: (1) Chronic atrial fibrillation ICD Codes: I48.2 - Chronic atrial fibrillation Status: Chronic Plan: Stable overnight. HR's mostly controlled. INR therapeutic. OK for discharge from a cardiac standpoint. (2) Cardiomyopathy ICD Codes: I42.9 - Cardiomyopathy, unspecified Status: Chronic Plan: EF reportedly 40-45% by recent echo. Compensated at present. Rec add [id number]. (3) Hypertension ICD Codes: I10 - Hypertension Status: Chronic Plan: Stable. Normotensive. Code Status No Code Discussed Condition With patient Problem Qualifiers (1) Cardiomyopathy: Qualified Codes: I42.9 - Cardiomyopathy, unspecified (2) Hypertension: Qualified Codes: I10 - Essential (primary) hypertension Matty Roman MD Jun 15, 2017 12:36
[2017-06-15] MEDS: ENALAPRIL MALEATE 2.5 MG TAB PO SCH (13:30)
--- NOTE | 2017-06-15 13:49 | HHI.FF ---
Face to Face Verification Diagnosis: (1) C. difficile diarrhea (2) Atrial fibrillation, chronic (3) UTI (urinary tract infection) Physical Therapy Order: Evaluate and Treat Home Health Nursing Order: Signs/symptoms of disease process I have seen patient Deyanira Gabriel on 06/15/17. My clinical findings support the need for the requested home health care services because: Deconditioned w/ increased weakness I certify that my clinical findings support that this patient is homebound because: Poor cardiac reserve Yfn Dodd MD Jun 15, 2017 13:49
[2017-06-15] MEDS ORDERED: WARFARIN SOD 3 MG TAB PO SCH (16:00)
[2017-06-15] MEDS: DEXT 5%-NACL 0.9% 1000 ML INJ 1,000 ML IV SCH (17:57)
[2017-06-16] VITALS (17 sets, daily range): BP systolic 120–157; BP diastolic 54–92; PULSE 78–145; RESP 12–18; TEMP 97–99.3; O2SAT 98–100
[2017-06-16] MEDS: DEXT 5%-NACL 0.9% 1000 ML INJ 1,000 ML IV SCH (02:25)
[2017-06-16] MEDS: metroNIDAZOLE 500 MG TAB PO SCH ×2 (05:10→14:26)
[2017-06-16 06:14] LABS: INTERNATIONAL NORMALIZED RATIO 2.7 RATIO; PROTHROMBIN TIME - PATIENT 27.2 SEC (9.8-11.6)
[2017-06-16] MEDS: METOPROLOL TARTRATE 25 MG TAB PO SCH (09:00)
[2017-06-16] MEDS: SODIUM CHLORIDE 0.9% FLUSH 10 ML FLUSH IV FLUSH SCH (09:00)
[2017-06-16] MEDS: DILTIAZEM-CD 240 MG CAP ER PO SCH (09:21)
[2017-06-16] MEDS: PRIMIDONE 50 MG TAB PO SCH ×2 (09:21→14:26)
[2017-06-16] MEDS: ENALAPRIL MALEATE 2.5 MG TAB PO SCH (09:21)
[2017-06-16] MEDS: DIGOXIN 0.125 MG TAB PO SCH (09:22)
--- NOTE | 2017-06-16 10:38 | HHI.PR ---
Subjective Remarks Follow-up metabolic encephalopathy/UTI/C. difficile diarrhea/A. fib with RVR 06/13/17-patient seen and examined, confused however alert and oriented to self and heart rate not controlled. Multiple episode of diarrhea 06/14/17-patient seen and examined, no acute event overnight. HR better controlled. Alert to self, and place of 06/15/17-patient seen and examined, alert but confused as patient thinks she is at her sister's house. Currently on Cardizem by mouth, Lopressor and digoxin 06/16/17-patient seen and examined, tachycardia overnight however currently controlled. Denies any chest pain or shortness of breath. Alert and able to tell me yesterday about visitors were in her room, her son and 3 grandchildren. Objective Vitals Vital Signs Date Time Temp Pulse Resp B/P (MAP) Pulse Ox O2 Delivery O2 Flow Rate FiO2 06/16/17 08:45 100 Nasal Cannula 2.00 06/16/17 08:45 97.3 82 18 146/87 (106) 100 06/16/17 07:01 120 06/16/17 05:00 128 06/16/17 04:00 99.3 94 12 157/92 (113) 98 06/16/17 04:00 114 06/16/17 03:00 145 06/16/17 02:00 94 06/16/17 01:00 114 06/16/17 00:00 98 06/16/17 00:00 97.6 121 12 154/87 (109) 100 06/15/17 23:00 97 06/15/17 22:00 118 06/15/17 21:00 106 06/15/17 20:00 90 06/15/17 20:00 97.8 103 12 146/64 (91) 98 06/15/17 19:00 91 06/15/17 19:00 98 Nasal Cannula 2.00 06/15/17 18:00 82 06/15/17 17:00 70 06/15/17 16:00 74 06/15/17 16:00 95 Nasal Cannula 2.00 06/15/17 16:00 98.7 70 16 131/56 (81) 97 06/15/17 15:00 82 06/15/17 14:00 84 06/15/17 13:00 80 06/15/17 12:00 70 06/15/17 12:00 96 Nasal Cannula 2.00 06/15/17 12:00 72 06/15/17 12:00 98.7 72 16 118/76 (90) 96 06/15/17 11:00 124 I/O 06/15/17 06/15/17 06/15/17 06/16/17 06/16/17 06/16/17 07:00 15:00 23:00 07:00 15:00 23:00 Intake Total 1040 ml 1206 ml 480 ml Balance 1040 ml 1206 ml 480 ml Intake Oral 240 ml 480 ml 480 ml IV Total 800 ml 726 ml # Voids 2 4 2 # Bowel Movements 2 0 Result Diagram: 06/14/17 0707 06/14/1707 Imaging Last Impressions Head CT 06/11/171931 Signed Impressions: Service Date/Time: May 20:33 - CONCLUSION: 1. No acute findings in the brain. 2. 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 Mauricio Meza MD Chest X-Ray 06/11/171931 Signed Impressions: Service Date/Time: May 20:39 - CONCLUSION: Probable distended stomach causing left basilar atelectasis. Mauricio Meza MD Objective Remarks GENERAL: SKIN: Warm and dry. HEAD: Normocephalic. EYES: No scleral icterus. No injection or drainage. NECK: Supple, trachea midline. No JVD or lymphadenopathy. CARDIOVASCULAR: Irregular Regular rate and rhythm without murmurs, gallops, or rubs. RESPIRATORY: Breath sounds equal bilaterally. No accessory muscle use. GASTROINTESTINAL: Abdomen soft, non-tender, nondistended. MUSCULOSKELETAL: No cyanosis, or edema. BACK: Nontender without obvious deformity. No CVA tenderness. Procedures none A/P Problem List: (1) Metabolic encephalopathy ICD Code: G93.41 - Metabolic encephalopathy Status: Resolved (2) Hypoglycemia ICD Code: E16.2 - Hypoglycemia, unspecified (3) UTI (urinary tract infection) ICD Code: N39.0 - Urinary tract infection, site not specified (4) Atrial fibrillation with RVR ICD Code: I48.91 - Unspecified atrial fibrillation (5) MARTHA (acute kidney injury) ICD Code: N17.9 - Acute kidney failure, unspecified (6) DNR (do not resuscitate) ICD Code: Z66 - Do not resuscitate Assessment and Plan 81-year-old female with 1. Metabolic Encephalopathy-resolved -Multifactorial-UTI/Hypoglycemia/Afib w/ RVR. CT Head w/ no acute findings, - Continue treatment for UTI 2. UTI-Escherichia coli d/c cefepime IV. Will switch to Macrobid today 06/16/17 3. MARTHA: Renal indices improved, continue to monitor BUN/creatinine. Hold all nephrotoxic drugs 4. Hypoglycemia: Continue with D10 w , likely secondary to acute infection/early sepsis. Accu -Cheks, hold antihyperglycemics 5. A-fib w/ RVR: S/p Cardizem, currently on Cardizem 240 mg by mouth, Lopressor 25 mg twice a day and digoxin Appreciate input from cardiology Continue Coumadin and monitor INR 6. DNR: Code Status reviewed and confirmed. DNR 7. DVT Prophylaxis: On Coumadin. 8. Generalize weakness: Due to acute illness. PT to treat. 9. Low TSH Suspect euthyroid sick syndrome. 10. C. difficile diarrhea C. difficile PCR positive, continue with Yfn Conte MD Jun 16, 2017 10:38
[2017-06-16] MEDS ORDERED: NITR100C4 PO (10:45)
[2017-06-16] MEDS ORDERED: LACTCHW3 CHEW (10:45)
[2017-06-16] MEDS ORDERED: METR-1 PO (10:45)
[2017-06-16] MEDS ORDERED: COUM3TAB PO (10:45)
[2017-06-16] MEDS ORDERED: METO25TA3 PO (10:45)
[2017-06-16] MEDS ORDERED: ENAL2.5T PO (10:45)
[2017-06-16] MEDS ORDERED: DILT240C44 PO (10:45)
--- NOTE | 2017-06-16 10:50 | HHI.DS ---
Discharge Summary Admission Date Jun 11, 2017 at 22:31 Discharge Date: Jun 16, 2017 Admitting Diagnosis sepsis hypoglycemia uti afrvr (1) Metabolic encephalopathy ICD Code: G93.41 - Metabolic encephalopathy Status: Resolved (2) Hypoglycemia ICD Code: E16.2 - Hypoglycemia, unspecified (3) UTI (urinary tract infection) ICD Code: N39.0 - Urinary tract infection, site not specified (4) Atrial fibrillation with RVR ICD Code: I48.91 - Unspecified atrial fibrillation (5) MARTHA (acute kidney injury) ICD Code: N17.9 - Acute kidney failure, unspecified (6) DNR (do not resuscitate) ICD Code: Z66 - Do not resuscitate Procedures none Brief History - From Admission This is an 81-year-old female with a PMH of HTN, A. fib on Coumadin, CAD and DM who was brought to the ER by EMS secondary to weakness and AMS. Per family, pt somnolent and confused. BS 39 per EMS and Temp 101, s/p D10 w/ improvement in mentation. Daughter denies fever/chills or recent illness. On arrival, BP 135/ 63, HR 152 in A. fib, Afebrile. S/p Cardizem IV in ER and started on Cardizem gtt. CBC essentially unremarkable. Melyssa 1.60, producing 1.06 on 12/08/16. Lactic Acid 3.2. Troponin negative. INR 1.8. UA positive for UTI. Digoxin 1.3. CXR with probable distended stomach causing left basilar atelectasis. CT Head with no acute findings, old right occipital infarct stable. S/p Blood/ Urine Cultures, IV Cefepime in ER. CBC/BMP: 06/14/17 0707 06/14/17 0707 Significant Findings Laboratory Tests Test 06/13/17 12:10 06/14/17 07:07 06/15/17 10:20 06/16/17 05:37 Red Blood Count 3.52 MIL/MM3 (4.00-5.30) 3.52 MIL/MM3 (4.00-5.30) Hemoglobin 10.5 GM/DL (11.6-15.3) 10.6 GM/DL (11.6-15.3) Hematocrit 33.2 % (35.0-46.0) 32.9 % (35.0-46.0) Mean Corpuscular Hemoglobin Concent 31.6 % (32.0-36.0) Neutrophils (%) (Auto) 72.5 % (16.0-70.0) Monocytes (%) (Auto) 10.2 % (0.0-8.0) 11.9 % (0.0-8.0) Prothrombin Time 18.8 SEC (9.8-11.6) 19.4 SEC (9.8-11.6) 25.0 SEC (9.8-11.6) 27.2 SEC (9.8-11.6) Blood Urea Nitrogen 21 MG/DL (7-18) Albumin 2.3 GM/DL (3.4-5.0) Phosphorus Level 1.2 MG/DL (2.5-4.9) Chloride Level 112 MEQ/L (98-107) Estimat Glomerular Filtration Rate 72 ML/MIN (>89) Imaging Last Impressions Head CT 06/11/171931 Signed Impressions: Service Date/Time: May 20:33 - CONCLUSION: 1. No acute findings in the brain. 2. 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 Mauricio Meza MD Chest X-Ray 06/11/171931 Signed Impressions: Service Date/Time: May 20:39 - CONCLUSION: Probable distended stomach causing left basilar atelectasis. Mauricio Meza MD PE at Discharge GENERAL: SKIN: Warm and dry. HEAD: Normocephalic. EYES: No scleral icterus. No injection or drainage. NECK: Supple, trachea midline. No JVD or lymphadenopathy. CARDIOVASCULAR: Irregular Regular rate and rhythm without murmurs, gallops, or rubs. RESPIRATORY: Breath sounds equal bilaterally. No accessory muscle use. GASTROINTESTINAL: Abdomen soft, non-tender, nondistended. MUSCULOSKELETAL: No cyanosis, or edema. BACK: Nontender without obvious deformity. No CVA tenderness. Hospital Course Patient admitted secondary to metabolic encephalopathy secondary to UTI for which she was started on IV antibiotics with monitor culture. She was subsequently switched to by mouth prior to discharge. Patient was also treated for atrial fibrillation with RVR for which cardiology was consulted. She was initially started on IV Cardizem drip and subsequently switched to by mouth Cardizem along with Lopressor 25 mg twice a day which was added and patient was continued on digoxin. A low-dose WALESKA inhibitor was also added to her regiment. She was also treated for C. difficile diarrhea with Flagyl and would be discharged on antibiotics 10 more days. Secondary to episode of hypoglycemia patient was treated with initially D10 water which was subsequently switched to D5 and discontinue when patients conditions improved. DVT and GI prophylaxis were provided with monitoring of Coumadin INR. On discharge patient INR 2.7 therefore Coumadin will be held today 06/16/17. Pt Condition on Discharge: Stable Discharge Disposition: Disch w/ Home Health Serv Discharge Time: > 30 minutes Discharge Instructions DIET: Follow Instructions for: Heart Healthy Diet Activities you can perform: Regular-No Restrictions Follow up Referrals: Cardiology PCP Follow-up - 1 Week New Orders: PT/INR - 2 Days New Medications: Lactobacillus Acidophilus (Lactinex) 1 Chew 1 TAB CHEW BID for Nutritional Supplement, #60 TAB 0 Refills Diltiazem CD 24 HR (Diltiazem CD 24 HR) 240 Mg Caper 240 MG PO DAILY for Regulate Heart Beat, #30 CAP 3 Refills Enalapril (Enalapril) 2.5 Mg Tab 2.5 MG PO DAILY for Regulate Heart Beat, #30 TAB 3 Refills Metoprolol Tartrate (Metoprolol Tartrate) 25 Mg Tab 25 MG PO Q12HR for Regulate Heart Beat, #60 TAB 3 Refills Metronidazole (Flagyl) 500 Mg Tab 500 MG PO Q8HR for Infection, #30 TAB Nitrofurantoin Monohydrate Macrocrystals (Nitrofurantoin Monohydrate Macrocrystals) 100 Mg Cap 100 MG PO BIDPC for Infection, #14 CAP Warfarin (Coumadin) 3 Mg Tab 3 MG PO DAILY@1600 for Prevent Blood Clot, #30 TAB Continued Medications: Digoxin (Digoxin) 0.125 Mg Tab 0.125 MG PO DAILY for Regulate Heart Beat, #30 TAB 0 Refills Furosemide (Lasix) 40 Mg Tab 40 MG PO DAILY, #30 TAB 0 Refills Potassium Chloride ER (Potassium Chloride ER) 10 Meq Cap 10 MEQ PO DAILY for Electrolyte Replacement, #30 CAP 0 Refills Primidone (Primidone) 50 Mg Tab 50 MG PO TID for Control Seizures, #60 TAB 0 Refills Discontinued Medications: Bisacodyl Supp (Dulcolax Supp) 10 Mg Supp 10 MG RECTAL DAILY PRN for CONSTIPATION, #12 SUPP 0 Refills Diltiazem CD 24 HR (Cardizem CD 24 HR) 240 Mg Caper 240 MG PO DAILY for afib, #30 CAP 0 Refills Warfarin (Warfarin) 5 Mg Tab 5.5 MG PO DAILY for Blood Clot Prevention, #30 TAB 0 Refills Yfn Dodd MD Jun 16, 2017 10:50
[2017-06-16] MEDS ORDERED: NITROFURANTOIN MONOHYD MACROCR 100 MG CAP PO SCH (18:00)
== END 2017-06-16 15:43 | disposition hospice, home (50) | DRG 71 ==
LOC: NEPC 19:19 → NEDA 22:31 → HCIS 06-12 00:12
PROVIDERS: ADMIT Hospitalist; ATTEND Hospitalist
DX: G93.41 Metabolic encephalopathy (principal); N39.0 Urinary tract infection, site not specified; B96.20 Unspecified Escherichia coli [E. coli] as the cause of diseases classified elsewhere; N17.9 Acute kidney failure, unspecified; A04.72 Enterocolitis due to Clostridium difficile, not specified as recurrent; E11.649 Type 2 diabetes mellitus with hypoglycemia without coma; I48.2 Chronic atrial fibrillation; Z79.01 Long term (current) use of anticoagulants; E86.0 Dehydration; I42.9 Cardiomyopathy, unspecified; I10 Essential (primary) hypertension; E89.0 Postprocedural hypothyroidism; E07.81 Sick-euthyroid syndrome; E78.5 Hyperlipidemia, unspecified; D64.9 Anemia, unspecified; I25.10 Atherosclerotic heart disease of native coronary artery without angina pectoris; I73.9 Peripheral vascular disease, unspecified; Z66 Do not resuscitate; Z51.5 Encounter for palliative care; M19.90 Unspecified osteoarthritis, unspecified site
CPT/HCPCS: 70450; 71010; 76937; 80053; 80162; 81001; 82140; 82550; 82948; 83605; 83735; 84100; 84443; 84484; 85025; 85610; 87040; 87077; 87086; 87186; 87493; 93005; 96365; 96367; 96375; J0692; J3480; J7030; J7040; J7042; P9612